=== PATIENT | female | born 1950 | race Caucasian/White ===

== ENCOUNTER → 2018-04-27 10:07 | Outpatient (CLI) | payer BC, SELFPAY ==
[2014-03-29 12:36] VITALS: BMI 31.3
--- NOTE | 2018-04-27 10:14 | US_ITS ---
STUDY: THYROID ULTRASOUND REASON FOR EXAM: Female, 67 years old. Thyroid nodules. History of thyroid biopsy 2013. Follow-up. TECHNIQUE: Ultrasound evaluation of the thyroid was performed with real-time and static lundberg-scale imaging. COMPARISON: 12/22/2014, 06/13/2013 ultrasound thyroid. FINDINGS: RIGHT LOBE: The right thyroid measures 5.1 x 2.0 x 1.7 cm. Background echotexture and vascularity are normal. Nodules are present. 3. Nodules, 7 x 7 x 6 mm, 7 x 5 x 4 mm, 4 x 3 x 2 mm. These exhibit perinodular vascular flow. One of these nodules a spongiform, stable. Another cystic focus has diminished in size. The 3rd nodule is solid. LEFT LOBE: The left thyroid measures 5.5 x 2.2 x 2.3 cm. Background echotexture is homogeneous with normal vascularity. Multiple nodules are present superior pole, mid polar, lower pole. Dominant nodule 16 x 15 x 7 mm, solid, minimal cystic spaces, tiny echo reflectors, intranodular vascular flow. Not substantially changed in size. Dominant nodule 12 x 10 x 12 mm, macrolobulated margins, solid, heterogeneously isoechoic to surrounding thyroid. Not substantially changed in size. 9 x 8 x 6 mm spongiform nodule. Diminished in size. 5 x 5 x 3 mm solid nodule. Stable. ISTHMUS: The isthmus measures 3 mm, normal echotexture . US/Thyroid IMPRESSION: Bilateral thyroid nodules. No significant increase in size of the dominant nodules. The small nodules on the right may be followed sonographically for surveillance purposes. Dominant nodule on the left measuring 16 x 15 x 7 mm. Based on [place] [employer] Guidelines for assessment of thyroid nodules, this nodule falls into the high suspicion pattern based on part cystic, predominately solid, tiny microcalcifications. Ultrasound guided FNA biopsy typically recommended if the greatest dimension is over 1 cm. The absence of any significant change since imaging of 2014 suggests a follow-up surveillance imaging remains appropriate. Dominant left nodule measuring 12 x 10 x 12 mm, solid, predominantly isoechoic. Based on the [place] [employer] Guidelines for assessment of thyroid nodules this falls into the low suspicion pattern. Typically with greatest dimension less than 1.5 cm, biopsy would not be necessary. Based on stability since prior imaging, continued surveillance imaging is appropriate. It is unknown which nodule was previously biopsied. Electronically Signed: Germán Leavitt MD at 11:55 EST Tel , Service support ,
== END ==
PROVIDERS: Family Provider Internal Medicine; PCP Internal Medicine; Referring Provider Internal Medicine; Visit Provider Internal Medicine
DX: E04.1 Nontoxic single thyroid nodule (principal)
CPT/HCPCS: 76536

== ENCOUNTER → 2018-05-18 16:45 | Outpatient (CLI) | payer BC, SELFPAY ==
[2018-05-07 09:46] VITALS: BMI 31.3
--- NOTE | 2018-05-18 16:49 | CT_ITS ---
STUDY: CT ABDOMEN AND PELVIS WITH CONTRAST REASON FOR EXAM: Female, 67 years old. Abdominal pain. History of incisional hernia. RADIATION DOSAGE (If Supplied By Facility): CTDIvol = ( 18.15 ) mGy, DLP = ( 964.62 ) mGycm TECHNIQUE: Transaxial images were obtained from the dome of the diaphragm to the symphysis pubis without oral contrast. 100ML ml of Isovue 300 contrast was administered. Sagittal and coronal images were reconstructed. Individualized dose optimization techniques were used for this CT. COMPARISON: None. FINDINGS: The visualized lung bases are clear. The visualized portions of the heart and pericardium are within normal limits. The patient is status post cholecystectomy. There are subcentimeter hypodensities in the liver which are too small to characterize. However, these likely represent cysts. The spleen is normal in size. The pancreas is within normal limits. The adrenal glands are within normal limits. There are no renal or ureteral stones. There is no hydronephrosis. There are parapelvic cysts noted in the kidneys. Normal visualized stomach. There is no bowel obstruction or inflammation. The appendix is visualized and appears normal. There are postsurgical changes noted from prior ventral hernia repair. There is no evidence of a recurrent hernia at the postsurgical site. There is a 6.2 x 3.1 x 2.8 cm fat containing ventral hernia in the midline in the upper abdomen. There is no bowel containing hernia. The aorta is normal in caliber. There is no abdominal or pelvic free air, free fluid, fluid collection or lymphadenopathy. The patient is status post hysterectomy. There are no destructive osseous lesions. CT/Abdomen/Pelvis WITH Contrast IMPRESSION: 6.1 x 3.1 x 2.8 cm fat-containing hernia in the midline of the upper abdominal wall. No bowel containing hernia. Postsurgical changes from prior ventral hernia repair. No evidence of a recurrent hernia at the postsurgical site. No bowel obstruction or inflammation. Normal appendix. Electronically Signed: Rashawn Manjarrez, at 17:50 EST Tel , Service support ,
[2018-05-19 01:37] LABS: CREATININE FINGERSTICK 1.2 mg/dL (0.55-1.02)
== END ==
PROVIDERS: Family Provider Internal Medicine; PCP Internal Medicine; Referring Provider Surgery; Visit Provider Surgery
DX: K43.2 Incisional hernia without obstruction or gangrene (principal)
CPT/HCPCS: 74177; Q9967

== ENCOUNTER → 2018-05-20 07:58 | Outpatient (CLI) | payer BC, SELFPAY ==
[2018-05-07 09:46] VITALS: BMI 31.3
--- NOTE | 2018-05-20 08:00 | BI_ITS ---
MAMMOGRAPHY - BILATERAL SCREENING REASON FOR EXAM: Female, 67 years old. Routine annual screening examination. PERTINENT HISTORY: Non-contributory. TECHNIQUE: Digital bilateral breast kaci (3D mammographic acquisition) in the CC and MLO projections. 2-D mediolateral oblique (MLO) and craniocaudad (CC) views of both breasts were obtained. CAD: Full Field Digital Mammography with Computer Added Detection was performed. COMPARISON: Comparison is made with prior study dated December 22, 2014. FINDINGS: Breast Composition: There are scattered areas of fibroglandular density. There are no dominant masses or suspicious calcifications. Stable 4.4 mm x 5.4 mm well-defined nodule in the upper lateral portion of the left breast. This may represent either small lymph node or a small cyst. Correlation with ultrasound is recommended. Stable small bilateral axillary lymph nodes. No other significant abnormalities are identified. There has been no significant change since the prior study. BI/SCREENING MAMM (CAD), BILAT IMPRESSION: Stable bilateral screening mammogram. Yearly follow-up mammogram recommended. (A) ASSESSMENT CATEGORY: BIRADS Category 0: Incomplete. Need additional imaging evaluation. A letter regarding these results will be sent to the patient by the facility within 30 days. Approximately 10% of breast cancers are not detected by mammography. A normal mammogram should not delay biopsy of a clinically suspicious abnormality. [id number] Electronically Signed: Kenan Ma MD at 9:07 EST , Service support ,
== END ==
PROVIDERS: Family Provider Internal Medicine; PCP Internal Medicine; Referring Provider Internal Medicine; Visit Provider Internal Medicine
DX: Z12.31 Encounter for screening mammogram for malignant neoplasm of breast (principal)
CPT/HCPCS: 77063; 77067

== ENCOUNTER → 2018-05-21 09:21 | Outpatient (CLI) | payer BC, SELFPAY ==
[2018-05-07 09:46] VITALS: BMI 31.3
[2018-05-21 08:59] VITALS: BMI 31.3
--- NOTE | 2018-05-21 09:22 | US_ITS ---
STUDY: ULTRASOUND BREAST - LEFT REASON FOR EXAM: Female, 67 years old. Abnormal screening mammogram. TECHNIQUE: Axial and longitudinal images of the LEFT breast were performed with a high resolution ultrasound transducer. COMPARISON: Comparison is made with prior mammogram dated May 20, 2018. FINDINGS: LEFT Breast: The mammographic abnormality corresponds to a 5 mm x 4 mm x 3 mm benign-appearing lymph node at the 1:00 position in the breast at 6 cm from the nipple. US/Breast Limited Unilateral IMPRESSION: The mammographic abnormality corresponds to a 5 mm x 4 mm x 3 mm benign-appearing lymph node. ASSESSMENT CATEGORY: BIRADS Category 2: Benign. A letter regarding these results will be sent to the patient by the facility within 30 days. Electronically Signed: Kenan Ma MD at 13:29 EST , Service support ,
== END ==
PROVIDERS: Family Provider Internal Medicine; PCP Internal Medicine; Referring Provider Internal Medicine; Visit Provider Internal Medicine
DX: R92.8 Other abnormal and inconclusive findings on diagnostic imaging of breast (principal)
CPT/HCPCS: 76642

== ENCOUNTER → 2018-05-27 11:25 | Outpatient (CLI) | payer BC, SELFPAY ==
[2018-05-25 09:24] VITALS: BMI 31.3
[2018-05-27 12:51] LABS: Absolute Lymphocyte Count 1.69 X10^3/ul (0.83-4.51); Absolute Neutrophil Count 4.2 X10^3/uL (2.0-7.7); Basophil# 0.02 X10^3/uL; Basophil% 0.3 % (0-1); Eosinophil# 0.07 X10^3/uL; Eosinophils% 1.1 % (0-5); Hematocrit 39.6 % (37-47); Hemoglobin 12.6 g/dl (12.0-15.0); Lymphocyte # 1.69 X10^3/ul (4.0); Lymphocyte % 26.4 % (19-41); Mean Corp Hgb Conc 31.8 g/gl (32-36); Mean Corpuscular Hgb 31.8 pg (27.0-32.0); Monocyte# 0.37 X10^3/uL; Monocyte% 5.8 % (0-10); Neutrophil # 4.23 X10^3/uL (2.7-7.7); Neutrophil % 66.2 % (47-70); Platelet Count 328 K/mm3 (150-450); RBC Distribution Width CV 13.5 % (11.6-14.6); RBC Distribution Width SD 48.8 fl (35.1-43.9); Red Blood Count 3.96 M/mm3 (4.2-5.4); White Blood Count 6.4 K/mm3 (4.4-11.0)
[2018-05-27 12:52] LABS: POSITIVE COUNT NO; POSITIVE DIFFERENTIAL NO; POSITIVE MORPHOLOGY NO
[2018-05-27 13:06] LABS: Microalbumin,Random Urine 12.1 mg/L (NO RANGE EST.); Microalbumin:Creatinine Ratio 10.6 mg/g CRE (<30 mg/g CRE)
[2018-05-27 13:17] LABS: Vitamin D,25 Hydroxy 14.2 ng/mL (29.95-100.01)
[2018-05-27 13:18] LABS: ALB/GLOB Ratio 0.8 RATIO (0.9-2.4); AST(SGOT) 22 U/L (15-37); Alanine Aminotransfer ALT/SGPT 30 U/L (13-56); Albumin, Serum 3.5 g/dL (3.2-5.0); Alkaline Phosphatase 96 U/L (45-117); Anion Gap 6 (5-15); BUN 17 mg/dL (7-18); BUN/Creat Ratio 28.5 RATIO (10-20); Calcium,Total 8.6 mg/dL (8.5-10.1); Chloride 107 mmol/L (98-107); EST Glomerular Filtration Rate 106 mL/min (>60); Est Glom Filt Rate - Afr Amer 128 mL/min (>60); Free T3 3.2 pg/mL (2.18-3.98); Globulin 4.2 g/dL (2.2-4.2); Glucose 91 mg/dL (74-106); Potassium 3.8 mmol/L (3.5-5.1); Protein, Total 7.7 g/dL (6.4-8.2); Sodium Level 139 mmol/L (136-145); T4 Free Direct 0.96 ng/dL (0.76-1.46); Thyroid Stim Hormone (TSH) 1.01 uIU/mL (0.358-3.74)
[2018-05-28 16:08] LABS: CHOLESTEROL TOTAL 283 mg/dL (100-199); HDL-C 71 mg/dL (>39); HDL-P TOTAL 40.2 umol/L (>=30.5); SMALL LDL-P 325 nmol/L (<=527); TRIGLYCERIDES 160 mg/dL (0-149)
[2018-05-30 10:12] LABS: INSULIN RESISTANCE SCORE 45 (<=45); LDL SIZE 21.7 nm (>20.5); LDL-C 180 mg/dL (0-99); LDL-P 1760 nmol/L (<1000)
== END ==
PROVIDERS: Family Provider Internal Medicine; PCP Internal Medicine; Referring Provider Internal Medicine; Visit Provider Internal Medicine
DX: R73.09 Other abnormal glucose (principal); E04.1 Nontoxic single thyroid nodule; E55.9 Vitamin D deficiency, unspecified; E78.5 Hyperlipidemia, unspecified
CPT/HCPCS: 80053; 80061; 82043; 82306; 82570; 83704; 84439; 84443; 84481; 85025

== ENCOUNTER 2018-05-28 06:00 | Day surgery (SDC) | payer BC, SELFPAY ==
[2018-05-25 09:24] VITALS: BMI 31.3
--- NOTE | 2018-05-27 11:45 | EKG12_ITS ---
Test Reason : PREOP Blood Pressure : / mmHG Vent. Rate : 068 BPM Atrial Rate : 068 BPM P-R Int : 148 ms QRS Dur : 092 ms QT Int : 416 ms P-R-T Axes : 004 -37 -08 degrees QTc Int : 442 ms Normal sinus rhythm Left axis deviation Incomplete right bundle branch block Confirmed by CAITIE SHAH, SPEEDY ([id number]), editor & co founder NARCISO OLGUIN ([id number]) on 05/31/2018 1:54:24 PM Referred By: Kevon Vincent Confirmed By:SPEEDY BLOOD MD
[2018-05-27 13:07] LABS: Hemoglobin A1c 6.2 % (4.2-6.3)
[2018-05-27 13:17] LABS: AST(SGOT) 20 U/L (15-37); Alanine Aminotransfer ALT/SGPT 30 U/L (13-56); Albumin, Serum 3.8 g/dL (3.2-5.0); Alkaline Phosphatase 96 U/L (45-117); Anion Gap 6 (5-15); BUN 17 mg/dL (7-18); Calcium,Total 8.6 mg/dL (8.5-10.1); Chloride 107 mmol/L (98-107); Creatinine, Serum 0.66 mg/dL (0.55-1.02); EST Glomerular Filtration Rate 95 mL/min (>60); Est Glom Filt Rate - Afr Amer 115 mL/min (>60); Glucose 93 mg/dL (74-106); Potassium 3.7 mmol/L (3.5-5.1); Protein, Total 7.8 g/dL (6.4-8.2); Sodium Level 139 mmol/L (136-145)
[2018-05-28 06:21] VITALS: BP 127/60; PULSE 72; RESP 14; TEMP 36.2; O2SAT 96; BMI 32.4
[2018-05-28] MEDS: Cefazolin 2 GM in 0.9% Normal Saline 100 ML IV (07:58)
[2018-05-28] MEDS: BUPIVACAINE LIPOSOME/PF 20 ML VIAL OPERA.SITE (08:10)
--- NOTE | 2018-05-28 08:30 | DCINST_ITS ---
Discharge Diet: Light diet - advance as tolerated Discharge Activity: Return to Normal Activity, May Drive - when you are no longer taking narcotic pain medications., May Shower - with the bandage in place 1-2 days after surgery. Lifting Restrictions: 20 pounds for 8 weeks. Additional Activity Instructions:: Climbing stairs is fine, walking is encouraged. Sitting in bed may be uncomfortable. Sitting up using your lateral muscles (sitting up sideways) is usually more comfortable. Do not drive, work heavy equipment of sign legal documents for 24 hours. If your hernia repair was an ingunial repair, you may have scrotal swelling, an ice pack and/or athletic support can provide more comfort. Pain medications may cause nausea, you should typically eat light foods as you take your pain medications. Pain medications may also cause constipation. If you have difficulty with this, discuss with your doctor. Call your doctor if your incision/area has: Continuous Slow Oozing, Sudden Increased Bleeding, Increased Pain/ Swelling, Increased Redness, Foul Smelling Discharge Call your doctor if you observe: Fever of 101 or Higher Suture Line Care: Avoid Pulling/Pushing, Avoid Pinching/Bending Additional Dressing/Incision Instructions:: Leave the operative bandage on for 2-3 days. When you remove the bandage, leave the steri-strips on place until your follow up appointment or they fall off. Allergies/Adverse Reactions: Allergies hydrocodone Adverse Reaction (Verified 05/28/18 06:34) Nausea Medications to take at Discharge Oxycodone HCl/Acetaminophen [Percocet 5/325] 1 - 2 tab PO Q4H PRN PRN 6 Days #30 tab 05/28/18 The following prescriptions were given: Oxycodone HCl/Acetaminophen [Percocet 5/325] 1 - 2 tab PO Q4H PRN PRN 6 Days #30 tab PRN Reason: Pain Orders to be completed after discharge: 12 Lead EKG [[facility]] Time Frame: 05/26/18, Facility: [facility], Location: Cardiovascular Services Hemoglobin A1c Time Frame: 05/26/18, Location: Laboratory Basic Metabolic Profile (BMP) Time Frame: 05/26/18, Location: Laboratory Primary Care Physician: Carlota Easton DO [Primary Care Provider] - Test Results: Test results from this visit will be discussed in further detail at your follow- up appointment, if applicable. Please Follow Up With: Kevon Vincent MD - [phone] When: Plan to have a follow up appointment in 7 days. Call to schedule.
--- NOTE | 2018-05-28 08:35 | OP.PCM_ITS ---
Problem List (1) Incarcerated incisional hernia Status: Acute Report of Operation Date of Procedure: 05/28/18 Pre-Operative Diagnosis: Incarcerated incisional hernia Post-Operative Diagnosis: Same Surgery/Procedure Performed:: Repair of incarcerated incisional hernia with mesh Type of Anesthesia:: General Anesthesiologist: Eladio Hudson Drains: none Estimated Blood Loss (mL): < 25 cc Fluids Replaced: 500 cc lr Description of Procedure: Patient was brought into the operating room placed in the supine position. Under excellent general trach intubation the abdomen was sterilely prepped and draped in usual fashion. Local was injected. A transverse incision was made above the umbilicus. Dissection was carried down incarcerated incisional hernia easily reduced and I was left with a defect that was approximately 2-1/2 cm in greatest diameter. I created a preperitoneal window. This was done circumferentially underneath and around the fascia. I fashioned a [address] hernia patch into the wound it laid completely flat. Circumferentially tacked it to the surrounding good fascia with #1 Nurolon's. Exparel was injected. I had excellent hemostasis. Subcu was brought together with 2-0 Vicryl. Deep dermal stitches of 3-0 Vicryl. Then a running 4-0 Monocryl Steri- Strips were applied sterile dressings were applied and the patient tolerated the procedure well. - Admit VTE Documentation VTE Present on Admission: No VTE Mechan Device Prophylaxis: SCD's VTE Pharm Prophylaxis ordered?: No Reason prophylaxis not ordered:: Treatment Not Indicated
[2018-05-28 08:50] VITALS: BP 127/60; BP 136/67; PULSE 85; RESP 12; TEMP 36.2; O2SAT 93
[2018-05-28 09:00] VITALS: BP 127/60; BP 128/65; PULSE 81; RESP 14; O2SAT 92
[2018-05-28 09:15] VITALS: BP 120/60; BP 127/60; PULSE 83; RESP 16; O2SAT 95
[2018-05-28 09:29] VITALS: BP 108/55; BP 127/60; PULSE 78; RESP 14; TEMP 36.2; O2SAT 95
[2018-05-28 11:49] VITALS: BP 127/60; BP 137/58; PULSE 67; RESP 16; TEMP 36.6; O2SAT 94
== END 2018-05-28 11:54 | disposition home or self-care (01) ==
LOC: SDC 06:03 → AC 06:05
PROVIDERS: Family Provider Internal Medicine; PCP Internal Medicine; Referring Provider Surgery; Visit Provider Surgery
PROC: (CPT 49561; principal; 2018-05-28 07:45)
DX: K43.0 Incisional hernia with obstruction, without gangrene (principal); R73.03 Prediabetes; Z87.891 Personal history of nicotine dependence
CPT/HCPCS: 00832; 49561; 49568; 36415; 80053; 83036; 93005; J7120; C1781; J2405; J3490

== ENCOUNTER → 2018-11-01 | Outpatient (CLI) | payer BC, SELFPAY ==
--- NOTE | 2018-11-01 17:06 | RAD_ITS ---
HISTORY: PAIN IN LEFT KNEE. NO KNOWN INJURY. ADDITIONAL HISTORY: None provided. COMPARISON: None TECHNIQUE: Left knee 4 views Number of images including paperwork: 4 FINDINGS: BONES: No acute fracture. JOINTS: No subluxation. Mild medial compartment joint space narrowing. Tiny patellar osteophyte. Small left knee joint effusion. SOFT TISSUES: No distinct foreign body. RAD/Knee 4 or More Views IMPRESSION: No acute osseous abnormality. Small left knee joint effusion. at 0643 Reported and signed by: Sandra Delacruz MD Electronically Signed: Sandra Delacruz MD at 6:43 EDT Tel , Service support ,
== END | disposition home or self-care (01) ==
PROVIDERS: Family Provider Internal Medicine; PCP Internal Medicine; Referring Provider Nurse Practitioner; Visit Provider Nurse Practitioner
DX: M25.562 Pain in left knee (principal)
CPT/HCPCS: 73564

== ENCOUNTER → 2018-11-03 08:02 | Outpatient (CLI) | payer BC, SELFPAY ==
--- NOTE | 2018-11-03 08:05 | VDLE_ITS ---
Reason For Study: Pain RIGHT LEFT CFV is compressible, spontaneous, phasic, GSV is normal. competent and demonstrates normal CFV is compressible, spontaneous, phasic, augmentation. competent, and demonstrates normal Procedure augmentation. Exam performed in department. FV is compressible, spontaneous, phasic, A preliminary report was called and/or faxed competent and demonstrates normal to Ciesa. augmentation. POP V is compressible, spontaneous, phasic, competent and demonstrates normal augmentation. T/P Trunk is compressible. PTV is compressible. LT PerV is compressible. Interpretation Summary Deep veins of the left lower extremity are patent and compressible segmentally. There is no evidence of left lower extremity deep vein thrombosis. Valvular competence appears intact within the proximal deep venous system on the left . The left greater saphenous vein appears patent and compressible segmentally. Ordering Physician: Taylor Guaman Referring Physician: Carlota Eatson M.D. Performed By: Ilda Mcdonald RVT
== END ==
PROVIDERS: Family Provider Internal Medicine; PCP Internal Medicine; Referring Provider Nurse Practitioner; Visit Provider Nurse Practitioner
DX: M25.562 Pain in left knee (principal); M79.662 Pain in left lower leg
CPT/HCPCS: 93971

== ENCOUNTER → 2020-04-27 12:31 | Outpatient (CLI) | payer BC, SELFPAY ==
--- NOTE | 2020-04-27 12:40 | BI_ITS ---
MAMMOGRAPHY - BILATERAL SCREENING REASON FOR EXAM: Female, 69 years old. Routine annual screening examination. PERTINENT HISTORY: Non-contributory. TECHNIQUE: Digital bilateral breast matthew (3D mammographic acquisition) in the CC and MLO projections. 2-D mediolateral oblique (MLO) and craniocaudad (CC) views of both breasts were obtained. CAD: Full Field Digital Mammography with Computer Added Detection was performed. COMPARISON: Comparison is made with prior study dated 05/20/2018 and 12/22/2014. FINDINGS: Breast Composition: There are scattered areas of fibroglandular density. There are no dominant masses or suspicious calcifications. Stable 4 mm x 4.4 mm well-defined nodule in the upper lateral portion of the left breast. This was demonstrated to be a small benign-appearing lymph node on prior sonogram. Stable small benign appearing bilateral axillary lymph nodes. No other significant abnormalities are identified. There has been no significant change since the prior study. BI/SCRN MAMM (CAD)W/MATTHEW BILAT IMPRESSION: Stable bilateral screening mammogram. Yearly follow-up mammogram recommended. (A) ASSESSMENT CATEGORY: BIRADS Category 2: Benign. A letter regarding these results will be sent to the patient by the facility within 30 days. Approximately 10% of breast cancers are not detected by mammography. A normal mammogram should not delay biopsy of a clinically suspicious abnormality. [id number] Electronically Signed: Kenan Ma MD at 13:28 EST , Service support ,
== END ==
PROVIDERS: PCP Internal Medicine; Referring Provider Internal Medicine; Visit Provider Internal Medicine
DX: Z12.31 Encounter for screening mammogram for malignant neoplasm of breast (principal)
CPT/HCPCS: 77063; 77067

== ENCOUNTER 2020-07-09 11:30 | Outpatient (RCR) | payer BC, SELFPAY ==
--- NOTE | 2020-06-19 08:18 | HP.PTEVAL_ITS ---
Patient's Visit Information GEMMA CERON is a 69 year old F referred to Physical Therapy by Dr. Carlota Easton DO with a diagnosis of R Sciatica. Date of Evaluation: 06/19/20 Physical Therapist: KINZA Dixon - Visit Plan Frequency: 2x /Week Duration: 4 Weeks Plan: 2X/ week for 4 weeks for stretching and MT to the R piriformis, ext mobs of L spine if needed, centralization of symptoms using extension, Core stability, postural exercises, R hip strength, R hip and LE stretching with HEP and modalities if needed - Subjective Pt reports that she has never had sciatica problems. She thought that she was just having a back spasm. This has been 3.5 weeks.... thought was having a muscle spasm and then down the butt cheek and then down the leg and radiated in front of knee. She reports that she was soaking in Epsom salts, Heat, IBprof, Alieve all on her back. Dr Easton put her on prednizone and 3 extra strength Tylenol.... can not function when the Tylenol wears off. The pain is easing off. Currently she has pain in her back and goes down to her knee...and the pain feels dull and if she touches her knee and will feel it radiate and it throbs. She has no Numbness or tingling. She has had no x-rays or MRI. No loss of bowl or bladder. It does not keep her awake at night. She has trouble doing up the steps and can not put pressure through the R leg. She is not doing any exercises. - Pain Back pain Pain Intensity (Out of 10): 5 R leg pain Pain Intensity (Out of 10): 6 - Objective Gait: Normal gait pattern with some veering at times. Able to walk on heels and toes but does have trouble due to balance not strength. Trunk AROM: flexion 75%, Ext 75%, SB B 75%, Rot B 50%. LE MMT: B hip flex 4-/5, B knee ext 4/5, B knee flex 4/5, R hip abd 4-/5, L hip abd 4/5. Good HS length, Quad length B. Tight R pififormis and IT band, TFL. Palpation: no tenderness along L-spine but has some tenderness along the R side of sacrum and pififormis muscle. Prone press ups 3 X 5 ( pt felt the pain in her knee when infull extension but resolved when come back to prone position). Instructed pt in si tting with good posture with L-roll. Worked on PRONE IR/ER of the hip with trigger points along the R side of sacrum and piruiformis muscle belly. Pt felt better when walking out of the clinic - Goals Goal 1:: I HEP Goal Time Frame: 4-6 Weeks Goal 2:: Decrease back and R leg pain to less that 2/10 back and leg pain with ADL's Goal Time Frame: 4-6 Weeks Goal 3:: Be able to sit with better posture during treatment sessions Goal Time Frame: 4-6 Weeks Goal 4:: Increase R hip abd and flexion strength to 4/5 without pain Goal Time Frame: 4-6 Weeks - Rehabilitation Potential Rehabilitation Potential: Good - Anticipated Interventions Patient/Client Instruction: Educate patient on: Condition, Plan of Care For the Purpose of:: To decrease pain, To increase ROM, To improve nutrient delivery to tissue, To improve muscle performance and motor function, To increase tolerance to activity/condition/position, To improve performance and independence with ADL's, To decrease level of supervision to perform tasks, To improve ability of physical actions for home/community/work/leisure, To improve health of tissue, To decrease soft tissue restriction, To increase flexibility/ROM Therapeutic Exercise to Include: Strength training, Balance training, Postural t raining, Flexibilty training, Gait and locomotor training, Neuromotor development, Passive ROM, Active ROM, Dynamic Lumbar Stabilization, Celina Exercises, Scapular Strength/Stabilization For the Purpose of:: To decrease pain, To increase ROM, To improve nutrient delivery to tissue, To improve muscle performance and motor function, To improve ability to perform ADL's, To increase tolerance to activity/condition/position, To improve performance and independence with ADL's, To decrease level of supervision to perform tasks, To improve ability of physical actions for ho me/community/work/leisure, To improve gait and locomotor functions, To improve health of tissue, To decrease soft tissue restriction, To increase flexibility/ROM, To improve balance, To improve safety with gait Manual Therapy Techniques to Include: Mobilization, Passive ROM, Soft tissue mobilization For the Purpose of:: To decrease pain, To increase ROM, To improve nutrient delivery to tissue, To improve muscle performance and motor function, To improve ability to perform ADL's, To increase tolerance to activity/condition/position, To improve performance and independence with ADL's, To improve ability of physical actions for home/community/work/leisure, To improve gait and locomotor functions, To improve health of tissue, To decrease soft tissue restriction, To increase flexibility/ROM, To improve balance IF ES: Yes Cryotherapy (ice pack, ice massage): Yes Thermo therapy (hot pack): Yes Ultrasound (thermal/non thermal): Yes For the Purpose of:: To decrease pain, To increase ROM, To improve nutrient delivery to tissue Thank you for the opportunity to evaluate your patient. For Medicare and Medicare HMO plans, please review the plan of care and approve it. It will need to be FAXED BACK to us at [phone] for Medicare purposes. For Medicare only, by signing this I certify the plan of care. Please let me know if there are questions or concerns regarding this plan of care. Physician Signature: Date:
--- NOTE | 2020-07-25 14:58 | HP.PTDCSUM ---
It has been my pleasure to treat GEMMA CERON referred by Dr. Carlota Easton DO, with the diagnosis of R Sciatica for a total of 6 visit(s). Discharge Date: 07/25/20 Please see the following information for a summary of their discharge status. Subjective: Pt feels 100% better. She wants a HEP and continue and will call in again if she starts having pain again. She is watching her posture and has to think about it. Back pain Pain Intensity (Out of 10): 0 R leg pain Pain Intensity (Out of 10): 0 % Improvement: 100 Objective/Function: Pt doing well and maintaing good posture and knowlegable of her HEP with good form. Goal 1:: I HEP Goal Progress: Goal Met Goal 2:: Decrease back and R leg pain to less that 2/10 back and leg pain with ADL's Goal Progress: Goal Met Goal 3:: Be able to sit with better posture during treatment sessions Goal Progress: Goal Met Goal 4:: Increase R hip abd and flexion strength to 4/5 without pain Goal Progress: Progressing Plan: Hold chart. Pt will call in within 2 weeks if she has any other problems. EDIT: pt called on 07-25-2020 and said she is doing wonderful and will continue with her HEP Discharge Comments: DC PT to HEP If there are questions or concerns regarding this patient's physical therapy, please feel free to call me at [phone]. Thank you for the referral of this patient. Sincerely, KINZA Dixon
== END 2020-07-09 19:00 | disposition home or self-care (01) ==
LOC: PT 11:30
PROVIDERS: PCP Internal Medicine; Referring Provider Internal Medicine; Visit Provider Internal Medicine
DX: M54.31 Sciatica, right side (principal)
CPT/HCPCS: 97110; 97161

== ENCOUNTER → 2020-11-26 09:11 | Outpatient (CLI) | payer BC, SELFPAY ==
[2020-11-26 12:11] LABS: Absolute Lymphocyte Count 1.47 X10^3/uL (0.83-4.51); Basophil# 0.03 X10^3/uL; Basophil% 0.5 % (0-1); Eosinophil# 0.09 X10^3/uL; Eosinophils% 1.5 % (0-5); Hemoglobin 12.3 g/dL (12.0-15.0); Lymphocyte # 1.47 X10^3/ul (0.83-4.51); Lymphocyte % 24.6 % (19-41); Mean Corp Hgb Conc 32.4 g/dL (32-36); Mean Corpuscular Hgb 32.1 pg (27.0-32.0); Mean Corpuscular Volume 99.2 fL (81-99); Mean Platelet Vol. 10.5 fl (6.2-12.0); Monocyte# 0.38 X10^3/uL; Monocyte% 6.4 % (0-10); NRBC Flagged by Analyzer 0 % (0-5); Neutrophil # 3.98 X10^3/uL (2.7-7.7); Neutrophil % 66.7 % (47-70); Platelet Count 382 K/mm3 (150-450); RBC Distribution Width CV 13.4 % (11.6-14.6); RBC Distribution Width SD 48.4 fl (35.1-43.9); Red Blood Count 3.83 M/mm3 (4.2-5.4)
[2020-11-26 12:32] LABS: ALB/GLOB Ratio 0.9 RATIO (0.9-2.4); AST(SGOT) 19 U/L (15-37); Alanine Aminotransfer ALT/SGPT 29 U/L (13-56); Albumin, Serum 3.5 g/dL (3.2-5.0); Alkaline Phosphatase 99 U/L (45-117); Anion Gap 6 (5-15); BUN 12 mg/dL (7-18); BUN/Creat Ratio 19.2 RATIO (10-20); Calcium,Total 8.7 mg/dL (8.5-10.1); Chloride 107 mmol/L (98-107); Cholesterol 239 mg/dL (200); Creatinine, Serum 0.62 mg/dL (0.55-1.02); EST Glomerular Filtration Rate 100 mL/min (>60); Est Glom Filt Rate - Afr Amer 121 mL/min (>60); Glucose 104 mg/dL (74-106); High Density Lipoprotein 66 mg/dL; Potassium 3.8 mmol/L (3.5-5.1); Protein, Total 7.5 g/dL (6.4-8.2); Sodium Level 139 mmol/L (136-145); Triglycerides 138 mg/dL; Very Low Density Lipoprotein 28 mg/dL (5-40)
== END ==
PROVIDERS: PCP Internal Medicine; Visit Provider Internal Medicine
DX: E78.5 Hyperlipidemia, unspecified (principal); M85.80 Other specified disorders of bone density and structure, unspecified site; R73.03 Prediabetes
CPT/HCPCS: 36415; 80053; 80061; 83036; 85025

== ENCOUNTER → 2020-12-04 09:01 | Outpatient (CLI) | payer BC, SELFPAY ==
--- NOTE | 2020-12-04 09:01 | EKG12_ITS ---
Test Reason : HTN,HLD Blood Pressure : / mmHG Vent. Rate : 064 BPM Atrial Rate : 064 BPM P-R Int : 148 ms QRS Dur : 088 ms QT Int : 434 ms P-R-T Axes : 024 -40 -14 degrees QTc Int : 447 ms Normal sinus rhythm Left axis deviation Inferior infarct , age undetermined Abnormal ECG Confirmed by LUIGI SHAH, IBRAHIMA ([id number]), editor farm journal JOSSE HUNTLEY ([id number]) on 12/05/2020 9:20:14 AM Referred By: Shiv Gaviria Confirmed By:IBRAHIMA MEYERS MD
== END ==
PROVIDERS: PCP Internal Medicine; Referring Provider Internal Medicine; Visit Provider Internal Medicine
DX: E78.5 Hyperlipidemia, unspecified (principal); I10 Essential (primary) hypertension
CPT/HCPCS: 93005

== ENCOUNTER 2021-05-09 13:26 | Outpatient (CLI) | payer BC, SELFPAY ==
--- NOTE | 2021-05-09 13:29 | BI_ITS ---
MAMMOGRAPHY - BILATERAL SCREENING REASON FOR EXAM: Female, 70 years old. Routine annual screening examination. PERTINENT HISTORY: Non-contributory. TECHNIQUE: Digital bilateral breast matthew (3D mammographic acquisition) in the CC and MLO projections. 2-D mediolateral oblique (MLO) and craniocaudad (CC) views of both breasts were obtained. CAD: Full Field Digital Mammography with Computer Added Detection was performed. COMPARISON: Comparison is made with prior study dated 04/27/2020 and 12/18/2018 FINDINGS: Breast Composition: There are scattered areas of fibroglandular density. There are no dominant masses or suspicious calcifications. Stable 4 mm x 4.4 mm well-defined nodule in the upper lateral aspect of the breast. Stable small benign-appearing bilateral axillary lymph nodes. No other significant abnormalities are identified. There has been no significant change since the prior study. BI/SCRN MAMM (CAD)W/MATTHEW BILAT IMPRESSION: Stable bilateral screening mammogram. Yearly follow-up mammogram recommended. (A) ASSESSMENT CATEGORY: BIRADS Category 2: Benign. A letter regarding these results will be sent to the patient by the facility within 30 days. Approximately 10% of breast cancers are not detected by mammography. A normal mammogram should not delay biopsy of a clinically suspicious abnormality. [id number] Electronically Signed: Kenan Ma MD at 8:49 EST ,
--- NOTE | 2021-05-09 13:41 | BD_ITS ---
STUDY: DUAL ENERGY X-RAY ABSORPTIOMETRY / DXA REASON FOR EXAM: Female, 70 years old. Osteopenia TECHNIQUE: Bone Mineral Density (BMD) measurements of lumbar spine and bilateral hips were obtained. COMPARISON: Comparison is made with prior study dated 03/11/2011. FINDINGS: Lumbar Spine (L1-L4): g/cm2 (0.937) / T-score (-0.7) / Z-score (1.5) Findings are suggestive of normal bone density with a low fracture risk. Left Femur Total: g/cm2 (0.961) / T-score (0.0) / Z-score (1.6) Left Femoral Neck: g/cm2 (0.770) / T-score (-0.8) / Z-score (1.1) Right Femur Total: g/cm2 (1.017) / T-score (0.4) / Z-score (2.0) Right Femoral Neck: g/cm2 (0.75) / T-score (-0.8) / Z-score (1.2) The T-Scores on the most recent prior examination were: Lumbar Spine (L1-L4): There has been worsening of bone density since the previous examination. Left Femur Total: which represents a worsening of 11.7%. Right Femur Total: which represents a worsening of 10.1%. BD/Dexa Bone Density Study IMPRESSION: The patient is considered normal as outlined below according to World [employer] Organization (WHO) criteria with a low fracture risk. There has been worsening of bone density since the previous examination. Reference Information: The T-score is the number of standard deviations above or below the standard which is normal for young adults at their peak bone mineral density. The World Health Organization (WHO) interprets the T-scores as follows: Above -1 Normal bone density Between -1 and -2.5 Osteopenia Equal to / or below -2.5 Osteoporosis As a practical clinical guideline, osteopenia may be graded as follows: Mild -1 through -1.5 Moderate -1.6 through -2.0 Severe -2.1 through -2.4 The Z-score is the number of standard deviations above or below age-matched controls. A Z-score of less than -1.5 would be considered abnormal. References: 1. NIH Osteoporosis and Related Bone Diseases www osteo.org 2. International Society for Clinical Densitometry www iscd.org 3. National Osteoporosis Foundation www nof.org Electronically Signed: Kenan Ma MD at 18:48 EST ,
== END 2021-05-09 23:59 | disposition home or self-care (01) ==
LOC: OPBI 13:26
PROVIDERS: PCP Internal Medicine; Referring Provider Internal Medicine; Visit Provider Internal Medicine
DX: Z12.31 Encounter for screening mammogram for malignant neoplasm of breast (principal); M85.80 Other specified disorders of bone density and structure, unspecified site; Z78.0 Asymptomatic menopausal state
CPT/HCPCS: 77063; 77067; 77080

== ENCOUNTER → 2021-08-22 | Outpatient (CLI) | payer BC, SELFPAY | END | disposition home or self-care (01) | LOC: BIMLAB 10:46 | PROVIDERS: PCP Internal Medicine; Referring Provider Physician Assistant; Visit Provider Physician Assistant | DX: J02.9 Acute pharyngitis, unspecified (principal); R50.9 Fever, unspecified | CPT/HCPCS: 87635; U0003; U0005 ==

== ENCOUNTER → 2022-07-21 | Outpatient (CLI) | payer BC, SELFPAY ==
[2022-07-21 14:48] LABS: Absolute Lymphocyte Count 1.83 X10^3/uL (0.83-4.51); Absolute Neutrophil Count 4.8 X10^3/uL (2.0-7.7); Basophil# 0.03 X10^3/uL; Basophil% 0.4 % (0-1); Eosinophil# 0.06 X10^3/uL; Eosinophils% 0.9 % (0-5); Hematocrit 39.6 % (37-47); Hemoglobin 12.8 g/dL (12.0-15.0); Lymphocyte # 1.83 X10^3/ul (0.83-4.51); Mean Corp Hgb Conc 32.3 g/dL (32-36); Mean Corpuscular Hgb 32.5 pg (27.0-32.0); Mean Corpuscular Volume 100.5 fL (81-99); Mean Platelet Vol. 10.3 fl (6.2-12.0); Monocyte# 0.33 X10^3/uL; Monocyte% 4.7 % (0-10); NRBC Flagged by Analyzer 0 % (0-5); Neutrophil # 4.78 X10^3/uL (2.7-7.7); Neutrophil % 67.7 % (47-70); Platelet Count 378 K/mm3 (150-450); RBC Distribution Width CV 13.5 % (11.6-14.6); RBC Distribution Width SD 50.1 fl (35.1-43.9); Red Blood Count 3.94 M/mm3 (4.2-5.4); White Blood Count 7.1 K/mm3 (4.4-11.0)
[2022-07-21 15:04] LABS: ALB/GLOB Ratio 0.9 RATIO (0.9-2.4); AST(SGOT) 18 U/L (15-37); Alanine Aminotransfer ALT/SGPT 29 U/L (13-56); Albumin, Serum 3.6 g/dL (3.2-5.0); Alkaline Phosphatase 105 U/L (45-117); Anion Gap 5 (5-15); BUN 16 mg/dL (7-18); BUN/Creat Ratio 23.4 RATIO (10-20); Calcium,Total 9.1 mg/dL (8.5-10.1); Chloride 105 mmol/L (98-107); Cholesterol 243 mg/dL (200); Creatinine, Serum 0.68 mg/dL (0.55-1.02); EST Glomerular Filtration Rate 89 mL/min (>60); Est Glom Filt Rate - Afr Amer 108 mL/min (>60); Globulin 4.1 g/dL (2.2-4.2); Glucose 107 mg/dL (74-106); High Density Lipoprotein 68 mg/dL; Protein, Total 7.7 g/dL (6.4-8.2); Sodium Level 137 mmol/L (136-145); Triglycerides 175 mg/dL; Very Low Density Lipoprotein 35 mg/dL (5-40)
[2022-07-21 15:10] LABS: Vitamin D,25 Hydroxy 61.6 ng/mL
[2022-07-21 15:24] LABS: Hemoglobin A1c 5.8 % (3.8-5.6)
== END | disposition home or self-care (01) ==
LOC: BIMLAB 10:36
PROVIDERS: PCP Internal Medicine; Visit Provider Internal Medicine
DX: I10 Essential (primary) hypertension (principal); E55.9 Vitamin D deficiency, unspecified; E78.5 Hyperlipidemia, unspecified; R73.03 Prediabetes
CPT/HCPCS: 36415; 80053; 80061; 82306; 83036; 85025

== ENCOUNTER → 2022-07-29 | Outpatient (CLI) | payer BC, SELFPAY ==
--- NOTE | 2022-07-29 15:18 | BI_ITS ---
MAMMOGRAPHY - BILATERAL SCREENING REASON FOR EXAM: Female, 71 years old. Routine annual screening examination. PERTINENT HISTORY: Non-contributory. TECHNIQUE: Digital bilateral breast matthew (3D mammographic acquisition) in the CC and MLO projections. 2-D mediolateral oblique (MLO) and craniocaudad (CC) views of both breasts were obtained. CAD: Full Field Digital Mammography with Computer Added Detection was performed. COMPARISON: Comparison is made with prior study of May 09, 2021 and April 27, 2020. FINDINGS: Breast Composition: There are scattered areas of fibroglandular density. There are no dominant masses or suspicious calcifications. Stable 4 mm x 4 mm well-defined nodule in the upper lateral aspect of the left breast. This most likely represents a small intramammary lymph node. Stable small benign appearing bilateral axillary lymph nodes. No other significant abnormalities are identified. There has been no significant change since the prior study. BI/SCRN MAMM (CAD)W/MATTHEW BILAT IMPRESSION: Stable bilateral screening mammogram. Yearly follow-up mammogram recommended. (A) ASSESSMENT CATEGORY: BIRADS Category 2: Benign. A letter regarding these results will be sent to the patient by the facility within 30 days. Approximately 10% of breast cancers are not detected by mammography. A normal mammogram should not delay biopsy of a clinically suspicious abnormality. [id number] Electronically Signed: Kenan Ma MD at 8:35 EDT ,
== END | disposition home or self-care (01) ==
LOC: OPBI 15:17
PROVIDERS: PCP Internal Medicine; Referring Provider Internal Medicine; Visit Provider Internal Medicine
DX: Z12.31 Encounter for screening mammogram for malignant neoplasm of breast (principal)
CPT/HCPCS: 77063; 77067

== ENCOUNTER → 2023-05-18 | Outpatient (CLI) | payer BC, SELFPAY ==
[2023-05-18 12:36] LABS: Absolute Lymphocyte Count 1.73 X10^3/uL (0.83-4.51); Absolute Neutrophil Count 3.5 X10^3/uL (2.0-7.7); Basophil# 0.04 X10^3/uL; Basophil% 0.7 % (0-1); Eosinophil# 0.08 X10^3/uL; Eosinophils% 1.4 % (0-5); Hematocrit 38.9 % (37-47); Hemoglobin 12.5 g/dL (12.0-15.0); Lymphocyte # 1.73 X10^3/ul (0.83-4.51); Lymphocyte % 29.9 % (19-41); Mean Corp Hgb Conc 32.1 g/dL (32-36); Mean Corpuscular Hgb 31.7 pg (27.0-32.0); Mean Corpuscular Volume 98.7 fL (81-99); Mean Platelet Vol. 10.3 fl (6.2-12.0); Monocyte# 0.39 X10^3/uL; Monocyte% 6.7 % (0-10); NRBC Flagged by Analyzer 0 % (0-5); Neutrophil # 3.52 X10^3/uL (2.7-7.7); Platelet Count 352 K/mm3 (150-450); RBC Distribution Width CV 13.6 % (11.6-14.6); RBC Distribution Width SD 49.7 fl (35.1-43.9); Red Blood Count 3.94 M/mm3 (4.2-5.4); White Blood Count 5.8 K/mm3 (4.4-11.0)
[2023-05-18 12:49] LABS: ALB/GLOB Ratio 0.9 RATIO (0.9-2.4); AST(SGOT) 20 U/L (15-37); Alanine Aminotransfer ALT/SGPT 35 U/L (13-56); Albumin, Serum 3.7 g/dL (3.2-5.0); Alkaline Phosphatase 117 U/L (45-117); Anion Gap 8 (5-15); BUN 23 mg/dL (7-18); Calcium,Total 9.4 mg/dL (8.5-10.1); Chloride 105 mmol/L (98-107); Cholesterol 241 mg/dL (200); Creatinine, Serum 0.74 mg/dL (0.55-1.02); EST Glomerular Filtration Rate 81 mL/min (>60); Est Glom Filt Rate - Afr Amer 98 mL/min (>60); Globulin 4.3 g/dL (2.2-4.2); Glucose 113 mg/dL (74-106); High Density Lipoprotein 69 mg/dL; Sodium Level 139 mmol/L (136-145); Triglycerides 114 mg/dL; Very Low Density Lipoprotein 23 mg/dL (5-40)
== END | disposition home or self-care (01) ==
LOC: BIMLAB 09:56
PROVIDERS: PCP Internal Medicine; Visit Provider Internal Medicine
DX: E78.5 Hyperlipidemia, unspecified (principal); I10 Essential (primary) hypertension; E55.9 Vitamin D deficiency, unspecified
CPT/HCPCS: 36415; 80053; 80061; 82306; 85025

== ENCOUNTER → 2023-08-11 | Outpatient (CLI) | payer BC, SELFPAY ==
--- NOTE | 2023-08-11 09:02 | BI_ITS ---
MAMMOGRAPHY - BILATERAL SCREENING REASON FOR EXAM: Female, 72 years old. Routine annual screening examination. PERTINENT HISTORY: Non-contributory. TECHNIQUE: Digital bilateral breast matthew (3D mammographic acquisition) in the CC and MLO projections. 2-D mediolateral oblique (MLO) and craniocaudad (CC) views of both breasts were obtained. CAD: Full Field Digital Mammography with Computer Added Detection was performed. COMPARISON: Comparison is made with prior study July 29, 2022 and May 09, 2021. FINDINGS: Breast Composition: There are scattered areas of fibroglandular density. There are no dominant masses or suspicious calcifications. Stable 4 mm x 4 mm well-defined nodule in the upper lateral aspect of the left breast. This most likely represents a small intramammary lymph node as demonstrated on prior sonogram dated May 21, 2018. Stable small benign-appearing bilateral axillary lymph nodes. No other significant abnormalities are identified. There has been no significant change since the prior study. BI/SCRN MAMM (CAD)W/MATTHEW BILAT IMPRESSION: Stable bilateral screening mammogram. Yearly follow-up mammogram recommended. (A) ASSESSMENT CATEGORY: BIRADS Category 2: Benign. A letter regarding these results will be sent to the patient by the facility within 30 days. Approximately 10% of breast cancers are not detected by mammography. A normal mammogram should not delay biopsy of a clinically suspicious abnormality. [id number] Electronically Signed: Kenan Ma MD at 12:23 EDT ,
[2023-08-11 13:00] LABS: ALB/GLOB Ratio 0.8 RATIO (0.9-2.4); AST(SGOT) 16 U/L (15-37); Alanine Aminotransfer ALT/SGPT 25 U/L (13-56); Albumin, Serum 3.6 g/dL (3.2-5.0); Alkaline Phosphatase 110 U/L (45-117); Anion Gap 7 (5-15); BUN 16 mg/dL (7-18); BUN/Creat Ratio 23.3 RATIO (10-20); Calcium,Total 9.4 mg/dL (8.5-10.1); Chloride 105 mmol/L (98-107); Cholesterol 172 mg/dL (200); Creatinine, Serum 0.69 mg/dL (0.55-1.02); EST Glomerular Filtration Rate 89 mL/min (>60); Est Glom Filt Rate - Afr Amer 107 mL/min (>60); Globulin 4.3 g/dL (2.2-4.2); Glucose 125 mg/dL (74-106); High Density Lipoprotein 74 mg/dL; Potassium 3.7 mmol/L (3.5-5.1); Protein, Total 7.9 g/dL (6.4-8.2); Sodium Level 138 mmol/L (136-145); Triglycerides 75 mg/dL; Very Low Density Lipoprotein 15 mg/dL (5-40)
[2023-08-11 13:13] LABS: Hemoglobin A1c 5.8 % (3.8-5.6)
== END | disposition home or self-care (01) ==
LOC: OPBI 08:47
PROVIDERS: PCP Internal Medicine; Referring Provider Internal Medicine; Visit Provider Internal Medicine
DX: Z12.31 Encounter for screening mammogram for malignant neoplasm of breast (principal); E78.5 Hyperlipidemia, unspecified; R73.03 Prediabetes
CPT/HCPCS: 36415; 77063; 77067; 80053; 80061; 83036

== ENCOUNTER → 2024-08-31 | Outpatient (CLI) | payer MEDICARE, OTHER, SELFPAY ==
[2024-08-31 12:31] LABS: Absolute Neutrophil Count 4.2 X10^3/uL (2.0-7.7); Basophil# 0.05 X10^3/uL; Basophil% 0.7 % (0-1); Eosinophil# 0.16 X10^3/uL; Eosinophils% 2.3 % (0-5); Hematocrit 39.5 % (37-47); Hemoglobin 12.8 g/dL (12.0-15.0); Lymphocyte % 31.1 % (19-41); Mean Corp Hgb Conc 32.4 g/dL (32-36); Mean Corpuscular Hgb 32.2 pg (27.0-32.0); Mean Corpuscular Volume 99.2 fL (81-99); Mean Platelet Vol. 10.7 fl (6.2-12.0); Monocyte# 0.47 X10^3/uL; Monocyte% 6.6 % (0-10); NRBC Flagged by Analyzer 0 % (0-5); Neutrophil # 4.17 X10^3/uL (2.7-7.7); Neutrophil % 58.9 % (47-70); Platelet Count 341 K/mm3 (150-450); RBC Distribution Width CV 14.2 % (11.6-14.6); RBC Distribution Width SD 52.3 fl (35.1-43.9); Red Blood Count 3.98 M/mm3 (4.2-5.4); White Blood Count 7.1 K/mm3 (4.4-11.0)
[2024-08-31 12:55] LABS: Hemoglobin A1c 6.1 % (<=5.6)
[2024-08-31 12:57] LABS: ALB/GLOB Ratio 1.2 RATIO (0.9-2.4); AST(SGOT) 18 U/L (<=31); Alanine Aminotransfer ALT/SGPT 17 U/L (<=34); Albumin, Serum 4.2 g/dL (3.4-4.8); Alkaline Phosphatase 106 U/L (35-104); Anion Gap 12 (5-15); BUN 20 mg/dL (4-19); BUN/Creat Ratio 30.1 RATIO (10-20); Calcium,Total 9.5 mg/dL (7.6-11.0); Carbon Dioxide 23.5 mmol/L (21.0-32.0); Chloride 101 mmol/L (98-108); Cholesterol 265 mg/dL (<=200); Creatinine, Serum 0.65 mg/dL (0.70-1.20); EST Glomerular Filtration Rate 92 (>60); Globulin 3.5 g/dL (2.2-4.2); Glucose 107 mg/dL (70-99); High Density Lipoprotein 77 mg/dL; Low Density Lipoprotein Calc. 157 mg/dL; Protein, Total 7.7 g/dL (5.9-8.4); Sodium Level 137 mmol/L (133-145); Total Bilirubin 0.27 mg/dL (0.00-1.30); Triglycerides 155 mg/dL; Very Low Density Lipoprotein 31 mg/dL (5-40); cholesterol:hdl ratio screen 3.42
== END | disposition home or self-care (01) ==
LOC: BIMLAB 08:30
PROVIDERS: PCP Internal Medicine; Referring Provider Internal Medicine; Visit Provider Internal Medicine
DX: I10 Essential (primary) hypertension (principal); R73.03 Prediabetes
CPT/HCPCS: 36415; 80053; 80061; 83036; 85025

== ENCOUNTER 2024-09-03 08:33 | Inpatient (IN) | payer MEDICARE, OTHER, SELFPAY ==
[2024-09-03] VITALS (8 sets, daily range): BP systolic 120–174; BP diastolic 62–78; PULSE 72–86; RESP 16–24; TEMP 36.2–36.9; O2SAT 88–98; BMI 32.5; BMI 31.5
--- NOTE | 2024-09-03 08:51 | EX.ED.DYSGE1 ---
HPI History of Present Illness Chief Complaint: Abd Pain Detail of Chief Complaint: Epigastric pain that awoke patient from sleep Informant: patient Onset/Context/Timing Onset: Today Context: Sudden Onset Timing: Continuous Quality: Like someone punched me in the stomach. Location: Epigastrium Current Severity: Moderate Maximum Severity: Severe Worsened by: Nothing Relieved by: Nothing Associated Symptoms Associated Symptoms: Nausea, distention Narrative Narrative: Patient is a 73-year-old woman status post cholecystectomy and has history of hiatal hernia who presents with abrupt onset of upper abdominal pain that awoke her from sleep. She states it feels like someone punched me in the stomach . She has had pain similar but not intense and normally is alleviated after she vomits. Patient did vomit twice and did have improvement after vomiting. She denies chest pressure, tightness or heaviness. She does report port mild shortness of breath. She denies black or maroon-colored stool. She denies back pain. Patient states cholecystectomy was 10 years ago. She does have history of anxiety depression, type 2 diabetes, hyperlipidemia and anemia. Patient is also status post hysterectomy and had an incarcerated hernia. Prior similar symptoms: Yes Recent Illness/Hospitalization: No PFSH PFS Medical History Anxiety and depression Vitamin D deficiency Neck pain Grief reaction Health care maintenance Post-menopausal Hypertension Borderline type 2 diabetes mellitus Osteopenia Arthritis Anemia Recurrent incisional hernia Hyperlipidemia Home Medications ?Medication ?Instructions ?Recorded ?Last Taken ?Type ascorbic acid (vitamin C) 250 mg 250 mg PO DAILY 05/18/23 Unknown History chewable tablet cholecalciferol (vitamin D3) 125 125 mcg PO DAILY #90 tabs 05/19/23 Unknown Rx mcg (5,000 unit) tablet atorvastatin 20 mg tablet (Lipitor) 20 mg PO DAILY #90 tabs 04/08/24 Unknown Rx amlodipine 5 mg tablet 5 mg PO DAILY #90 TABLETS 08/18/24 Unknown Rx multivitamin (Daily Multi-Vitamin 1 tab PO DAILY 09/03/24 Unknown History tablet) Allergy/AdvReac Type Severity Reaction Status Date / Time Environmental Allergies: Allergy Hives Verified 09/03/24 08:40 Uncoded hydrocodone AdvReac Nausea Verified 09/03/24 08:40 Family History Mother Alcohol abuse Father Alcohol abuse Cancer prostate Diabetes Myocardial infarction, Onset Age: 82 Parkinson disease Son Alcohol abuse Anxiety Myocardial infarction, Onset Age: 51 Hyperlipemia Brother Cancer Sister Hypertension Hyperlipemia Surgical History History of cholecystectomy History of hysterectomy S/P repair of recurrent ventral hernia Status post repair of recurrent ventral hernia History of hernia repair History of colonoscopy Social History Smoking Status: Former smoker alcohol intake: never substance use type: does not use what type of physical activity do you participate in: none ROS ROS ED Constitutional Constitutional ED: Denies chills, fever(s), subjective or sweats Eyes Eyes: Denies blurry vision or change in vision ENT ENT ED: Denies rhinorrhea or sore throat Cardiovascular Cardiovascular: Denies chest pain, orthopnea, palpitations, paroxysmal nocturnal dyspnea or racing heartbeat Respiratory/Chest Respiratory/Chest: Denies cough, dyspnea, dyspnea on exertion, orthopnea or paroxysmal nocturnal dyspnea Gastrointestinal Gastrointestinal: Reports abdominal pain, nausea and vomiting; Denies constipation, diarrhea or melena Genitourinary Genitourinary ED: Denies dysuria, hematuria or urinary frequency Musculoskeletal Musculoskeletal: Denies arthralgias, back pain or myalgias Integumentary Denies Abrasions or rash Neurologic Neurologic: Denies paresthesias or weakness Hematologic/Lymphatic Hematologic/Lymphatic: Reports systems reviewed and no addt'l complaints, except as documented EXAM Physical Exam Const Vital Signs: 09/03/24 08:34 09/03/24 09:24 09/03/24 09:26 Temperature 97.1 F L Temperature Source Oral Pulse Rate 83 Respiratory Rate 24 H Blood Pressure 153/65 H Blood Pressure Mean 94 Pulse Ox 97 88 95 Oxygen Delivery Method Room Air Room Air Nasal Cannula Oxygen Flow Rate (L/min) 2 09/03/24 11:00 09/03/24 11:07 Temperature Temperature Source Pulse Rate 86 86 Respiratory Rate 18 18 Blood Pressure 120/78 174/78 H Blood Pressure Mean 92 110 Pulse Ox 95 98 Oxygen Delivery Method Nasal Cannula Nasal Cannula Oxygen Flow Rate (L/min) 2 2 Positive well nourished and well developed Constitutional Narrative: BMI is 32.6. Patient appears uncomfortable. She is holding her abdomen. General Appearance ED: well developed; Negative for pallor HEENT Reports dry mucous membranes HEENT Narrative: Head is atraumatic, cephalic. Ears normal. Nares patent. Posterior pharynx is normal. Mouth ED: Yes dry mucous membranes Mouth: dry mucous membranes Eyes PERRL and EOMs intact bilaterally General Eye ED: Negative for pale conjunctiva or scleral icterus Neck no lymphadenopathy, supple and no JVD Resp normal respiratory effort and clear to auscultation bilaterally Cardio regular rate, regular rhythm, S1 normal heart sound, S2 normal heart sound and no murmurs GI no masses; Negative for non-tender, non-distended or hepatosplenomegaly Inspection: abdominal distention Auscultation: hypoactive bowel sounds Palpation: soft, tender epigastric and guarding LUQ; Negative for mass or rebound tenderness present Back/Spine no CVA tenderness Extremity normal to inspection General Extremety ED: Negative for edema or tenderness General Extremity: Negative for edema Neuro oriented x3 and CN's II-XII intact bilaterally Sensorium / Orientation: alert Psych mental status grossly normal Skin no rashes or lesions noted, no wounds and skin turgor normal General Skin Exam: elasticity normal; Negative for jaundice or pallor MDM MDM MDM Narrative Medical decision making narrative: Differential diagnosis is choledocholithiasis, peptic ulcer disease, perforated viscus, abdominal pain of unknown etiology, with no history of pancreatitis or alcohol use doubt pancreatitis. History and physical not consistent with aortic dissection. There is no history of abdominal aortic aneurysm. Patient was medicated with Zofran for her nausea and given pain medicine. When she was reassessed at Lab Data Attestation: I reviewed the patient's lab results. Lab results narrative: Patient has a leukocytosis with mild shift. H&H is normal. Electrolyte panel is remarked for an elevated glucose with normal CO2 anion gap. Lactate is elevated 3.3. Transaminases are normal. Lipase is normal. In light of the abrupt onset of abdominal pain with lactic acidosis need to consider bowel ischemia. Labs: Laboratory Results - last 24 hr 09/03/24 09/03/24 08:09 09:03 WBC 12.3 H RBC 4.17 L Hgb 13.6 Hct 40.1 MCV 96.2 MCH 32.6 H MCHC 33.9 RDW Std Deviation 50.2 H RDW Coeff of Zhane 14.1 Plt Count 311 MPV 10.4 Immature Gran % (Auto) 0.400 Neut % (Auto) 90.8 H Lymph % (Auto) 6.6 L Traill % (Auto) 2.0 Eos % (Auto) 0.0 Baso % (Auto) 0.2 Absolute Neuts (auto) 11.2 H Absolute Lymphs (auto) 0.81 L Nucleated RBC % 0 Sodium 139 Potassium 3.8 Chloride 101 Carbon Dioxide 22.7 Anion Gap 15 BUN 19 Creatinine 0.63 L Estim Creat Clear Calc 53.31 Est GFR (MDRD) Non-Af 92 BUN/Creatinine Ratio 30.3 H Glucose 178 H Lactic Acid 3.3 H* Calcium 10.0 Total Bilirubin 0.34 Direct Bilirubin 0.12 AST 22 ALT 21 Alkaline Phosphatase 114 H Total Protein 8.4 Albumin 4.6 Globulin 3.8 Lipase 27 Radiography Diagnostic Testing: Clinical Impression(s) from Imaging Studies Abdomen/Pelvis CT 09/03/24 09:58 IMPRESSION: Multiple fluid-filled but nondilated small bowel loops with abrupt caliber attenuation of the distal ileum, concerning for partial/developing small bowel obstruction. No pneumoperitoneum. Colonic diverticulosis without diverticulitis. Reading Location: [facility] CT was reviewed by me. Agree there is multiple air-fluid levels noted. Radiologist read no obvious obstruction. This may represent early bowel obstruction since patient presented within hours of the onset of her pain. She is required 2 doses of morphine still having discomfort. Dr. Sullivan who is on-call for surgery was paged. Management Discussion w/another healthcare provider: Hospitalist (Spoke with Dr. Vickers. Patient admitted to medical service with consult to surgery.) and Cane Pusher (Spoke with Dr. Sullivan. He is looked at images. He agrees this may be an early small bowel obstruction. Agrees with placement of NG. He requested admission to hospitalist. Dr. Vickers has been paged.) Discharge Plan Dx/Rx/DC Orders Clinical Impression: Partial obstruction of small intestine, Hyperlipidemia, Borderline type 2 diabetes mellitus, Hypertension, Nausea & vomiting, Acute upper abdominal pain Disposition Disposition: Acute Care Hospital [facility]
[2024-09-03] MEDS: Morphine 4 MG/ML Syringe IV ×2 (09:07→11:35)
[2024-09-03] MEDS: 0.9% Normal Saline (1000mL) 1,000 ML 999 ML IV (09:07)
[2024-09-03 09:14] LABS: Absolute Lymphocyte Count 0.81 X10^3/uL (0.83-4.51); Absolute Neutrophil Count 11.2 X10^3/uL (2.0-7.7); Basophil# 0.03 X10^3/uL; Basophil% 0.2 % (0-1); Hematocrit 40.1 % (37-47); Hemoglobin 13.6 g/dL (12.0-15.0); Lymphocyte # 0.81 X10^3/ul (0.83-4.51); Lymphocyte % 6.6 % (19-41); Mean Corp Hgb Conc 33.9 g/dL (32-36); Mean Corpuscular Hgb 32.6 pg (27.0-32.0); Mean Corpuscular Volume 96.2 fL (81-99); Mean Platelet Vol. 10.4 fl (6.2-12.0); Monocyte# 0.25 X10^3/uL; NRBC Flagged by Analyzer 0 % (0-5); Neutrophil # 11.15 X10^3/uL (2.7-7.7); Neutrophil % 90.8 % (47-70); Platelet Count 311 K/mm3 (150-450); RBC Distribution Width CV 14.1 % (11.6-14.6); RBC Distribution Width SD 50.2 fl (35.1-43.9); Red Blood Count 4.17 M/mm3 (4.2-5.4); White Blood Count 12.3 K/mm3 (4.4-11.0)
[2024-09-03 09:39] LABS: AST(SGOT) 22 U/L (<=31); Alanine Aminotransfer ALT/SGPT 21 U/L (<=34); Albumin, Serum 4.6 g/dL (3.4-4.8); Alkaline Phosphatase 114 U/L (35-104); Anion Gap 15 (5-15); BUN 19 mg/dL (4-19); BUN/Creat Ratio 30.3 RATIO (10-20); Bilirubin, Direct 0.12 mg/dL (0.00-0.30); Carbon Dioxide 22.7 mmol/L (21.0-32.0); Chloride 101 mmol/L (98-108); Creatinine, Serum 0.63 mg/dL (0.70-1.20); EST Glomerular Filtration Rate 92 (>60); Estimated Creatinine Clearance 53.31 ml/min (50-250); Globulin 3.8 g/dL (2.2-4.2); Glucose 178 mg/dL (70-99); Lipase 27 U/L (13-75); Potassium 3.8 mmol/L (3.3-5.1); Protein, Total 8.4 g/dL (5.9-8.4); Sodium Level 139 mmol/L (133-145); Total Bilirubin 0.34 mg/dL (0.00-1.30)
--- OUTSIDE RECORDS SUMMARY | 2024-09-03 09:42 | XMS RPT_ITS | CCD ---
Author Organization [facility] CliniSynv Care Team Providers Care Manganese Heater Name Role Phone Carlota Burrows Unavailable Elgin III, Kevon P Unavailable PeabodyIII, Kevon P Unavailable Gravius, Mackenzie Unavailable Unavailable Sandra Mayers Unavailable Unavailable Unavailable Unavailable Carlota Burrows Attending Unavailable Xander, Claudia A Referring Unavailable Carlota Burrows Consulting Unavailable Stephanie Ascencio Unavailable Unavailable Taylor Guaman Unavailable Kunal Mercer Unavailable Unavailable Gravius, Mackenzie Unavailable Unavailable Kunal Arevalo Unavailable Unavailable Elgin III, Kevon P Unavailable Elida Barr Unavailable Unavailable [facility], [facility] Unavailable PeabodyIII, Kevon P Unavailable Dr. Carlota Burrows Primary Care Provider [phone] Dr. Carlota Burrows Referring Provider Dr. Shiv Gaviria Attending Provider [phone] DANISHA Wahl Attending Provider Unavailab Dr. Shiv Price Primary Care Provider [phone] Dr. Shiv Gaviria Attending Provider [phone] Dr. Shiv Gaviria Referring Provider [phone] Shiv Gaviria Referring Unavailable Shiv Gaviria Attending Unavailable Shiv Gaviria Primary Care Unavailable Shiv Gaviria Referring Unavailable Shiv Gaviria Attending Unavailable Khadra Shiv Primary Care Unavailable Oleghe Shiv Referring Unavailable Jaymelianna Shiv Attending Unavailable JaymeliannaTigredonell Primary Care Unavailable Khadra Danabe Referring Unavailable JaymeliannaTigreozielbe Attending Unavailable Jaymelianna Shiv Primary Care Unavailable Allergies Allergy Classification Reported Allergen(s) Allergy Type Date of Onset Reaction(s) Facility (3 sources) HYDROcodone Drug Allergy 2 Nausea [facility] (2 sources) pristine cleaning agent Allergy to substance 1 [facility] (2 sources) Environmental Allergies: Uncoded; Translations: [Environmental Allergies: Uncoded] Allergy to substance 4 [facility] (1 source) HYDROcodone Drug Allergy 5 [facility] Repository Medications Current Medications Medication Drug Class(es) Dates Sig (Normalized) Sig (Original) ascorbic acid 250 mg chewable tablet (1 source) Vitamin C Start: 05-18-2023 take 250 mg by mouth once daily Ascorbic Acid (Vitamin C) Active 250 MG PO DAILY May 18, 2023 12:00am atorvastatin 20 mg oral tablet (1 source) HMG-CoA Reductase Inhibitor Start: 05-19-2023 take 1 tablet by mouth once daily Atorvastatin (Lipitor) 20 mg tablet Active 20 MG PO DAILY 60 May 19, 2023 12:00am cholecalciferol 0.125 mg oral tablet (19 sources) Vitamin D Start: 05-19-2023 take 125 ug by mouth once daily Cholecalciferol (Vitamin D3) Active 125 MCG PO DAILY May 19, 2023 12:00am Start: 04-16-2021 End: 05-19-2023 take 1250 ug by mouth every week Cholecalciferol (Vitamin D3) Discontinued 1250 MCG PO EVERY WEEK April 20, 2023 12:52pm May 19, 2023 4:40pm Start: 01-11-2016 End: 11-01-2018 take 2 capsules by mouth once daily Vitamin D3 2000 UNIT Oral Capsule 2 (two) Capsule qd for 0 days Quantity: 60 {Capsule} Refills: 4 Ordered: 01-Nov-2018 Stephanie Ascencio Start : 11-Jan-2016 End : 01-Nov-2018 Inactive Completed/Discontinued Medications Medication Drug Class(es) Dates Sig (Normalized) Sig (Original) acetaminophen 325 mg / oxyCODONE hydrochloride 5 mg oral tablet (6 sources) Opioid Agonist Start: 05-28-2018 End: 06-03-2018 take 1 tablet by mouth every four hours as needed Oxycodone-Acetamino phen Discontinued 1 - 2 TABLET PO EVERY 4 HOURS NEEDED 26 09May 28, 2018 12:00am June 03, 2018 12:08am Start: 03-29-2014 End: 05-07-2018 take 1 tablet by mouth every six hours as needed Oxycodone-Acetaminophen Discontinued 1 - 2 TABLET PO EVERY 6 HOURS NEEDED March 29, 2014 12:00am May 07, 2018 9:42am amLODIPine 5 mg oral tablet (8 sources) Dihydropyridine Calcium Channel Giovany Start: 01-21-2021 End: 04-18-2022 take 5 mg by mouth once daily Amlodipine Discontinued 5 MG PO DAILY April 16, 2021 9:01am April 18, 2022 8:41am aspirin 81 mg oral tablet (10 sources) Platelet Aggregation Inhibitor, Nonsteroidal Anti-inflammatory Drug End: 01-31-2015 take 1 tablet by mouth once daily ASPIRIN LOW DOSE, 81MG (Oral Tablet) 1 tab qd (81 MG) End : 31-Jan-2015 Discontinued azithromycin 250 mg oral tablet (10 sources) Macrolide Antimicrobial Start: 07-08-2013 End: 01-15-2015 ZITHROMAX Z-RAPHAEL, 250MG (Oral Tablet) 2 (two) Tablet Tablet today then 1 qd for 4 days for 0 days Quantity: 6 {Tablet} Refills: 0 Ordered: 15-Jan-2015 Cleo Arciniega RN Start : 08-Jul-2013 End : 15-Jan-2015 Inactive Comments: called in verbal to [facility] myla Comment on above: called in verbal to [facility] myla baclofen 10 mg oral tablet (17 sources) gamma-Aminobutyric Acid-ergic Agonist Start: 04-16-2021 End: 05-18-2023 take 1 tablet by mouth twice daily as needed for muscle spasms Baclofen Discontinued 0 .ROUTE .COMPLEX 60 November 06, 2022 4:13pm May 18, 2023 9:37am TAKE 1 TABLET BY MOUTH TWICE A DAY NEEDED FOR MUSCLE SPASMS citalopram 10 mg oral tablet (13 sources) Serotonin Reuptake Inhibitor Start: 07-08-2013 End: 05-07-2018 take 10 mg by mouth once daily Citalopram Discontinued 10 MG PO DAILY July 07, 2013 11:00pm May 07, 2018 9:42am Comment on above: called to pharmacy [facility] DULoxetine 30 mg delayed release oral capsule (10 sources) Serotonin and Norepinephrine Reuptake Inhibitor Start: 09-12-2015 End: 10-12-2015 DULOXETINE HCL, 30MG (Oral Capsule Delayed Release Particles) 1 (one) Capsule DR Part Capsule DR Part qd for 30 days Quantity: 30 {Capsule} Refills: 0 Ordered: 12-Sep-2015 Claudia Terrell DO Start : 12-Sep-2015 End : 12-Oct-2015 Inactive Comments: in am with food Comment on above: in am with food famciclovir 500 mg oral tablet (10 sources) Herpes Simplex Virus Nucleoside Analog DNA Polymerase Inhibitor Start: 04-04-2016 End: 04-11-2016 take 1 tablet by mouth three times daily Famciclovir 500 MG Oral Tablet 1 (one) Tablet three times daily for 7 days Quantity: 21 {Tablet} Refills: 0 Ordered: 04-Apr-2016 Taylor Guaman CNP Start : 04-Apr-2016 End : 11-Apr-2016 Inactive osmotic 24 hr metFORMIN hydrochloride 500 mg extended release oral tablet (10 sources) Biguanide Start: 04-20-2017 End: 11-01-2018 take 1 tablet by mouth once daily metFORMIN HCl ER (OSM) 500 MG Oral Tablet Extended Release 24 Hour 1 (one) Tablet ER 24HR qd for 0 days Quantity: 90 {Tablet} Refills: 3 Ordered: 01-Nov-2018 Stephanie Ascencio Start : 20-Apr-2017 End : 01-Nov-2018 Inactive naproxen sodium 220 mg oral capsule (7 sources) Nonsteroidal Anti-inflammatory Drug Start: 11-01-2018 Aleve 220 MG Oral Capsule 1 (one) Capsule q8hra for 0 days Quantity: 60 {Capsule} Refills: 0 Ordered: 15-Nov-2018 Kunal Arevalo LPN Start : 01-Nov-2018 Active predniSONE 20 mg oral tablet (1 source) Start: 06-13-2020 predniSONE 20 MG Oral Tablet one tab bid for 3days then Tablet one tab daily for 3days then 1/2 tab qd for 4days for 0 days Quantity: 11 {Tablet} Refills: 0 Ordered: 13-Jun-2020 Carlota Burrows DO, DO, Kathleen Start : 13-Jun-2020 Active pregabalin 75 mg oral capsule (10 sources) Start: 04-04-2016 End: 11-01-2018 Lyrica 75 MG Oral Capsule 1 (one) Capsule Capsule daily x 1 week, then bid for 0 days Quantity: 60 {Capsule} Refills: 0 Ordered: 01-Nov-2018 Silva Stephanie Start : 04-Apr-2016 End : 01-Nov-2018 Inactive simvastatin 20 mg oral tablet (10 sources) HMG-CoA Reductase Inhibitor Start: 08-24-2018 End: 11-01-2018 take 1 tablet by mouth once daily at bedtime Simvastatin 20 MG Oral Tablet 1 (one) Tablet qhs for 90 days Quantity: 90 {Tablet} Refills: 0 Ordered: 01-Nov-2018 Stephanie Ascencio Start : 24-Aug-2018 End : 01-Nov-2018 Inactive Start: 05-31-2018 take 1 tablet by tasha th once daily at bedtime Simvastatin 20 MG Oral Tablet 1 (one) Tablet qhs for 90 days Quantity: 90 {Tablet} Refills: 0 Ordered: 31-May-2018 Carlota Burrows DO, DO, Kathleen Start : 31-May-2018 Active Start: 02-25-2016 take 1 tablet by tasha th once daily at bedtime Simvastatin 20 MG Oral Tablet 1 (one) Tablet qhs for 0 days Quantity: 90 {Tablet} Refills: 3 Ordered: 25-Feb-2016 Carlota Burrows DO, DO, Kathleen Start : 25-Feb-2016 Active tiZANidine 4 mg oral tablet (3 sources) Central alpha-2 Adrenergic Agonist Start: 04-02-2020 End: 06-13-2020 take 1 tablet by mouth twice daily as needed tiZANidine HCl 4 MG Oral Tablet 1 (one) Tablet bid prn muscle tension for 0 days Quantity: 20 {Tablet} Refills: 0 Ordered: 13-Jun-2020 Elida Barr LPN Start : 02-Apr-2020 End : 13-Jun-2020 Discontinued NEGATED: Highlighted row has not occurred!drug or medication (7 sources) No Known Histori tyrell Medications Problems Active Problems Problem Classification Problem Date Documented Date Episodic/Chronic Abdominal hernia (20 sources) Recurrent hernia of anterior abdominal wall; Translations: [Hernia of abdominal wall] 04-12-2018 Episodic Comment on above: surgery to be schedu led by ubaldo Adjustment disorders (3 sources) Grief finding; Translations: [Adjustment disorder with depressed mood] 01-21-2021 Chronic Administrative/social admission (3 sources) Counseling procedure with explicit context; Translations: [Nutritional counseling] 04-12-2018 Episodic Anxiety disorders (2 sources) Mixed anxiety and depressive disorder; Translations: [Anxiety disorder, unspecified] 07-28-2022 Chronic Biliary tract disease (10 sources) Cholangiectasis; Translations: [Common bile duct dilation] 04-12-2018 Episodic Comment on above: abdominal swelling o n right Deficiency and other anemia (3 sources) Anemia; Translations: [Anemia, unspecified] 11-08-2020 Episodic Disorders of lipid metabolism (20 sources) Hyperlipidemia; Translations: [Other and unspecified hyperlipidemia] Onset: 4 04-12-2018 Chronic Disorders of teeth and jaw (4 sources) Temporomandibular joint locking; Translations: [TMJ locking] 11-15-2018 Episodic Comment on above: seek dental opinion Essential hypertension (6 sources) Hypertensive disorder; Translations: [Essential (primary) hypertension] Onset: 4 Chronic Headache; including migraine (3 sources) Muscular headache ; Translations: [Muscle tension headache] 04-02-2020 Chronic Headache; including migraine (3 sources) Daily headache; Translations: [Daily headache] 04-02-2020 Episodic Comment on above: responded to nsaid b ut would return -- resolved now after 13 days Immunizations and screening for infectious disease (20 sources) Need for prophylactic vaccination and inoculation against influenza Episodic Mood disorders (10 sources) Dysthymic disorder; 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, dysthymic] 04-12-2018 Chronic Nonspecific chest pain (20 sources) Chest pain; Translations: [Chest pain] Resolved: 3 09-29-2012 Episodic Nutritional deficiencies (20 sources) Vitamin D deficiency; Translations: [Vitamin D deficiency, unspecified] 04-12-2018 Chronic Osteoarthritis (3 sources) Arthritis; Translations: [Unspecified osteoarthritis, unspecified site] 11-08-2020 Chronic Other bone disease and musculoskeletal deformities (3 sources) Osteopenia; Translations: [Other specified disorders of bone density and structure, unspecified site] 11-08-2020 Episodic Other connective tissue disease (20 sources) Myalgia Episodic Other connective tissue disease (20 sources) Swelling of limb; Translations: [Swelling of Limb] Resolved: 6 12-27-2015 Episodic Comment on above: wearing compression stockings Other liver diseases (20 sources) Fatty liver; Translations: [Steatosis of liver] 04-12-2018 Chronic Other liver diseases (10 sources) Abnormal levels of other serum enzymes; Translations: [Elevated liver enzymes level] 04-12-2018 Episodic Other non-traumatic joint disorders (10 sources) Pain in joint, multiple sites; Translations: [Arthralgia] 04-12-2018 Episodic Other nutritional; endocrine; and metabolic disorders (20 sources) Body mass index 30+ - obesity; Translations: [BMI 33.0-33.9,adult] Resolved: 9 04-12-2018 Chronic Other screening for suspected conditions (not mental disorders or infectious disease) (10 sources) Nonspecific abnormal electrocardiogram [ECG] [EKG]; Translations: [Abnormal EKG] 04-12-2018 Episodic Comment on above: get echo take aspiri n daily avoid exertion- and go to er if recurrent sx- Other skin disorders (12 sources) Sebaceous cyst; Translations: [Sebaceous cyst] 04-12-2018 Episodic Other upper respiratory infections (20 sources) Upper respiratory infection; Translations: [Upper Respiratory Infection (Renamed from Infection of the upper respiratory tract)] 04-12-2018 Episodic Residual codes; unclassified (10 sources) Needs influenza immunization; Translations: [Need for prophylactic vaccination and inoculation against influenza (Renamed from Need for immunization against influenza)] 04-12-2018 Episodic Residual codes; unclassified (3 sources) Postmenopausal state; Translations: [Asymptomatic menopausal state] 11-26-2020 Episodic Spondylosis; intervertebral disc disorders; other back problems (20 sources) Neck pain; Translations: [Acute thoracic back pain] Resolved: 6 04-12-2018 Episodic Comment on above: trigger pointinjecti no, PT massage work out tyelnol assure not taking over 3000mg like baetter than nsaids has alot of ddd and she doesnt feel needs to go further with this at this point did nsaid and MR, rx pred , physical therapy and pt considerign client care consultant Thyroid disorders (20 sources) Thyroid nodule; Translations: [Thyroid nodule] 04-12-2018 Chronic Comment on above: last us 2015-stable at that time Unclassified (20 sources) Abnormal glucose tolerance test (Renamed from Abnormal glucose tolerance test (GTT)) Unclassified (20 sources) Unclassified (20 sources) Disorder, dysthymic (300.4) Unclassified (20 sources) Elevated Liver Enzymes (790.4) Unclassified (20 sources) Arthralgia (719.49) Unclassified (20 sources) Current non-smoker ; Translations: [Current nonsmoker] 04-12-2018 Unclassified (20 sources) Screening status; Translations: [Encounter for screening for malignant neoplasm of colon (Renamed from Special screening for malignant neoplasms, colon)] 04-12-2018 Unclassified (20 sources) Patient encounter status; Translations: [Encounter for screening mammogram for breast cancer (Renamed from Encounter for screening mammogram for malignant neoplasm of breast)] 04-28-2018 Unclassified (20 sources) screening 04-12-2018 Unclassified (20 sources) Abdominal wall hernia Unclassified (18 sources) Abdominal fullness in right upper quadrant; Translations: [Finding of abdomen] Resolved: 6 12-27-2015 Unclassified (10 sources) BMI 33.0-33.9,adult Unclassified (10 sources) Ventral hernia, recurrent Unclassified (10 sources) Nutritional counseling Viral infection (20 sources) Herpes zoster; Translations: [Postherpetic neuralgia] Resolved: 9 04-12-2018 Episodic Comment on above: Famciclovir 500 mg 3 times a day for 7 days.(withinmg 48-72 hours of onset of rash)Advised or stay away from women and children and immunocompromised.Advised that the rash could blister in 3-4 days and could get infected. It'll crust over and will no longer be infectious by 7-10 days. Rash could persist for 3-4 weeks and patient could have scarring. Currently no neurological symptoms but advised if patient has worsening of her headache, numbness, weakness would go to the emergency room immediately.PT called at 5 PM on 04/03/16: Saw Dr tijerina 2 days ago for pain in thoracic area on the left.Sent for PT, no rash at that time, now having rash(under left breast and going around the back), I(like poison JES), painful.Had shingles vaccine before Past or Other Problems Problem Classification Problem Date Documented Da te Episodic/Chronic Coronary atherosclerosis and other heart disease (9 sources) Coronary atherosclerosis and other heart disease Diabetes mellitus without complication (20 sources) Impaired fasting glucose; Translations: [Impaired fasting glycaemia] Onset: 05-09-2024 04-12-2018 Episodic Comment on above: pt never took metfom in- and states wont again -- she knows herself Headache; including migraine (6 sources) Headache; including migraine Menstrual disorders (10 sources) Other disorders of menstruation and other abnormal bleeding from female genital tract; Translations: [DUB] Resolved: 09-29-2012 09-29-2012 Chronic Other connective tissue disease (10 sources) Myalgia and myositis, unspecified; Translations: [Myalgia] Resolved: 12-27-2015 12-27-2015 Episodic Other connective tissue disease (7 sources) Pain of left calf; Translations: [Pain of left calf] 11-01-2018 Other gastrointestinal disorders (2 sources) Other specified symptoms and signs involving the digestive system and abdomen; Translations: [Abdominal fullness in right upper quadrant] Resolved: 12-27-2015 12-27-2015 Episodic Other non-traumatic joint disorders (11 sources) Pain in left knee; Translations: [Knee pain, left] 11-01-2018 Comment on above: ? meniscal tear Unclassified (10 sources) Abortions/Miscarriage s; Translations: [Abortions/Miscarriag es] 04-12-2018 Comment on above: 1. Unclassified (20 sources) DUB (626.8) Unclassified (10 sources) Deliveries (Parity); Translations: [Deliveries (Parity)] 04-12-2018 Comment on above: 4. Unclassified (10 sources) Abnormal EKG(794.31) Unclassified (20 sources) floater 04-12-2018 Unclassified (10 sources) hay fever/allergies 04-12-2018 Comment on above: seasonal Unclassified (10 sources) hemmrhoids 04-12-2018 Comment on above: when Unclassified (20 sources) PRE-OPERATIVE EXAMINATION, UNSPECIFIED (V72.84) Unclassified (10 sources) menopausal, last mensus 200004-12-2018 Unclassified (10 sources) Pregnancies (); Translations: [Pregnancies ()] 04-12-2018 Comment on above: 5. Unclassified (20 sources) Shingles Unclassified (17 sources) BMI 31.0-31.9,adult Unclassified (10 sources) Acute left-sided thoracic back pain Unclassified (10 sources) Common bile duct dilation Unclassified (8 sources) Sebaceous cyst of skin; Translations: [Sebaceous Cyst] 11-01-2018 Unclassified (11 sources) Knee pain, left Unclassified (7 sources) Pain of left calf Unclassified (8 sources) BMI 32.0-32.9,adult Unclassified (4 sources) TMJ locking Unclassified (1 source) Sciatic neuralgia Unclassified (1 source) Low back pain with radiation Results Test Name Value Interpretation Reference Range Facility CBC W/Diff, Automatedon 06-0 Absolute Lymph 2.20 X10 3/uL Normal 0.83-4.51 [facility] Comment on above: Performed By: #### L 500.4050, L100.0100, L500.4100, [id number] #### [facility] [address] [place], [address] Absolute Neut 4.2 X10 3/uL Normal 2.0-7.7 [facility] Comment on above: Performed By: #### L 500.4050, L100.0100, L500.4100, [id number] #### [facility] [address] [place], [address] Basophils/100 WBC (Bld) 0.7 % Normal 0-1 [facility] Comment on above: Performed By: #### L 500.4050, L100.0100, L500.4100, [id number] #### [facility] [address] [place], [address] Eosinophils/100 WBC (Bld) 2.3 % Normal 0-5 [facility] Comment on above: Performed By: #### L 500.4050, L100.0100, L500.4100, [id number] #### [facility] [address] [place], [address] Erythrocyte distribution width (RBC) [Ratio] 14.2 % Normal 11.6-14.6 [facility] Comment on above: Performed By: #### L 500.4050, L100.0100, L500.4100, [id number] #### [facility] [address] [place], [address] Hematocrit (Bld) [Volume fraction] 39.5 % Normal 37-47 [facility] Comment on above: Performed By: #### L 500.4050, L100.0100, L500.4100, [id number] #### [facility] [address] [place], [address] Hemoglobin (Bld) [Mass/Vol] 12.8 g/dL Normal 12.0-15.0 [facility] Comment on above: Performed By: #### L 500.4050, L100.0100, L500.4100, [id number] #### [facility] [address] [place], [address] IG% 0.400 Normal 0.0-0.9 [facility] Comment on above: Result Comment: IG% - Immature Granulocytes (promyelocytes, myelocytes and metamyelocytes) > 1% indicates that a LEFT SHIFT is Present. Performed By: #### L 500.4050, L100.0100, L500.4100, [id number] #### [facility] [address] [place], [address] Lymphocytes/100 WBC (Bld) 31.1 % Normal 19-41 [facility] Comment on above: Performed By: #### L 500.4050, L100.0100, L500.4100, [id number] #### [facility] [address] [place], [address] MCH (RBC) [Entitic mass] 32.2 pg High 27.0-32.0 [facility] Comment on above: Performed By: #### L 500.4050, L100.0100, L500.4100, [id number] #### [facility] [address] [place], [address] MCHC (RBC) [Mass/Vol] 32.4 g/dL Normal 32-36 [facility] Comment on above: Performed By: #### L 500.4050, L100.0100, L500.4100, [id number] #### [facility] [address] [place], [address] MCV (RBC) [Entitic vol] 99.2 fL High 81-99 [facility] Comment on above: Performed By: #### L 500.4050, L100.0100, L500.4100, [id number] #### [facility] [address] [place], [address] Monocytes/100 WBC (Bld) 6.6 % Normal 0-10 [facility] Comment on above: Performed By: #### L 500.4050, L100.0100, L500.4100, [id number] #### [facility] [address] [place], [address] Neutrophils/100 WBC (Bld) 58.9 % Normal 47-70 [facility] Comment on above: Performed By: #### L 500.4050, L100.0100, L500.4100, [id number] #### [facility] [address] [place], [address] Nucleated RBC (Bld) [#/Vol] 0 10*3/uL Normal 0-5 [facility] Comment on above: Performed By: #### L 500.4050, L100.0100, L500.4100, [id number] #### [facility] [address] [place], [address] Platelet mean volume (Bld) [Entitic vol] 10.7 fL Normal 6.2-12.0 [facility] Comment on above: Performed By: #### L 500.4050, L100.0100, L500.4100, [id number] #### [facility] [address] [place], [address] Platelets (Bld) [#/Vol] 341 10*3/uL Normal 150-450 [facility] Comment on above: Performed By: #### L 500.4050, L100.0100, L500.4100, [id number] #### [facility] [address] [place], [address] RBC (Bld) [#/Vol] 3.98 10*6/uL Low 4.2-5.4 [facility] Comment on above: Performed By: #### L 500.4050, L100.0100, L500.4100, [id number] #### [facility] [address] [place], [address] RDW SD 52.3 fl High 35.1-43.9 [facility] Comment on above: Performed By: #### L 500.4050, L100.0100, L500.4100, [id number] #### [facility] [address] [place], [address] WBC (Bld) [#/Vol] 7.1 10*3/uL Normal 4.4-11.0 [facility] Comment on above: Performed By: #### L 500.4050, L100.0100, L500.4100, [id number] #### [facility] [address] [place], [address] Comprehensive Metabolic Prof ilon 08-31-2024 Albumin [Mass/Vol] 4.2 g/dL Normal 3.4-4.8 [facility] Comment on above: Performed By: #### L 500.4050, L100.0100, L500.4100, [id number] #### [facility] [address] [place], [address] ALK PHOS 106 U/L High 35-104 [facility] Comment on above: Performed By: #### L 500.4050, L100.0100, L500.4100, [id number] #### [facility] [address] [place], [address] ALT [Catalytic activity/Vol] 17 U/L Normal <=34 [facility] Comment on above: Performed By: #### L 500.4050, L100.0100, L500.4100, [id number] #### [facility] [address] [place], [address] AST [Catalytic activity/Vol] 18 U/L Normal <=31 [facility] Comment on above: Performed By: #### L 500.4050, L100.0100, L500.4100, [id number] #### [facility] [address] [place], [address] Bilirubin [Mass/Vol] 0.27 mg/dL Normal 0.00-1.30 [facility] Comment on above: Performed By: #### L 500.4050, L100.0100, L500.4100, L501.9985 #### [facility] [address] [place], [address] BUN/CRE 30.1 RATIO High 10-20 [facility] Comment on above: Performed By: #### L 500.4050, L100.0100, L500.4100, L501.9985 #### [facility] [address] [place], [address] Calcium [Mass/Vol] 9.5 mg/dL Normal 7.6-11.0 [facility] Comment on above: Performed By: #### L 500.4050, L100.0100, L500.4100, L501.9985 #### [facility] [address] [place], [address] Chloride [Moles/Vol] 101 mmol/L Normal 98-108 [facility] Comment on above: Performed By: #### L 500.4050, L100.0100, L500.4100, L501.9985 #### [facility] [address] [place], [address] CO2 [Moles/Vol] 23.5 mmol/L Normal 21.0-32.0 [facility] Comment on above: Performed By: #### L 500.4050, L100.0100, L500.4100, L501.9985 #### [facility] [address] [place], [address] Creatinine [Mass/Vol] 0.65 mg/dL Low 0.70-1.20 [facility] Comment on above: Performed By: #### L 500.4050, L100.0100, L500.4100, L501.9985 #### [facility] [address] [place], [address] GAP 12 Normal 5-15 [facility] Comment on above: Performed By: #### L 500.4050, L100.0100, L500.4100, L501.9985 #### [facility] [address] [place], [address] GFR/1.73 sq M.predicted among non-blacks MDRD (S/P/Bld) [Vol rate/Area] 92 mL/min/{1.73_m2} Normal >60 [facility] Comment on above: Result Comment: mL/m in/1.73m2 CKD-EPI Creatinine Equation (2020) Performed By: #### L 500.4050, L100.0100, L500.4100, L501.9985 #### [facility] [address] [place], [address] Glucose [Mass/Vol] 107 mg/dL High 70-99 [facility] Comment on above: Performed By: #### L 500.4050, L100.0100, L500.4100, L501.9985 #### [facility] [address] [place], [address] Potassium [Moles/Vol] 4.0 mmol/L Normal 3.3-5.1 [facility] Comment on above: Performed By: #### L 500.4050, L100.0100, L500.4100, L501.9985 #### [facility] [address] [place], [address] Sodium [Moles/Vol] 137 mmol/L Normal 133-145 [facility] Comment on above: Performed By: #### L 500.4050, L100.0100, L500.4100, L501.9985 #### [facility] [address] [place], [address] T PROT 7.7 g/dL Normal 5.9-8.4 [facility] Comment on above: Performed By: #### L 500.4050, L100.0100, L500.4100, L501.9985 #### [facility] [address] [place], [address] Urea nitrogen [Mass/Vol] 20 mg/dL High 4-19 [facility] Comment on above: Performed By: #### L 500.4050, L100.0100, L500.4100, L501.9985 #### [facility] [address] [place], [address] Hemoglobin A1con 08-31-2024 HbA1c (Bld) [Mass fraction] 6.1 % High <=5.6 [facility] Comment on above: Result Comment: Norm al < 5.7 % Prediabetic 5.7 - 6.4 % Diabetic >or= 6.5 % Please note range changes. Performed By: #### L 500.4050, L100.0100, L500.4100, L501.9985 #### [facility] [address] [place], [address] Lipid Profileon 08-31-2024 CHOL:HDL 3.42 Normal [facility] Comment on above: Performed By: #### L 500.4050, L100.0100, L500.4100, L501.9985 #### [facility] [address] [place], [address] Cholesterol [Mass/Vol] 265 mg/dL High <=200 [facility] Comment on above: Result Comment: Chol esterol level, Desirable <200 mg/dL Borderline high cholesterol 200-239 mg/dL High cholesterol >=240 mg/dL Recommendations of the NCEP Adult Treatment Panel for the following risk-cutoff thresholds for the [place] population. Performed By: #### L 500.4050, L100.0100, L500.4100, L501.9985 #### [facility] [address] [place], [address] Cholesterol in HDL [Mass/Vol] 77 mg/dL Normal [facility] Comment on above: Result Comment: Marsha onal Cholesterol Education Program (NCEP) guidelines: <40 mg/dL: Low HDL-cholesterol (major risk factor for CHD) >= 60 mg/dL: High HDL-cholesterol (negative risk factor for CHD) HDL-cholesterol is affected by a number of factors, e.g. smoking, exercise, hormones, sex and age. Performed By: #### L 500.4050, L100.0100, L500.4100, L501.9985 #### [facility] [address] [place], [address] Cholesterol in LDL [Mass/Vol] 157 mg/dL Normal [facility] Comment on above: Result Comment: Bord nbxdzd=755-354 mg/dL Higher Meut=958 mg/dL or greater Performed By: #### L 500.4050, L100.0100, L500.4100, L501.9985 #### [facility] [address] [place], [address] Cholesterol in VLDL [Mass/Vol] 31 mg/dL Normal 5-40 [facility] Comment on above: Performed By: #### L 500.4050, L100.0100, L500.4100, L501.9985 #### [facility] [address] [place], [address] Triglyceride [Mass/Vol] 155 mg/dL Normal [facility] Comment on above: Result Comment: The drugs N-Acetylcysteine and Metamizole may falsely depress this assay. Normal range: <150 mg/dL Borderline High: 150-199 mg/dL High: 200-499 mg/dL Very High: >500 mg/dL Performed By: #### L 500.4050, L100.0100, L500.4100, L501.9985 #### [facility] [address] [place], [address] Internal Medicine Office Vis nhi 05-09-2024 Internal Medicine Office Visit [facility] [place], [place] [address] OFFICE VISIT Date of Service: 05/09/24 MR#: [id number] Acct: [id number] Name: GEMMA CERON Rep #: [id number] : 1950 Provider: Dr. Shiv deshpande MD Age/Sex: 73/F [place] [facility] Status: Signed Intake Vital Signs 01/11/24 08:37 05/09/24 14:07 Height 4 ft 10 in 4 ft 10 in Weight: 152 lb 151 lb BMI 31.7 31.5 BP 136/64 H 134/78 H Blood Pressure Location Lt brachial Lt brachial Position Sitting Sitting Respiration 17 16 Pulse 80 78 Pulse Source Monitor Monitor Temp 98.1 F 99.2 F H Temp Source Temporal Temporal Pulse Oximetry (%) 95 96 Oxygen Delivery Method room air room air Intake Visit Reasons: follow up Chief Complaint: FOLLOW UP Is patient in pain?: No Allergies Environmental Allergies: Uncoded Allergy (Verified 05/09/24 14:06) Hives hydrocodone Adverse Reaction (Verified 05/09/24 14:06) Nausea Medications ???Medication ???Instructions ???Recorded ???Confirmed ???Type ascorbic acid (vitamin C) 250 mg 250 mg PO DAILY 05/18/23 05/09/24 History chewable tablet cholecalciferol (vitamin D3) 125 125 mcg PO DAILY #90 tabs 05/19/23 05/09/24 Rx mcg (5,000 unit) tablet amlodipine 5 mg tablet 5 mg PO DAILY #90 TABLETS 10/23/23 05/09/24 Rx atorvastatin 20 mg tablet (Lipitor) 20 mg PO DAILY #90 tabs 5 05/09/24 Rx Have you fallen in the past year?: No PFSH Medical History Anxiety and depression Vitamin D deficiency Neck pain Grief reaction Health care maintenance Post-menopausal Hypertension Borderline type 2 diabetes mellitus Osteopenia Arthritis Anemia Recurrent incisional hernia Hyperlipidemia Surgical History History of cholecystectomy History of hysterectomy S/P repair of recurrent ventral hernia Status post repair of recurrent ventral hernia History of hernia repair History of colonoscopy Family History Mother Alcohol abuse Father Alcohol abuse Cancer prostate Diabetes Myocardial infarction, Onset Age: 82 Parkinson disease Son Alcohol abuse Anxiety Myocardial infarction, Onset Age: 51 Hyperlipemia Brother Cancer Sister Hypertension Hyperlipemia Social History Smoking Status: Former smoker alcohol intake: never substance use type: does not use what type of physical activity do you participate in: none HPI HPI Chief Complaint: FOLLOW UP Details: GEMMA CERON, is a 73 F who presents to the office today for follow-up of her chronic conditions. No acute concerns at this time. History of borderline diabetes, A1c today is at 6 down slightly from 6.1. Currently not on any medication. Also history of hypertension, blood pressure today is at 134/78 mmHg however she had rushed prior to her visit. No chest pain, palpitation or shortness of breath. Other chronic conditions are stable. ROS Const Constitutional: No body ache, chills, excessive sweating, fatigue, fever(s), frequent falls, headache(s), snoring, weakness, sleep problems or change in appetite Eyes Eyes: No blurry vision, change in vision, bulging eyes, floaters, visual disturbances or Light sensitivity ENT ENT: No abnormal hearing, ear or mastoid pain, tinnitus, balance problems, nosebleed/epistaxis, nasal congestion, nasal discharge, headache(s), neck pain or sore throat Resp Respiratory: No cough, excessive phlegm production, pain on inspiration, shortness of breath, snoring or wheezing Cardio Cardiology: No chest pain at rest, chest pain with exertion, excessive sweating, shortness of breath, dyspnea on exertion, lightheadedness, orthopnea or palpitations Gastro GI: No abdominal pain, change in bowel habits, constipation, cramping, diarrhea or nausea/dyspepsia Genitourinary-Female: No burning urination, painful urination, urinary incontinence, urinary frequency, suprapubic fullness or side pain Musc Musculoskeletal: No abnormal gait, joint pain, back pain, limited range of motion, muscle weakness, neck pain or numbness Skin Skin: No dry skin, redness, excessive hair growth, yellowing of the eye, lesions, itchy eyes, rash or wounds Neuro Neurology: No abnormal gait, abnormal hearing, behavioral changes, unsteady gait/balance, weakness, frequent falls, headache(s), memory loss, numbness or visual disturbances Psych Psychiatric: No anxiety, No behavioral changes, No change in appetite, No depression, No memory loss, No panic attacks and No Thoughts of harming yourself/Others Endo Endocrine: No cold intolerance, excessive sweating, fatigue, flushing, heat intolerance, increased thirst/drin (more content not included)... Normal [facility] Internal Medicine Office Vis nhi 01-11-2024 Internal Medicine Office Visit [facility] [place] [address] [place] [address] OFFICE VISIT Date of Service: 01/11/24 MR#: [id number] Acct: [id number] Name: GEMMA CERON Rep #: [id number] : 1950 Provider: Dr. Shiv deshpande MD Age/Sex: 73/F [place] [facility] Status: Signed Intake Vital Signs 09/11/23 08:47 01/11/24 08:37 Height 4 ft 10 in 4 ft 10 in Weight: 150 lb 152 lb BMI 31.3 31.7 BP 140/82 H 136/64 H Blood Pressure Location Rt brachial Lt brachial Position Sitting Sitting Respiration 16 17 Pulse 69 80 Pulse Source Monitor Monitor Temp 98.1 F 98.1 F Temp Source Temporal Temporal Pulse Oximetry (%) 95 95 Oxygen Delivery Method room air room air Intake Visit Reasons: 4 M FU Chief Complaint: Follow-up chronic conditions Is patient in pain?: No Allergies Environmental Allergies: Uncoded Allergy (Verified 01/11/24 08:38) Hives hydrocodone Adverse Reaction (Verified 01/11/24 08:38) Nausea Medications ???Medication ???Instructions ???Recorded ???Confirmed ???Type ascorbic acid (vitamin C) 250 mg 250 mg PO DAILY 05/18/23 01/11/24 History chewable tablet cholecalciferol (vitamin D3) 125 125 mcg PO DAILY #90 tabs 05/19/23 01/11/24 Rx mcg (5,000 unit) tablet atorvastatin 20 mg tablet (Lipitor) 20 mg PO DAILY #90 tabs 09/14/23 01/11/24 Rx amlodipine 5 mg tablet 5 mg PO DAILY #90 TABLETS 10/23/23 01/11/24 Rx Have you fallen in the past year?: No PFSH Medical History Anxiety and depression Vitamin D deficiency Neck pain Grief reaction Health care maintenance Post-menopausal Hypertension Borderline type 2 diabetes mellitus Osteopenia Arthritis Anemia Recurrent incisional hernia Hyperlipidemia Surgical History History of cholecystectomy History of hysterectomy S/P repair of recurrent ventral hernia Status post repair of recurrent ventral hernia History of hernia repair History of colonoscopy Family History Mother Alcohol abuse Father Alcohol abuse Cancer prostate Diabetes Myocardial infarction, Onset Age: 82 Parkinson disease Son Alcohol abuse Anxiety Myocardial infarction, Onset Age: 51 Hyperlipemia Brother Cancer Sister Hypertension Hyperlipemia Social History Smoking Status: Former smoker alcohol intake: never substance use type: does not use what type of physical activity do you participate in: none HPI HPI Chief Complaint: Follow-up chronic conditions Details: GEMMA CERON, is a 73 F who presents to the office today for follow-up of her chronic medical conditions. No acute concerns at this time. History of hypertension, blood pressure today at 136/64, she reports similar readings at home. Currently on amlodipine which she is taking as prescribed. No chest pain, palpitation or shortness of breath. Also history of borderline diabetes, last A1c was at 5.8. Currently not on any medication. Stays active. Other chronic conditions are stable. ROS Const Constitutional: No body ache, chills, excessive sweating, fatigue, fever(s), frequent falls, headache(s), snoring, weight change, sleep problems, abnormal sleep pattern or change in appetite Eyes Eyes: No blurry vision, change in vision, eye pain or Light sensitivity ENT ENT: No abnormal hearing, ear or mastoid pain, tinnitus, nasal congestion, headache(s), neck pain or sore throat Resp Respiratory: No cough, shortness of breath, snoring or wheezing Cardio Cardiology: No chest pain at rest, chest pain with exertion, excessive sweating, shortness of breath, dyspnea on exertion, lightheadedness, orthopnea or palpitations Gastro GI: No abdominal pain, change in bowel habits, constipation, cramping, diarrhea, nausea/dyspepsia or vomiting Genitourinary-Female: No burning urination, painful urination, urinary incontinence, urinary frequency, abnormal vaginal bleeding or pelvic pain Musc Musculoskeletal: No abnormal gait, joint pain, back pain, limited range of motion, neck pain, numbness or tingling Skin Skin: No dry skin, redness, lesions, itchy eyes, rash or wounds Neuro Neurology: No abnormal gait, abnormal hearing, frequent falls, headache(s), memory loss, numbness or tingling Psych Psychiatric: No abnormal sleep pattern, No anxiety, No change in appetite, No irritability, No memory loss and No Thoughts of harming yourself/Others Endo Endocrine: No cold intolerance, excessive sweating, fatigue, flushing, heat intolerance, increased thirst/drinking, increased hunger or weight change Aller/Imm Allergy/Immunologic: No itchy eyes, seasonal allergy symptoms, hives o (more content not included)... Normal [facility] Internal Medicine Office Vis nhi 09-11-2023 Internal Medicine Office Visit [facility] [address] [place] [address] [place] [address] OFFICE VISIT Date of Service: 09/11/23 MR#: [id number] Acct: [id number] Name: GEMMA CERON Rep #: [id number] : 1950 Provider: Dr. Shiv deshpande MD Age/Sex: 72/F Location: [facility] Status: Signed Intake Vital Signs 05/18/23 09:37 09/11/23 08:47 Height 4 ft 10 in 4 ft 10 in Weight: 150 lb BMI 31.3 BP 140/82 H Blood Pressure Location Rt brachial Position Sitting Respiration 16 Pulse 69 Pulse Source Monitor Temp 98.1 F Temp Source Temporal Pulse Oximetry (%) 95 Oxygen Delivery Method room air Intake Visit Reasons: 4M FU Chief Complaint: 4 M FU Is patient in pain?: No Allergies Environmental Allergies: Uncoded Allergy (Verified 09/11/23 08:45) Hives hydrocodone Adverse Reaction (Verified 09/11/23 08:45) Nausea Medications ???Medication ???Instructions ???Recorded ???Confirmed ???Type ascorbic acid (vitamin C) 250 mg 250 mg PO DAILY 05/18/23 09/11/23 History chewable tablet atorvastatin 20 mg tablet (Lipitor) 20 mg PO DAILY #60 tabs 05/19/23 09/11/23 Rx cholecalciferol (vitamin D3) 125 125 mcg PO DAILY #90 tabs 05/19/23 09/11/23 Rx mcg (5,000 unit) tablet amlodipine 5 mg tablet 5 mg PO DAILY #90 tabs 06/01/23 09/11/23 Rx PFSH Medical History Anxiety and depression Vitamin D deficiency Neck pain Grief reaction Health care maintenance Post-menopausal Hypertension Borderline type 2 diabetes mellitus Osteopenia Arthritis Anemia Recurrent incisional hernia Hyperlipidemia Surgical History History of cholecystectomy History of hysterectomy S/P repair of recurrent ventral hernia Status post repair of recurrent ventral hernia History of hernia repair History of colonoscopy Family History Mother Alcohol abuse Father Alcohol abuse Cancer prostate Diabetes Myocardial infarction, Onset Age: 82 Parkinson disease Son Alcohol abuse Anxiety Myocardial infarction, Onset Age: 51 Hyperlipemia Brother Cancer Sister Hypertension Hyperlipemia Social History Smoking Status: Former smoker alcohol intake: never substance use type: does not use what type of physical activity do you participate in: none HPI HPI Chief Complaint: 4 M FU Details: GEMMA CERON, is a 72 F who presents to the office today for follow-up of her chronic medical conditions. No acute concerns at this time. History of hypertension on amlodipine 5 mg daily. She states that she is taking her medication as prescribed. Lately, has noted occasional lower extremity swelling but this improves with elevation. Recently started on Lipitor which she has been taking as prescribed. Repeat lipid profile with significant improvement in LDL. Stable liver enzymes. No muscle pain or weakness reported. A1c of 5.8, stable. Currently not on any medication. She states that she plans to make more lifestyle and dietary changes. Has lost about 4 pounds since her last visit. ROS Const Constitutional: No body ache, chills, excessive sweating, fatigue, fever(s), frequent falls, headache(s), snoring, weakness, sleep problems or change in appetite Eyes Eyes: No blurry vision, change in vision, bulging eyes, floaters, visual disturbances or Light sensitivity ENT ENT: No abnormal hearing, ear or mastoid pain, tinnitus, balance problems, nosebleed/epistaxis, nasal congestion, nasal discharge, headache(s), neck pain or sore throat Resp Respiratory: No cough, excessive phlegm production, pain on inspiration, shortness of breath, snoring or wheezing Cardio Cardiology: No chest pain at rest, chest pain with exertion, excessive sweating, shortness of breath, dyspnea on exertion, lightheadedness, orthopnea or palpitations Gastro GI: No abdominal pain, change in bowel habits, constipation, cramping, diarrhea or nausea/dyspepsia Genitourinary-Female: No burning urination, painful urination, urinary incontinence, urinary frequency, suprapubic fullness or side pain Musc Musculoskeletal: Positive for other (C/O BILATERAL FOOT SWELLING AT TIMES); No abnormal gait, joint pain, back pain, limited range of motion, muscle weakness, neck pain or numbness Skin Skin: No dry skin, redness, excessive hair growth, yellowing of the eye, lesions, itchy eyes, rash or wounds Neuro Neurology: No abnormal gait, abnormal hearing, behavioral changes, unsteady gait/balance, weakness, frequent falls, headache(s), memory loss, numbness or visual disturbances Psych Psychiatric: No anxiety, No behavioral changes, No change in appetite, No depression, No memory loss, No panic at (more content not included)... Normal [facility] Absolute lymphocyte countOrd ered By: Shiv Gaviria on 05-18-2023 Lymphocytes Auto (Unsp spec) [#/Vol] 1.73 10*3/uL 0.83-4.51 [facility] Automated lymphocyte count a s percentage of total leukocytesOrdered By: Shiv Gaviria on 05-18-2023 Lymphocytes/100 WBC Auto (Unsp spec) 29.9 % 19-41 [facility] Basophil percentageOrdered B y: Conradstanislaw Khadra on 05-18-2023 Basophils/100 WBC (Bld) 0.7 % 0-1 [facility] Bilirubin [Mass/Vol] 0.40 mg/dL 0.20-1.00 [facility] Comment on above: For patients on eltr ombopag therapy, use of Dimension [place] TBIL is not recommended. Chloride [Moles/Vol] 105 mmol/L 98-107 [facility] Cholesterol [Mass/Vol] 241 mg/dL <200 [facility] Comment on above: <200 mg/dL Desirable 200-240 mg/dL Borderline >240 mg/dL High Risk Eosinophils/100 WBC (Bld) 1.4 % 0-5 [facility] Glucose [Mass/Vol] 113 mg/dL 74-106 [facility] Comment on above: Fasting Glucose resu lt from 100 to 125 mg/dL suggests IMPAIRED HOMEOSTASIS per A.D.A. criteria. Hemoglobin (Bld) [Mass/Vol] 12.5 g/dL 12.0-15.0 [facility] Monocytes/100 WBC (Bld) 6.7 % 0-10 [facility] Neutrophils (Bld) [#/Vol] 3.5 10*3/uL 2.0-7.7 [facility] Neutrophils/100 WBC (Bld) 61.0 % 47-70 [facility] Potassium [Moles/Vol] 4.0 mmol/L 3.5-5.1 [facility] Protein [Mass/Vol] 8.0 g/dL 6.4-8.2 [facility] Sodium [Moles/Vol] 139 mmol/L 136-145 [facility] Triglyceride [Mass/Vol] 114 mg/dL <199 [facility] Comment on above: The drugs N-Acetylcy steine and Metamizole may falsely depress this assay.Serum Triglycerides Reference Interval Normal <150 mg/dL Borderline high 150 - 199 mg/dL High 200 - 499 mg/dL Very High > or = 500 mg/dL WBC (Bld) [#/Vol] 5.8 10*3/uL 4.4-11.0 [facility] Determination of erythrocyte mean corpuscular volume (MCV)Ordered By: Shiv Gaviria on 05-18-2023 MCV (RBC) [Entitic vol] 98.7 fL 81-99 [facility] Erythrocyte distribution wid th ratioOrdered By: [facility] Baldwindenia Delacruzjagjit on 05-18-2023 Erythrocyte distribution width (RBC) [Ratio] 13.6 % 11.6-14.6 [facility] Erythrocyte distribution wid th standard deviationOrdered By: [facility] Delacruzjagjit on 05-18-2023 Erythrocyte distribution width (RBC) [Entitic vol] 49.7 fL 35.1-43.9 [facility] Hematocrit Auto (Bld) [Volum e fraction]Ordered By: fabriciojacksonvilledenia Delacruzjagjit on 05-18-2023 Hematocrit (Bld) [Volume fraction] 38.9 % 37-47 [facility] Immature granulocytes/100 WB C Auto (Bld)Ordered By: fabriciojacksonvilledenia Gaviria on 05-18-2023 Immature granulocytes/100 WBC (Bld) 0.300 % 0.0-0.9 [facility] Comment on above: IG% - Immature Granu locytes (promyelocytes, myelocytes and metamyelocytes) > 1% indicates that a LEFT SHIFT is Present. Laboratory - Chemistry and C hemistry - challengeOrdered By: Shiv Gaviria on 05-18-2023 Albumin/Globulin [Mass ratio] 0.9 {ratio} 0.9-2.4 [facility] ALP [Catalytic activity/Vol] 117 U/L 45-117 [facility] ALT [Catalytic activity/Vol] 35 U/L 13-56 [facility] Cholesterol in HDL [Mass/Vol] 69 mg/dL >40 [facility] Comment on above: The drugs N-Acetylcy steine and Metamizole may falsely depress this assay. Reference Range HDL <40 mg/dL Low HDL Cholesterol HDL >or= 60 mg/dL High HDL Cholesterol Cholesterol in LDL [Mass/Vol] 149 mg/dL 0-130 [facility] CO2 [Moles/Vol] 26.0 mmol/L 21.0-32.0 [facility] Globulin (S) [Mass/Vol] 4.3 g/dL 2.2-4.2 [facility] Urea nitrogen/Creatinine [Mass ratio] 31.0 mg/mg 10-20 [facility] - Hematology and Cell countsOrdered By: Shiv Gaviria on 05-18-2023 MCH (RBC) [Entitic mass] 31.7 pg 27.0-32.0 [facility] MCHC (RBC) [Mass/Vol] 32.1 g/dL 32-36 [facility] Nucleated RBC/100 WBC (Bld) [Ratio] 0 % 0-5 [facility] Platelet mean volume (Bld) [Entitic vol] 10.3 fL 6.2-12.0 [facility] Platelets (Bld) [#/Vol] 352 10*3/uL 150-450 [facility] No Panel InformationOrdered By: Shiv Gaviria on 05-18-2023 Estimated GFR (MDRD) Amer 98 mL/min >60 [facility] Comment on above: GFR Calc Estimated GFR (MDRD) Non-Af Amer 81 mL/min >60 [facility] Comment on above: Non- GFR Calc Vitamin D 25-Hydroxy 93.0 ng/mL [facility] Comment on above: Vitamin D 25(OH) Sta tus Range Deficiency <20 ng/mL (50nmol/L) Insufficiency 20 - 30 ng/mL (50 - 75 nmol/L) Sufficiency 30 - 100 ng/mL (75 - 250 nmol/L) Toxicity >100 ng/mL (>250 nmol/L) VLDL Cholesterol 23 mg/dL 5-40 [facility] RBC Auto (Bld) [#/Vol]Ordere d By: Shiv Gaviria on 05-18-2023 RBC (Bld) [#/Vol] 3.94 10*6/uL 4.2-5.4 [facility] Serum or plasma calcium chester urement (mass/volume)Ordered By: Shiv Gaviria on 05-18-2023 Calcium [Mass/Vol] 9.4 mg/dL 8.5-10.1 [facility] Serum or plasma creatinine m easurement (mass/volume)Ordered By: Shiv Gaviria on 05-18-2023 Creatinine [Mass/Vol] 0.74 mg/dL 0.55-1.02 [facility] Comment on above: The validity of the calculated GFR & GFRAA in patients over 70 years has not been determined. Clinical correlation is essential. Serum or plasma urea nitroge n measurement (mass/volume)Ordered By: Shiv Gaviria on 05-18-2023 Urea nitrogen [Mass/Vol] 23 mg/dL 7-18 [facility] Thin prep Papanicolaou smear with manual screeningOrdered By: Shiv Gaviria on 05-18-2023 Thin prep Papanicolaou smear with manual screening 3.7 g/dL 3.2-5.0 [facility] Thin prep Papanicolaou smear with manual screening 20 U/L 15-37 [facility] Thin prep Papanicolaou smear with manual screening 8 5-15 [facility] Absolute lymphocyte countOrd ered By: Dr. Gaviria on 07-21-2022 Lymphocytes Auto (Unsp spec) [#/Vol] 1.83 10*3/uL 0.83-4.51 [facility] Basophil percentageOrdered B y: Dr. Gaviria on 07-21-2022 Basophils/100 WBC (Bld) 0.4 % 0-1 [facility] Bilirubin [Mass/Vol] 0.30 mg/dL 0.20-1.00 [facility] Comment on above: For patients on eltr ombopag therapy, use of Dimension [place] TBIL is not recommended. Chloride [Moles/Vol] 105 mmol/L 98-107 [facility] Cholesterol [Mass/Vol] 243 mg/dL <200 [facility] Comment on above: <200 mg/dL Desirable 200-240 mg/dL Borderline >240 mg/dL High Risk Eosinophils/100 WBC (Bld) 0.9 % 0-5 [facility] Glucose [Mass/Vol] 107 mg/dL 74-106 [facility] Comment on above: Fasting Glucose resu lt from 100 to 125 mg/dL suggests IMPAIRED HOMEOSTASIS per A.D.A. criteria. Neutrophils (Bld) [#/Vol] 4.8 10*3/uL 2.0-7.7 [facility] Neutrophils/100 WBC (Bld) 67.7 % 47-70 [facility] Potassium [Moles/Vol] 4.0 mmol/L 3.5-5.1 [facility] Protein [Mass/Vol] 7.7 g/dL 6.4-8.2 [facility] Sodium [Moles/Vol] 137 mmol/L 136-145 [facility] Triglyceride [Mass/Vol] 175 mg/dL <199 [facility] Comment on above: The drugs N-Acetylcy steine and Metamizole may falsely depress this assay.Serum Triglycerides Reference Interval Normal <150 mg/dL Borderline high 150 - 199 mg/dL High 200 - 499 mg/dL Very High > or = 500 mg/dL WBC (Bld) [#/Vol] 7.1 10*3/uL 4.4-11.0 [facility] Blood erythrocytes count (nu mber/volume)Ordered By: Dr. Gaviria on 07-21-2022 RBC (Bld) [#/Vol] 3.94 10*6/uL 4.2-5.4 [facility] Blood hemoglobin measurement (mass/volume)Ordered By: Dr. Gaviria on 07-21-2022 Hemoglobin (Bld) [Mass/Vol] 12.8 g/dL 12.0-15.0 [facility] Blood lymphocytes/100 leukoc ytesOrdered By: Dr. Gaviria on 07-21-2022 Lymphocytes/100 WBC (Bld) 26.0 % 19-41 [facility] Blood monocytes/100 leukocyt esOrdered By: Dr. Gaviria on 07-21-2022 Monocytes/100 WBC (Bld) 4.7 % 0-10 [facility] Blood platelet mean volumeOr dered By: Dr. Gaviria on 07-21-2022 Platelet mean volume (Bld) [Entitic vol] 10.3 fL 6.2-12.0 [facility] Determination of erythrocyte mean corpuscular volume (MCV)Ordered By: Dr. Gaviria on 07-21-2022 MCV (RBC) [Entitic vol] 100.5 fL 81-99 [facility] Hematocrit Auto (Bld) [Volum e fraction]Ordered By: Dr. Gaviria on 07-21-2022 Hematocrit (Bld) [Volume fraction] 39.6 % 37-47 [facility] Laboratory - Chemistry and C hemistry - challengeOrdered By: Dr. Gaviria on 07-21-2022 ALP [Catalytic activity/Vol] 105 U/L 45-117 [facility] ALT [Catalytic activity/Vol] 29 U/L 13-56 [facility] CO2 [Moles/Vol] 27.0 mmol/L 21.0-32.0 [facility] Globulin (S) [Mass/Vol] 4.1 g/dL 2.2-4.2 [facility] Urea nitrogen/Creatinine [Mass ratio] 23.4 mg/mg 10-20 [facility] Laboratory - Hematology and Cell countsOrdered By: Dr. Gaviria on 07-21-2022 Erythrocyte distribution width (RBC) [Entitic vol] 50.1 fL 35.1-43.9 [facility] Erythrocyte distribution width (RBC) [Ratio] 13.5 % 11.6-14.6 [facility] Immature granulocytes/100 WBC (Bld) 0.300 % 0.0-0.9 [facility] Comment on above: IG% - Immature Granu locytes (promyelocytes, myelocytes and metamyelocytes) > 1% indicates that a LEFT SHIFT is Present. MCH (RBC) [Entitic mass] 32.5 pg 27.0-32.0 [facility] Nucleated RBC/100 WBC (Bld) [Ratio] 0 % 0-5 [facility] MCHC Auto (RBC) [Mass/Vol]Or dered By: Dr. Gaviria on 07-21-2022 MCHC (RBC) [Mass/Vol] 32.3 g/dL 32-36 [facility] No Panel InformationOrdered By: Dr. Gaviria on 07-21-2022 Estimated GFR (MDRD) Amer 108 mL/min >60 [facility] Comment on above: GFR Calc Estimated GFR (MDRD) Non-Af Amer 89 mL/min >60 [facility] Comment on above: Non- GFR Calc Vitamin D 25-Hydroxy 61.6 ng/mL [facility] Comment on above: Vitamin D 25(OH) Sta tus Range Deficiency <20 ng/mL (50nmol/L) Insufficiency 20 - 30 ng/mL (50 - 75 nmol/L) Sufficiency 30 - 100 ng/mL (75 - 250 nmol/L) Toxicity >100 ng/mL (>250 nmol/L) Platelets bldOrdered By: Dr. Gaviria on 07-21-2022 Platelets (Bld) [#/Vol] 378 10*3/uL 150-450 [facility] Serum or plasma albumin chester urement (mass/volume)Ordered By: Dr. Gaviria on 07-21-2022 Albumin [Mass/Vol] 3.6 g/dL 3.2-5.0 [facility] Serum or plasma albumin/glob ulin mass ratioOrdered By: Dr. Gaviria on 07-21-2022 Albumin/Globulin [Mass ratio] 0.9 {ratio} 0.9-2.4 [facility] Serum or plasma calcium chester urement (mass/volume)Ordered By: Dr. Gaviria on 07-21-2022 Calcium [Mass/Vol] 9.1 mg/dL 8.5-10.1 [facility] Serum or plasma cholesterol in HDL measurement (mass/volume)Ordered By: Dr. Gaviria on 07-21-2022 Cholesterol in HDL [Mass/Vol] 68 mg/dL >40 [facility] Comment on above: The drugs N-Acetylcy steine and Metamizole may falsely depress this assay. Reference Range HDL <40 mg/dL Low HDL Cholesterol HDL >or= 60 mg/dL High HDL Cholesterol Serum or plasma cholesterol in VLDL measurement (mass/volume)Ordered By: Dr. Gaviria on 07-21-2022 Cholesterol in VLDL [Mass/Vol] 35 mg/dL 5-40 [facility] Serum or plasma creatinine m easurement (mass/volume)Ordered By: Dr. Gaviria on 07-21-2022 Creatinine [Mass/Vol] 0.68 mg/dL 0.55-1.02 [facility] Comment on above: The validity of the calculated GFR & GFRAA in patients over 70 years has not been determined. Clinical correlation is essential. Serum or plasma low density lipoprotein (LDL) cholesterol measurement (mass/volume)Ordered By: Dr. Gaviria on 07-21-2022 Cholesterol in LDL [Mass/Vol] 140 mg/dL 0-130 [facility] Serum or plasma urea nitroge n measurement (mass/volume)Ordered By: Dr. Gaviria on 07-21-2022 Urea nitrogen [Mass/Vol] 16 mg/dL 7-18 [facility] Thin prep Papanicolaou smear with manual screeningOrdered By: Dr. Gaviria on 07-21-2022 Thin prep Papanicolaou smear with manual screening 18 U/L 15-37 [facility] Thin prep Papanicolaou smear with manual screening 5 5-15 [facility] Whole blood hemoglobin A1c/t otal hemoglobin ratio (mass fraction)Ordered By: Dr. Gaviria on 07-21-2022 HbA1c (Bld) [Mass fraction] 5.8 % 3.8-5.6 [facility] Comment on above: Normal < 5.7 % Predi abetic 5.7 - 6.4 % Diabetic >or= 6.5 % Please note range changes. Laboratory - Microbiology an d Antimicrobial susceptibilityon 08-22-2021 SARS-CoV-2 (COVID-19) RNA GARLAND+probe Ql (Unsp spec) Not detected Not Detect [facility] Work Phone: Comment on above: Normal Reference Ran ge: Not DetectedMethod:(RT-PCR) real-time reverse transcriptase PCRLuminex MORAIMA Instrument*The Food and Drug Administration (FDA) has issued an Emergency Use Authorization (EAU) for the MORAIMA SARS-CoV-2 Assay for the rapid detection of the virus that causes COVID-19. This test has been validated, but the FDAs independent review of this validation is pending.*Negative results do not preclude infection and should not be used as the sole basis for treatment or patient management. Optimum specimen types and timing for peak viral levels during infections caused by SARS-CoV-2 have not been determined. Collection of multiple specimens from the same patient may be necessary to detect the virus. The possibility of a false negative result should be considered if the patient has clinical presentation or has had recent exposure. S. pyogenes Ag IA Ql (Unsp spec) Negative [facility] Work Phone: CBC W/Diff, AutomatedOrdered By: Travel Freight And Passenger Agent on 05-27-2018 Absolute Neut 4.2 {X10_3/uL} Normal 2.0-7.7 [facility] Work Phone: Comment on above: A1C CMP IN SURGERY O RDER HAVING RESULTS SENT TO [facility] [address] [place], [phone] Basophils/100 WBC (Bld) 0.3 % Normal 0-1 [facility] Work Phone: Comment on above: A1C CMP IN SURGERY O RDER [facility] [address] [place], [phone] Eosinophils/100 WBC (Bld) 1.1 % Normal 0-5 [facility] Work Phone: Comment on above: A1C CMP IN SURGERY O RDER HAVING RESULTS [facility] [address] [place], [address] Erythrocyte distribution width (RBC) [Ratio] 13.5 % Normal 11.6-14.6 [facility] Work Phone: Comment on above: A1C CMP IN SURGERY O RDER HAVING RESULTS [facility] DR [facility] [address] [place], [address] Hematocrit (Bld) [Volume fraction] 39.6 % Normal 37-47 [facility] Work Phone: Comment on above: A1C CMP IN SURGERY O RDER HAVING RESULTS SENT TO [facility] [address] [place], [address] Hemoglobin (Bld) [Mass/Vol] 12.6 g/dL Normal 12.0-15.0 [facility] Work Phone: Comment on above: A1C CMP IN SURGERY O RDER HAVING RESULTS SENT TO [facility] [address] [place], [address] IM GRAN % 0.200 % Normal 0.0-0.9 [facility] Work Phone: Comment on above: IG% - Immature Granu locytes (promyelocytes, myelocytes andmetamyelocytes) > 1% indicates that a LEFT SHIFT is Present. A1C CMP IN SURGERY O RDER HAVING RESULTS SENT TO [facility] [address] [place], [address] Lymphocytes (Bld) [#/Vol] 1.69 {X10_3/ul} Normal 0.83-4.51 [facility] Work Phone: Comment on above: A1C CMP IN SURGERY O RDER HAVING RESULTS [facility] [address] [place], [address] Lymphocytes/100 WBC (Bld) 26.4 % Normal 19-41 [facility] Work Phone: Comment on above: A1C CMP IN SURGERY O RDER HAVING RESULTS SENT TO [facility] [address] [place], [address] MCH (RBC) [Entitic mass] 31.8 pg Normal 27.0-32.0 [facility] Work Phone: Comment on above: A1C CMP IN SURGERY O RDER HAVING RESULTS SENT TO DR Briceñ[facility]ariposa [facility] Ethsxfsngb[address], [address] MCHC (RBC) [Mass/Vol] 31.8 {g/gl} Abnormal 32-36 [facility] Work Phone: Comment on above: A1C CMP IN SURGERY O RDER HAVING RESULTS SENT TO DR Briceñ[facility] [address] [place], [address] MCV (RBC) [Entitic vol] 100.0 fL Abnormal 81-99 [facility] Work Phone: Comment on above: A1C CMP IN SURGERY O RDER HAVING RESULTS [facility] [address]hmorl[address], [address] Monocytes/100 WBC (Bld) 5.8 % Normal 0-10 [facility] Work Phone: Comment on above: A1C CMP IN SURGERY O RDER HAVING RESULTS SENT TO DR Brice[facility] [address]waspsdx[address] [place], [address] Neutrophils/100 WBC (Bld) 66.2 % Normal 47-70 [facility] Work Phone: Comment on above: A1C CMP IN SURGERY O RDER HAVING RESULTS SENT TO DR Brice[facility] Fzxjezfqpn1477[place], [address] Platelet mean volume (Bld) [Entitic vol] 10.0 fL Normal 6.2-12.0 Comprehensiv e [facility] Work Phone: Comment on above: A1C CMP IN SURGERY O RDER HAVING RESULTS [facility] Bsqcnffbvu5325[place], [address] Platelets (Bld) [#/Vol] 328 10*3/uL Normal 150-450 [facility] Work Phone: Comment on above: A1C CMP IN SURGERY O RDER HAVING RESULTS [facility] [address] [place], [address] RBC (Bld) [#/Vol] 3.96 {M/mm3} Abnormal 4.2-5.4 [facility] Internal Medicine Work Phone: Comment on above: A1C CMP IN SURGERY O RDER HAVING RESULTS SENT TO DR [facility]mic[facility]Mer[facility] [address] [place], [address] RDW SD 48.8 fL Abnormal 35.1-43.9 [facility] Work Phone: Comment on above: A1C CMP IN SURGERY O RDER HAVING RESULTS [facility] [address] [place], [address] WBC (Bld) [#/Vol] 6.4 10*3/uL Normal 4.4-11.0 [facility] Work Phone: Comment on above: A1C CMP IN SURGERY O RDER HAVING RESULTS SENT TO DR [facility]mic[facility]Mer[facility] [address] [place], [address] Comprehensive Metabolic Prof ilOrdered By: Travel Freight And Passenger Agent on 05-27-2018 Comprehensive metabolic 2000 panel 6 1 Normal 5-15 Comprehensi ve [facility] Work Phone: Comment on above: A1C CMP IN SURGERY O RDER HAVING RESULTS SENT TO DR BURROWSmichelemariposa [facility] [address] [place], [address] DR. BURROWS ALSO WANT S CMP F7UZmagccxPaulding County Hospital [address] [place], [address] Comprehensive metabolic 2000 panel 93 mg/dL Normal 74-106 [facility] Work Phone: Comment on above: Please note revised GLUCOSE reference range [id number]/02/2018. DR. BURROWS ALSO WANT S CMP C6QRaoiaxqPaulding County Hospital [address] [place], [address] Comprehensive metabolic 2000 panel 139 mmol/L Normal 136-145 Com[facility] Work Phone: Comment on above: A1C CMP IN SURGERY O RDER HAVING RESULTS SENT TO [facility]SP[facility] [address] [place], [place], [phone] DR. BURROWS ALSO WANT S CMP V4YZhbpvvnParkview [facility] [address] [place], [address] Comprehensive metabolic 2000 panel 96 U/L Normal 45-117 Compre[facility]si [facility] Work Phone: Comment on above: DR. BURROWS ALSO WANT S CMP S9HCylbimoPaulding County Hospital [address] [place], [place], [id number] A1C CMP IN SURGERY O RDER HAVING RESULTS SENT TO [facility]SP[facility] [address] [place], [place], [phone] Comprehensive metabolic 2000 panel 20 U/L Normal 15-37 [facility] Work Phone: Comment on above: DR. BURROWS ALSO WANT S CMP C0EXghnevgPaulding County Hospital [address] [place], [place], [phone] Comprehensive metabolic 2000 panel 8.6 mg/dL Normal 8.5-10.1 Compre[facility]si [facility] Work Phone: Comment on above: DR. BURROWS ALSO WANT S CMP S6CRkelbjqPaulding County Hospital [address] [place], [address] A1C CMP IN SURGERY O RDER HAVING RESULTS SENT TO DR BURRWOSPaulding County Hospital [address] [place], [place], [phone] Comprehensive metabolic 2000 panel 0.30 mg/dL Normal 0.20-1.00 [facility] Work Phone: Comment on above: A1C CMP IN SURGERY O RDER HAVING RESULTS SENT TO [facility]SP[facility] [address] [place], [place], [phone] DR. BURROWS ALSO WANT S CMP A0DXqqapvhPaulding County Hospital [address] [place], [place], [phone] Comprehensive metabolic 2000 panel 7.7 g/dL Normal 6.4-8.2 Com[facility]si [facility] Work Phone: Comment on above: A1C CMP IN SURGERY O RDER HAVING RESULTS SENT TO DR BURROWSmichelemariposa [facility] [address] [place], [place], [phone] Comprehensive metabolic 2000 panel 28.5 {RATIO} Abnormal 10-20 [facility] Work Phone: Comment on above: A1C CMP IN SURGERY O RDER HAVING RESULTS SENT TO [facility]SP[facility] [address] [place], [place], [phone] Comprehensive metabolic 2000 panel 128 mL/min Normal [facility] Work Phone: Comment on above: GFR Calc A1C CMP IN SURGERY O RDER HAVING RESULTS SENT TO [facility]SP[facility] [address] [place], [place], [phone] Comprehensive metabolic 2000 panel 106 mL/min Normal [facility] Work Phone: Comment on above: Non- GFR Calc A1C CMP IN SURGERY O RDER HAVING RESULTS SENT TO DR [facility]OWSmicheleMer[facility] [address] [place], [place], [phone] Comprehensive metabolic 2000 panel 30 U/L Normal 13-56 Compre[facility]si [facility] Work Phone: Comment on above: A1C CMP IN SURGERY O RDER HAVING RESULTS SENT TO DR BURROWSmichelemariposa [facility] [address] [place], [place], [phone] DR. BURROWS ALSO WANT S CMP V8OCxmnsvyPaulding County Hospital [address] [place], [place], [phone] Comprehensive metabolic 2000 panel 1.0 {RATIO} Normal 0.9-2.4 Com[facility]si [facility] Work Phone: Comment on above: DR. BURROWS ALSO WANT S CMP L2XCnsuaczPaulding County Hospital [address] [place], [place], [phone] Comprehensive metabolic 2000 panel 4.0 g/dL Normal 2.2-4.2 Comprehensi [facility] Work Phone: Comment on above: DR. BURROWS ALSO WANT S CMP C9DBvarzmlPaulding County Hospital [address] [place], [place], [phone] Comprehensive metabolic 2000 panel 0.60 mg/dL Normal 0.55-1.02 Com[facility]si [facility] Work Phone: Comment on above: The validity of the calculated GFR AND GFRAA in patients over70 years has not been determined. Clinical correlation isessential. A1C CMP IN SURGERY O RDER HAVING RESULTS SENT TO [facility]SP[facility] [address] [place], [place], [phone] Comprehensive metabolic 2000 panel 17 mg/dL Normal 7-18 Comprehensi ve [facility] Work Phone: Comment on above: A1C CMP IN SURGERY O RDER HAVING RESULTS SENT TO [facility]SP[facility] [address] [place], [place], [phone] DR. BURROWS ALSO WANT S CMP H5XWftcaubPaulding County Hospital [address] [place], [place], [phone] Comprehensive metabolic 2000 panel 91 mg/dL Normal 74-106 Comprehensi ve [facility] Work Phone: Comment on above: Please note revised GLUCOSE reference range [id number]/02/2018. A1C CMP IN SURGERY O RDER HAVING RESULTS SENT [facility]mic[facility]Mer[facility] [address] [place], [phone] Comprehensive metabolic 2000 panel 22 U/L Normal 15-37 Com[facility]si [facility] Work Phone: Comment on above: A1C CMP IN SURGERY O RDER HAVING RESULTS SENT [facility]SP[facility] [address] [place], [phone] Comprehensive metabolic 2000 panel 3.8 g/dL Normal 3.2-5.0 Compre[facility]si [facility] Work Phone: Comment on above: DR. BURROWS ALSO WANT S CMP W1GKrwllgrPaulding County Hospital [address] [place], [place], [phone] Comprehensive metabolic 2000 panel 0.66 mg/dL Normal 0.55-1.02 Com[facility]si [facility] Work Phone: Comment on above: The validity of the calculated GFR AND GFRAA in patients over70 years has not been determined. Clinical correlation isessential. DR. BURROWS ALSO WANT S CMP [address] [place], [address] Comprehensive metabolic 2000 panel 95 mL/min Normal [facility] Work Phone: Comment on above: Non- GFR Calc DR. BURROWS ALSO WANT S CMP [address] [place], [place], [phone] Comprehensive metabolic 2000 panel 7.8 g/dL Normal 6.4-8.2 Compre[facility]si [facility] Work Phone: Comment on above: DR. BURROWS ALSO WANT S CMP [address] [place], [address] Comprehensive metabolic 2000 panel 26.0 {RATIO} Abnormal 10-20 Compre[facility]si [facility] Work Phone: Comment on above: DR. BURROWS ALSO WANT S CMP T2UWgpawmxPaulding County Hospital [address] [place], [place], [phone] Comprehensive metabolic 2000 panel 26.0 mmol/L Normal 21.0-32.0 Comprehensi [facility] Work Phone: Comment on above: A1C CMP IN SURGERY O RDER HAVING RESULTS SENT TO [facility]SP[facility] [address] [place], [place], [phone] DR. BURROWS ALSO WANT S CMP [address] [place], [place], [phone] Comprehensive metabolic 2000 panel 107 mmol/L Normal 98-107 Comprehensi ve [facility] Work Phone: Comment on above: A1C CMP IN SURGERY O RDER HAVING RESULTS SENT [facility]SP[facility] [address] [place], [place], [phone] DR. BURROWS ALSO WANT S CMP T6CEgoccytPaulding County Hospital [address] [place], [place], [phone] Comprehensive metabolic 2000 panel 3.8 mmol/L Normal 3.5-5.1 Compre[facility]si ve [facility] Work Phone: Comment on above: A1C CMP IN SURGERY O RDER HAVING RESULTS SENT [facility]SP[facility] [address] [place], [place], [id number] Comprehensive metabolic 2000 panel 0.8 {RATIO} Abnormal 0.9-2.4 Compre[facility]si [facility] Work Phone: Comment on above: A1C CMP IN SURGERY O RDER HAVING RESULTS SENT TO [facility]SP[facility] [address] [place], [address] Comprehensive metabolic 2000 panel 4.2 g/dL Normal 2.2-4.2 Compre[facility]si ve [facility] Work Phone: Comment on above: A1C CMP IN SURGERY O RDER HAVING RESULTS SENT [facility]SP[facility] [address] [place], [address] Comprehensive metabolic 2000 panel 3.5 g/dL Normal 3.2-5.0 Comprehensi ve [facility] Work Phone: Comment on above: A1C CMP IN SURGERY O RDER HAVING RESULTS [facility] [address] [place], [address] Comprehensive metabolic 2000 panel 115 mL/min Normal Comprehensi ve [facility] Medicine Work Phone: Comment on above: GFR Calc DR. BURROWS ALSO WANT S CMP F9ZWunjnezPaulding County Hospital [address] [place], [address] Comprehensive metabolic 2000 panel 3.7 mmol/L Normal 3.5-5.1 Comprehensi ve [facility] Medicine Work Phone: Comment on above: DR. BURROWS ALSO WANT S CMP L9ALmrbswrPaulding County Hospital [address] [place], [address] Free P2Qpmuwvn By: Jai wooten on 05-27-2018 Free T3 [Mass/Vol] 3.2 pg/mL Normal 2.18-3.98 Compre unm [facility] Internal Medicine Work Phone: Comment on above: A1C CMP IN SURGERY O RDER HAVING RESULTS SENT TO [facility]SP[facility] [address] [place], [address] Hemoglobin B2rEgpelnr By: [employer] on 05-27-2018 HbA1c (Bld) [Mass fraction] 6.2 % Normal 4.2-6.3 [facility] Work Phone: Comment on above: DR. BURROWS ALSO WANT S CMP [address] [place], [address] MicroalbOrdered By: System Varsha davis on 05-27-2018 Creatinine [Mass/Vol] 114.00 mg/dL Normal [facility] Work Phone: Comment on above: [facility] [address] [place], [address] Creatinine [Mass/Vol] 10.6 {mg/g_CRE} Normal [facility] Work Phone: Comment on above: [facility] [address] [place], [address] Microalb 12.1 mg/L Normal [facility] Work Phone: Comment on above: [facility] [address] [place], [address] NMR LipoprofileOrdered By: Nader may Health Information Tech on 05-27-2018 Cholesterol [Mass/Vol] 283 mg/dL Abnormal 100-199 [facility] Work Phone: Comment on above: A1C CMP IN SURGERY O RDER HAVING RESULTS SENT TO DR Perez (refer to report for specific site)refer to report for address and phone number INR Coag (Bld) [Relative time] 45 {INR} Normal [facility] Work Phone: Comment on above: INSULIN RESISTANCE Varsha MCGHEE <--Insulin Sensitive Insulin Resistant--> Percentile in Reference PopulationInsulin Resistance ScoreLP-IR Score Low 25th 50th 75th High <27 27 45 63 >63LP-IR Score is inaccurate if patient is non-fasting.The LP-IR score is a laboratory developed index that hasbeen associated with insulin resistance and diabetes riskand should be used as one component of a physician'sclinical assessment. The LP-IR score listed above has notbeen cleared by the [place] Food and Drug Administration.Performed at: [facility] [address] [id number] Director: Ashlee Hernández MD, Phone: [phone] A1C CMP IN SURGERY O RDER HAVING RESULTS SENT TO DR Perez (refer to report for specific site)refer to report for address and phone number Triglyceride [Mass/Vol] 160 mg/dL Abnormal 0-149 [facility] Work Phone: Comment on above: A1C CMP IN SURGERY O RDER HAVING RESULTS SENT TO DR Perez (refer to report for specific site)refer to report for address and phone number NMR Lipoprofile 21.7 nm Normal [facility] Internal Medicine Work Phone: Comment on above: INTERPRETATIVE INFORMATION PARTICLE CONCENTRATION AND SIZE <--Lower CVD Risk Higher CVD Risk--> LDL AND HDL PARTICLES Percentile in Reference Population HDL-P (total) High 75th 50th 25th Low >34.9 34.9 30.5 26.7 <26.7 Small LDL-P Low 25th 50th 75th High <117 117 527 839 >839 LDL Size <-Large (Pattern A)-> <-Small (Pattern B)-> 23.0 20.6 20.5 19.0 Small LDL-P and LDL Size are associated with CVD risk, butnot after LDL-P is taken into account.These assays were developed and their performancecharacteristics determined by [employer]. These assayshave not been cleared by the [place] Food and DrugAdministration. The clinical utility of these laboratoryvalues have not been fully established. A1C CMP IN SURGERY O RDER HAVING RESULTS SENT TO DR Perez (refer to report for specific site)refer to report for address and phone number NMR Lipoprofile 180 mg/dL Abnormal 0-99 [facility] Medicine Work Phone: Comment on above: Optimal < 100 Above optimal 100 - 129 Borderline 130 - 159 High 160 - 189 Very high > 189LDL-C is inaccurate if patient is non-fasting. A1C CMP IN SURGERY O RDER HAVING RESULTS SENT TO DR Perez (refer to report for specific site)refer to report for address and phone number NMR Lipoprofile 325 nmol/L Normal [facility] Internal Medicine Work Phone: Comment on above: A1C CMP IN SURGERY O RDER HAVING RESULTS SENT TO DR Perez (refer to report for specific site)refer to report for address and phone number NMR Lipoprofile 1760 nmol/L Abnormal [facility] Internal Medicine Work Phone: Comment on above: Low < 1000 Moderate 1000 - 1299 Borderline-High 1300 - 1599 High 1600 - 2000 Very High > 2000 A1C CMP IN SURGERY O RDER HAVING RESULTS SENT TO DR Perez (refer to report for specific site)refer to report for address and phone number NMR Lipoprofile 71 mg/dL Normal [facility] Internal Medicine Work Phone: Comment on above: A1C CMP IN SURGERY O RDER HAVING RESULTS SENT TO DR Perez (refer to report for specific site)refer to report for address and phone number NMR Lipoprofile 40.2 umol/L Normal [facility] Internal Medicine Work Phone: Comment on above: A1C CMP IN SURGERY O RDER HAVING RESULTS SENT TO DR Perez (refer to report for specific site)refer to report for address and phone number T4 Free DirectOrdered By: stem Health Information Tech on 05-27-2018 Free T4 [Mass/Vol] 0.96 ng/dL Normal 0.76-1.[address] [facility] Internal Medicine Work Phone: Comment on above: A1C CMP IN SURGERY O RDER HAVING RESULTS [facility] [address] [place], [address] Thyroid Stim Hormone (TSH)Or dered By: Travel Freight And Passenger Agent on 05-27-2018 TSH Qn 1.01 {uIU/mL} Normal 0.358-3.74 [facility] Internal Medicine Work Phone: Comment on above: A1C CMP IN SURGERY O RDER HAVING RESULTS SENT TO DR BURROWSmichelemariposa [facility] [address] [place], [id number] Vitamin D,25 HydroxyOrdered By: Travel Freight And Passenger Agent on 05-27-2018 Vitamin D,25 Hydroxy 14.2 ng/mL Abnormal 29.95-1 00. 01 [facility] Work Phone: Comment on above: Vitamin D 25(OH) Sta tus Range Deficiency <20 ng/mL (50nmol/L) Insufficiency 20 - 30 ng/mL (50 - 75 nmol/L) Sufficiency 30 - 100 ng/mL (75 - 250 nmol/L) Toxicity >100 ng/mL (>250 nmol/L) A1C CMP IN SURGERY O RDER HAVING RESULTS SENT TO DR BURROWSmichelemariposa [facility] [address] [place], [address] CREATININE FINGERSTICKOrdere d By: Travel Freight And Passenger Agent on 05-18-2018 Creatinine [Mass/Vol] 1.2 mg/dL Abnormal 0.55-1.02 [facility] Work Phone: Comment on above: [facility] LaboratoryPoint of [address] [place] [address] GFR/1.73 sq M predicted among non-blacks MDRD (S/P/Bld) [Vol rate/Area] 49.0000 mL/min/{1.73_m2} Abnormal Compreh ensive Internal Medicine Work Phone: Comment on above: [facility] LaboratoryPoint of [address] [place] [address] Blood Glucose , Office ([phone])Ordered By: Mackenzie Bernard on 04-12-2018 Glucose Glucometer molar conc (BldC) 87 1 Normal [facility] Work Phone: HgA1C , Office ([phone])Ordere d By: Mackenzie Bernard on 04-12-2018 Hemoglobin A1c/Hemoglobin.total mass fraction (Bld) 5.8 % Normal 4.6 - 7.1 Comprehensiv e Internal Medicine Work Phone: Blood Glucose , Office ([phone])Ordered By: Lila Muniz on 12-27-2015 Glucose Glucometer molar conc (BldC) 104 1 Normal [facility] Work Phone: CALCIFEDIOL ([phone])Ordered B y: Travel Freight And Passenger Agent on 12-27-2015 25-Hydroxyvitamin D2+25-Hydroxyvitamin D3 mass conc 27.1 ng/mL Abnormal 30.0-100.0 [facility] Work Phone: Comment on above: Vitamin D deficiency has been defined by the [place] ofMedicine and an Endocrine Society practice guideline as alevel of serum 25-OH vitamin D less than 20 ng/mL (1,2).The Endocrine Society went on to further define vitamin Dinsufficiency as a level between 21 and 29 ng/mL (2).1. IOM ([place] of Medicine). 2010. Dietary reference intakes for calcium and D. [place]: The National Academies Press.2. Luly MF, Michelle GALICIA, Jefry DAVILA, et al. Evaluation, treatment, and prevention of vitamin D deficiency: an Endocrine Society clinical practice guideline. JCEM. 2010; 96(7):1911-30. PATIENT WAS FASTINGP ERFORMED BY: CB [facility] N[address]udc[address] RoadDublin [place] [id number] CBC with auto diff (52178)Or dered By: Travel Freight And Passenger Agent on 12-27-2015 Basophils #/vol (Bld) 0.0 {x10E3/uL} Normal 0.0-0.2 [facility] Work Phone: Comment on above: PATIENT WAS FASTINGP ERFORMED BY: [facility] Pcopsd0380 [address] RoadDublin [place] [id number] Basophils/100 WBC (Bld) 1 % Normal [facility] Work Phone: Comment on above: PATIENT WAS FASTINGP ERFORMED BY: [facility] Degwbz[address] RoadDublin [place] [id number] Eosinophils #/vol (Bld) 0.1 {x10E3/uL} Normal 0.0-0.4 [facility] Work Phone: Comment on above: PATIENT WAS FASTINGP ERFORMED BY: [facility] Plwbdw93[address] RoadDublin [place] [id number] Eosinophils/100 WBC (Bld) 2 % Normal [facility] Work Phone: Comment on above: PATIENT WAS FASTINGP ERFORMED BY: [facility] Fdjxfd7794 [address] RoadDublin [place] [id number] Erythrocyte distribution width Ratio (RBC) 13.8 % Normal 12.3-15.4 [facility] Work Phone: Comment on above: PATIENT WAS FASTINGP ERFORMED BY: CB [facility] Hmuwnx[address] RoadDublin [place] [id number] Hematocrit Volume Fraction (Bld) 34.0 % Normal 34.0-46.6 [facility] Work Phone: Comment on above: PATIENT WAS FASTINGP ERFORMED BY: CB [facility] Ccnanp20[address] [place] [id number] Hemoglobin mass conc (Bld) 11.5 g/dL Normal 11.1-15.9 [facility] Work Phone: Comment on above: PATIENT WAS FASTINGP ERFORMED BY: [facility] Nxxsby[address] [place] [id number] Immature granulocytes #/vol (Bld) 0.0 {x10E3/uL} Normal 0.0-0.1 [facility] Work Phone: Comment on above: PATIENT WAS FASTINGP ERFORMED BY: [facility] Qiwlys87[address] [facility] [place] [id number] Immature granulocytes/100 WBC (Bld) 0 % Normal [facility] Work Phone: Comment on above: PATIENT WAS FASTINGP ERFORMED BY: LabCoGallup Indian Medical CenterQmwztr4459 [address] [facility] [id number] Lymphocytes #/vol (Bld) 1.7 {x10E3/uL} Normal 0.7-3.1 [facility] Work Phone: Comment on above: PATIENT WAS FASTINGP ERFORMED BY: LabCoBacharach Institute for RehabilitationNmjksu7049 [address] [facility] [id number] Lymphocytes/100 WBC (Bld) 28 % Normal [facility] Work Phone: Comment on above: PATIENT WAS FASTINGP ERFORMED BY: LabCoGallup Indian Medical CenterYiyokb0066 [address] [facility] [id number] MCH Entitic mass (RBC) 32.0 pg Normal 26.6-33.0 [facility] Work Phone: Comment on above: PATIENT WAS FASTINGP ERFORMED BY: [facility] Vvtrnf7246 [address] [facility] [id number] MCHC mass conc (RBC) 33.8 g/dL Normal 31.5-35.7 [facility] Internal Medicine Work Phone: Comment on above: PATIENT WAS FASTINGP ERFORMED BY: [facility] Aahmri1970 [address] [facility] [id number] MCV Entitic volume (RBC) 95 fL Normal 79-97 [facility] Work Phone: Comment on above: PATIENT WAS FASTINGP ERFORMED BY: MERCED Llamas6370 [address] [facility] [id number] Monocytes #/vol (Bld) 0.3 {x10E3/uL} Normal 0.1-0.9 [facility] Work Phone: Comment on above: PATIENT WAS FASTINGP ERFORMED BY: MERCED Garza Bjnvzw6587 [facility] [id number] Monocytes/100 WBC (Bld) 5 % Normal [facility] Work Phone: Comment on above: PATIENT WAS FASTINGP ERFORMED BY: MERCED Llamas6370 [facility] [id number] Neutrophils #/vol (Bld) 4.0 {x10E3/uL} Normal 1.4-7.0 [facility] Work Phone: Comment on above: PATIENT WAS FASTINGP ERFORMED BY: MERCED Cmlin6370 [facility] [id number] Neutrophils/100 WBC (Bld) 64 % Normal [facility] Work Phone: Comment on above: PATIENT WAS FASTINGP ERFORMED BY: MERCED Cmlin6370 [facility] [id number] Platelets #/vol (Bld) 336 {x10E3/uL} Normal 150-379 [facility] Work Phone: Comment on above: PATIENT WAS FASTINGP ERFORMED BY: MERCED Cmlin6370 [facility] [id number] RBC #/vol (Bld) 3.59 {x10E6/uL} Abnormal 3.77-5.28 [facility] Internal Medicine Work Phone: Comment on above: PATIENT WAS FASTINGP ERFORMED BY: MERCED LabRanken [facility] Evotmb9680 [facility] [id number] WBC #/vol (Bld) 6.1 {x10E3/uL} Normal 3.4-10.8 [facility] Internal Medicine Work Phone: Comment on above: PATIENT WAS FASTINGP ERFORMED BY: MERCED [facility] Ikvrxt[address] Sophia GeneticsCape Fear Valley [facility] Centerin [place] [id number] HgA1C , Office ([phone])Ordere d By: Lila Muniz on 12-27-2015 Hemoglobin A1c/Hemoglobin.total mass fraction (Bld) 6.1 % Normal 4.6 - 7.1 Comprehensiv e Internal Medicine Work Phone: LIPID PANEL ([phone])Ordered B y: Travel Freight And Passenger Agent on 12-27-2015 Cholesterol in HDL mass conc 67 mg/dL Normal [facility] Work Phone: Comment on above: According to ATP-III Guidelines, HDL-C >59 mg/dL is considered anegative risk factor for CHD. PATIENT WAS FASTINGP ERFORMED BY: MERCED Influ[employer] Hnvkvf2919 [address] [facility]eticsAngel [facility] [id number] Cholesterol in LDL mass conc 182 mg/dL Abnormal 0-99 [facility] Work Phone: Comment on above: PATIENT WAS FASTINGP ERFORMED BY: MERCED LabBecome Media Inc.rp Ctmebp1907 [address] [facility]eticsAngel [facility] [id number] Cholesterol in LDL/Cholesterol in HDL mass ratio 2.7 {ratio_units} Normal 0.0-3.2 [facility] Work Phone: Comment on above: LDL/HDL Ratio Men Wo men 1/2 Avg.Risk 1.0 1.5 Avg.Risk 3.6 3.2 2X Avg.Risk 6.2 5.0 3X Avg.Risk 8.0 6.1 PATIENT WAS FASTINGP ERFORMED BY: MERCED LabBecome Media Inc.rp Qyvtzw1976 [address] [facility] [id number] Cholesterol in VLDL mass conc 25 mg/dL Normal 5-40 [facility] Work Phone: Comment on above: PATIENT WAS FASTINGP ERFORMED BY: MERCED LabBecome Media Inc.rp Yhexsb0853 [address] [facility] [id number] Cholesterol mass conc 274 mg/dL Abnormal 100-199 [facility] Work Phone: Comment on above: PATIENT WAS FASTINGP ERFORMED BY: MERCED [facility] Uydhnz8605 [address] [facility] Centerbl[facility] [place] [id number] Triglyceride mass conc 125 mg/dL Normal 0-149 [facility] Work Phone: Comment on above: PATIENT WAS FASTINGP ERFORMED BY: MERCED Angelika Cmlin6370 [address] [facility] Centerbl[facility] [place] [id number] METABOLIC PANEL, COMPREHENSI VE (52994)Ordered By: Travel Freight And Passenger Agent on 12-27-2015 Albumin mass conc 4.1 g/dL Normal 3.6-4.8 Compreh [facility] Internal Medicine Work Phone: Comment on above: PATIENT WAS FASTINGP ERFORMED BY: MERCED LabCo Wfsxel9451 Bron[address] [facility]in [place] [id number] Albumin/Globulin mass ratio 1.5 {ratio} Normal 1.1-2.5 [facility] Work Phone: Comment on above: PATIENT WAS FASTINGP ERFORMED BY: MERCED LabCherie Jdiqxp5242 [address] [facility] [id number] ALP enzyme act/vol 113 [iU]/L Normal 39-117 [facility] Work Phone: Comment on above: PATIENT WAS FASTINGP ERFORMED BY: MERCED LabCheriejillian Pseslg9551 [address] [facility] [place] [id number] ALT enzyme act/vol 27 [iU]/L Normal 0-32 [facility] Work Phone: Comment on above: PATIENT WAS FASTINGP ERFORMED BY: MERCED LabCherie Vjbuzt8167 [address] [facility] [place] [id number] AST enzyme act/vol 21 [iU]/L Normal 0-40 [facility] Work Phone: Comment on above: PATIENT WAS FASTINGP ERFORMED BY: MERCED [facility] Qyimsu1227 [address] [facility] [id number] Bilirubin mass conc mg/dL Normal 0.0-1.2 [facility] Internal Medicine Work Phone: Comment on above: PATIENT WAS FASTINGP ERFORMED BY: MERCED [facility] Piweaz1984 [address] [facility] [id number] Calcium mass conc 9.1 mg/dL Normal 8.7-10.3 Compreh ensive Internal Medicine Work Phone: Comment on above: PATIENT WAS FASTINGP ERFORMED BY: MERCED LabCojillian CmLbnncf2349 Brown RoadDublin [place] [id number] Chloride molar conc 101 mmol/L Normal 97-108 Compr ehensive Internal Medicine Work Phone: Comment on above: PATIENT WAS FASTINGP ERFORMED BY: MERCED LabCojillian CmZcyqta6877 [address] Roadblin [place] [id number] CO2 molar conc 23 mmol/L Normal 18-29 Comprehens naseem Internal Medicine Work Phone: Comment on above: PATIENT WAS FASTINGP ERFORMED BY: MERCED LabStephanie CmZqjxlf5315 Brown RoadAngel Medical Center [id number] Creatinine mass conc 0.72 mg/dL Normal 0.57-1.00 Comp rehensive Internal Medicine Work Phone: Comment on above: PATIENT WAS FASTINGP ERFORMED BY: MERCED LabCojillian CmAvaopq0795 [address] [facility] [place] [id number] GFR/1.73 sq M predicted among blacks CKD-EPI vol rate/area (S/P/Bld) 100 mL/min/1.73 Normal Comprehensiv e Internal Medicine Work Phone: Comment on above: PATIENT WAS FASTINGP ERFORMED BY: MERCED [facility] Nmdmmk8425 Brown RoadCape Fear [facility] Centerin [place] [id number] GFR/1.73 sq M predicted among non-blacks CKD-EPI vol rate/area (S/P/Bld) 87 mL/min/1.73 Normal [facility] Work Phone: Comment on above: PATIENT WAS FASTINGP ERFORMED BY: MERCED [facility] Bstrth6319 [address] Road[address] [place] [id number] Globulin mass conc (S) 2.8 g/dL Normal 1.5-4.5 [facility] Work Phone: Comment on above: PATIENT WAS FASTINGP ERFORMED BY: MERCED [facility] Zphggt4093 Brown RoadAngel Medical Center [id number] Glucose mass conc 110 mg/dL Abnormal 65-99 Compreh ensive Internal Medicine Work Phone: Comment on above: PATIENT WAS FASTINGP ERFORMED BY: MERCED Angelika Llamas6370 [address] [facility] [id number] Potassium molar conc 4.1 mmol/L Normal 3.5-5.2 Comp rehensive Internal Medicine Work Phone: Comment on above: PATIENT WAS FASTINGP ERFORMED BY: MERCED Angelika Llamas6370 [facility] [id number] Protein mass conc 6.9 g/dL Normal 6.0-8.5 Compreh ensive Internal Medicine Work Phone: Comment on above: PATIENT WAS FASTINGP ERFORMED BY: MERCED Angelika Cmlin6370 [facility] [id number] Sodium molar conc 141 mmol/L Normal 134-144 Compreh ensive Internal Medicine Work Phone: Comment on above: PATIENT WAS FASTINGP ERFORMED BY: MERCED Greg Nxmxyl4290 [facility] [id number] Urea nitrogen mass conc 16 mg/dL Normal 8-27 [facility] Work Phone: Comment on above: PATIENT WAS FASTINGP ERFORMED BY: MERCED Angelika Cmlin6370 [facility] [id number] Urea nitrogen/Creatinine mass ratio 22 mg/mg Normal 11-26 [facility] Work Phone: Comment on above: PATIENT WAS FASTINGP ERFORMED BY: MERCED Jose LuisRanken [facility] Uqoezh5300 [facility] [id number] MICROALBUMINOrdered By: Syst em Health Information Tech on 12-27-2015 Albumin DL <= 20 mg/L mass conc (U) mg/dL Normal [facility] Work Phone: Comment on above: PATIENT WAS FASTINGP ERFORMED BY: MERCED LabRanken [facility] Bhjkee0049 [facility] [id number] Albumin/Creatinine mass ratio (U) <5.3 Normal 0.0-30.0 [facility] Work Phone: Comment on above: PATIENT WAS FASTINGP ERFORMED BY: LabCo Mrzdur2766 [facility] [id number] Creatinine mass conc (U) 56.7 mg/dL Normal [facility] Work Phone: Comment on above: PATIENT WAS FASTINGP ERFORMED BY: LabCo Uqqltv3618 [facility] [id number] T3, FREE (TRIDOTHYRONINE) ([id number])Ordered By: Travel Freight And Passenger Agent on 12-27-2015 T3 free mass conc 3.3 pg/mL Normal 2.0-4.4 Compreh ensive Internal Medicine Work Phone: Comment on above: PATIENT WAS FASTINGP ERFORMED BY: [facility] Xknkbv4799 [facility] [id number] T4, FREE (THYROXINE) ([id number]) Ordered By: Travel Freight And Passenger Agent on 12-27-2015 T4 free mass conc 1.05 ng/dL Normal 0.82-1.77 Compreh ensive Internal Medicine Work Phone: Comment on above: PATIENT WAS FASTINGP ERFORMED BY: [facility] Bdeehb8354 [facility] [id number] TSH (THYROID STIMULATING HOR EMMIE) ([id number])Ordered By: Travel Freight And Passenger Agent on 12-27-2015 Thyrotropin Qn 0.917 {uIU/mL} Normal 0.450-4.50 0 [facility] Work Phone: Comment on above: PATIENT WAS FASTINGP ERFORMED BY: LabRanken [facility] Xxrvuf4970 [facility] [id number] Serum Creatinine AND GFROrde red By: Travel Freight And Passenger Agent on 05-17-2015 Creatinine mass conc 0.74 mg/dL Normal 0.55-1.20 Comp rehensive Internal Medicine Work Phone: Comment on above: The validity of the calculated GFR AND GFRAA in patients over70 years has not been determined. Clinical correlation isessential. [facility] [address] [place], [place], [id number] GFR/1.73 sq M predicted among non-blacks MDRD vol rate/area (S/P/Bld) 84 mL/min/{1.73_m2} Normal Comprehe nsive Internal Medicine Work Phone: Comment on above: Non- GFR Calc [facility] [address] [place], [place], [id number] Serum Creatinine AND GFR 101 mL/min Normal [facility] Work Phone: Comment on above: GFR Calc [facility] [address] [place], [place], [phone] YURI (ANTINUCLEAR ANTIBODY) ( [id number])Ordered By: Travel Freight And Passenger Agent on 01-23-2015 Nuclear Ab Ql (S) Negative Normal Compreh ensive Internal Medicine Work Phone: Comment on above: PATIENT WAS FASTINGP ERFORMED BY: [employer] [facility] [id number] C-REACTIVE PROTEIN ([id number])Or dered By: Travel Freight And Passenger Agent on 01-23-2015 CRP mass conc 2.3 mg/L Normal 0.0-4.9 Comprehensi ve Internal Medicine Work Phone: Comment on above: PATIENT WAS FASTINGP ERFORMED BY: [employer]6370 [facility] [id number] CBC W/AUTO DIFF WBC (07015)O rdered By: Travel Freight And Passenger Agent on 01-23-2015 Basophils #/vol (Bld) 0.0 {x10E3/uL} Normal 0.0-0.2 [facility] Work Phone: Comment on above: PATIENT WAS FASTINGP ERFORMED BY: [employer]6370 [facility] [id number] Information: [id number] Basophils/100 WBC (Bld) 0 % Normal [facility] Work Phone: Comment on above: PATIENT WAS FASTINGP ERFORMED BY: [employer]6370 [facility] [id number] Information: [id number] Eosinophils #/vol (Bld) 0.1 {x10E3/uL} Normal 0.0-0.4 [facility] Work Phone: Comment on above: PATIENT WAS FASTINGP ERFORMED BY: [address] [id number] Information: [id number] Eosinophils/100 WBC (Bld) 1 % Normal [facility] Work Phone: Comment on above: PATIENT WAS FASTINGP ERFORMED BY: [address] [id number] Information: [id number] Erythrocyte distribution width Ratio (RBC) 14.1 % Normal 12.3-15.4 [facility] Work Phone: Comment on above: PATIENT WAS FASTINGP ERFORMED BY: [address] [id number] Information: [id number] Hematocrit Volume Fraction (Bld) 36.3 % Normal 34.0-46.6 [facility] Work Phone: Comment on above: PATIENT WAS FASTINGP ERFORMED BY: [address] [id number] Information: [id number] Hemoglobin mass conc (Bld) 12.1 g/dL Normal 11.1-15.9 [facility] Work Phone: Comment on above: PATIENT WAS FASTINGP ERFORMED BY: [address] [id number] Information: [id number] Immature granulocytes #/vol (Bld) 0.0 {x10E3/uL} Normal 0.0-0.1 [facility] Work Phone: Comment on above: PATIENT WAS FASTINGP ERFORMED BY: [address] [id number] Information: [id number] Immature granulocytes/100 WBC (Bld) 0 % Normal [facility] Work Phone: Comment on above: PATIENT WAS FASTINGP ERFORMED BY: [place] [id number] [facility] [id number] Information: [id number] Lymphocytes #/vol (Bld) 2.0 {x10E3/uL} Normal 0.7-3.1 [facility] Work Phone: Comment on above: PATIENT WAS FASTINGP ERFORMED BY: [address] [id number] Information: [id number] Lymphocytes/100 WBC (Bld) 33 % Normal [facility] Work Phone: Comment on above: PATIENT WAS FASTINGP ERFORMED BY: [address] [id number] Information: [id number] MCH Entitic mass (RBC) 31.3 pg Normal 26.6-33.0 [facility] Work Phone: Comment on above: PATIENT WAS FASTINGP ERFORMED BY: [address] [id number] Information: [id number] MCHC mass conc (RBC) 33.3 g/dL Normal 31.5-35.7 [facility] Internal Medicine Work Phone: Comment on above: PATIENT WAS FASTINGP ERFORMED BY: [address] [id number] Information: [id number] MCV Entitic volume (RBC) 94 fL Normal 79-97 [facility] Work Phone: Comment on above: PATIENT WAS FASTINGP ERFORMED BY: [address] [id number] Information: [id number] Monocytes #/vol (Bld) 0.3 {x10E3/uL} Normal 0.1-0.9 [facility] Work Phone: Comment on above: PATIENT WAS FASTINGP ERFORMED BY: MERCED Cmlin6370 [facility] [id number] Information: [id number] Monocytes/100 WBC (Bld) 5 % Normal [facility] Work Phone: Comment on above: PATIENT WAS FASTINGP ERFORMED BY: MERCED [address] [id number] Information: [id number] Neutrophils #/vol (Bld) 3.6 {x10E3/uL} Normal 1.4-7.0 [facility] Work Phone: Comment on above: PATIENT WAS FASTINGP ERFORMED BY: MERCED [address] [id number] Information: [id number] Neutrophils/100 WBC (Bld) 61 % Normal [facility] Work Phone: Comment on above: PATIENT WAS FASTINGP ERFORMED BY: MERCED Garza Ztqdj[address] [id number] Information: [id number] Platelets #/vol (Bld) 344 {x10E3/uL} Normal 150-379 [facility] Work Phone: Comment on above: PATIENT WAS FASTINGP ERFORMED BY: MERCED [address] [id number] Information: [id number] RBC #/vol (Bld) 3.86 {x10E6/uL} Normal 3.77-5.28 [facility] Internal Medicine Work Phone: Comment on above: PATIENT WAS FASTINGP ERFORMED BY: MERCED GarzaK[place]a [place] 8722470 [facility] [id number] Information: [id number] WBC #/vol (Bld) 6.0 {x10E3/uL} Normal 3.4-10.8 [facility] Internal Medicine Work Phone: Comment on above: PATIENT WAS FASTINGP ERFORMED BY: MERCED Carney Yxaini2083 [facility] [id number] Information: [id number] Creatine Kinase Total (64008 )Ordered By: Travel Freight And Passenger Agent on 01-23-2015 CK enzyme act/vol 184 U/L Abnormal 24-173 Compreh ensive Internal Medicine Work Phone: Comment on above: ADDENDA: non-emergen t till apt PATIENT WAS FASTINGP ERFORMED BY: MERCED [facility] Dmholu4201 [facility] [id number] LIPID PANEL ([id number])Ordered B y: Travel Freight And Passenger Agent on 01-23-2015 Cholesterol in HDL mass conc 72 mg/dL Normal [facility] Work Phone: Comment on above: According to ATP-III Guidelines, HDL-C >59 mg/dL is considered anegative risk factor for CHD. PATIENT WAS FASTINGP ERFORMED BY: MERCED NarrableRanken [facility] Cewzlo7399 [facility] [id number] Cholesterol in LDL mass conc 157 mg/dL Abnormal 0-99 [facility] Work Phone: Comment on above: Please note refere nce interval change PATIENT WAS FASTINGP ERFORMED BY: MERCED Jose LuisStephanie Mzpjmn3315 [facility] [id number] Cholesterol in LDL/Cholesterol in HDL mass ratio 2.2 {ratio_units} Normal 0.0-3.2 [facility] Work Phone: Comment on above: LDL/HDL Ratio Men Wo men 1/2 Avg.Risk 1.0 1.5 Avg.Risk 3.6 3.2 2X Avg.Risk 6.2 5.0 3X Avg.Risk 8.0 6.1 PATIENT WAS FASTINGP ERFORMED BY: MERCED [facility]Rank[facility] Ovamwl2389 [facility] [id number] Cholesterol in VLDL mass conc 25 mg/dL Normal 5-40 [facility] Work Phone: Comment on above: PATIENT WAS FASTINGP ERFORMED BY: MERCED [facility]Rank[facility] Xabxok2861 [facility] [id number] Cholesterol mass conc 254 mg/dL Abnormal 100-199 [facility] Work Phone: Comment on above: Please note refere nce interval change PATIENT WAS FASTINGP ERFORMED BY: MERCED [facility] Jxnrtg9716 [address] [place] [id number] Triglyceride mass conc 126 mg/dL Normal 0-149 [facility] Work Phone: Comment on above: Please note refere nce interval change PATIENT WAS FASTINGP ERFORMED BY: CB [facility] Ukyvrb8650 [facility] [id number] METABOLIC PANEL, COMPREHENSI VE ([id number])Ordered By: Travel Freight And Passenger Agent on 01-23-2015 Albumin mass conc 4.1 g/dL Normal 3.6-4.8 [facility] Internal Medicine Work Phone: Comment on above: PATIENT WAS FASTINGP ERFORMED BY: MERCED [facility] Zerluf8479 [facility] [id number] Albumin/Globulin mass ratio 1.6 {ratio} Normal 1.1-2.5 [facility] Internal Medicine Work Phone: Comment on above: PATIENT WAS FASTINGP ERFORMED BY: MERCED [facility] Bfqnve8232 [facility] [place] [id number] ALP enzyme act/vol 97 [iU]/L Normal 39-117 [facility] Internal Medicine Work Phone: Comment on above: PATIENT WAS FASTINGP ERFORMED BY: MERCED [facility] Bqpsuw4586 [facility] [id number] ALT enzyme act/vol 22 [iU]/L Normal 0-32 [facility] Internal Medicine Work Phone: Comment on above: PATIENT WAS FASTINGP ERFORMED BY: CB [facility] Aelhuj5953 [address] [place] [id number] AST enzyme act/vol 16 [iU]/L Normal 0-40 [facility] Internal Medicine Work Phone: Comment on above: PATIENT WAS FASTINGP ERFORMED BY: MERCED [facility] Bnjzhx5365 [facility] [id number] Bilirubin mass conc 0.2 mg/dL Normal 0.0-1.2 Compr ehensive Internal Medicine Work Phone: Comment on above: PATIENT WAS FASTINGP ERFORMED BY: MERCED Llamas6370 [facility] [place] [id number] Calcium mass conc 9.1 mg/dL Normal 8.7-10.3 Compreh ensive Internal Medicine Work Phone: Comment on above: PATIENT WAS FASTINGP ERFORMED BY: MERCED LabCojillian CmJquijv1850 [facility] [id number] Chloride molar conc 104 mmol/L Normal 97-108 Compr ehensive Internal Medicine Work Phone: Comment on above: PATIENT WAS FASTINGP ERFORMED BY: MERCED LabStephanie CmHgccmt8934 [facility] [id number] CO2 molar conc 22 mmol/L Normal 18-29 Comprehens naseem Internal Medicine Work Phone: Comment on above: PATIENT WAS FASTINGP ERFORMED BY: MERCED Cmlin6370 [facility] [id number] Creatinine mass conc 0.58 mg/dL Normal 0.57-1.00 [facility] Work Phone: Comment on above: PATIENT WAS FASTINGP ERFORMED BY: MERCED Cmlin6370 [facility] [id number] GFR/1.73 sq M predicted among blacks CKD-EPI vol rate/area (S/P/Bld) 111 mL/min/1.73 Normal Comprehensiv e Internal Medicine Work Phone: Comment on above: PATIENT WAS FASTINGP ERFORMED BY: MERCED [facility] Czjorn6595 [facility] [place] [id number] GFR/1.73 sq M predicted among non-blacks CKD-EPI vol rate/area (S/P/Bld) 96 mL/min/1.73 Normal [facility] Work Phone: Comment on above: PATIENT WAS FASTINGP ERFORMED BY: MERCED [facility] Cehank6365 [facility] [id number] Globulin mass conc (S) 2.6 g/dL Normal 1.5-4.5 [facility] Work Phone: Comment on above: PATIENT WAS FASTINGP ERFORMED BY: MERCED Jose LuisStephanie CmRhpftz0084 [facility] [id number] Glucose mass conc 106 mg/dL Abnormal 65-99 Compreh ensive Internal Medicine Work Phone: Comment on above: PATIENT WAS FASTINGP ERFORMED BY: MERCED Jose LuisStephanie CmCbpdaq7409 [facility] [id number] Potassium molar conc 4.3 mmol/L Normal 3.5-5.2 Comp rehensive Internal Medicine Work Phone: Comment on above: PATIENT WAS FASTINGP ERFORMED BY: MERCED Jose LuisStephanie CmQxjfpy8959 [facility] [id number] Protein mass conc 6.7 g/dL Normal 6.0-8.5 Compreh ensive Internal Medicine Work Phone: Comment on above: PATIENT WAS FASTINGP ERFORMED BY: MERCED Cmlin6370 [facility] [id number] Sodium molar conc 143 mmol/L Normal 134-144 Compreh ensive Internal Medicine Work Phone: Comment on above: PATIENT WAS FASTINGP ERFORMED BY: MERCED Jose LuisStephanie CmBmyqqc2743 [facility] [id number] Urea nitrogen mass conc 15 mg/dL Normal 8-27 [facility] Work Phone: Comment on above: PATIENT WAS FASTINGP ERFORMED BY: MERCED LabStephanie CmBpiovh6366 [facility] [id number] Urea nitrogen/Creatinine mass ratio 26 mg/mg Normal 11-26 [facility] Work Phone: Comment on above: PATIENT WAS FASTINGP ERFORMED BY: MERCED LabStephanie CmWsclac6733 [facility] [id number] MICROALBUMINOrdered By: Syst em Health Information Tech on 01-23-2015 Albumin DL <= 20 mg/L mass conc (U) mg/dL Normal 0.0-17.0 [facility] Work Phone: Comment on above: PATIENT WAS FASTINGP ERFORMED BY: MERCED [facility] Whpzxk0100 [address]ublin [place] [id number] Albumin/Creatinine mass ratio (U) <4.7 Normal 0.0-30.0 [facility] Internal Medicine Work Phone: Comment on above: PATIENT WAS FASTINGP ERFORMED BY: MERCED [facility] Dgsznu5412 [address] RoadDublin [place] [id number] Creatinine mass conc (U) 63.5 mg/dL Normal 15.0-278.0 [facility] Internal Medicine Work Phone: Comment on above: PATIENT WAS FASTINGP ERFORMED BY: MERCED [facility] Uxixvv3116 [address] RoadDublin [place] [id number] RHEUMATOID FACTOR-QUANT (942 51)Ordered By: Travel Freight And Passenger Agent on 01-23-2015 Rheumatoid factor Qn 10.2 {IU/mL} Normal 0.0-13.9 [facility] Internal Medicine Work Phone: Comment on above: PATIENT WAS FASTINGP ERFORMED BY: MERCED [facility] Ilbdnh4589 [address] RoadDublin [place] [id number] SED RATE ERYTHROCYTE ([id number]) Ordered By: Travel Freight And Passenger Agent on 01-23-2015 ESR Velocity (Bld) 20 mm/h Normal 0-40 [facility] Internal Medicine Work Phone: Comment on above: PATIENT WAS FASTINGP ERFORMED BY: MERCED [facility] Xdxqzf7711 [address] RoadD[address] [place] [id number] TSH ([id number])Ordered By: Syste m Health Information Tech on 01-23-2015 Thyrotropin Qn 1.000 {uIU/mL} Normal 0.450-4.50 0 [facility] Internal Medicine Work Phone: Comment on above: PATIENT WAS FASTINGP ERFORMED BY: MERCED [facility] Bogygk7918 [address] Road[address]ublin [place] [id number] Vitamin D Hydroxy (16446)Ord ered By: Travel Freight And Passenger Agent on 01-23-2015 25-Hydroxyvitamin D2+25-Hydroxyvitamin D3 mass conc 24.5 ng/mL Abnormal 30.0-100.0 [facility] Internal Medicine Work Phone: Comment on above: Vitamin D deficiency has been defined by the [place] ofMedicine and an Endocrine Society practice guideline as alevel of serum 25-OH vitamin D less than 20 ng/mL (1,2).The Endocrine Society went on to further define vitamin Dinsufficiency as a level between 21 and 29 ng/mL (2).1. IOM ([place] of Medicine). 2010. Dietary reference intakes for calcium and D. [place]: The National Academies Press.2. Luly MF, Michelle GALICIA, Jefry DAVILA, et al. Evaluation, treatment, and prevention of vitamin D deficiency: an Endocrine Society clinical practice guideline. JCEM. 2010; 96(7):1911-30. PATIENT WAS FASTINGP ERFORMED BY: [facility] Vhlrid2995 [facility] [id number] HgA1C , Office ([id number])Ordere d By: Tamy Walter on 12-01-2014 Hemoglobin A1c/Hemoglobin.total mass fraction (Bld) 6.1 % Normal 4.6 - 7.1 Comprehensiv e Internal Medicine Work Phone: VEIN(S)Ordered By: Jai wooten on 03-29-2014 VEIN(S) See Note Normal [facility] Work Phone: Comment on above: Patient: REA CERON : 1950 (63/F) Acct Num: [id number] Phys: Serenity SHAH,Lisandro Unit Num: [id number] [place] [facility] [place]: [id number] Received: 03/31/14 - 0750 Spec Type: VEIN(S) TISSUES TISSUES: GROSS DESCRIPTION Received is one container labeled with the patient name and designated veins from right leg. The specimen consists of multiple irregular and elongated fragments of del cid vascular tissue ranging in diameter from 0.1 to 0.3 cm. Compression Molding Machine Tender portions are submitted in one cassette. / AM:aldo 03/31/14 TC:5 CPT: 19599 HEADER OPERATION: Micro phlebectomy PRE-OPERATIVE DIAGNOSIS: Chronic venous insufficiency, varicose veins with inflammation, leg pain, leg swelling, right lower extremity TISSUE SUBMITTED: Right leg veins MICROSCOPIC DIAGNOSIS Right leg veins: Consistent with varicose veins. SJ:aldo 04/03/14 Signed Mina Griffin 04/03/14 Test performed at:[facility] [address] [place], [place] [address] Basic Metabolic Profile (BMP )Ordered By: Travel Freight And Passenger Agent on 03-21-2014 Calcium mass conc 8.9 mg/dL Normal 8.5-10.1 Compreh ensive Internal Medicine Work Phone: Comment on above: Test performed at:[facility] [address]grvh[address] [place] [address] Chloride molar conc 104 mmol/L Normal 98-107 Compr ehensive Internal Medicine Work Phone: Comment on above: Test performed at:[facility] [address] [place] [address] CO2 molar conc 28.0 mmol/L Normal 21.0-32.0 Comprehen sive Internal Medicine Work Phone: Comment on above: Test performed at:[facility] [address]afk[address] [place] [address] Creatinine mass conc 0.7 mg/dL Normal 0.6-1.0 Comp rehensive Internal Medicine Work Phone: Comment on above: Test performed at:[facility] [address] [place] [address] GFR/1.73 sq M predicted among non-blacks MDRD vol rate/area (S/P/Bld) 89 mL/min/{1.73_m2} Normal Comprehe nsive Internal Medicine Work Phone: Comment on above: Test performed at:[facility] [address] [place] [address] Glucose mass conc 94 mg/dL Normal 70-110 Compreh ensive Internal Medicine Work Phone: Comment on above: Test performed at:[facility] [address]wrp[address] [place] [address] Potassium molar conc 3.7 mmol/L Normal 3.5-5.1 Comp rehensive Internal Medicine Work Phone: Comment on above: Test performed at:[facility] [address] [place], [place] [id number] Sodium molar conc 136 mmol/L Normal 136-145 Compreh ensive Internal Medicine Work Phone: Comment on above: Test performed at:[facility] [address] [place] [address] Urea nitrogen mass conc 14 mg/dL Normal 7-18 [facility] Work Phone: Comment on above: Test performed at:[facility] [address] [place] [address] Basic Metabolic Profile (BMP) 4 1 Abnormal 5-15 [facility] Work Phone: Comment on above: Test performed at:[facility] [address]ev[address] [place], [place] [id number] Basic Metabolic Profile (BMP) 108 mL/min Normal [facility] Work Phone: Comment on above: Test performed at:[facility] [address]ukjayc[address] [place] [address] Basic Metabolic Profile (BMP) 86.06 ml/min Normal [facility] Work Phone: Comment on above: Test performed at:[facility] L[address]ywgjg[address] [place] [address] Basic Metabolic Profile (BMP) 20.0 {RATIO} Normal 10-20 [facility] Work Phone: Comment on above: Test performed at:[facility] [address]wl[address]ab[address] [place], [place] [id number] CBC W/Diff, AutomatedOrdered By: Travel Freight And Passenger Agent on 03-21-2014 Absolute Neut 4.0 {X10_3/uL} Normal 2.0-7.7 Compreh ensive Internal Medicine Work Phone: Comment on above: Test performed at:[facility] [address] [place] [address] Basophils/100 WBC (Bld) 0.3 % Normal 0-1 [facility] Work Phone: Comment on above: Test performed at:[facility] [address] [place] [address] Eosinophils/100 WBC (Bld) 1.1 % Normal 0-5 [facility] Work Phone: Comment on above: Test performed at:[facility] [address]cou[address] [place] [address] Erythrocyte distribution width Ratio (RBC) 13.5 % Normal 11.6-14.6 [facility] Work Phone: Comment on above: Test performed at:[facility] [address] [place] [address] Hematocrit Volume Fraction (Bld) 38.0 % Normal 37-47 [facility] Work Phone: Comment on above: Test performed at:[facility] [address] [place] [address] Hemoglobin mass conc (Bld) 12.4 g/dL Normal 12.0-15.0 [facility] Work Phone: Comment on above: Test performed at:[facility] [address]eful[address] [place] [address] IM GRAN % 0.200 % Normal 0.0-0.9 [facility] Work Phone: Comment on above: IG% - Immature Granu locytes (promyelocytes, myelocytes andmetamyelocytes) > 1% indicates that a LEFT SHIFT is Present. Test performed at:[facility] [address] [place] [address] Lymphocytes #/vol (Bld) 2.04 {X10_3/ul} Normal 0.83-4.51 [facility] Work Phone: Comment on above: Test performed at:[facility] [address]ovnh[address] [place] [address] Lymphocytes/100 WBC (Bld) 31.5 % Normal 19-41 [facility] Work Phone: Comment on above: Test performed at:[facility] [address] [place] [address] MCH Entitic mass (RBC) 31.7 pg Normal 27.0-32.0 [facility] Work Phone: Comment on above: Test performed at:[facility] [address]dat[address] [place] [address] MCHC mass conc (RBC) 32.6 {g/gl} Normal 32-36 [facility] prehensive Internal Medicine Work Phone: Comment on above: Test performed at:[facility] [address] [place] [address] MCV Entitic volume (RBC) 97.2 fL Normal 81-99 [facility] Work Phone: Comment on above: Test performed at:[facility] [address] [place] [address] Monocytes/100 WBC (Bld) 5.3 % Normal 0-10 [facility] Work Phone: Comment on above: Test performed at:[facility] [address] [place] [address] Neutrophils/100 WBC (Bld) 61.6 % Normal 47-70 [facility] Work Phone: Comment on above: Test performed at:[facility] [address] [place] [address] Platelet mean volume Entitic volume (Bld) 9.5 fL Normal 6.2-12.0 Comprehensi ve Internal Medicine Work Phone: Comment on above: Test performed at:[facility] [address] [place] [address] Platelets #/vol (Bld) 354 10*3/uL Normal 150-450 [facility] Work Phone: Comment on above: Test performed at:[facility] [address] [place] [address] RBC #/vol (Bld) 3.91 {M/mm3} Abnormal 4.2-5.4 Compreh ensive Internal Medicine Work Phone: Comment on above: Test performed at:[facility] [address] [place] [address] RDW SD 48.1 fL Abnormal 35.1-43.9 [facility] Work Phone: Comment on above: Test performed at:[facility] [address] [place] [address] WBC #/vol (Bld) 6.5 10*3/uL Normal 4.4-11.0 Comprehe nsive Internal Medicine Work Phone: Comment on above: Test performed at:[facility] [address] [place] [address] CBC WITH MANUAL DIFF (17607) Ordered By: Travel Freight And Passenger Agent on 06-07-2013 Basophils #/vol (Bld) 0.0 {x10E3/uL} Normal 0.0-0.2 [facility] Work Phone: Comment on above: PATIENT WAS FASTINGP ERFORMED BY: [facility] Pncyrp9650 [facility] [id number] Information: [id number] Basophils/100 WBC (Bld) 1 % Normal 0-3 [facility] Work Phone: Comment on above: PATIENT WAS FASTINGP ERFORMED BY: [facility] Wadwha6707 [facility] [id number] Information: [id number] Eosinophils #/vol (Bld) 0.1 {x10E3/uL} Normal 0.0-0.4 [facility] Work Phone: Comment on above: PATIENT WAS FASTINGP ERFORMED BY: [address] [id number] Information: [id number] Eosinophils/100 WBC (Bld) 1 % Normal 0-5 [facility] Work Phone: Comment on above: PATIENT WAS FASTINGP ERFORMED BY: [address] [id number] Information: [id number] Erythrocyte distribution width Ratio (RBC) 13.6 % Normal 12.3-15.4 [facility] Work Phone: Comment on above: PATIENT WAS FASTINGP ERFORMED BY: [address] [id number] Information: [id number] Hematocrit Volume Fraction (Bld) 38.8 % Normal 34.0-46.6 [facility] Work Phone: Comment on above: PATIENT WAS FASTINGP ERFORMED BY: [address] [id number] Information: [id number] Hemoglobin mass conc (Bld) 12.9 g/dL Normal 11.1-15.9 [facility] Work Phone: Comment on above: PATIENT WAS FASTINGP ERFORMED BY: [address] [id number] Information: [id number] Immature granulocytes #/vol (Bld) 0.0 {x10E3/uL} Normal 0.0-0.1 [facility] Work Phone: Comment on above: PATIENT WAS FASTINGP ERFORMED BY: [address] [id number] Information: [id number] Immature granulocytes/100 WBC (Bld) 0 % Normal 0-2 [facility] Work Phone: Comment on above: PATIENT WAS FASTINGP ERFORMED BY: [place] 9639770 [facility] [id number] Information: [id number] Lymphocytes #/vol (Bld) 1.9 {x10E3/uL} Normal 0.7-3.1 [facility] Work Phone: Comment on above: PATIENT WAS FASTINGP ERFORMED BY: [address] [id number] Information: [id number] Lymphocytes/100 WBC (Bld) 31 % Normal 14-46 [facility] Work Phone: Comment on above: PATIENT WAS FASTINGP ERFORMED BY: [address] [id number] Information: [id number] MCH Entitic mass (RBC) 31.7 pg Normal 26.6-33.0 [facility] Work Phone: Comment on above: PATIENT WAS FASTINGP ERFORMED BY: [address] [id number] Information: [id number] MCHC mass conc (RBC) 33.2 g/dL Normal 31.5-35.[address] [facility] Internal Medicine Work Phone: Comment on above: PATIENT WAS FASTINGP ERFORMED BY: [address] [id number] Information: [id number] MCV Entitic volume (RBC) 95 fL Normal 79-97 [facility] Work Phone: Comment on above: PATIENT WAS FASTINGP ERFORMED BY: [address] [id number] Information: [id number] Monocytes #/vol (Bld) 0.2 {x10E3/uL} Normal 0.1-0.9 [facility] Work Phone: Comment on above: PATIENT WAS FASTINGP ERFORMED BY: MERCED Jose LuisHenry [facility] Cott[facility] Hospital6370 [facility] [id number] Information: [id number] Monocytes/100 WBC (Bld) 4 % Normal 4-12 [facility] Work Phone: Comment on above: PATIENT WAS FASTINGP ERFORMED BY: [address] [id number] Information: [id number] Neutrophils #/vol (Bld) 3.9 {x10E3/uL} Normal 1.4-7.0 [facility] Work Phone: Comment on above: PATIENT WAS FASTINGP ERFORMED BY: MERCED Jose LuisRanken [facility] Ybxuvp8492 [facility] [id number] Information: [id number] Neutrophils/100 WBC (Bld) 63 % Normal 40-74 [facility] Work Phone: Comment on above: PATIENT WAS FASTINGP ERFORMED BY: [place] [id number] [facility] [id number] Information: [id number] Platelets #/vol (Bld) 346 {x10E3/uL} Normal 155-379 [facility] Work Phone: Comment on above: PATIENT WAS FASTINGP ERFORMED BY: [address] [id number] Information: [id number] RBC #/vol (Bld) 4.07 {x10E6/uL} Normal 3.77-5.28 [facility] Internal Medicine Work Phone: Comment on above: PATIENT WAS FASTINGP ERFORMED BY: [facility]6370 [facility] [id number] Information: [id number] WBC #/vol (Bld) 6.1 {x10E3/uL} Normal 3.4-10.8 [facility] Internal Medicine Work Phone: Comment on above: PATIENT WAS FASTINGP ERFORMED BY: CB [facility] Cnoosu8993 [address] RoadDublin [place] [id number] Information: [id number] HgA1C , Office ([id number])Ordere d By: Tamy Walter on 06-07-2013 Hemoglobin A1c/Hemoglobin.total mass fraction (Bld) 6.3 % Normal 4.6 - 7.1 Comprehensiv e Internal Medicine Work Phone: LIPID PANEL ([id number])Ordered B y: Travel Freight And Passenger Agent on 06-07-2013 Cholesterol in HDL mass conc 70 mg/dL Normal [facility] Work Phone: Comment on above: According to ATP-III Guidelines, HDL-C >59 mg/dL is considered anegative risk factor for CHD. PATIENT WAS FASTINGP ERFORMED BY: CB [facility] Uzjdpd1077 Brown RoadDublin [place] [id number] Cholesterol in LDL mass conc 173 mg/dL Abnormal 0-99 [facility] Work Phone: Comment on above: PATIENT WAS FASTINGP ERFORMED BY: CB [facility] Wgtyvp5521 [address] RoadDublin [place] [id number] Cholesterol in LDL/Cholesterol in HDL mass ratio 2.5 {ratio_units} Normal 0.0-3.2 [facility] Work Phone: Comment on above: PATIENT WAS FASTINGP ERFORMED BY: CB [facility] Pvuwos3940 [address] RoadDublin [place] [id number] Cholesterol in VLDL mass conc 30 mg/dL Normal 5-40 [facility] Work Phone: Comment on above: PATIENT WAS FASTINGP ERFORMED BY: CB [facility] Vlpleo2169 [address] RoadDublin [place] [id number] Cholesterol mass conc 273 mg/dL Abnormal 100-199 [facility] Work Phone: Comment on above: PATIENT WAS FASTINGP ERFORMED BY: CB [facility] Nzuoba9[address] RoadDublin [place] [id number] Triglyceride mass conc 148 mg/dL Normal 0-149 [facility] Work Phone: Comment on above: PATIENT WAS FASTINGP ERFORMED BY: MERCED LabCherie Xmwqeb9508 [address] RoadDublin [place] [id number] METABOLIC PANEL, COMPREHENSI VE (44226)Ordered By: Travel Freight And Passenger Agent on 06-07-2013 Albumin mass conc 4.4 g/dL Normal 3.6-4.8 Compreh ensive Internal Medicine Work Phone: Comment on above: PATIENT WAS FASTINGP ERFORMED BY: MERCED LabRanken [facility] Lgmgsb0150 Brown RoadCape Fear Valley [facility] Centerin [place] [id number] Albumin/Globulin mass ratio 1.6 {ratio} Normal 1.1-2.5 [facility] Work Phone: Comment on above: PATIENT WAS FASTINGP ERFORMED BY: MERCED LabRanken [facility] Sittje5420 Brown RoadCape Fear Valley Medical Centerin [place] [id number] ALP enzyme act/vol 98 [iU]/L Normal 39-117 Compre [facility] Internal Medicine Work Phone: Comment on above: PATIENT WAS FASTINGP ERFORMED BY: MERCED AmayaRanken [facility] Vwjltk3922 [address] [facility] [place] [id number] ALT enzyme act/vol 18 [iU]/L Normal 0-32 Compre [facility] Internal Medicine Work Phone: Comment on above: PATIENT WAS FASTINGP ERFORMED BY: MERCED Cmlin6370 [address] [facility] Center[facility] [place] [id number] AST enzyme act/vol 18 [iU]/L Normal 0-40 Compre [facility] Internal Medicine Work Phone: Comment on above: PATIENT WAS FASTINGP ERFORMED BY: MERCED LabRanken [facility] Mwsbdt1118 [address] [facility] [place] [id number] Bilirubin mass conc 0.2 mg/dL Normal 0.0-1.2 Compr [facility] Internal Medicine Work Phone: Comment on above: PATIENT WAS FASTINGP ERFORMED BY: MERCED LabCo Qbcwkz8904 [address] [facility] [place] [id number] Calcium mass conc 9.2 mg/dL Normal 8.6-10.2 Compreh ensive Internal Medicine Work Phone: Comment on above: PATIENT WAS FASTINGP ERFORMED BY: MERCED LabCojillian CmWsaciy7078 Brown Roadblin [place] [id number] Chloride molar conc 100 mmol/L Normal 97-108 Compr ehensive Internal Medicine Work Phone: Comment on above: PATIENT WAS FASTINGP ERFORMED BY: MERCED LabStephanie CmZvzvos8665 [address] Roadblin [place] [id number] CO2 molar conc 25 mmol/L Normal 19-28 Comprehens naseem Internal Medicine Work Phone: Comment on above: PATIENT WAS FASTINGP ERFORMED BY: MERCED LabStephanie CmCovhlc2636 Brown RoadCape Fear Valley Medical Centerin [place] [id number] Creatinine mass conc 0.70 mg/dL Normal 0.57-1.00 Comp [facility] Internal [facility] Work Phone: Comment on above: PATIENT WAS FASTINGP ERFORMED BY: MERCED Cmlin6370 [address] [facility] [place] [id number] GFR/1.73 sq M predicted among blacks CKD-EPI vol rate/area (S/P/Bld) 106 mL/min/1.73 Normal Comprehensiv e Internal Medicine Work Phone: Comment on above: PATIENT WAS FASTINGP ERFORMED BY: MERCED Cmlin6370 [address] RoadCape Fear Valley Medical Centerin [place] [id number] GFR/1.73 sq M predicted among non-blacks CKD-EPI vol rate/area (S/P/Bld) 92 mL/min/1.73 Normal [facility] Work Phone: Comment on above: PATIENT WAS FASTINGP ERFORMED BY: MERCED LabRanken [facility] Sdiats8978 [address] [facility] [place] [id number] Globulin mass conc (S) 2.8 g/dL Normal 1.5-4.5 [facility] Work Phone: Comment on above: PATIENT WAS FASTINGP ERFORMED BY: MERCED LabCojillian CmSfcrfi3409 [address] [facility] [place] [id number] Glucose mass conc 105 mg/dL Abnormal 65-99 Compreh ensive Internal Medicine Work Phone: Comment on above: PATIENT WAS FASTINGP ERFORMED BY: MERCED LabCojillian CmOnpmqy4712 [address] [facility] [place] [id number] Potassium molar conc 4.1 mmol/L Normal 3.5-5.2 Comp rehensive Internal Medicine Work Phone: Comment on above: PATIENT WAS FASTINGP ERFORMED BY: MERCED LabStephanie CmVummcc4642 [address] Roadblin [place] [id number] Protein mass conc 7.2 g/dL Normal 6.0-8.5 Compreh ensive Internal Medicine Work Phone: Comment on above: PATIENT WAS FASTINGP ERFORMED BY: MERCED LabCo Ecagsn8214 [address] [facility]in [place] [id number] Sodium molar conc 139 mmol/L Normal 134-144 Compreh ensive Internal Medicine Work Phone: Comment on above: PATIENT WAS FASTINGP ERFORMED BY: MERCED Cmlin6370 [address] [facility] [id number] Urea nitrogen mass conc 17 mg/dL Normal 8-27 [facility] Work Phone: Comment on above: PATIENT WAS FASTINGP ERFORMED BY: MERCED Cmlin6370 [address] [facility] [id number] Urea nitrogen/Creatinine mass ratio 24 mg/mg Normal 11- [facility] Work Phone: Comment on above: PATIENT WAS FASTINGP ERFORMED BY: MERCED Cmlin6370 [facility] [id number] MICROALBUMINOrdered By: Syst em Health Information Tech on 06-07-2013 Albumin DL <= 20 mg/L mass conc (U) 9.7 ug/mL Normal 0.0-17.0 [facility] Work Phone: Comment on above: PATIENT WAS FASTINGP ERFORMED BY: MERCED LabCo Febdpr8217 [address] [facility]in [place] [id number] Albumin/Creatinine mass ratio (U) 10.3 {mg/g_creat} Normal 0.0-30.0 [facility] Work Phone: Comment on above: PATIENT WAS FASTINGP ERFORMED BY: MERCED LabRanken [facility] Lhckxu6765 [address] [facility] [id number] Creatinine mass conc (U) 94.3 mg/dL Normal 15.0-278.0 [facility] Work Phone: Comment on above: PATIENT WAS FASTINGP ERFORMED BY: MERCED Carney Tbhbaj2390 [address] RoadDublin [place] [id number] TSH ([id number])Ordered By: Syste m Health Information Tech on 06-07-2013 Thyrotropin Qn 1.360 {uIU/mL} Normal 0.450-4.50 0 [facility] Work Phone: Comment on above: PATIENT WAS FASTINGP ERFORMED BY: [facility] Yvrvst4898 Brown RoadGlassblin [place] [id number] Vitamin D Hydroxy (13088)Ord ered By: Travel Freight And Passenger Agent on 06-07-2013 25-Hydroxyvitamin D2+25-Hydroxyvitamin D3 mass conc 13.6 ng/mL Abnormal 30.0-100.0 [facility] Work Phone: Comment on above: Vitamin D deficiency has been defined by the [place] of[place]icine and an Endocrine Society practice guideline as alevel of serum 25-OH vitamin D less than 20 ng/mL (1,2).The Endocrine Society went on to further define vitamin Dinsufficiency as a level between 21 and 29 ng/mL (2).1. IOM ([place] of Medicine). 2010. Dietary reference intakes for calcium and D. [place]: The National Academies Press.2. Luly MF, Michelle NC, Jefry DAVILA, et al. Evaluation, treatment, and prevention of vitamin D deficiency: an Endocrine Society clinical practice guideline. JCEM. 2010; 96(7):1911-30. PATIENT WAS FASTINGP ERFORMED BY: FORA.tv [facility] Lxyctj6018 Brown RoadDublin [place] [id number] HEPATIC FUNCTION PANEL (8007 6)Ordered By: Travel Freight And Passenger Agent on 10-08-2012 Albumin mass conc 4.4 g/dL Normal 3.6-4.8 Compreh ensive Internal Medicine Work Phone: Comment on above: PATIENT NOT FASTINGP ERFORMED BY: MERCED LabCo Obwgjg4162 [address] [facility] HospitalDublin [place] [id number] Information: [id number] ALP enzyme act/vol 104 [iU]/L Normal 25-165 [facility] Internal Medicine Work Phone: Comment on above: Effective October 11, 2012 the reference interval for Alkaline Phosphatase, S will be changing to: Age Male Female 0 - 1 day 45 - 111 45 - 111 2 - 5 days 46 - 119 46 - 119 6 - 10 days 48 - 229 48 - 229 11 - 30 days 59 - 414 59 - 414 1 - 6 months 91 - 445 91 - 445 7 - 12 months 124 - 341 124 - 341 1 - 3 years 130 - 317 130 - 317 4 - 6 years 133 - 309 133 - 309 7 - 12 years 134 - 349 134 - 349 13 years 143 - 396 68 - 209 14 years 107 - 340 62 - 149 15 years 84 - 254 54 - 121 16 years 71 - 186 49 - 108 17 years 61 - 146 45 - 101 18 years 56 - 127 43 - 101 19 - 60 years 44 - 102 42 - 107 61 - 70 years 44 - 103 47 - 112 >70 years 44 - 105 45 - 108 PATIENT NOT FASTINGP ERFORMED BY: CB [facility] Rarnmr2719 [address] [facility] [id number] Information: [id number] ALT enzyme act/vol 31 [iU]/L Normal 0-32 [facility] Internal Medicine Work Phone: Comment on above: PATIENT NOT FASTINGP ERFORMED BY: CB [facility] Pqflsz8594 Brown RoadDuFrye Regional Medical Center [id number] Information: [id number] AST enzyme act/vol 23 [iU]/L Normal 0-40 [facility] Internal Medicine Work Phone: Comment on above: PATIENT NOT FASTINGP ERFORMED BY: CB [facility] Onojzn8330 Brown RoadDuin [place] [id number] Information: [id number] Bilirubin mass conc 0.3 mg/dL Normal 0.0-1.2 [facility] Internal Medicine Work Phone: Comment on above: PATIENT NOT FASTINGP ERFORMED BY: CB [facility] Culrmg8525 [address] [facility] [id number] Information: [id number] Bilirubin.direct mass conc 0.10 mg/dL Normal 0.00-0.40 [facility] Work Phone: Comment on above: PATIENT NOT FASTINGP ERFORMED BY: [facility] HospitalCoKrista Ville [id number] [facility] [id number] Information: [id number] Protein mass conc 7.3 g/dL Normal 6.0-8.5 Compreh ensive Internal Medicine Work Phone: Comment on above: PATIENT NOT FASTINGP ERFORMED BY: [place] [id number] [facility] [id number] Information: [id number] CBC WITH MANUAL DIFF (46141) Ordered By: Travel Freight And Passenger Agent on 09-29-2012 Basophils #/vol (Bld) 0.0 {x10E3/uL} Normal 0.0-0.2 [facility] Work Phone: Comment on above: PATIENT NOT FASTINGP ERFORMED BY: [place] [id number] [facility] [id number] Information: [id number] Basophils/100 WBC (Bld) 1 % Normal 0-3 [facility] Work Phone: Comment on above: PATIENT NOT FASTINGP ERFORMED BY: [place] [id number] [facility] [id number] Information: [id number] Eosinophils #/vol (Bld) 0.1 {x10E3/uL} Normal 0.0-0.4 [facility] Work Phone: Comment on above: PATIENT NOT FASTINGP ERFORMED BY: LabCoKrista Ville 8722470 [facility] [id number] Information: [id number] Eosinophils/100 WBC (Bld) 2 % Normal 0-7 [facility] Work Phone: Comment on above: PATIENT NOT FASTINGP ERFORMED BY: LabCoKrista Ville 8722470 [facility] [id number] Information: [id number] Erythrocyte distribution width Ratio (RBC) 13.8 % Normal 12.3-15.4 [facility] Work Phone: Comment on above: PATIENT NOT FASTINGP ERFORMED BY: MERCED AmayaCo Kgtfgw1487 [facility] [id number] Information: [id number] Hematocrit Volume Fraction (Bld) 38.8 % Normal 34.0-46.6 [facility] Work Phone: Comment on above: PATIENT NOT FASTINGP ERFORMED BY: [place] [id number] [facility] [id number] Information: [id number] Hemoglobin mass conc (Bld) 12.8 g/dL Normal 11.1-15.9 [facility] Work Phone: Comment on above: PATIENT NOT FASTINGP ERFORMED BY: [facility]6370 [facility] [id number] Information: [id number] Immature granulocytes #/vol (Bld) 0.0 {x10E3/uL} Normal 0.0-0.1 [facility] Work Phone: Comment on above: PATIENT NOT FASTINGP ERFORMED BY: LabCoBacharach Institute for RehabilitationRjbdfo3238 [facility] [id number] Information: [id number] Immature granulocytes/100 WBC (Bld) 0 % Normal 0-2 [facility] Work Phone: Comment on above: PATIENT NOT FASTINGP ERFORMED BY: LabCoBacharach Institute for RehabilitationRcntiq8530 [facility] [id number] Information: [id number] Lymphocytes #/vol (Bld) 1.9 {x10E3/uL} Normal 0.7-4.5 [facility] Work Phone: Comment on above: PATIENT NOT FASTINGP ERFORMED BY: LabDustin Ville 1945670 [facility] [id number] Information: [id number] Lymphocytes/100 WBC (Bld) 35 % Normal 14-46 [facility] Work Phone: Comment on above: PATIENT NOT FASTINGP ERFORMED BY: MERCED Cmlin6370 [facility] [id number] Information: [id number] MCH Entitic mass (RBC) 31.5 pg Normal 26.6-33.0 [facility] Work Phone: Comment on above: PATIENT NOT FASTINGP ERFORMED BY: [address] [id number] Information: [id number] MCHC mass conc (RBC) 33.0 g/dL Normal 31.5-35.7 [facility] Internal Medicine Work Phone: Comment on above: PATIENT NOT FASTINGP ERFORMED BY: [address] [id number] Information: [id number] MCV Entitic volume (RBC) 96 fL Normal 79-97 [facility] Work Phone: Comment on above: PATIENT NOT FASTINGP ERFORMED BY: Jose Luis[address] [id number] Information: [id number] Monocytes #/vol (Bld) 0.2 {x10E3/uL} Normal 0.1-1.0 [facility] Work Phone: Comment on above: PATIENT NOT FASTINGP ERFORMED BY: [place] [id number] [facility] [id number] Information: [id number] Monocytes/100 WBC (Bld) 4 % Normal 4-13 [facility] Work Phone: Comment on above: PATIENT NOT FASTINGP ERFORMED BY: [place] [id number] [facility] [id number] Information: [id number] Neutrophils #/vol (Bld) 3.3 {x10E3/uL} Normal 1.8-7.8 [facility] Work Phone: Comment on above: PATIENT NOT FASTINGP ERFORMED BY: MERCED LabCo Yrytuv0031 [facility] [id number] Information: [id number] Neutrophils/100 WBC (Bld) 58 % Normal 40-74 [facility] Work Phone: Comment on above: PATIENT NOT FASTINGP ERFORMED BY: CB [facility] Jqqzbn5794 [facility] [id number] Information: [id number] Platelets #/vol (Bld) 330 {x10E3/uL} Normal 140-415 [facility] Work Phone: Comment on above: PATIENT NOT FASTINGP ERFORMED BY: LabCoBacharach Institute for RehabilitationFncieg0728 [facility] [id number] Information: [id number] RBC #/vol (Bld) 4.06 {x10E6/uL} Normal 3.77-5.28 [facility] Internal Medicine Work Phone: Comment on above: PATIENT NOT FASTINGP ERFORMED BY: MERCED LabCo Szttrv7100 [facility] [id number] Information: [id number] WBC #/vol (Bld) 5.6 {x10E3/uL} Normal 4.0-10.5 [facility] Internal Medicine Work Phone: Comment on above: PATIENT NOT FASTINGP ERFORMED BY: LabCo Iygqti5249 [facility] [id number] Information: [id number] HgA1C , Office ([id number])Ordere d By: Cleo Arciniega on 09-29-2012 Hemoglobin A1c/Hemoglobin.total mass fraction (Bld) 6.3 % Normal 4.6 - 7.1 Comprehensiv e Internal Medicine Work Phone: METABOLIC PANEL, COMPREHENSI VE (53613)Ordered By: Travel Freight And Passenger Agent on 09-29-2012 Albumin mass conc 4.5 g/dL Normal 3.6-4.8 Compreh ensive Internal Medicine Work Phone: Comment on above: PATIENT NOT FASTINGP ERFORMED BY: MERCED [facility] Hjuibg5686 [address] Roadblin [place] [id number] Albumin/Globulin mass ratio 1.7 {ratio} Normal 1.1-2.5 [facility] Work Phone: Comment on above: PATIENT NOT FASTINGP ERFORMED BY: CB [facility] Spdijo9989 [address] [facility] [place] [id number] ALP enzyme act/vol 111 [iU]/L Normal 25-165 Compre [facility] Internal Medicine Work Phone: Comment on above: PATIENT NOT FASTINGP ERFORMED BY: CB [facility] Dgxkue4849 Brown RoadCape Fear [facility] Centerin [place] [id number] ALT enzyme act/vol 36 [iU]/L Abnormal 0-32 Compre [facility] Internal Medicine Work Phone: Comment on above: PATIENT NOT FASTINGP ERFORMED BY: CB [facility] Vfwhmy8349 [address] [facility] [place] [id number] AST enzyme act/vol 25 [iU]/L Normal 0-40 Compre [facility] Internal Medicine Work Phone: Comment on above: PATIENT NOT FASTINGP ERFORMED BY: CB [facility] Nwelfz3403 [address] [facility] [id number] Bilirubin mass conc 0.3 mg/dL Normal 0.0-1.2 Compr ensive Internal Medicine Work Phone: Comment on above: PATIENT NOT FASTINGP ERFORMED BY: CB [facility] Hqklwp3405 [address] [facility] [place] [id number] Calcium mass conc 9.5 mg/dL Normal 8.6-10.2 Compreh ensive Internal Medicine Work Phone: Comment on above: PATIENT NOT FASTINGP ERFORMED BY: CB [facility] Tcbqlu5111 [address] [facility] [place] [id number] Chloride molar conc 100 mmol/L Normal 97-108 Compr ensive Internal Medicine Work Phone: Comment on above: PATIENT NOT FASTINGP ERFORMED BY: CB [facility] Xaprmf2995 [address] RoadDublin [place] [id number] CO2 molar conc 24 mmol/L Normal 19-28 Comprehens naseem Internal Medicine Work Phone: Comment on above: PATIENT NOT FASTINGP ERFORMED BY: CB [facility] Qmytqg3189 [address] RoadDublin [place] [id number] Creatinine mass conc 0.81 mg/dL Normal 0.57-1.00 Comp rehensive Internal Medicine Work Phone: Comment on above: PATIENT NOT FASTINGP ERFORMED BY: CB [facility] Jaoeyw1397 [address] RoadDublin [place] [id number] GFR/1.73 sq M predicted among blacks CKD-EPI vol rate/area (S/P/Bld) 89 mL/min/1.73 Normal Comprehensiv e Internal Medicine Work Phone: Comment on above: PATIENT NOT FASTINGP ERFORMED BY: CB [facility] Xtkipo7743 [address] RoadDublin [place] [id number] GFR/1.73 sq M predicted among non-blacks CKD-EPI vol rate/area (S/P/Bld) 78 mL/min/1.73 Normal [facility] Work Phone: Comment on above: PATIENT NOT FASTINGP ERFORMED BY: CB [facility] Kdpzdi5176 [address] RoadDublin [place] [id number] Globulin mass conc (S) 2.7 g/dL Normal 1.5-4.5 [facility] Work Phone: Comment on above: PATIENT NOT FASTINGP ERFORMED BY: CB [facility] Asxioe3813 [address] RoadDublin [place] [id number] Glucose mass conc 99 mg/dL Normal 65-99 Compreh ensive Internal Medicine Work Phone: Comment on above: PATIENT NOT FASTINGP ERFORMED BY: CB [facility] Xzudde6601 [address] RoadDublin [place] [id number] Potassium molar conc 4.4 mmol/L Normal 3.5-5.2 Comp rehensive Internal Medicine Work Phone: Comment on above: PATIENT NOT FASTINGP ERFORMED BY: CB [facility] Uilczq9571 [address] RoadDublin [place] [id number] Protein mass conc 7.2 g/dL Normal 6.0-8.5 Compreh ensive Internal Medicine Work Phone: Comment on above: PATIENT NOT FASTINGP ERFORMED BY: CB [facility] Dotmrw8214 [address] RoadDublin [place] [id number] Sodium molar conc 138 mmol/L Normal 134-144 Compreh ensive Internal Medicine Work Phone: Comment on above: PATIENT NOT FASTINGP ERFORMED BY: CB [facility] Catygt9765 [address] RoadDublin [place] [id number] Urea nitrogen mass conc 17 mg/dL Normal 8-27 [facility] Work Phone: Comment on above: PATIENT NOT FASTINGP ERFORMED BY: CB [facility] Gcodlz4687 [address] RoadDublin [place] [id number] Urea nitrogen/Creatinine mass ratio 21 mg/mg Normal 11-26 [facility] Work Phone: Comment on above: PATIENT NOT FASTINGP ERFORMED BY: CB [facility] Pftmtl6446 [address] RoadDublin [place] [id number] Vitamin D Hydroxy (65452)Ord ered By: Travel Freight And Passenger Agent on 09-29-2012 25-Hydroxyvitamin D2+25-Hydroxyvitamin D3 mass conc 23.4 ng/mL Abnormal 30.0-100.0 [facility] Work Phone: Comment on above: Vitamin D deficiency has been defined by the [place] ofMedicine and an Endocrine Society practice guideline as alevel of serum 25-OH vitamin D less than 20 ng/mL (1,2).The Endocrine Society went on to further define vitamin Dinsufficiency as a level between 21 and 29 ng/mL (2).1. IOM ([place] of Medicine). 2010. Dietary reference intakes for calcium and D. [place]: The National Academies Press.2. Luly MF, [place] NC, Jefry DAVILA, et al. Evaluation, treatment, and prevention of vitamin D deficiency: an Endocrine Society clinical practice guideline. JCEM. 2010; 96(7):1911-30. PATIENT NOT FASTINGP ERFORMED BY: MERCED Llamas6370 [address] Roadbl[address] [place] [id number] HEPATIC FUNCTION PANEL (8007 6)Ordered By: Travel Freight And Passenger Agent on 06-25-2012 Albumin mass conc 4.3 g/dL Normal 3.6-4.8 [facility] Internal Medicine Work Phone: Comment on above: PATIENT NOT FASTINGP ERFORMED BY: MERCED LabCo Jgfwzd2230 [address] Roadbl[address] [place] [id number] Information: [id number] ALP enzyme act/vol 102 [iU]/L Normal 25-165 [facility] Internal Medicine Work Phone: Comment on above: PATIENT NOT FASTINGP ERFORMED BY: MERCED Llamas6370 [address] RoadDublin [place] [id number] Information: [id number] ALT enzyme act/vol 28 [iU]/L Normal 0-32 [facility] Internal Medicine Work Phone: Comment on above: PATIENT NOT FASTINGP ERFORMED BY: MERCED LabCo Yzglsm3523 [address] Roadbl[address] [place] [id number] Information: [id number] AST enzyme act/vol 24 [iU]/L Normal 0-40 [facility] Internal Medicine Work Phone: Comment on above: PATIENT NOT FASTINGP ERFORMED BY: MERCED LabCherie Gavghm3793 [address] [facility]in [place] [id number] Information: 580605,[id number] Bilirubin mass conc 0.2 mg/dL Normal 0.0-1.2 Compr [facility] facility Internal Medicine Work Phone: Comment on above: PATIENT NOT FASTINGP ERFORMED BY: MERCED [facility] Asbjqa7832 [facility] [place] [id number] Information: [id number] Bilirubin.direct mass conc 0.06 mg/dL Normal 0.00-0.40 [facility] Work Phone: Comment on above: PATIENT NOT FASTINGP ERFORMED BY: CB [facility] Qgwpvi7941 [address] Sophia Geneticsblin [place] [id number] Information: [id number] Protein mass conc 7.1 g/dL Normal 6.0-8.5 Compreh ensive Internal Medicine Work Phone: Comment on above: PATIENT NOT FASTINGP ERFORMED BY: [facility] Xiawlg20[address] Brown RoadDublin [place] [id number] Information: [id number] Hemoglobin Glyclated (HGB A1 C) (36019)Ordered By: Travel Freight And Passenger Agent on 06-25-2012 Hemoglobin A1c/Hemoglobin.total mass fraction (Bld) 6.5 % Abnormal 4.8-5.6 Comprehensiv e Internal Medicine Work Phone: Comment on above: . Increased risk for diabetes: 5.7 - 6.4 Diabetes: >6.4 Glycemic control for adults with diabetes: <7.0 PATIENT NOT FASTINGP ERFORMED BY: NarrableCo Djtzzv4398 [address] [facility] [id number] Vitamin D Hydroxy (12141)Ord ered By: Travel Freight And Passenger Agent on 06-25-2012 25-Hydroxyvitamin D2+25-Hydroxyvitamin D3 mass conc 16.4 ng/mL Abnormal 30.0-100.0 [facility] Work Phone: Comment on above: Vitamin D deficiency has been defined by the [place] ofMedicine and an Endocrine Society practice guideline as alevel of serum 25-OH vitamin D less than 20 ng/mL (1,2).The Endocrine Society went on to further define vitamin Dinsufficiency as a level between 21 and 29 ng/mL (2).1. IOM ([place] of Medicine). 2010. Dietary reference intakes for calcium and D. [place]: The National Academies Press.2. Luly MF, Michelle NC, Jefry DAVILA, et al. Evaluation, treatment, and prevention of vitamin D deficiency: an Endocrine Society clinical practice guideline. JCEM. 2010; 96(7):1911-30. PATIENT NOT FASTINGP ERFORMED BY: [facility] Aogheg4951 Brown RoadDublin [place] [id number] CBC (AUTO) (72491)Ordered By : Travel Freight And Passenger Agent on 05-31-2012 Erythrocyte distribution width Ratio (RBC) 13.8 % Normal 12.3-15.4 [facility] Work Phone: Comment on above: send to dr farnsworth; PATIENT WAS FASTINGPERFORMED BY: CB [facility] Eloqxu9633 [address] RoadDublin [place] [id number] Hematocrit Volume Fraction (Bld) 37.5 % Normal 34.0-46.6 [facility] Work Phone: Comment on above: send to dr farnsworth; PATIENT WAS FASTINGPERFORMED BY: CB [facility] Oxfasy8900 [address] RoadDublin [place] [id number] Hemoglobin mass conc (Bld) 12.2 g/dL Normal 11.1-15.9 [facility] Work Phone: Comment on above: send to dr farnsworth; PATIENT WAS FASTINGPERFORMED BY: CB [facility] Cavuwz9256 Brown RoadDuin [place] [id number] MCH Entitic mass (RBC) 31.2 pg Normal 26.6-33.0 [facility] Work Phone: Comment on above: send to dr farnsworth; PATIENT WAS FASTINGPERFORMED BY: CB [facility] Vthzre1098 [address] RoadDuin [place] [id number] MCHC mass conc (RBC) 32.5 g/dL Normal 31.5-35.[address] Internal Medicine Work Phone: Comment on above: send to dr farnsworth; PATIENT WAS FASTINGPERFORMED BY: CB [facility] Ykoncu4818 [address] RoadDuin [place] [id number] MCV Entitic volume (RBC) 96 fL Normal 79-97 [facility] Work Phone: Comment on above: send to dr farnsworth; PATIENT WAS FASTINGPERFORMED BY: CB [facility] Cdwcal8755 [address] RoadDuin [place] [id number] Platelets #/vol (Bld) 375 {x10E3/uL} Normal 140-415 [facility] Work Phone: Comment on above: send to dr farnsworth; PATIENT WAS FASTINGPERFORMED BY: CB [facility] Vuuojg9285 [facility]in [place] [id number] RBC #/vol (Bld) 3.91 {x10E6/uL} Normal 3.77-5.28 [facility] Work Phone: Comment on above: send to dr farnsworth; PATIENT WAS FASTINGPERFORMED BY: CB [facility] Wqkbdy3722 [facility] [id number] WBC #/vol (Bld) 7.2 {x10E3/uL} Normal 4.0-10.5 [facility] Internal Medicine Work Phone: Comment on above: send to dr farnsworth; PATIENT WAS FASTINGPERFORMED BY: CB [facility] Nsergr1736 [facility] [id number] METABOLIC PANEL, COMPREHENSI VE (24160)Ordered By: Travel Freight And Passenger Agent on 05-31-2012 Albumin mass conc 4.2 g/dL Normal 3.6-4.8 Compreh [facility] Internal Medicine Work Phone: Comment on above: send to dr farnsworth; PATIENT WAS FASTINGPERFORMED BY: [facility] Hgzsyy6044 [facility] [id number] Information: [id number] Albumin/Globulin mass ratio 1.5 {ratio} Normal 1.1-2.5 [facility] Internal Medicine Work Phone: Comment on above: send to dr farnsworth; PATIENT WAS FASTINGPERFORMED BY: CB [facility] Wnuctx2737 [facility] [id number] Information: [id number] ALP enzyme act/vol 107 [iU]/L Normal 25-165 [facility] Internal Medicine Work Phone: Comment on above: send to dr farnsworth; PATIENT WAS FASTINGPERFORMED BY: CB [facility] Jivrcr0830 [facility] [id number] Information: [id number] ALT enzyme act/vol 41 [iU]/L Abnormal 0-32 [facility] Internal Medicine Work Phone: Comment on above: send to dr farnsworth; PATIENT WAS FASTINGPERFORMED BY: CB [facility] Ubzarf3310 [address] RoadDublin [place] [id number] Information: [id number],[id number] AST enzyme act/vol 23 [iU]/L Normal 0-40 Compre [facility] Internal Medicine Work Phone: Comment on above: send to dr farnsworth; PATIENT WAS FASTINGPERFORMED BY: CB [facility] Rcikfe5324 [address] RoadDuin [place] [id number] Information: [id number],[id number] Bilirubin mass conc 0.3 mg/dL Normal 0.0-1.2 Compr [facility] Internal Medicine Work Phone: Comment on above: send to dr farnsworth; PATIENT WAS FASTINGPERFORMED BY: CB [facility] Tnguel3660 [facility] RoadAngel [facility] Center [id number] Information: [id number],[id number] Calcium mass conc 8.8 mg/dL Normal 8.6-10.2 Compreh [facility] Internal Medicine Work Phone: Comment on above: send to dr farnsworth; PATIENT WAS FASTINGPERFORMED BY: CB [facility] Qhykpt3996 [facility] [id number] Information: 189090,G06587 Chloride molar conc 102 mmol/L Normal 97-108 [facility] Internal Medicine Work Phone: Comment on above: send to dr farnsworth; PATIENT WAS FASTINGPERFORMED BY: CB [facility] Pmlnpj9310 [address] RoadCape Fear Valley Medical Centerin [place] [id number] Information: 261562,[id number] CO2 molar conc 24 mmol/L Normal 20-32 Comprehens [facility] Internal Medicine Work Phone: Comment on above: send to dr farnsworth; PATIENT WAS FASTINGPERFORMED BY: CB [facility] Ymojhv2572 [address] RoadDublin [place] [id number] Information: 572986,M07333 Creatinine mass conc 0.62 mg/dL Normal 0.57-1.[address] Internal Medicine Work Phone: Comment on above: send to dr farnsworth; PATIENT WAS FASTINGPERFORMED BY: CB [facility] Rwhguv0902 [facility] [id number] Information: 293874,[id number] GFR/1.73 sq M predicted among blacks CKD-EPI vol rate/area (S/P/Bld) 111 mL/min/1.73 Normal Comprehensiv e Internal Medicine Work Phone: Comment on above: send to dr farnsworth; PATIENT WAS FASTINGPERFORMED BY: CB [facility] Hqfbge5079 [facility] RoadAngel [facility] Center [id number] Information: 771293,[id number] GFR/1.73 sq M predicted among non-blacks CKD-EPI vol rate/area (S/P/Bld) 96 mL/min/1.73 Normal [facility] Work Phone: Comment on above: send to dr farnsworth; PATIENT WAS FASTINGPERFORMED BY: CB [facility] Xwfloq7932 [facility] [id number] Information: [id number],[id number] Globulin mass conc (S) 2.8 g/dL Normal 1.5-4.5 [facility] Work Phone: Comment on above: send to dr farnsworth; PATIENT WAS FASTINGPERFORMED BY: CB [facility] Hxgjiv2808 [facility] [id number] Information: [id number],[id number] Glucose mass conc 86 mg/dL Normal 65-99 Compreh ensive Internal Medicine Work Phone: Comment on above: send to dr farnsworth; PATIENT WAS FASTINGPERFORMED BY: CB [facility] Zbcmqi3111 [facility] [id number] Information: [id number],[id number] Potassium molar conc 3.9 mmol/L Normal 3.5-5.2 Comp rehensive Internal Medicine Work Phone: Comment on above: send to dr farnsworth; PATIENT WAS FASTINGPERFORMED BY: CB [facility] Tgbhfq9540 [facility] [id number] Information: 214253,X39005 Protein mass conc 7.0 g/dL Normal 6.0-8.5 Compreh ensive Internal Medicine Work Phone: Comment on above: send to dr farnsworth; PATIENT WAS FASTINGPERFORMED BY: [facility] Thnvpa3238 [facility] [id number] Information: 999449,F31157 Sodium molar conc 139 mmol/L Normal 134-144 Compreh ensive Internal Medicine Work Phone: Comment on above: send to dr farnsworth; PATIENT WAS FASTINGPERFORMED BY: [facility] Qoqkiv5066 [facility] [id number] Information: [id number],[id number] Urea nitrogen mass conc 13 mg/dL Normal 8-27 [facility] Work Phone: Comment on above: send to dr farnsworth; PATIENT WAS FASTINGPERFORMED BY: [facility] Hggzwy0426 [facility] [id number] Information: 516295,[id number] Urea nitrogen/Creatinine mass ratio 21 mg/mg Normal 11-26 [facility] Work Phone: Comment on above: send to dr farnsworth; PATIENT WAS FASTINGPERFORMED BY: [facility] Qgnwxq9493 [facility] [id number] Information: 780027,G46500 PELVIC (NON )Ordered By: Travel Freight And Passenger Agent on 05-31-2012 PELVIC (NON ) See Note Normal [facility] Work Phone: Comment on above: PROCEDURE: ULTRASOUN D OF THE FEMALE PELVIS - COMPLETE REASON FOR EXAM: Female, 61 years old. LMP: The patient ispostmenopausal. Dysfunctional uterine bleeding. TECHNIQUE: Transabdominal and Transvaginal TECHNICAL QUALITY: Adequate. COMPARISON: None. FINDINGS:The uterus is anteverted and is in a midline position. The uterusmeasures9.1 cm x 5.3 cm by 2.8 cm. Normal uterine cervix. The endometrium isthickened and measures 12 mm in thickness, and is hyperechoic. There isnodemonstrated endometrial mass. Focal calcification is seen in the fundalportion of the uterus. I.U.D. - No The right ovary is visualized. The right ovary measures 2.4 cm x 2.3 cmby1.2 cm. There is no right ovarian cyst or ovarian mass. There is novisualized right adnexal mass or complex lesion. There is normal arterialand normal venous vascularity. The left ovary is visualized. The left ovary measures 2.2 cm x 1.6 cm by1.1 cm. There is no left ovarian cyst or ovarian mass. There is novisualized left adnexal mass or complex lesion. There is normal arterialand normal venous vascularity. There is no fluid in the cul-de-sac. The distended urinary bladder had a volume of 584 ml at the time of theexam. IMPRESSION:Thickened endometrium. Clinical correlation is suggested. Signed:Kenan Ma M.D.May 31, 2012 at 11:36:05 AM [id number] Signed GP/GP If you are the referring physician and would like to consult with theradiologist who provided this interpretation, please contact Yunier Rosa at [phone]. If this radiologist is unavailable, youwill be directed to another radiologist to assist. If you are a patient with a question regarding this report, pleasecontactyour referring physician directly. Professional Interpretation Provided By: [employer], Phone , These documents contain legally protected and confidential healthinformation intended only for the use of the individual or entity namedabove. If you are not the intended recipient, you are hereby notifiedthatany disclosure, copying, distribution, or other use of these documents isstrictly prohibited. If you have received this information in error,pleasenotify the sender immediately and arrange for the return or destructionofthese documents. Dictated on 05/31/12 1044 by Angella Ma MDscribed on 06/03/12 0753 by ITS IMPORTSign by Kenan Ma MD on 06/03/12 9806 Sign by: Francesca SHAH,Kenan PROCEDURE: ULTRASOUN D OF THE FEMALE PELVIS - COMPLETE REASON FOR EXAM: Female, 61 years old. LMP: The patient ispostmenopausal. Dysfunctional uterine bleeding. TECHNIQUE: Transabdominal and Transvaginal TECHNICAL QUALITY: Adequate. COMPARISON: None. FINDINGS:The uterus is anteverted and is in a midline position. The uterusmeasures9.1 cm x 5.3 cm by 2.8 cm. Normal uterine cervix. The endometrium isthickened and measures 12 mm in thickness, and is hyperechoic. There isnodemonstrated endometrial mass. Focal calcification is seen in the fundalportion of the uterus. I.U.D. - No The right ovary is visualized. The right ovary measures 2.4 cm x 2.3 cmby1.2 cm. There is no right ovarian cyst or ovarian mass. There is novisualized right adnexal mass or complex lesion. There is normal arterialand normal venous vascularity. The left ovary is visualized. The left ovary measures 2.2 cm x 1.6 cm by1.1 cm. There is no left ovarian cyst or ovarian mass. There is novisualized left adnexal mass or complex lesion. There is normal arterialand normal venous vascularity. There is no fluid in the cul-de-sac. The distended urinary bladder had a volume of 584 ml at the time of theexam. IMPRESSION:Thickened endometrium. Clinical correlation is suggested. Signed:Kenan Ma M.D.May 31, 2012 at 11:36:05 AM [id number] Signed GP/GP If you are the referring physician and would like to consult with theradiologist who provided this interpretation, please contact Yunier Rosa at [phone]. If this radiologist is unavailable, youwill be directed to another radiologist to assist. If you are a patient with a question regarding this report, pleasecontactyour referring physician directly. Professional Interpretation Provided By: [employer], Phone , These documents contain legally protected and confidential healthinformation intended only for the use of the individual or entity namedabkunal. If you are not the intended recipient, you are hereby notifiedthatany disclosure, copying, distribution, or other use of these documents isstrictly prohibited. If you have received this information in error,pleasenotify the sender immediately and arrange for the return or destructionofthese documents. Dictated on 05/31/12 1044 by Earl Ma MDranscribed on 05/31/12 1144 by ITS IMPORTSign by Kenan Ma MD on 05/31/12 1145 Sign by: Kenan Ma MD PROLACTIN (36024)Ordered By: Travel Freight And Passenger Agent on 05-31-2012 Prolactin mass conc 8.6 ng/mL Normal 4.8-23.3 [facility] Internal Medicine Work Phone: Comment on above: send to dr farnsworth; PATIENT WAS FASTINGPERFORMED BY: [employer]6370 [facility] [id number] PT (PROTHROMBIN TIME) (94295 )Ordered By: Travel Freight And Passenger Agent on 05-31-2012 INR Coag RelTime (PPP) 1.0 {INR} Normal 0.8-1.2 [facility] Internal Medicine Work Phone: Comment on above: Reference interval i s for non-anticoagulated patients. . Suggested INR therapeutic range for Vitamin K antagonist therapy: Standard Dose (moderate intensity therapeutic range): 2.0 - 3.0 Higher intensity therapeutic range 2.5 - 3.[address] farnsworth; PATIENT WAS FASTINGPERFORMED BY: [employer] Vdktda4489 [address] Mister BellF[facility] [id number] Prothrombin time (PT) Coag time (PPP) 10.4 {sec} Normal 9.1-12.0 [facility] Internal Medicine Work Phone: Comment on above: send to dr farnsworth; PATIENT WAS FASTINGPERFORMED BY: [employer] Epgbqz9517 [address] [facility]eticsAngel [facility] [id number] PTT (ACTIVATED PARTIAL THROM BOPLASTIN TIME) (82333)Ordered By: Travel Freight And Passenger Agent on 05-31-2012 aPTT Coag time (PPP) 29 {sec} Normal 24-33 Comp rehensive Internal Medicine Work Phone: Comment on above: This test has not be en validated for monitoring unfractionated heparintherapy. aPTT-based therapeutic ranges for unfractionated heparintherapy have not been established. For general guidelines onHeparin monitoring, refer to the InfluAds Directory of Services. send to dr farnsworth; PATIENT WAS FASTINGPERFORMED BY: [employer]70 [facility] Hem[facility] CompanyFry[facility] Medical Center [id number] TSH (11754)Ordered By: TRIXandTRAXe m Health Information Tech on 05-31-2012 Thyrotropin Qn 1.240 {uIU/mL} Normal 0.450-4.50 0 [facility] Work Phone: Comment on above: send to dr farnsworth; PATIENT WAS FASTINGPERFORMED BY: KateevaTriStar [facility] [id number] Qdwq-Bi-3Oaczzup By: Travel Freight And Passenger Agent on 11-24-2011 Desire-1 extractable nuclear Ab Qn (S) <0.2 Normal 0.0-0.9 [facility] Work Phone: Comment on above: PATIENT NOT FASTINGP ERFORMED BY: [facility] CentersF[facility] [id number] Creatine Kinase Total (50763 )Ordered By: Travel Freight And Passenger Agent on 11-24-2011 CK enzyme act/vol 204 U/L Abnormal 24-173 Compreh ensive Internal Medicine Work Phone: Comment on above: PATIENT NOT FASTINGP ERFORMED BY: [employer]6370 [facility] Hemp CompanyF[facility] [id number] Hemoglobin Glyclated (HGB A1 C) (02795)Ordered By: Travel Freight And Passenger Agent on 11-24-2011 Hemoglobin A1c/Hemoglobin.total mass fraction (Bld) 6.1 % Abnormal 4.8-5.6 Comprehensiv e Internal Medicine Work Phone: Comment on above: . Increased risk for diabetes: 5.7 - 6.4 Diabetes: >6.4 Glycemic control for adults with diabetes: <7.0 PATIENT NOT FASTINGP ERFORMED BY: CB [facility] Wpidrr3133 [address] RoadDublin [place] [id number] MICROALBUMINOrdered By: Syst em Health Information Tech on 11-24-2011 Albumin DL <= 20 mg/L mass conc (U) 9.8 ug/mL Normal 0.0-17.0 [facility] Work Phone: Comment on above: PATIENT NOT FASTINGP ERFORMED BY: CB [facility] Cprxzd5480 [address] RoadDublin [place] [id number] Albumin/Creatinine mass ratio (U) 11.0 {mg/g_creat} Normal 0.0-30.0 [facility] Work Phone: Comment on above: PATIENT NOT FASTINGP ERFORMED BY: CB [facility] Kosbut6638 [address] RoadDublin [place] [id number] Creatinine mass conc (U) 88.9 mg/dL Normal 15.0-278.0 [facility] Work Phone: Comment on above: PATIENT NOT FASTINGP ERFORMED BY: CB [facility] Gzuhhi0757 [address] RoadDublin [place] [id number] MYOGLOBIN (22920)Ordered By: Travel Freight And Passenger Agent on 11-24-2011 Myoglobin mass conc 32 ng/mL Normal 25-58 Compr [facility] Internal Medicine Work Phone: Comment on above: PATIENT NOT FASTINGP ERFORMED BY: CB [facility] Qrksrf3524 [address] RoadDublin [place] [id number] THYROIDOrdered By: System Jaime wooten on 11-14-2011 THYROID See Note Normal [facility] Work Phone: Comment on above: PROCEDURE: THYROID U LTRASOUND REASON FOR EXAM: Female, 61 years old. Thyroid nodule TECHNIQUE: Ultrasound evaluation of the thyroid was performed withreal-time and static lundberg-scale imaging. COMPARISON: None. FINDINGS: RIGHT LOBE: The right lobe of the thyroid gland measures 5.1 x 1.8 x 1.4cm. There is a homogeneous echotexture. There is a 0.6-cm complexnodulein the lower pole.. LEFT LOBE: The left lobe of the thyroid gland measures 5.5 x 2.0 x 2.0cm.There is a homogeneous echotexture. There is a 2-cm nodule in the lowerpole. There is an adjacent nodule that measures 1 cm which is complex inappearance.. ISTHMUS: The isthmus measures 3 mm. IMPRESSION:There is moderate enlargement of the thyroid gland. There is a 0.6-cmnodule in the lower pole of the right lobe which is somewhat complex inappearance and probably not significant. There is a 1 cm somewhatcomplexlesion in the lower pole of the left lobe which is probably notclinicallysignificant. There is also a 2-cm nodule in the lower pole of the leftlobe which does require further evaluation.. Signed:Jade Rivera M.D.November 14, 2011 at 10:33:08 AM [phone] Signed MV/MV If you are the referring physician and would like to consult with theradiologist who provided this interpretation, please contact Jade Sin M.D. at . If this radiologist is unavailable, youwillbe directed to another radiologist to assist. If you are a patient with a question regarding this report, pleasecontactyour referring physician directly. Professional Interpretation Provided By: [employer], Phone , These documents contain legally protected and confidential healthinformation intended only for the use of the individual or entity namedabove. If you are not the intended recipient, you are hereby notifiedthatany disclosure, copying, distribution, or other use of these documents isstrictly prohibited. If you have received this information in error,pleasenotify the sender immediately and arrange for the return or destructionofthese documents. Dictated on 11/14/11 0912 by Sadiq SIN MD on 11/14/11 1046 by ITS IMPORTSign by JADE SIN MD on 11/14/11 1047 Sign by: JADE SIN MD YURI (ANTINUCLEAR ANTIBODY) ( [id number])Ordered By: Travel Freight And Passenger Agent on 11-12-2011 Nuclear Ab Ql (S) Negative Normal Compreh ensive Internal Medicine Work Phone: Comment on above: PATIENT WAS FASTINGP ERFORMED BY: [facility]6370 [facility] [id number] C-REACTIVE PROTEIN (70202)Or dered By: Travel Freight And Passenger Agent on 11-12-2011 CRP mass conc 2.8 mg/L Normal 0.0-4.9 Comprehensi ve Internal Medicine Work Phone: Comment on above: PATIENT WAS FASTINGP ERFORMED BY: LabHenry [facility]6370 [facility] [id number] CBC WITH MANUAL DIFF (33034) Ordered By: Travel Freight And Passenger Agent on 11-12-2011 Basophils #/vol (Bld) 0.0 {x10E3/uL} Normal 0.0-0.2 [facility] Work Phone: Comment on above: PATIENT WAS FASTINGP ERFORMED BY: [facility]6370 [facility] [id number] Information: [id number] Basophils/100 WBC (Bld) 0 % Normal 0-3 [facility] Work Phone: Comment on above: PATIENT WAS FASTINGP ERFORMED BY: Lab[facility]6370 [facility] [id number] Information: [id number] Eosinophils #/vol (Bld) 0.1 {x10E3/uL} Normal 0.0-0.4 [facility] Work Phone: Comment on above: PATIENT WAS FASTINGP ERFORMED BY: [facility]6370 [facility] [id number] Information: [id number] Eosinophils/100 WBC (Bld) 1 % Normal 0-7 [facility] Work Phone: Comment on above: PATIENT WAS FASTINGP ERFORMED BY: LabHenry [facility]6370 [facility] [id number] Information: [id number],[id number] Erythrocyte distribution width Ratio (RBC) 13.7 % Normal 12.3-15.4 [facility] Work Phone: Comment on above: PATIENT WAS FASTINGP ERFORMED BY: MERCED Garza Dluwdk[address] [id number] Information: [id number],[id number] Hematocrit Volume Fraction (Bld) 37.7 % Normal 34.0-46.6 [facility] Work Phone: Comment on above: PATIENT WAS FASTINGP ERFORMED BY: [address] [id number] Information: [id number] Hemoglobin mass conc (Bld) 12.6 g/dL Normal 11.1-15.9 [facility] Work Phone: Comment on above: PATIENT WAS FASTINGP ERFORMED BY: [address] [id number] Information: [id number] Immature granulocytes #/vol (Bld) 0.0 {x10E3/uL} Normal 0.0-0.1 [facility] Work Phone: Comment on above: PATIENT WAS FASTINGP ERFORMED BY: Jose Luis[address] [id number] Information: [id number] Immature granulocytes/100 WBC (Bld) 0 % Normal 0-2 [facility] Work Phone: Comment on above: PATIENT WAS FASTINGP ERFORMED BY: [address] [id number] Information: [id number] Lymphocytes #/vol (Bld) 1.8 {x10E3/uL} Normal 0.7-4.5 [facility] Work Phone: Comment on above: PATIENT WAS FASTINGP ERFORMED BY: [place] [id number] [facility] [id number] Information: [id number] Lymphocytes/100 WBC (Bld) 25 % Normal 14-46 [facility] Work Phone: Comment on above: PATIENT WAS FASTINGP ERFORMED BY: [facility]6370 [facility] [id number] Information: [id number] MCH Entitic mass (RBC) 31.9 pg Normal 26.6-33.0 [facility] Work Phone: Comment on above: PATIENT WAS FASTINGP ERFORMED BY: [address] [id number] Information: [id number] MCHC mass conc (RBC) 33.4 g/dL Normal 31.5-35.7 [facility] Internal Medicine Work Phone: Comment on above: PATIENT WAS FASTINGP ERFORMED BY: [address] [id number] Information: [id number] MCV Entitic volume (RBC) 95 fL Normal 79-97 [facility] Work Phone: Comment on above: PATIENT WAS FASTINGP ERFORMED BY: [place] [id number] [facility] [id number] Information: [id number] Monocytes #/vol (Bld) 0.3 {x10E3/uL} Normal 0.1-1.0 [facility] Work Phone: Comment on above: PATIENT WAS FASTINGP ERFORMED BY: [place] [id number] [facility] [id number] Information: [id number] Monocytes/100 WBC (Bld) 5 % Normal 4-13 [facility] Work Phone: Comment on above: PATIENT WAS FASTINGP ERFORMED BY: [facility]6370 [facility] [id number] Information: [id number] Neutrophils #/vol (Bld) 4.9 {x10E3/uL} Normal 1.8-7.8 [facility] Work Phone: Comment on above: PATIENT WAS FASTINGP ERFORMED BY: MERCED [facility]CoB[facility] for RehabilitationEiriqp5710 [facility] [id number] Information: [id number] Neutrophils/100 WBC (Bld) 69 % Normal 40-74 [facility] Work Phone: Comment on above: PATIENT WAS FASTINGP ERFORMED BY: LabCoBacharach Institute for RehabilitationNfufri6624 [facility] [id number] Information: [id number] Platelets #/vol (Bld) 349 {x10E3/uL} Normal 140-415 [facility] Work Phone: Comment on above: PATIENT WAS FASTINGP ERFORMED BY: Jose LuisCo Saprbd1948 [facility] [id number] Information: [id number] RBC #/vol (Bld) 3.95 {x10E6/uL} Normal 3.77-5.28 [facility] Internal Medicine Work Phone: Comment on above: PATIENT WAS FASTINGP ERFORMED BY: [facility]6370 [facility] [id number] Information: [id number] WBC #/vol (Bld) 7.1 {x10E3/uL} Normal 4.0-10.5 [facility] Internal Medicine Work Phone: Comment on above: PATIENT WAS FASTINGP ERFORMED BY: [facility]CoB[facility] Institute for RehabilitationXozdla5812 [facility] [id number] Information: [id number] CERV SPINE,MIN 4 VIEWSOrdere d By: Travel Freight And Passenger Agent on 11-12-2011 CERV SPINE,MIN 4 VIEWS See Note Normal [facility] Work Phone: Comment on above: PROCEDURE: X-RAY - C ERVICAL SPINE REASON FOR EXAM: Female, 61 years old. Neck pain and right shoulderpain. TECHNIQUE: Six views of the cervical spine were obtained. COMPARISON: None FINDINGS:Normal craniovertebral junction. Normal anterior atlantoaxialarticulation. Normal odontoid process. There is straightening of the normal cervical lordosis. Normal vertebralbodies and posterior osseous elements. There is evidence of disk space narrowing with anterior spondylosis attheC4-C5, C5-C6, and C6-C7 levels. This is worse at the C5-C6 and C6-V9fqocjd. Normal visualized intervertebral neuroforamina. Normal visualized soft tissue structures. IMPRESSION:Multilevel degenerative disc disease. Signed:Kenan Ma M.D.November 12, 2011 at 11:14:07 AM [id number] Signed GP/GP If you are the referring physician and would like to consult with theradiologist who provided this interpretation, please contact Yunier Rosa at [phone]. If this radiologist is unavailable, youwill be directed to another radiologist to assist. If you are a patient with a question regarding this report, pleasecontactyour referring physician directly. Professional Interpretation Provided By: [employer], Phone , These documents contain legally protected and confidential healthinformation intended only for the use of the individual or entity namedabove. If you are not the intended recipient, you are hereby notifiedthatany disclosure, copying, distribution, or other use of these documents isstrictly prohibited. If you have received this information in error,pleasenotify the sender immediately and arrange for the return or destructionofthese documents. Dictated on 11/12/11 0925 by Earl Ma MDranscribed on 11/12/11 1152 by ITS IMPORTSign by Kenan Ma MD on 11/12/11 1153 Sign by: Kenan Ma MD Creatine Kinase Total ([id number] )Ordered By: Travel Freight And Passenger Agent on 11-12-2011 CK enzyme act/vol 200 U/L Abnormal 24-173 Compreh ensive [facility] Medicine Work Phone: Comment on above: PATIENT WAS FASTINGP ERFORMED BY: LabCoBacharach Institute for RehabilitationApddjq3926 [facility] [id number] LIPID PANEL ([id number])Ordered B y: Travel Freight And Passenger Agent on 11-12-2011 Cholesterol in HDL mass conc 78 mg/dL Normal [facility] Work Phone: Comment on above: According to ATP-III Guidelines, HDL-C >59 mg/dL is considered anegative risk factor for CHD. PATIENT WAS FASTINGP ERFORMED BY: CB [facility] Lqssie26[address]Dublin [place] [id number] Cholesterol in LDL mass conc 137 mg/dL Abnormal 0-99 [facility] Work Phone: Comment on above: PATIENT WAS FASTINGP ERFORMED BY: CB [facility] Dpmawt0562 [address]Dublin [place] [id number] Cholesterol in LDL/Cholesterol in HDL mass ratio 1.8 {ratio_units} Normal 0.0-3.2 [facility] Work Phone: Comment on above: PATIENT WAS FASTINGP ERFORMED BY: CB [facility] Tzvuxr0706 [address] RoadDublin [place] [id number] Cholesterol in VLDL mass conc 26 mg/dL Normal 5-40 [facility] Work Phone: Comment on above: PATIENT WAS FASTINGP ERFORMED BY: CB [facility] Dpprev9644 [address] RoadDublin [place] [id number] Cholesterol mass conc 241 mg/dL Abnormal 100-199 [facility] Work Phone: Comment on above: PATIENT WAS FASTINGP ERFORMED BY: CB [facility] Yxsnxd2246 [address] RoadDublin [place] [id number] Triglyceride mass conc 128 mg/dL Normal 0-149 [facility] Work Phone: Comment on above: PATIENT WAS FASTINGP ERFORMED BY: CB [facility] Bbnaqp8847 [address] RoadDublin [place] [id number] METABOLIC PANEL, COMPREHENSI VE ([id number])Ordered By: Travel Freight And Passenger Agent on 11-12-2011 Albumin mass conc 4.3 g/dL Normal 3.6-4.8 Compreh ensive [facility] Work Phone: Comment on above: PATIENT WAS FASTINGP ERFORMED BY: CB [facility] Newqst5319 [address] RoadDublin [place] [id number] Albumin/Globulin mass ratio 1.4 {ratio} Normal 1.1-2.5 [facility] Work Phone: Comment on above: PATIENT WAS FASTINGP ERFORMED BY: CB [facility] Cwsgjl2742 [address] RoadDublin [place] [id number] ALP enzyme act/vol 106 [iU]/L Normal 25-165 [facility] Internal Medicine Work Phone: Comment on above: PATIENT WAS FASTINGP ERFORMED BY: CB [facility] Yrpono1854 [address]bl[address] [place] [id number] ALT enzyme act/vol 27 [iU]/L Normal 0-40 [facility] Internal Medicine Work Phone: Comment on above: PATIENT WAS FASTINGP ERFORMED BY: [facility] Zftokx4082 [address]Dublin [place] [id number] AST enzyme act/vol 22 [iU]/L Normal 0-40 [facility] Internal Medicine Work Phone: Comment on above: PATIENT WAS FASTINGP ERFORMED BY: LabCo Wsmxhp6191 [address] Roadblin [place] [id number] Bilirubin mass conc 0.2 mg/dL Normal 0.0-1.2 Compr [facility] Internal Medicine Work Phone: Comment on above: PATIENT WAS FASTINGP ERFORMED BY: [facility] Djmdqy8947 [address] Roadblin [place] [id number] Calcium mass conc 9.6 mg/dL Normal 8.6-10.2 Compreh [facility] Work Phone: Comment on above: PATIENT WAS FASTINGP ERFORMED BY: [facility] Eqrjni2062 [address]Dublin [place] [id number] Chloride molar conc 104 mmol/L Normal 97-108 Compr ens[facility] Work Phone: Comment on above: PATIENT WAS FASTINGP ERFORMED BY: CB [facility] Xugzpu3344 [address]Dublin [place] [id number] CO2 molar conc 21 mmol/L Normal 20-32 Comprehens naseem Internal Medicine Work Phone: Comment on above: PATIENT WAS FASTINGP ERFORMED BY: [facility] Zqpnsm7788 [address] RoadDublin [place] [id number] Creatinine mass conc 0.70 mg/dL Normal 0.57-1.00 Comp rehensive Internal Medicine Work Phone: Comment on above: PATIENT WAS FASTINGP ERFORMED BY: CB [facility] Tekdyw9[address] RoadDublin [place] [id number] GFR/1.73 sq M predicted among blacks CKD-EPI vol rate/area (S/P/Bld) 107 mL/min/1.73 Normal Comprehensiv e Internal Medicine Work Phone: Comment on above: PATIENT WAS FASTINGP ERFORMED BY: [facility] Kdfcft2861 [address]Dublin [place] [id number] GFR/1.73 sq M predicted among non-blacks CKD-EPI vol rate/area (S/P/Bld) 93 mL/min/1.73 Normal [facility] Work Phone: Comment on above: PATIENT WAS FASTINGP ERFORMED BY: [facility] Rdpsed5785 [address] RoadDublin [place] [id number] Globulin mass conc (S) 3.1 g/dL Normal 1.5-4.5 [facility] Work Phone: Comment on above: PATIENT WAS FASTINGP ERFORMED BY: [facility] Clxiln6543 [address] RoadDublin [place] [id number] Glucose mass conc 103 mg/dL Abnormal 65-99 Compreh ens[facility] Work Phone: Comment on above: PATIENT WAS FASTINGP ERFORMED BY: [facility] Iixvtr25[address]Dublin [place] [id number] Potassium molar conc 4.6 mmol/L Normal 3.5-5.2 Comp rehensive Internal Medicine Work Phone: Comment on above: PATIENT WAS FASTINGP ERFORMED BY: CB [facility] Zzwrmg2709 [address] RoadDublin [place] [id number] Protein mass conc 7.4 g/dL Normal 6.0-8.5 Compreh ensive [facility] Work Phone: Comment on above: PATIENT WAS FASTINGP ERFORMED BY: MERCED [facility] Jmpgbp6451 [address] RoadDublin [place] [id number] Sodium molar conc 141 mmol/L Normal 134-144 Compre[facility] Internal [facility] Work Phone: Comment on above: PATIENT WAS FASTINGP ERFORMED BY: MERCED [facility] Yjzamv9348 [address] RoadDublin [place] [id number] Urea nitrogen mass conc 13 mg/dL Normal 8-27 [facility] Work Phone: Comment on above: PATIENT WAS FASTINGP ERFORMED BY: MERCED [facility] Jwwyoo2267 [address] RoadDublin [place] [id number] Urea nitrogen/Creatinine mass ratio 19 mg/mg Normal 11-26 [facility] Work Phone: Comment on above: PATIENT WAS FASTINGP ERFORMED BY: MERCED [facility] Coenlr6822 [address] RoadDublin [place] [id number] RHEUMATOID FACTOR-QUANT ([id number])Ordered By: Travel Freight And Passenger Agent on 11-12-2011 Rheumatoid factor Qn 9.4 {IU/mL} Normal 0.0-13.9 [facility] prehensive Internal Medicine Work Phone: Comment on above: PATIENT WAS FASTINGP ERFORMED BY: MERCED [facility] Laigps3838 [address] RoadDublin [place] [id number] SED RATE ERYTHROCYTE ([id number]) Ordered By: Travel Freight And Passenger Agent on 11-12-2011 ESR Velocity (Bld) 18 mm/h Normal 0-40 [facility] Work Phone: Comment on above: PATIENT WAS FASTINGP ERFORMED BY: CB [facility] Zijxla3073 [address] RoadDublin [place] [id number] TSH ([id number])Ordered By: Syste m Health Information Tech on 11-12-2011 Thyrotropin Qn 0.857 {uIU/mL} Normal 0.450-4.50 0 [facility] Internal Medicine Work Phone: Comment on above: PATIENT WAS FASTINGP ERFORMED BY: MERCED [facility] Akudby3337 [address] RoadDublin [place] [id number] Vitamin D Hydroxy ([id number])Ord ered By: Travel Freight And Passenger Agent on 11-12-2011 25-Hydroxyvitamin D2+25-Hydroxyvitamin D3 mass conc 28.6 ng/mL Abnormal 30.0-100.0 [facility] Work Phone: Comment on above: Vitamin D deficiency has been defined by the [place] ofMedicine and an Endocrine Society practice guideline as alevel of serum 25-OH vitamin D less than 20 ng/mL (1,2).The Endocrine Society went on to further define vitamin Dinsufficiency as a level between 21 and 29 ng/mL (2).1. IOM ([place] of Medicine). 2010. Dietary reference intakes for calcium and D. [place]: The National Academies Press.2. Luly MF, Michelle GALICIA, Jefry DAVILA, et al. Evaluation, treatment, and prevention of vitamin D deficiency: an Endocrine Society clinical practice guideline. JCEM. 2010; 96(7):1911-30. PATIENT WAS FASTINGP ERFORMED BY: [facility]6370 [facility] [id number] Vital Signs Date Time Vital Sign Value Performing Clinician Facility 05-18-2023 09:37-0500 Body height 147.[address] Shiv Gaviria Work Phone: [facility] 05-18-2023 09:37-0500 Body mass index (BMI) [Ratio] 32.1 kg/m2 Dr. Shiv Gaviria Work Phone: [facility] 05-18-2023 09:37-0500 Body temperature 99.1 [degF] Dr. Shiv Gaviria Work Phone: [facility] 05-18-2023 09:37-0500 Body weight 69.[address] Shiv Gaviria Work Phone: [facility] 05-18-2023 09:37-0500 Diastolic blood pressure 80 mm[Hg] Dr. Shiv Gaviria Work Phone: [facility] 05-18-2023 09:37-0500 Heart rate 69 /min Dr. Shiv Gaviria Work Phone: [facility] 05-18-2023 09:37-0500 Respiratory rate 14 /min Dr. Shiv Gaviria Work Phone: [facility] 05-18-2023 09:37-0500 SaO2% (BldA) [Mass fraction] 98 % Dr. Shiv Gaviria Work Phone: [facility] 05-18-2023 09:37-0500 Systolic blood pressure 130 mm[Hg] Dr. Shiv Gaviria Work Phone: [facility] 08-22-2021 10:01-0400 Body height 147.[address] Carlota Burrows Work Phone: [facility] Work Phone: 08-22-2021 10:01-0400 Body temperature 98.6 [degF] Dr. Carlota Burrows Work Phone: [facility] Work Phone: 08-22-2021 10:01-0400 Diastolic blood pressure 78 mm[Hg] Dr. Carlota Burrows Work Phone: [facility] Work Phone: 08-22-2021 10:01-0400 Heart rate 98 /min Dr. Carlota Burrows Work Phone: [facility] Work Phone: 08-22-2021 10:01-0400 SaO2% (BldA) [Mass fraction] 90 % Dr. Carlota Burrows Work Phone: [facility] Work Phone: 08-22-2021 10:01-0400 Systolic blood pressure 124 mm[Hg] Dr. Carlota Burrows Work Phone: [facility] Work Phone: 07-16-2021 08:39-0400 Body mass index (BMI) [Ratio] 32.1 kg/m2 Dr. Carlota Burrows Work Phone: [facility] Work Phone: 07-16-2021 08:39-0400 Body temperature 97.9 [degF] Dr. Carlota Burrows Work Phone: [facility] Work Phone: 07-16-2021 08:39-0400 Body weight 69.[address] Carlota Burrows Work Phone: [facility] Work Phone: 07-16-2021 08:39-0400 Diastolic blood pressure 60 mm[Hg] Dr. Carlota Burrows Work Phone: [facility] Work Phone: 07-16-2021 08:39-0400 Heart rate 104 /min Dr. Carlota Burrows Work Phone: [facility] Work Phone: 07-16-2021 08:39-0400 Respiratory rate 16 /min Dr. Carlota Burrows Work Phone: [facility] Work Phone: 07-16-2021 08:39-0400 SaO2% (BldA) [Mass fraction] 95 % Dr. Carlota Burrows Work Phone: [facility] Work Phone: 07-16-2021 08:39-0400 Systolic blood pressure 124 mm[Hg] Dr. Carlota Burrows Work Phone: [facility] Work Phone: 06-13-2020 14:04-0400 BMI (Body Mass Index) 32.77 kg/m2 Carlota Burrows [facility]; [facility] Work Phone: 06-13-2020 14:04-0400 Body weight 69.41 kg Carlota Burrows [facility]; [facility] Work Phone: 06-13-2020 14:04-0400 BSA (Body Surface Area) 1.61 m2 Carlota Burrows [facility]; [facility] Work Phone: 06-13-2020 14:04-0400 Height 145.54 cm Carlota Burrows [facility]; [facility] Work Phone: 04-02-2020 09:00-0500 BMI (Body Mass Index) 32.77 kg/m2 Carlota Burrows [facility]; [facility] Work Phone: 04-02-2020 09:00-0500 Body Temperature 97.1 [degF] Carlota Burrows [facility]; [facility] Work Phone: Comment on above: Method: Infrared 04-02-2020 09:00-0500 Body weight 69.41 kg Carlota Burrows [facility]; [facility] Work Phone: 04-02-2020 09:00-0500 BP Diastolic 80 mm[Hg] Carlota Burrows [facility]; [facility] Work Phone: Comment on above: Patient Position: Sitting; Cuff Location : Left Arm; Cuff Size: Standard 04-02-2020 09:00-0500 BP Systolic 130 mm[Hg] Carlota Burrows [facility]; [facility] Work Phone: Comment on above: Patient Position: Sitting; Cuff Location : Left Arm; Cuff Size: Standard 04-02-2020 09:00-0500 BSA (Body Surface Area) 1.61 m2 Carlota Burrows [facility]; [facility] Work Phone: 04-02-2020 09:00-0500 Height 145.54 cm Carlota Burrows [facility]; [facility] Work Phone: 04-02-2020 09:00-0500 Pulse (Heart Rate) 73 /min Carlota Burrows [facility]; [facility] Work Phone: Comment on above: Pattern: Regular 04-02-2020 09:00-0500 Pulse Oximetry 96 % Carlota Burrows [facility]; [facility] Work Phone: Comment on above: Room air 04-02-2020 09:00-0500 Respiratory Rate 18 /min Carlota Burrows [facility]; [facility] Work Phone: Comment on above: Pattern: Unlabored 11-15-2018 08:11-0400 BMI (Body Mass Index) 31.77 kg/m2 Carlota Burrows [facility] Work Phone: 11-15-2018 08:11-0400 BMI (Body Mass Index) 32.34 kg/m2 Carlota Burrows [facility] Work Phone: 11-15-2018 08:11-0400 Body Temperature 98.2 [degF] Carlota Burrows [facility] Work Phone: Comment on above: Method: Temporal 11-15-2018 08:11-0400 Body weight 67.3 kg Carlota Burrows [facility] Work Phone: 11-15-2018 08:11-0400 Body weight 68.5 kg Carlota Burrows [facility] Work Phone: 11-15-2018 08:11-0400 BP Diastolic 70 mm[Hg] Carlota Burrows [facility] Work Phone: Comment on above: Patient Position: Sitting; Cuff Location : Left Arm; Cuff Size: Standard 11-15-2018 08:11-0400 BP Systolic 130 mm[Hg] Carlota Burrows [facility] Work Phone: Comment on above: Patient Position: Sitting; Cuff Location : Left Arm; Cuff Size: Standard 11-15-2018 08:11-0400 BSA (Body Surface Area) 1.59 m2 Carlota Burrows [facility] Work Phone: 11-15-2018 08:11-0400 BSA (Body Surface Area) 1.6 m2 Carlota Burrows [facility] Work Phone: 11-15-2018 08:11-0400 Height 145.54 cm Carlota Burrows [facility] Work Phone: 11-15-2018 08:11-0400 Pulse (Heart Rate) 66 /min Carlota Burrows [facility] Work Phone: Comment on above: Pattern: Regular 11-15-2018 08:11-0400 Pulse Oximetry 99 % Carlota Burrows [facility] Work Phone: Comment on above: Room air 11-15-2018 08:11-0400 Respiratory Rate 16 /min Carlota Reed [facility] Work Phone: Comment on above: Pattern: Unlabored 11-01-2018 16:00-0400 BMI (Body Mass Index) 31.77 kg/m2 Carlota Burrows [facility] Work Phone: 11-01-2018 16:00-0400 Body Temperature 97.3 [degF] Carlota Burrows [facility] Work Phone: Comment on above: Method: Temporal 11-01-2018 16:00-0400 Body weight 67.3 kg Carlota Burrows [facility] Work Phone: 11-01-2018 16:00-0400 BP Diastolic 88 mm[Hg] Carlota Burrows [facility] Work Phone: Comment on above: Patient Position: Sitting; Cuff Location : Left Arm; Cuff Size: Standard 11-01-2018 16:00-0400 BP Systolic 124 mm[Hg] Carlota Burrows [facility] Work Phone: Comment on above: Patient Position: Sitting; Cuff Location : Left Arm; Cuff Size: Standard 11-01-2018 16:00-0400 BSA (Body Surface Area) 1.59 m2 Carlota Burrows [facility] Work Phone: 11-01-2018 16:00-0400 Height 145.54 cm Carlota Burrows [facility] Work Phone: 11-01-2018 16:00-0400 Pulse (Heart Rate) 79 /min Carl[facility] Work Phone: Comment on above: Pattern: Regular 11-01-2018 16:00-0400 Pulse Oximetry 96 % Carlota Burrows [facility] Work Phone: Comment on above: Room air 11-01-2018 16:00-0400 Respiratory Rate 16 /min Carlota Burrows [facility] Work Phone: Comment on above: Pattern: Unlabored 04-12-2018 14:41-0500 BMI (Body Mass Index) 33.08 kg/m2 Carlota Burrows [facility] Work Phone: 04-12-2018 14:41-0500 Body Temperature 97 [degF] Carlota Burrows [facility] Work Phone: Comment on above: Method: Temporal 04-12-2018 14:41-0500 Body weight 70.08 kg Carlota Burrows [facility] Work Phone: 04-12-2018 14:41-0500 BP Diastolic 78 mm[Hg] Carlota Burrows [facility] Work Phone: Comment on above: Patient Position: Sitting; Cuff Location : Left Arm; Cuff Size: Standard 04-12-2018 14:41-0500 BP Systolic 128 mm[Hg] Carlota Burrows [facility] Work Phone: Comment on above: Patient Position: Sitting; Cuff Location : Left Arm; Cuff Size: Standard 04-12-2018 14:41-0500 BSA (Body Surface Area) 1.62 m2 Carlota Burrows [facility] Work Phone: 04-12-2018 14:41-0500 Height 145.54 cm Carlota Burrows [facility] Work Phone: 04-12-2018 14:41-0500 Pulse (Heart Rate) 73 /min Carlota Burrows [facility] Work Phone: Comment on above: Pattern: Regular 04-12-2018 14:41-0500 Pulse Oximetry 97 % Carlota Burrows [facility] Work Phone: Comment on above: Room air 04-12-2018 14:41-0500 Respiratory Rate 18 /min Carlota Burrows [facility] Work Phone: Comment on above: Pattern: Unlabored 04-12-2018 14:41-0500 Weight 70.08 kg Carlota Reed [facility] Work Phone: 04-04-2016 10:51-0500 BMI (Body Mass Index) 31.8 kg/m2 Carlota Reed [facility] Work Phone: 04-04-2016 10:51-0500 Body Temperature 98.2 [degF] Carlota Burrows [facility] Work Phone: 04-04-2016 10:51-0500 Body weight 67.36 kg Carlota Burrows [facility] Work Phone: 04-04-2016 10:51-0500 BP Diastolic 82 mm[Hg] Carlota Burrows [facility] Work Phone: Comment on above: Patient Position: Sitting; Cuff Location : Left Arm; Cuff Size: Standard 04-04-2016 10:51-0500 BP Systolic 136 mm[Hg] Carlota Burrows [facility] Work Phone: Comment on above: Patient Position: Sitting; Cuff Location : Left Arm; Cuff Size: Standard 04-04-2016 10:51-0500 BSA (Body Surface Area) 1.59 m2 Carlota Burrows [facility] Work Phone: 04-04-2016 10:51-0500 Height 145.54 cm Carlota Reed [facility] Work Phone: 04-04-2016 10:51-0500 Pulse (Heart Rate) 69 /min Carlota Burrows [facility] Work Phone: Comment on above: Pattern: Regular 04-04-2016 10:51-0500 Pulse Oximetry 96 % Carlota Burrows [facility] Work Phone: Comment on above: Room air 04-04-2016 10:51-0500 Respiratory Rate 17 /min Carlota Reed [facility] Work Phone: Comment on above: Pattern: Unlabored 04-04-2016 10:51-0500 Weight 67.36 kg [facility] Internal Medicine Work Phone: 04-01-2016 15:09-0500 BMI (Body Mass Index) 31.8 kg/m2 Carlota Burrows [facility] Internal Medicine Work Phone: 04-01-2016 15:09-0500 Body Temperature 97.5 [degF] Carlota Burrows [facility] Internal Medicine Work Phone: Comment on above: Method: Temporal 04-01-2016 15:09-0500 Body weight 67.36 kg Carlota Burrows [facility] Internal Medicine Work Phone: 04-01-2016 15:09-0500 BP Diastolic 68 mm[Hg] Carlota [facility] Work Phone: Comment on above: Patient Position: Sitting; Cuff Location : Left Arm; Cuff Size: Standard 04-01-2016 15:09-0500 BP Systolic 118 mm[Hg] Carlota Burrows [facility] Work Phone: Comment on above: Patient Position: Sitting; Cuff Location : Left Arm; Cuff Size: Standard 04-01-2016 15:09-0500 BSA (Body Surface Area) 1.59 m2 Carlota Burrows [facility] Internal Medicine Work Phone: 04-01-2016 15:09-0500 Height 145.54 cm Carlota Burrows [facility] Internal Medicine Work Phone: 04-01-2016 15:09-0500 Pulse (Heart Rate) 72 /min Carlota Burrows [facility] Internal Medicine Work Phone: Comment on above: Pattern: Regular 04-01-2016 15:09-0500 Respiratory Rate 16 /min Carlota Burrows [facility] Internal Medicine Work Phone: Comment on above: Pattern: Unlabored 04-01-2016 15:09-0500 Weight 67.36 kg Carlota Burrows [facility] Internal Medicine Work Phone: 01-11-2016 14:37-0400 BMI (Body Mass Index) 32.01 kg/m2 Carlota Burrows [facility] Internal Medicine Work Phone: 01-11-2016 14:37-0400 Body weight 67.81 kg Carlota Burrows [facility] Work Phone: 01-11-2016 14:37-0400 BP Diastolic 80 mm[Hg] Carlota Burrows [facility] Work Phone: Comment on above: Patient Position: Sitting; Cuff Location : Left Arm; Cuff Size: Standard 01-11-2016 14:37-0400 BP Systolic 142 mm[Hg] Carlota Burrows [facility] Work Phone: Comment on above: Patient Position: Sitting; Cuff Location : Left Arm; Cuff Size: Standard 01-11-2016 14:37-0400 BSA (Body Surface Area) 1.6 m2 Carlota Burrows [facility] Work Phone: 01-11-2016 14:37-0400 Height 145.54 cm Carlota Reed Internal Medicine Work Phone: 01-11-2016 14:37-0400 Pulse (Heart Rate) 72 /min Carlota Reed Internal Medicine Work Phone: Comment on above: Pattern: Regular 01-11-2016 14:37-0400 Pulse Oximetry 96 % Carlota Burrows [facility] Internal Medicine Work Phone: Comment on above: Room air 01-11-2016 14:37-0400 Respiratory Rate 18 /min Carlota Reed Internal Medicine Work Phone: Comment on above: Pattern: Unlabored 01-11-2016 14:37-0400 Weight 67.81 kg Carlota Reed Internal Medicine Work Phone: 12-27-2015 08:18-0400 BMI (Body Mass Index) 32.36 kg/m2 Carlota Burrows [facility] Internal Medicine Work Phone: 12-27-2015 08:18-0400 Body weight 68.55 kg Carlota Burrows [facility] Internal Medicine Work Phone: 12-27-2015 08:18-0400 BP Diastolic 80 mm[Hg] Carlota Burrows [facility] Internal Medicine Work Phone: Comment on above: Patient Position: Sitting; Cuff Location : Left Arm; Cuff Size: Large 12-27-2015 08:18-0400 BP Systolic 118 mm[Hg] Carlota Burrows [facility] Work Phone: Comment on above: Patient Position: Sitting; Cuff Location : Left Arm; Cuff Size: Large 12-27-2015 08:18-0400 BSA (Body Surface Area) 1.6 m2 Carlota Reed Internal Medicine Work Phone: 12-27-2015 08:18-0400 Height 145.54 cm Carlota Reed Internal Medicine Work Phone: 12-27-2015 08:18-0400 Pulse (Heart Rate) 74 /min Carlota Burrows [facility] Work Phone: Comment on above: Pattern: Regular 12-27-2015 08:18-0400 Pulse Oximetry 95 % Carlota Burrows [facility] Work Phone: Comment on above: Room air 12-27-2015 08:18-0400 Respiratory Rate 18 /min Carlota Burrows [facility] Work Phone: Comment on above: Pattern: Unlabored 12-27-2015 08:18-0400 Weight 68.55 kg Carlota Burrows [facility] Work Phone: 01-31-2015 09:18-0500 BMI (Body Mass Index) 32.33 kg/m2 Carlota Burrows [facility] Work Phone: 01-31-2015 09:18-0500 Body Temperature 99.2 [degF] Carlota Burrows [facility] Work Phone: Comment on above: Method: Temporal 01-31-2015 09:18-0500 Body weight 68.49 kg Cralota Burrows [facility] Work Phone: 01-31-2015 09:18-0500 BP Diastolic 76 mm[Hg] Carlota Burrows [facility] Work Phone: Comment on above: Patient Position: Sitting; Cuff Location : Left Arm; Cuff Size: Standard 01-31-2015 09:18-0500 BP Systolic 118 mm[Hg] Carlota Burrows [facility] Work Phone: Comment on above: Patient Position: Sitting; Cuff Location : Left Arm; Cuff Size: Standard 01-31-2015 09:18-0500 BSA (Body Surface Area) 1.6 m2 Carlota Burrows [facility] Internal Medicine Work Phone: 01-31-2015 09:18-0500 Height 145.54 cm Carlota Burrows [facility] Internal Medicine Work Phone: 01-31-2015 09:18-0500 Pulse (Heart Rate) 72 /min Carlota Burrows [facility] Internal Medicine Work Phone: Comment on above: Pattern: Regular 01-31-2015 09:18-0500 Pulse Oximetry 97 % Carlota Burrows [facility] Internal Medicine Work Phone: Comment on above: Room air 01-31-2015 09:18-0500 Respiratory Rate 16 /min Carlota Burrows [facility] Internal Medicine Work Phone: Comment on above: Pattern: Unlabored 01-31-2015 09:18-0500 Weight 68.49 kg Carlota Burrows [facility] Internal Medicine Work Phone: 12-01-2014 10:32-0400 BMI (Body Mass Index) 31.91 kg/m2 Carlota Burrows [facility] Internal Medicine Work Phone: 12-01-2014 10:32-0400 Body Temperature 98.5 [degF] Carlota Burrows [facility] Internal Medicine Work Phone: Comment on above: Method: Oral 12-01-2014 10:32-0400 Body weight 67.59 kg Carlota Burrows [facility] Internal Medicine Work Phone: 12-01-2014 10:32-0400 BP Diastolic 76 mm[Hg] Carlota Burrows [facility] Internal Medicine Work Phone: Comment on above: Patient Position: Sitting; Cuff Location : Left Arm; Cuff Size: Standard 12-01-2014 10:32-0400 BP Systolic 112 mm[Hg] Carlota Burrows [facility] Internal Medicine Work Phone: Comment on above: Patient Position: Sitting; Cuff Location : Left Arm; Cuff Size: Standard 12-01-2014 10:32-0400 BSA (Body Surface Area) 1.59 m2 Carlota Burrows [facility] Internal Medicine Work Phone: 12-01-2014 10:32-0400 Height 145.54 cm Carlota Burrows [facility] Internal Medicine Work Phone: 12-01-2014 10:32-0400 Pulse (Heart Rate) 68 /min Carlota Burrows [facility] Internal Medicine Work Phone: Comment on above: Pattern: Regular 12-01-2014 10:32-0400 Respiratory Rate 16 /min Carlota Burrows [facility] Internal Medicine Work Phone: Comment on above: Pattern: Unlabored 12-01-2014 10:32-0400 Weight 67.59 kg Carlota Burrows [facility] Internal Medicine Work Phone: 07-08-2013 11:48-0400 BMI (Body Mass Index) 32.98 kg/m2 Carlota Burrows [facility] Internal Medicine Work Phone: 07-08-2013 11:48-0400 Body Temperature 97.7 [degF] Carlota Burrows [facility] Internal [facility] Work Phone: 07-08-2013 11:48-0400 Body weight 69.85 kg Carlota Burrows [facility] Internal [facility] Work Phone: 07-08-2013 11:48-0400 BP Diastolic 72 mm[Hg] Carlota Burrows [facility] Internal Medicine Work Phone: Comment on above: Patient Position: Sitting; Cuff Location : Left Arm; Cuff Size: Standard 07-08-2013 11:48-0400 BP Systolic 116 mm[Hg] Carlota Burrows [facility] Internal [facility] Work Phone: Comment on above: Patient Position: Sitting; Cuff Location : Left Arm; Cuff Size: Standard 07-08-2013 11:48-0400 BSA (Body Surface Area) 1.62 m2 Carlota Burrows [facility] Work Phone: 07-08-2013 11:48-0400 Height 145.54 cm Carlota Burrows [facility] Work Phone: 07-08-2013 11:48-0400 Pulse (Heart Rate) 84 /min Carlota Burrows [facility] Work Phone: Comment on above: Pattern: Regular 07-08-2013 11:48-0400 Respiratory Rate 16 /min Carlota Burrows [facility] Work Phone: Comment on above: Pattern: Unlabored 07-08-2013 11:48-0400 Weight 69.85 kg Carlota Burrows [facility] Work Phone: 06-07-2013 08:52-0400 BMI (Body Mass Index) 32.55 kg/m2 Carlota Burrows [facility] Work Phone: 06-07-2013 08:52-0400 Body Temperature 99 [degF] Carlota Burrows [facility] Work Phone: 06-07-2013 08:52-0400 Body weight 68.95 kg Carlota Burrows [facility] Work Phone: 06-07-2013 08:52-0400 BP Diastolic 88 mm[Hg] Carlota Burrows [facility] Work Phone: Comment on above: Patient Position: Sitting; Cuff Location : Left Arm; Cuff Size: Standard 06-07-2013 08:52-0400 BP Systolic 122 mm[Hg] Carlota Burrows [facility] Work Phone: Comment on above: Patient Position: Sitting; Cuff Location : Left Arm; Cuff Size: Standard 06-07-2013 08:52-0400 BSA (Body Surface Area) 1.61 m2 Carlota Burrows [facility] Work Phone: 06-07-2013 08:52-0400 Height 145.54 cm Carlota Reed Internal Medicine Work Phone: 06-07-2013 08:52-0400 Pulse (Heart Rate) 90 /min Carlota Burrows [facility] Work Phone: Comment on above: Pattern: Regular 06-07-2013 08:52-0400 Respiratory Rate 16 /min Carlota Burrows [facility] Work Phone: Comment on above: Pattern: Unlabored 06-07-2013 08:52-0400 Weight 68.95 kg Carlota Reed Internal Medicine Work Phone: 09-29-2012 10:20-0400 BMI (Body Mass Index) 32.68 kg/m2 Carlota Burrows [facility] Work Phone: 09-29-2012 10:20-0400 Body Temperature 97.8 [degF] Carlota Burrows [facility] Work Phone: Comment on above: Method: Temporal 09-29-2012 10:20-0400 Body weight 69.22 kg Carlota Burrows [facility] Work Phone: 09-29-2012 10:20-0400 BP Diastolic 76 mm[Hg] Carlota Burrows [facility] Work Phone: Comment on above: Patient Position: Sitting; Cuff Location : Left Arm; Cuff Size: Standard 09-29-2012 10:20-0400 BP Systolic 126 mm[Hg] Carlota Burrows [facility] Internal [facility] Work Phone: Comment on above: Patient Position: Sitting; Cuff Location : Left Arm; Cuff Size: Standard 09-29-2012 10:20-0400 BSA (Body Surface Area) 1.61 m2 Carlota Burrows [facility] Work Phone: 09-29-2012 10:20-0400 Height 145.54 cm Carlota Burrows [facility] Work Phone: 09-29-2012 10:20-0400 Pulse (Heart Rate) 63 /min Carlota Burrows [facility] Work Phone: Comment on above: Pattern: Regular 09-29-2012 10:20-0400 Pulse Oximetry 97 % Carlota Burrows [facility] Work Phone: Comment on above: Room air 09-29-2012 10:20-0400 Respiratory Rate 16 /min Carlota Burrows [facility] Internal [facility] Work Phone: Comment on above: Pattern: Unlabored 09-29-2012 10:20-0400 Weight 69.22 kg Carlota Reed Internal [facility] Work Phone: 06-25-2012 10:39-0400 Body weight 69.85 kg Carlota Reed [facility] Work Phone: 06-25-2012 10:39-0400 BP Diastolic 74 mm[Hg] Carlota Burrows [facility] Work Phone: Comment on above: Patient Position: Sitting; Cuff Location : Left Arm; Cuff Size: Standard 06-25-2012 10:39-0400 BP Systolic 118 mm[Hg] Carlota [facility]rows [facility] Work Phone: Comment on above: Patient Position: Sitting; Cuff Location : Left Arm; Cuff Size: Standard 06-25-2012 10:39-0400 Pulse (Heart Rate) 74 /min Carlota Reed [facility] Work Phone: Comment on above: Pattern: Regular 06-25-2012 10:39-0400 Pulse Oximetry 95 % Carlota Burrows [facility] Work Phone: Comment on above: Room air 06-25-2012 10:39-0400 Respiratory Rate 18 /min Carlota Reed [facility] Work Phone: Comment on above: Pattern: Unlabored 06-25-2012 10:39-0400 Weight 69.85 kg Carlota Reed [facility] Work Phone: 05-18-2012 16:10-0500 BMI (Body Mass Index) 32.93 kg/m2 Carlota Burrows [facility] Work Phone: 05-18-2012 16:10-0500 Body Temperature 97.4 [degF] Carlota Reed [facility] Work Phone: Comment on above: Method: Oral 05-18-2012 16:10-0500 Body weight 69.85 kg Carlota Reed [facility] Medicine Work Phone: 05-18-2012 16:10-0500 BP Diastolic 86 mm[Hg] Carlota Burrows [facility] Work Phone: Comment on above: Patient Position: Sitting; Cuff Location : Left Arm; Cuff Size: Large 05-18-2012 16:10-0500 BP Systolic 138 mm[Hg] Carlota Burrows [facility] Internal [facility] Work Phone: Comment on above: Patient Position: Sitting; Cuff Location : Left Arm; Cuff Size: Large 05-18-2012 16:10-0500 BSA (Body Surface Area) 1.62 m2 Carlota Burrows [facility] Internal [facility] Work Phone: 05-18-2012 16:10-0500 Height 145.64 cm Carlota Burrows [facility] Work Phone: 05-18-2012 16:10-0500 Pulse (Heart Rate) 60 /min Carlota Burrows [facility] Work Phone: Comment on above: Pattern: Regular 05-18-2012 16:10-0500 Respiratory Rate 20 /min Carlota Burrows [facility] Work Phone: Comment on above: Pattern: Unlabored 05-18-2012 16:10-0500 Weight 69.85 kg Carlota Burrows [facility] Work Phone: 11-24-2011 10:19-0400 BMI (Body Mass Index) 32.29 kg/m2 Carlota Burrows [facility] Work Phone: 11-24-2011 10:19-0400 Body Temperature 98.1 [degF] Carlota Burrows [facility] Work Phone: Comment on above: Method: Oral 11-24-2011 10:19-0400 Body weight 68.49 kg Carlota Burrows [facility] Work Phone: 11-24-2011 10:19-0400 BP Diastolic 76 mm[Hg] Carlota Burrows [facility] Work Phone: Comment on above: Patient Position: Sitting; Cuff Location : Left Arm; Cuff Size: Standard 11-24-2011 10:19-0400 BP Systolic 120 mm[Hg] Carlota Burrows [facility] Internal [facility] Work Phone: Comment on above: Patient Position: Sitting; Cuff Location : Left Arm; Cuff Size: Standard 11-24-2011 10:19-0400 BSA (Body Surface Area) 1.6 m2 Carlota Burrows [facility] Work Phone: 11-24-2011 10:19-0400 Height 145.64 cm Carlota Burrows [facility] Work Phone: 11-24-2011 10:19-0400 Pulse (Heart Rate) 72 /min Carlota Burrows [facility] Work Phone: Comment on above: Pattern: Regular 11-24-2011 10:19-0400 Respiratory Rate 16 /min Carlota Burrows [facility] Work Phone: Comment on above: Pattern: Unlabored 11-24-2011 10:19-0400 Weight 68.49 kg Carlota Burrows [facility] Work Phone: 10-27-2011 11:34-0400 BMI (Body Mass Index) 32.29 kg/m2 Carlota Burrows [facility] Work Phone: 10-27-2011 11:34-0400 Body Temperature 98.2 [degF] Carlota Burrows [facility] Work Phone: Comment on above: Method: Oral 10-27-2011 11:34-0400 Body weight 68.49 kg Carlota Burrows [facility] Work Phone: 10-27-2011 11:34-0400 BP Diastolic 76 mm[Hg] Carlota Burrows [facility] Work Phone: Comment on above: Patient Position: Sitting; Cuff Location : Left Arm; Cuff Size: Standard 10-27-2011 11:34-0400 BP Systolic 118 mm[Hg] Carlota Burrows [facility] Work Phone: Comment on above: Patient Position: Sitting; Cuff Location : Left Arm; Cuff Size: Standard 10-27-2011 11:34-0400 BSA (Body Surface Area) 1.6 m2 Carlota Burrows [facility] Work Phone: 10-27-2011 11:34-0400 Height 145.64 cm Carlota Burrows [facility] Work Phone: 10-27-2011 11:34-0400 Pulse (Heart Rate) 64 /min Carlota Burrows [facility] Work Phone: Comment on above: Pattern: Regular 10-27-2011 11:34-0400 Respiratory Rate 16 /min Carlotakris Burrows [facility] Work Phone: Comment on above: Pattern: Unlabored 10-27-2011 11:34-0400 Weight 68.49 kg Carlota Burrows [facility] Work Phone: Encounters Encounter Date Encounter Type Care Provider Facility Start: 08-31-2024 [facility] Start: 05-09-2024 End: 05[facility]09[facility]2024 [facility] [place]: 01-11-2024 End: [facility] Start: 09-11-2023 End: 09-11-2023 ambulatory [facility] Khadra Facility:[facility] Start: 05-18-2023 End: 05-18-[address] Shiv Gaviria Work Phone: [facility] Work Phone: Start: 05-18-2023 End: 05-18-2023 Encounter for general adult medical examination without abnormal findings Dr. Shiv Gaviria Work Phone: [facility] Start: 05-18-2023 End: 05-18-[address] Shiv Gaviria Work Phone: [facility] Internal Medicine Work Phone: Start: 07-21-2022 End: 07-21-2022 ambulatory [facility] Work Phone: Start: 07-21-2022 End: 07-21-2022 Patient encounter procedure [facility] [place] Start: 08-22-2021 End: 08-22-[address] Carlota Burrows Work Phone: [facility] Internal Medicine Start: 07-16-2021 End: 07-16-[address] Carlota Burrows Work Phone: [facility] Internal Medicine Start: 05-09-2021 End: 05-09-[address] Carlota Burrows Work Phone: [facility]-Out[facility] Breast [facility] Start: 11-26-[address] Carlota Burrows Work Phone: [facility] Start: 06-13-2020 End: 06-13-2020 Office outpatient visit 10 minutes Carlota Reed [facility] Start: 04-17-2020 End: 04-17-2020 Annotation/Addendum Carlota Reed [employer] [facility] Start: 04-02-2020 End: 04-02-2020 Office outpatient visit 15 minutes [facility] Start: 11-15-2018 End: 11-15-2018 Office outpatient visit 15 minutes [facility]ota [facility] Start: 11-15-2018 Review Carlota Burrows [facility] Start: 11-01-2018 End: 11-01-2018 Office outpatient visit 15 minutes Carlota Reed [facility] Start: 05-31-2018 End: 05-31-2018 Phone Encounter Carlota Reed [employer] [facility] Start: 04-28-2018 End: 04-28-2018 Phone Encounter Carlota Reed [employer] [facility] Start: 04-27-2018 Patient encounter procedure Carlota Reed [facility] Start: 04-12-2018 End: 04-12-2018 Office outpatient visit 25 minutes Carlota Reed [facility] Start: 04-04-2016 End: 04-04-2016 Office outpatient visit 15 minutes Carlota Reed [facility] Start: 04-03-2016 End: 04-03-2016 Phone Encounter Carlota Reed [employer] [facility] Start: 04-01-2016 End: 04-02-2016 Office outpatient visit 15 minutes Carlota Reed [facility] Start: 01-11-2016 End: 01-11-2016 Office outpatient visit 25 minutes [facility] Start: 12-27-2015 End: 12-27-2015 Office outpatient visit 25 minutes Carlota Burrows [facility] Start: 01-31-2015 End: 01-31-2015 Office outpatient visit 15 minutes Carlota Rustam [facility] Start: 12-01-2014 End: 12-04-2014 Office outpatient visit 25 minutes Carlota Rustam [facility] Start: 07-08-2013 End: 07-11-2013 Patient encounter procedure Carlota Rustam [facility] Start: 06-07-2013 End: 06-07-2013 Patient encounter procedure Carlotakris Davidsonon [facility] Start: 10-08-2012 End: 10-08-2012 Phone Encounter Carlota Burrows [facility] Start: 09-29-2012 End: 10-04-2012 Patient encounter procedure Carlota Rustam [facility] Start: 06-25-2012 End: 06-27-2012 Patient encounter procedure Carlota Rustam [facility] Start: 05-18-2012 End: 05-18-2012 Patient encounter procedure Carlota Rustam [facility] Start: 11-24-2011 End: 11-24-2011 Patient encounter procedure Carlotakris Davidsonon [facility] Start: 10-27-2011 End: 10-27-2011 Patient encounter procedure aCrlota Burrows [facility] Pre-operative examination, unspecified Carlota Burrows [facility] Work Phone: Pre-operative examination, unspecified Carlota Burrows [facility] Work Phone: Procedures Date Procedure Procedure Detail Performing Clinician Start: 05-09-2021 Dual energy X-ray absorptiometry Dr. Carlota Burrows Work Phone: Start: 05-09-[address] Carlota dailey Work Phone: Start: 06-19-2020 End: 06-19-2020 Inital Evaluation (1) - PT Comments: See Note; NOTES: [facility] [place] [id number] [facility] [address] [place] [address] / REHABILITATION SERVICES INITIAL EVALUATION MR#: [id number] Acct: [id number] Name: GEMMA CERON Rep #: [id number] : 1950 69 From: Lila ECHOLS Referring Dr.: Dr. Carlota Burrows DO Status: [facility] Insurance: [facility] SEL[employer]Y INSURANCE Patient's Visit Information GEMMA CERON is a 69 year old F referred to Physical Therapy by Dr. Carlota Burrows DO with a diagnosis of R Sciatica. Date of Evaluation: 06/19/20 Physical Therapist: KINZA iDxon - Visit Plan Frequency: 2x /Week Duration: 4 Weeks Plan: 2X/ week for 4 weeks for stretching and MT to the R piriformis, ext mobs of L spine if needed, centralization of symptoms using extension, Core stability, postural exercises, R hip strength, R hip and LE stretching with HEP and modalities if needed - Subjective Pt reports that she has never had sciatica problems. She thought that she was just having a back spasm. This has been 3.5 weeks.... thought was having a muscle spasm and then down the butt cheek and then down the leg and radiated in front of knee. She reports that she was soaking in Epsom salts, Heat, IBprof, Alieve all on her back. Dr Burrows put her on prednizone and 3 extra strength Tylenol.... can not function when the Tylenol wears off. The pain is easing off. Currently she has pain in her back and goes down to her knee...and the pain feels dull and if she touches her knee and will feel it radiate and it throbs. She has no Numbness or tingling. She has had no x-rays or MRI. No loss of bowl or bladder. It does not keep her awake at night. She has trouble doing up the steps and can not put pressure through the R leg. She is not doing any exercises. - Pain Back pain Pain Intensity (Out of 10): 5 R leg pain Pain Intensity (Out of 10): 6 - Objective Gait: Normal gait pattern with some veering at times. Able to walk on heels and toes but does have trouble due to balance not strength. Trunk AROM: flexion 75%, Ext 75%, SB B 75%, Rot B 50%. LE MMT: B hip flex 4-/5, B knee ext 4/5, B knee flex 4/5, R hip abd 4-/5, L hip abd 4/5. Good HS length, Quad length B. Tight R pififormis and IT band, TFL. Palpation: no tenderness along L- spine but has some tenderness along the R side of sacrum and pififormis muscle. Prone press ups 3 X 5 ( pt felt the pain in her knee when infull extension but resolved when come back to prone position). Instructed pt in sitting with good posture with L-roll. Worked on PRONE IR/ER of the hip with trigger points along the R side of sacrum and piruiformis muscle belly. Pt felt better when walking out of the clinic - Goals Goal 1:: I HEP Goal Time Frame: 4-6 Weeks Goal 2:: Decrease back and R leg pain to less that 2/10 back and leg pain with ADL's Goal Time Frame: 4-6 Weeks Goal 3:: Be able to sit with better posture during treatment sessions Goal Time Frame: 4-6 Weeks Goal 4:: Increase R hip abd and flexion strength to 4/5 without pain Goal Time Frame: 4-6 Weeks - Rehabilitation Potential Rehabilitation Potential: Good - Anticipated Interventions Patient/Client Instruction: Educate patient on: Condition, Plan of Care For the Purpose of:: To decrease pain, To increase ROM, To improve nutrient delivery to tissue, To improve muscle performance and motor function, To increase tolerance to activity/condition/positio n, To improve performance and independence with ADL's, To decrease level of supervision to perform tasks, To improve ability of physical actions for home/community/work/leisur e, To improve health of tissue, To decrease soft tissue restriction, To increase flexibility/ROM Therapeutic Exercise to Include: Strength training, Balance training, Postural training, Flexibilty training, Gait and locomotor training, Neuromotor development, Passive ROM, Active ROM, Dynamic Lumbar Stabilization, Celina Exercises, Scapular Strength/Stabilization For the Purpose of:: To decrease pain, To increase ROM, To improve nutrient delivery to tissue, To improve muscle performance and motor function, To improve ability to perform ADL's, To increase tolerance to activity/condition/positio n, To improve performance and independence with ADL's, To decrease level of supervision to perform tasks, To improve ability of physical actions for home/community/work/leisur e, To improve gait and locomotor functions, To improve health of tissue, To decrease soft tissue restriction, To increase flexibility/ROM, To improve balance, To improve safety with gait Manual Therapy Techniques to Include: Mobilization, Passive ROM, Soft tissue mobilization For the Purpose of:: To decrease pain, To increase ROM, To improve nutrient delivery to tissue, To improve muscle performance and motor function, To improve ability to perform ADL's, To increase tolerance to activity/condition/positio n, To improve performance and independence with ADL's, To improve ability of physical actions for home/community/work/leisur e, To improve gait and locomotor functions, To improve health of tissue, To decrease soft tissue restriction, To increase flexibility/ROM, To improve balance IF ES: Yes Cryotherapy (ice pack, ice massage): Yes Thermo therapy (hot pack): Yes Ultrasound (thermal/non thermal): Yes For the Purpose of:: To decrease pain, To increase ROM, To improve nutrient delivery to tissue Thank you for the opportunity to evaluate your patient. For Medicare and Medicare HMO plans, please review the plan of care and approve it. It will need to be FAXED BACK to us at [phone] for Medicare purposes. For Medicare only, by signing this I certify the plan of care. Please let me know if there are questions or concerns regarding this plan of care. Physician Signature: Date: <Electronically signed by Lila Hough MPT> 06/19/20 0823 CC: Dr. Carlota Burrows, DO Signed Carlota Burrows Start: 04-27-2020 End: 04-27-2020 SCRN MAMM (CAD)W/MATTHEW HUY Comments: See Note; NOTES: [facility] [address] [place] [address] SCRN MAMM (CAD)W/MATTHEW BILAT MR#: [id number] Acct: [id number] Name: GEMMA CERON Rep #: [id number] : 1950 F 69 From: Kenan logan MD PCP: Dr. Carlota Burrows, DO Status: REG CLI Study: SCRN MAMM (CAD)W/MATTHEW BILAT Date of Exam: 03/31 12/18 Exam# [id number] Ordering Dr: Carlota Burrows DO MAMMOGRAPHY - BILATERAL SCREENING REASON FOR EXAM: Female, 69 years old. Routine annual screening examination. PERTINENT HISTORY: Non-contributory. TECHNIQUE: Digital bilateral breast matthew (3D mammographic acquisition) in the CC and MLO projections. 2-D mediolateral oblique (MLO) and craniocaudad (CC) views of both breasts were obtained. CAD: Full Field Digital Mammography with Computer Added Detection was performed. COMPARISON: Comparison is made with prior study dated 05/20/2018 and 12/22/2014. FINDINGS: Breast Composition: There are scattered areas of fibroglandular density. There are no dominant masses or suspicious calcifications. Stable 4 mm x 4.4 mm well-defined nodule in the upper lateral portion of the left breast. This was demonstrated to be a small benign-appearing lymph node on prior sonogram. Stable small benign appearing bilateral axillary lymph nodes. No other significant abnormalities are identified. There has been no significant change since the prior study. BI/SCRN MAMM (CAD)W/MATTHEW BILAT IMPRESSION: Stable bilateral screening mammogram. Yearly follow-up mammogram recommended. (A) ASSESSMENT CATEGORY: BIRADS Category 2: Benign. A letter regarding these results will be sent to the patient by the facility within 30 days. Approximately 10% of breast cancers are not detected by mammography. A normal mammogram should not delay biopsy of a clinically suspicious abnormality. [id number] Electronically Signed: Kenan Ma MD at 13:28 EST , Service support , CC: Dr. Carlota Burrows DO Waybill Clerk: Signed Carlota Burrows Work Phone: Start: 11-03-2018 End: 11-03-2018 Venous Duplex Lower Extremity Comments: See Note; NOTES: [facility] [address] [place] [address] Venous Duplex US, Unilateral 11/03/18 0811 MR#: [id number] Acct: [id number] Name: GEMMA CERON Rep #: [id number] : 1950 68 From: Lisandro Nj MD Attending Dr: TRISH Chilel Status: REG CLI Ordering Dr: Taylor Guaman RACK MAKER-C Date: 11/03/18 Location: [facility] Sex: F C Admitted: Reason For Study: Pain RIGHT LEFT CFV is compressible, spontaneous, phasic, GSV is normal. competent and demonstrates normal CFV is compressible, spontaneous, phasic, augmentation. competent, and demonstrates normal Procedure augmentation. Exam performed in department. FV is compressible, spontaneous, phasic, A preliminary report was called and/or faxed competent and demonstrates normal to Rowena. augmentation. POP V is compressible, spontaneous, phasic, competent and demonstrates normal augmentation. T/P Trunk is compressible. PTV is compressible. LT PerV is compressible. Interpretation Summary Deep veins of the left lower extremity are patent and compressible segmentally. There is no evidence of left lower extremity deep vein thrombosis. Valvular competence appears intact within the proximal deep venous system on the left . The left greater saphenous vein appears patent and compressible segmentally. Ordering Physician: Taylor Guaman Referring Physician: Carlota Burrows M.D. Performed By: Ilda Mcdonald, T 11/03/181836 Date Lisandro Nj MD CC: RACK MAKER-C Taylor Guaman; Carlota Burrows DO Date Dictated: 11/03/18810 Date Transcribed: 11/03/181836 Waybill Clerk: Signed Taylor Wallace Rowena Work Phone: Start: 11-01-2018 End: 11-02-2018 Knee 4 or More Views Comments: See Note; NOTES: [facility] [address] [place] [address] Knee 4 or More Views MR#: [id number] Acct: [id number] Name: OSMANYGEMMA Rep #: [id number] : 1950 F 68 From: Sandra Delacruz MD PCP: Carlota Burrows DO Status: REG CLI Study: Knee 4 or More Views Date of Exam: 11/01/18 Exam# [id number] Ordering Dr: Taylor Guaman RACK MAKER-C HISTORY: PAIN IN LEFT KNEE. NO KNOWN INJURY. ADDITIONAL HISTORY: None provided. COMPARISON: None TECHNIQUE: Left knee 4 views Number of images including paperwork: 4 FINDINGS: BONES: No acute fracture. JOINTS: No subluxation. Mild medial compartment joint space narrowing. Tiny patellar osteophyte. Small left knee joint effusion. SOFT TISSUES: No distinct foreign body. RAD/Knee 4 or More Views IMPRESSION: No acute osseous abnormality. Small left knee joint effusion. at 0643 Reported and signed by: Sandra Delacruz MD Electronically Signed: Sandra Delacruz MD at 6:43 EDT Tel , Service support , CC: TRISH Guaman; Carlota Burrows DO Waybill Clerk: Signed Mara Rowena Work Phone: Start: 06-03-2018 End: 06-03-2018 Surgery Visit Report Comments: See Note; NOTES: [facility] [address] [place] [address] OFFICE VISIT Date of Service: 06/03/18 MR#: [id number] Acct: [id number] Name: GEMMA CERON Rep #: [id number] : 1950 Provider: Janelle Chavez PA-C Age/Sex: 67/F Location: [facility] Status: Signed Intake Intake Visit Reasons: Hernia Surgery DP 05/28 Chief Complaint: CT results and check LUQ Income Tax Administrator Required: No Is patient in pain?: No Allergies hydrocodone Adverse Reaction (Verified 06/03/18 09:35) Nausea Medications NK 06/03/18 [History Confirmed 06/03/18] Subjective Details: Patient is a 67 y/o female I am following for incarcerated incisional hernia. Dr. Vincent performed an open incisional hernia repair on 05/28/18. Patient tolerated the procedure well. Patient notes minimal amount of incisional discomfort. Patient denies nausea, vomiting, fever. She notes appetite and bowel habits have returned to normal. Objective Details: Abdomen- incision c/d/i. No erythema or infection noted. Steri-strips in place. No recurrent hernia noted. Assessment AND Plan Problems 1. Incarcerated incisional hernia K43.0 Plan - Recommend no lifting greater than 20 pounds for 7 weeks - Follow-up as needed Coding Level of Care Code Global Post Op Diagnoses Incarcerated incisional hernia K43.0 06/03/18 1302 <Electronically signed by Janelle Chavez PA-C> Date Janelle Chavez PA-C Cosigner Signature: Date (if applicable) CC: Carlota Burrows DO Carlota Burrows Start: 05-31-2018 End: 05-31-2018 12 lead ECG Comments: See Note; NOTES: [facility] [address] [place] [address] 12 Lead EKG 05/27/18 1155 MR#: [id number] Acct: [id number] Name: GEMMA CERON Rep #: [id number] : 1950 67 From: Zhou Arce MD Attending Dr: Kevon Vincent MD Status: [facility] Ordering Dr: Kevon Vincent MD Date: 05/27/18 [place] [facility] [place]: F C Admitted: Test Reason : PREOP Blood Pressure : / mmHG Vent. Rate : 068 BPM Atrial Rate : 068 BPM P-R Int : 148 ms QRS Dur : 092 ms QT Int : 416 ms P-R-T Axes : 004 -37 -08 degrees QTc Int : 442 ms Normal sinus rhythm Left axis deviation Incomplete right bundle branch block Confirmed by CAITIE SHAH, ZHOU ([id number]), metropolitan editor NARCISO OLGUIN ([id number]) on 05/31/2018 1:54:24 PM Referred By: Kevon Vincent Confirmed By:ZHOU ARCE MD 05/31/18 1354 Date Zhou Arce MD CC: Kevon Vincent MD; Carlota Rustam DO Signed Carlota Burrows Start: 05-28-2018 End: 05-28-2018 Operative Report Comments: See Note; NOTES: [facility] Medical Records Department [address] [place] [address] Operative Report 05/28/18 0831 MR#: [id number] Acct: [id number] Name: GEMMA CERON Rep #: [id number] : 1950 67 From: Kevon Vincent MD PCP: Carlota Burrows DO Status: REG SDC Y Location: [place] [address]- Problem List (1) Incarcerated incisional hernia Status: Acute Report of Operation Date of Procedure: 05/28/18 Pre-Operative Diagnosis: Incarcerated incisional hernia Post-Operative Diagnosis: Same Surgery/Procedure Performed:: Repair of incarcerated incisional hernia with mesh Type of Anesthesia:: General Anesthesiologist: Eladio Hudson Drains: none Estimated Blood Loss (mL): < 25 cc Fluids Replaced: 500 cc lr Description of Procedure: Patient was brought into the operating room placed in the supine position. Under excellent general trach intubation the abdomen was sterilely prepped and draped in usual fashion. Local was injected. A transverse incision was made above the umbilicus. Dissection was carried down incarcerated incisional hernia easily reduced and I was left with a defect that was approximately 2-1/2 cm in greatest diameter. I created a preperitoneal window. This was done circumferentially underneath and around the fascia. I fashioned a [address] hernia patch into the wound it laid completely flat. Circumferentially tacked it to the surrounding good fascia with #1 Nurolon's. Exparel was injected. I had excellent hemostasis. Subcu was brought together with 2-0 Vicryl. Deep dermal stitches of 3-0 Vicryl. Then a running 4-0 Monocryl Steri-Strips were applied sterile dressings were applied and the patient tolerated the procedure well. - Admit VTE Documentation VTE Present on Admission: No VTE Mechan Device Prophylaxis: SCD's VTE Pharm Prophylaxis ordered?: No Reason prophylaxis not ordered:: Treatment Not Indicated 05/28/18 0835 <Electronically signed by Kevon Vincent MD> Date Kevon Vincent MD CC: Eladio Hudson MD; Kevon Vincent MD; Carlota Burrows DO Signed Carlota Burrows Start: 05-28-2018 End: 05-28-2018 Discharge Instruction Comments: See Note; NOTES: [facility] Medical Records Department [address] [place] [address] Instructions for Home/Discharge Instructions 05/28/18 0829 MR#: [id number] Acct: [id number] Name: GEMMA CERON Rep #: [id number] : 1950 67 From: Kevon Vincent MD PCP: Carlota Burrows DO Status: REG SDC Discharge Diet: Light diet - advance as tolerated Discharge Activity: Return to Normal Activity, May Drive - when you are no longer taking narcotic pain medications., May Shower - with the bandage in place 1-2 days after surgery. Lifting Restrictions: 20 pounds for 8 weeks. Additional Activity Instructions:: Climbing stairs is fine, walking is encouraged. Sitting in bed may be uncomfortable. Sitting up using your lateral muscles (sitting up sideways) is usually more comfortable. Do not drive, work heavy equipment of sign legal documents for 24 hours. If your hernia repair was an ingunial repair, you may have scrotal swelling, an ice pack and/or athletic support can provide more comfort. Pain medications may cause nausea, you should typically eat light foods as you take your pain medications. Pain medications may also cause constipation. If you have difficulty with this, discuss with your doctor. Call your doctor if your incision/area has: Continuous Slow Oozing, Sudden Increased Bleeding, Increased Pain/ Swelling, Increased Redness, Foul Smelling Discharge Call your doctor if you observe: Fever of 101 or Higher Suture Line Care: Avoid Pulling/Pushing, Avoid Pinching/Bending Additional Dressing/Incision Instructions:: Leave the operative bandage on for 2-3 days. When you remove the bandage, leave the steri-strips on place until your follow up appointment or they fall off. Allergies/Adverse Reactions: Allergies hydrocodone Adverse Reaction (Verified 05/28/18 06:34) Nausea Medications to take at Discharge Oxycodone HCl/Acetaminophen [Percocet 5/325] 1 - 2 tab PO Q4H PRN PRN 6 Days #30 tab 05/28/18 The following prescriptions were given: Oxycodone HCl/Acetaminophen [Percocet 5/325] 1 - 2 tab PO Q4H PRN PRN 6 Days #30 tab PRN Reason: Pain Orders to be completed after discharge: 12 Lead EKG [[facility]] Time Frame: 05/26/18, Facility: [facility], Location: Cardiovascular Services Hemoglobin A1c Time Frame: 05/26/18, Location: Laboratory Basic Metabolic Profile (BMP) Time Frame: 05/26/18, Location: Laboratory Primary Care Physician: Carlota Burrows DO [Primary Care Provider] - Test Results: Test results from this visit will be discussed in further detail at your follow-up appointment, if applicable. Please Follow Up With: Kevon Vincent MD - [phone] When: Plan to have a follow up appointment in 7 days. Call to schedule. 05/28/18 0830 <Electronically signed by Kevon Vincent MD> Date Kevon Vincent MD CC: Eladio Hudson MD; Carlota Burrows DO Signed Carlota Burrows Start: 05-27-2018 End: 05-27-2018 Surgery Visit Report Comments: See Note; NOTES: [facility] [address] [place] [address] OFFICE VISIT Date of Service: 05/25/18 MR#: [id number] Acct: [id number] Name: GEMMA CERON Rep #: [id number] : 1950 Provider: Kevon Vincent MD Age/Sex: 67/F Location: [facility] Status: Signed Intake Vital Signs05/25/18 Body Mass Index (BMI) 31.3 Intake Visit Reasons: FU 05/10/18 INCISIONAL HERNIA Chief Complaint: CT results and check LUQ Income Tax Administrator Required: No Is patient in pain?: Yes Pain scale (1-10): 4 Allergies No Known Allergies Allergy (Verified 05/26/18 08:59) Medications NK 05/07/18 [History Confirmed 05/26/18] Is last menstrual period known: No Post menopausal: Yes Patient : No PFSH Medical History Hyperlipidemia (Acute) Recurrent incisional hernia (Acute) Surgical History History of colonoscopy (Acute) History of hernia repair (Acute) Status post repair of recurrent ventral hernia (Acute) Social History Smoking Status: Former smoker HPI HPI HPI: GEMMA CERON, is a 67 F who presents to the office today for reevaluation of her abdominal hernia patient underwent a CAT scan of her abdomen pelvis on 05/18/2018. This showed a ventral wall hernia measuring 6.2 x 3.1 x 2.8 cm containing fat. It really has not changed significantly from her previous CAT scans. She was recently playing around with her grandchildren and developed worsening pain in the upper left side of her abdomen. She has had no change in her bowel or bladder habit Exam Const General: no acute distress, well developed, well hydrated Orientation: oriented to person, oriented to place, oriented to time Chest Chest palpation AND inspection: normal inspection of the chest Breast inspection: normal inspection of the breasts Breast Palpation: Yes normal palpation of the breasts, Yes normal palpation of the axillae, No change in skin Other: Palpation of the right breast reveals []. Palpation of the left breast reveals []. Axillary exam demonstrates no suspicious masses in either the left or right axilla. Resp Effort AND Inspection: normal respiratory effort Auscultation: clear to auscultation bilaterally Percussion: percussion normal Cardio Rate: regular rate Rhythm: regular rhythm GI Palpation: soft, no hepatosplenomegaly, no masses, nontender Rectal Exam: other Other: Rectal exam deferred. Hernias palpable it is nontender and it has not changed from my previous visit. Assessment AND Plan Problems 1. Incarcerated incisional hernia K43.0 Plan My plan is to perform a open ventral incisional hernia repair with mesh. The planned surgical procedure was discussed extensively with the patient. The risks, benefits, anticipated outcomes and possible complication were mentioned. The patient understands that all hernia repair surgery has a chance of recurrence and/or chronic post-operative pain. My staff has also explained the procedure in understandable terms and the patient was given the option to take printed material concerning the planned procedure. The patient had the opportunity to ask questions concerning the planned procedure. The patient freely consents to the planned procedure. Coding Level of Care Code Off vis,est,level 2 Diagnoses Incarcerated incisional hernia K43.0 05/27/18 1233 <Electronically signed by Kevon Vincent MD> Date Kevon Stallworth Signature: Date (if applicable) CC: Carlota Casper Start: 05-21-2018 End: 05-21-2018 Breast Limited Unilateral Comments: See Note; NOTES: [facility] [address] [place] [address] Breast Limited Unilateral MR#: [id number] Acct: [id number] Name: GEMMA CERON Rep #: [id number] : 1950 F 67 From: Kenan Ma MD PCP: Carlota Burrows DO Status: REG CLI Study: Breast Limited Unilateral Date of Exam: 05/21/18 Exam# [id number] Ordering Dr: Carlota Burrows DO STUDY: ULTRASOUND BREAST - LEFT REASON FOR EXAM: Female, 67 years old. Abnormal screening mammogram. TECHNIQUE: Axial and longitudinal images of the LEFT breast were performed with a high resolution ultrasound transducer. COMPARISON: Comparison is made with prior mammogram dated May 20, 2018. FINDINGS: LEFT Breast: The mammographic abnormality corresponds to a 5 mm x 4 mm x 3 mm benign-appearing lymph node at the 1:00 position in the breast at 6 cm from the nipple. US/Breast Limited Unilateral IMPRESSION: The mammographic abnormality corresponds to a 5 mm x 4 mm x 3 mm benign-appearing lymph node. ASSESSMENT CATEGORY: BIRADS Category 2: Benign. A letter regarding these results will be sent to the patient by the facility within 30 days. Electronically Signed: Kenan Ma MD at 13:29 EST , Service support , CC: Carlota Burrows DO Waybill Clerk: Signed Carlota Burrows Work Phone: Start: 05-20-2018 End: 05-20-2018 SCREENING MAMM (CAD), BILAT Comments: See Note; NOTES: [facility] [address] [place] [address] SCREENING MAMM (CAD), BILAT MR#: [id number] Acct: [id number] Name: GEMMA CERON Rep #: [id number] : 1950 F 67 From: Kenan Ma MD PCP: Carlota Burrows DO Status: REG CLI Study: SCREENING MAMM (CAD), BILAT Date of Exam: 05/20/18 Exam# [id number] Ordering Dr: Carlota Burrows DO MAMMOGRAPHY - BILATERAL SCREENING REASON FOR EXAM: Female, 67 years old. Routine annual screening examination. PERTINENT HISTORY: Non-contributory. TECHNIQUE: Digital bilateral breast matthew (3D mammographic acquisition) in the CC and MLO projections. 2-D mediolateral oblique (MLO) and craniocaudad (CC) views of both breasts were obtained. CAD: Full Field Digital Mammography with Computer Added Detection was performed. COMPARISON: Comparison is made with prior study dated December 22, 2014. FINDINGS: Breast Composition: There are scattered areas of fibroglandular density. There are no dominant masses or suspicious calcifications. Stable 4.4 mm x 5.4 mm well-defined nodule in the upper lateral portion of the left breast. This may represent either small lymph node or a small cyst. Correlation with ultrasound is recommended. Stable small bilateral axillary lymph nodes. No other significant abnormalities are identified. There has been no significant change since the prior study. BI/SCREENING MAMM (CAD), BILAT IMPRESSION: Stable bilateral screening mammogram. Yearly follow-up mammogram recommended. (A) ASSESSMENT CATEGORY: BIRADS Category 0: Incomplete. Need additional imaging evaluation. A letter regarding these results will be sent to the patient by the facility within 30 days. Approximately 10% of breast cancers are not detected by mammography. A normal mammogram should not delay biopsy of a clinically suspicious abnormality. [id number] Electronically Signed: Kenan Ma MD at 9:07 EST , Service support , CC: Carlota Burrows DO Waybill Clerk: Signed Carlota Burrows Work Phone: Start: 05-18-2018 End: 05-18-2018 Abdomen/Pelvis WITH Contrast Comments: See Note; NOTES: [facility] [address] [place] [address] Abdomen/Pelvis WITH Contrast MR#: [id number] Acct: [id number] Name: GEMMA CERON Rep #: [id number] : 1950 F 67 From: Rashawn Manjarrez MD PCP: Carlota Burrows DO Status: REG CLI Study: Abdomen/Pelvis WITH Contrast Date of Exam: 05/18/18 Exam# [id number] Ordering Dr: Kevon Vincent MD STUDY: CT ABDOMEN AND PELVIS WITH CONTRAST REASON FOR EXAM: Female, 67 years old. Abdominal pain. History of incisional hernia. RADIATION DOSAGE (If Supplied By Facility): CTDIvol = ( 18.15 ) mGy, DLP = ( 964.62 ) mGycm TECHNIQUE: Transaxial images were obtained from the dome of the diaphragm to the symphysis pubis without oral contrast. 100ML ml of Isovue 300 contrast was administered. Sagittal and coronal images were reconstructed. Individualized dose optimization techniques were used for this CT. COMPARISON: None. FINDINGS: The visualized lung bases are clear. The visualized portions of the heart and pericardium are within normal limits. The patient is status post cholecystectomy. There are subcentimeter hypodensities in the liver which are too small to characterize. However, these likely represent cysts. The spleen is normal in size. The pancreas is within normal limits. The adrenal glands are within normal limits. There are no renal or ureteral stones. There is no hydronephrosis. There are parapelvic cysts noted in the kidneys. Normal visualized stomach. There is no bowel obstruction or inflammation. The appendix is visualized and appears normal. There are postsurgical changes noted from prior ventral hernia repair. There is no evidence of a recurrent hernia at the postsurgical site. There is a 6.2 x 3.1 x 2.8 cm fat containing ventral hernia in the midline in the upper abdomen. There is no bowel containing hernia. The aorta is normal in caliber. There is no abdominal or pelvic free air, free fluid, fluid collection or lymphadenopathy. The patient is status post hysterectomy. There are no destructive osseous lesions. CT/Abdomen/Pelvis WITH Contrast IMPRESSION: 6.1 x 3.1 x 2.8 cm fat-containing hernia in the midline of the upper abdominal wall. No bowel containing hernia. Postsurgical changes from prior ventral hernia repair. No evidence of a recurrent hernia at the postsurgical site. No bowel obstruction or inflammation. Normal appendix. Electronically Signed: Rashawn Manjarrez, at 17:50 EST Tel , Service support , CC: Kevon Vincent MD; Carlota Burrows DO Waybill Clerk: Signed Carlota Burrows Start: 05-07-2018 End: 05-07-2018 Surgery Visit Report Comments: See Note; NOTES: [facility] 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 I have known donald all the way back since 2013. She had an incisional hernia in her lower abdomen but I repaired that back in June 2013. I also did a colonoscopy on her in January 2016 which was essentially negative but at that time she was noted to have an incisional hernia of her upper abdomen from a trocar site secondary to her having a gallbladder surgery. CAT scan at that time did confirm the incisional hernia but she did not want everything done at that time. She presents today with increasing discomfort and enlargement of the hernia. She has not been having any change in her bowel or bladder habits. She has no nausea no vomiting. There are no recent imaging since the change in the hernia size. ROS General General: Yes weight change and fatigue; no appetite, colon cancer, breast cancer or weakness HEENT HEENT: No difficulty swallowing, eye injury, eye surgery, swollen glands or hoarseness Endo Endocrine: No thyroid disease, diabetes mellitus, thyroid cancer, Hair loss, heat intolerance or cold intolerance Cardio Cardiovascular: No murmur, pacemaker, heart disease, atrial fibrillation, high blood pressure, heart attack, heart stent, palpitations, shortness of breat with exertion or chest pain Resp Respiratory: No shortness of breath, No sleep apnea, No cough, No COPD, No asthma, No emphysema, No wheezing Gastro Gastrointestinal: No abdominal pain, No nausea or vomiting, No diarrhea, No constipation, No blood in stool, No acid reflux, No hemorrhoids, No ulcers, No gallbladder problem, No black,tarry stools Neuro Neurologic: No weakness Exam Const General: no acute distress, well developed, well hydrated Orientation: oriented to person, oriented to place, oriented to time [facility] Head: normocephalic, atraumatic Ears: external ears normal Mouth: moist mucous membranes Eyes Sclera: sclerae normal Pupils: normal by confrontation Neck Neck: no lymphadenopathy noted Neck mass: No Thyroid: thyroid normal, symmetrical Chest Chest palpation AND inspection: normal inspection of the chest Resp Effort AND Inspection: normal respiratory effort Auscultation: clear to auscultation bilaterally Percussion: percussion normal Cardio Rate: regular rate Rhythm: regular rhythm Heart Sounds: no murmurs GI Palpation: soft, no hepatosplenomegaly, no masses, tender Rectal Exam: other Other: There is a significantly large hernia in her epigastric area with its origins appearing to come from a 10/12 trocar site in the epigastric area. It is not completely reducible. It is tender to touch with deep palpation. There is no rebound guarding or peritoneal signs identified Rectal exam deferred. Extrem General: normal to inspection, no clubbing, cyanosis or edema Assessment AND Plan Problems 1. Incarcerated incisional hernia K43.0 Plan My plan is to perform an open incisional hernia repair with mesh. The planned surgical procedure was discussed extensively with the patient. The risks, benefits, anticipated outcomes and possible complication were mentioned. The patient understands that all hernia repair surgery has a chance of recurrence and/or chronic post-operative pain. My staff has also explained the procedure in understandable terms and the patient was given the option to take printed material concerning the planned procedure. The patient had the opportunity to ask questions concerning the planned procedure. The patient freely consents to the planned procedure. Prior to the procedure I think it is important for me to repeat the CAT scan of the abdomen and pelvis with IV and p.o. contrast to make sure that the epigastric hernia has not changed. Orders Orders: Coding Level of Care Code Off vis,est,level 3 Diagnoses Incarcerated incisional hernia K43.0 05/07/18 1000 <Electronically signed by Kevon Vincent MD> Date Kevon Vincent MD Cosigner Signature: Date (if applicable) CC: Carlota Casper Start: 04-27-2018 End: 04-27-2018 Thyroid Comments: See Note; NOTES: [facility] [address] [place] [address] Thyroid MR#: [id number] Acct: [id number] Name: GEMMA CERON Rep #: [id number] : 1950 F 67 From: Germán Leavitt MD PCP: Carlota Burrows DO Status: REG CLI Study: Thyroid Date of Exam: 04/27/18 Exam# [id number] Ordering Dr: Carlota Burrows DO STUDY: THYROID ULTRASOUND REASON FOR EXAM: Female, 67 years old. Thyroid nodules. History of thyroid biopsy 2013. Follow-up. TECHNIQUE: Ultrasound evaluation of the thyroid was performed with real-time and static lundberg-scale imaging. COMPARISON: 12/22/2014, 06/13/2013 ultrasound thyroid. FINDINGS: RIGHT LOBE: The right thyroid measures 5.1 x 2.0 x 1.7 cm. Background echotexture and vascularity are normal. Nodules are present. 3. Nodules, 7 x 7 x 6 mm, 7 x 5 x 4 mm, 4 x 3 x 2 mm. These exhibit perinodular vascular flow. One of these nodules a spongiform, stable. Another cystic focus has diminished in size. The 3rd nodule is solid. LEFT LOBE: The left thyroid measures 5.5 x 2.2 x 2.3 cm. Background echotexture is homogeneous with normal vascularity. Multiple nodules are present superior pole, mid polar, lower pole. Dominant nodule 16 x 15 x 7 mm, solid, minimal cystic spaces, tiny echo reflectors, intranodular vascular flow. Not substantially changed in size. Dominant nodule 12 x 10 x 12 mm, macrolobulated margins, solid, heterogeneously isoechoic to surrounding thyroid. Not substantially changed in size. 9 x 8 x 6 mm spongiform nodule. Diminished in size. 5 x 5 x 3 mm solid nodule. Stable. ISTHMUS: The isthmus measures 3 mm, normal echotexture . US/Thyroid IMPRESSION: Bilateral thyroid nodules. No significant increase in size of the dominant nodules. The small nodules on the right may be followed sonographically for surveillance purposes. Dominant nodule on the left measuring 16 x 15 x 7 mm. Based on [place] [employer] Guidelines for assessment of thyroid nodules, this nodule falls into the high suspicion pattern based on part cystic, predominately solid, tiny microcalcifications. Ultrasound guided FNA biopsy typically recommended if the greatest dimension is over 1 cm. The absence of any significant change since imaging of 2014 suggests a follow-up surveillance imaging remains appropriate. Dominant left nodule measuring 12 x 10 x 12 mm, solid, predominantly isoechoic. Based on the [place] [employer] Guidelines for assessment of thyroid nodules this falls into the low suspicion pattern. Typically with greatest dimension less than 1.5 cm, biopsy would not be necessary. Based on stability since prior imaging, continued surveillance imaging is appropriate. It is unknown which nodule was previously biopsied. Electronically Signed: Germán Leavitt MD at 11:55 EST Tel , Service support , CC: Carlota Burrows DO Waybill Clerk: Signed Carlota Burrows Work Phone: Start: 04-10-2016 End: 04-10-2016 Inital Evaluation (1) - PT Comments: See Note; NOTES: [facility] [address] [place] [address] Fax REHABILITATION SERVICES INITIAL EVALUATION MR#: [id number] Acct: [id number] Name: DARREN CERON Rep #: [id number] : 1950 65 From: Satinder Kim PT, Cert. MDT, OCS Referring Dr.: Carlota Burrows DO Status: REG RCR Insurance: [employer] Patient's Visit Information DARREN CERON is a 65 year old F referred to Physical Therapy by Carlota Burrows with a diagnosis of thoracic back pain. Date of Evaluation: 04/02/16 Physical Therapist: Satinder Kim, PT, - Visit Plan Frequency: 2x /Week Duration: 4 Weeks Plan: postural ex's ,strengthening,thoracic ,manual therapy,modalities - Subjective Subjective: This 65 y/o female presents to physical therapy [facility] thoracic back pain about 1 week. Patient reports constant ache. No injury or mechanism. Patient on Thursday had pain night. thoracic spine radiates around ribs.Tried overcounter MEDS. Seen DR injections of cortizone.Pain located today on left side.Coughing/sneezing/esperanza p breathing negative. Symptoms worse houseworking ,sitting.Symptoms MEDS better.C/O parathesia thoracic region. Pain affects sleeping. VOCATION: retired. SOCAIL: - Pain Left Back Pain Intensity (Out of 10): 8 Pain Intensity Range: 10 - Objective POSTURE: mild foward posture. GAIT: normal jesus. NEURO: REFLEXES C5-6-7 2/3 ,mild parathesia thoracic ,. PALPATION: tender left scapular. BUE: WFL. MMT: shoulder 4-/5,bicep/ tricep/wrist 4/5. THORACIC ROM: flexion min/mod loss,extension min/mid loss,rotation min loss - Special Tests Thoracic Sitting: Flexion - Mechanical Response: No effect Thoracic Sitting: Flexion - Symptoms During Testing: No effect Thoracic Sitting: Flexion - Symptoms After Testing: No effect Thoracic Sitting: Extension - Mechanical Response: No effect Thoracic Sitting: Extension - Symptoms During Testing: No effect Thoracic Sitting: Extension - Symptoms After Testing: No effect Thoracic Sitting: Right rotation - Mechanical Response: No effect Thoracic Sitting: Right Rotation - Symptoms During Testing: No effect Thoracic Sitting: Right Rotation - Symptoms After Testing: No effect Thoracic Sitting: Left rotation - Mechanical Response: No effect Thoracic Sitting: Left Rotation - Symptoms During Testing: No effect Thoracic Sitting: Left Rotation - Symptoms After Testing: No effect - Goals Goal 1:: Independant with HEP Goal Time Frame: 2-4 Weeks Goal 2:: Independant with posture for ADLS' Goal Time Frame: 2-4 Weeks Goal 3:: Decrease thoracic pain by 50% or greater to improve function with ADLS' Goal Time Frame: 2-4 Weeks Goal 4:: Patient be able to return to function of recovery Goal Time Frame: 2-4 Weeks Goal 5:: Patient be able to perform ADLS's housework tasks with min limitations Goal Time Frame: 2-4 Weeks - Rehabilitation Potential Physical Therapy Diagnosis: This patient has episode left thoracic pain tender ,impairs function,pain and ADLS ,parathesia left side thus will benifit from skilled PT Rehabilitation Potential: Good - Anticipated Interventions Patient/Client Instruction: Educate patient on: Condition, Plan of Care For the Purpose of:: To decrease pain, To decrease swelling/inflammation, To increase ROM, To improve nutrient delivery to tissue, To increase oxygenation perfusion, To improve muscle performance and motor function, To increase tolerance to activity/condition/positio n, To decrease level of supervision to perform tasks, To improve ability of physical actions for home /community/work/leisure, To improve health of tissue, To decrease soft tissue restriction, To increase flexibility/ROM, To prevent re-injury, To improve ability to perform tasks related to life management Therapeutic Exercise to Include: Strength training, Body mechanics, Postural training, Flexibilty training For the Purpose of:: To decrease pain, To increase ROM, To improve muscle performance and motor function, To improve ability to perform ADL's, To increase tolerance to activity/condition/ position, To improve performance and independence with ADL's, To improve ability of physical actions for home/community/work/leisur e, To improve health of tissue, To decrease soft tissue restriction, To increase flexibility/ROM, To prevent re-injury, To improve ability to perform tasks related to life management Manual Therapy Techniques to Include: Massage, Mobilization, Soft tissue mobilization For the Purpose of:: To decrease pain, To decrease swelling/inflammation, To increase ROM, To improve nutrient delivery to tissue, To increase oxygenation perfusion, To improve health of tissue, To decrease soft tissue restriction IF ES: Yes Cryotherapy (ice pack, ice massage): Yes Thermo therapy (hot pack): Yes Ultrasound (thermal/non thermal): Yes For the Purpose of:: To decrease pain, To increase ROM, To increase oxygenation perfusion, To improve muscle performance and motor function, To increase tolerance to activity/condition/ position, To improve performance and independence with ADL's, To improve health of tissue, To decrease soft tissue restriction, To increase flexibility/ROM Thank you for the opportunity to evaluate your patient. For Medicare and Medicare HMO plans, please review the plan of care and approve it. It will need to be FAXED BACK to us at [phone] for Medicare purposes. Please let me know if there are questions or concerns regarding this plan of care. Physician Signature: Date: <Electronically signed by Satinder Kim PT, Cert. IAN, [facility]> 04/10/16 1728 CC: Carlota Burrows DO MAGDALENE Signed For Medicare only, by signing this I certify the plan of care. __ Physicians Signature Date Carlota Burrows Start: 05-17-2015 End: 05-17-2015 Abdomen WITH IV Contrast Comments: See Note; NOTES: [facility] [address] [place] [address] Verdana 4d Abdomen WITH IV Contrast MR#: [id number] Acct: [id number] Name: DARREN CERON Rep #: [id number] : 1950 F 64 From: Kenan Ma MD PCP: Claudia Terrell DO Status: REG CLI Study: Abdomen WITH IV Contrast Date of Exam: 05/17/15 Exam# [id number] Ordering Dr: Claudia Terrell DO STUDY: CT ABDOMEN WITH CONTRAST REASON FOR EXAM: Female, 64 years old. Upper abdominal discomfort. Prior cholecystectomy. Prior ventral hernia repair. RADIATION DOSAGE (If Supplied By Facility): CTDIvol = ( 14.36 ) mGy, DLP = ( 988.61 ) mGycm TECHNIQUE: Transaxial images were obtained post I.V. administration of 100mL ml of Isovue 300 contrast, and with oral contrast. Sagittal and coronal images were reconstructed. COMPARISON: None. FINDINGS: The visualized lung bases are unremarkable. The visualized portions of the heart are within normal limits. There is decreased attenuation of the liver consistent with steatosis. The gallbladder is contracted. Normal spleen. Normal pancreas. Normal bilateral adrenal glands. Normal right kidney. Normal left kidney. There is a small hiatal hernia. Normal small intestine. Normal colon. The appendix is visualized and appears normal. Normal abdominal aorta. Normal inferior vena cava. Normal retroperitoneum. Normal abdominal wall. There are diffuse degenerative changes of the visualized lumbar spine. IMPRESSION: Fatty infiltration liver. Electronically Signed: Kenan Ma MD at 16:08 EST Tel [phone], Service support [phone], CC: Claudia Terrell DO Waybill Clerk: Signed Claudia Espinosa Phone: Start: 12-22-2014 End: 12-23-2014 Abdomen Limited Comments: See Note; NOTES: [facility] [address] [place] [id number] Ultrasound Report MR#: [id number] Acct: [id number] Name: DARREN CERON Tony Rep #: [id number] : 1950 F 64 From: Kenan Ma MD PCP: Claudia Terrell DO Status: REG CLI Study: Abdomen Limited Date of Exam: 12/22/14 Exam# [id number] Ordering Dr: Claudia Terrell DO STUDY: ABDOMINAL ULTRASOUND - RIGHT UPPER QUADRANT REASON FOR VISIT: Female, 64 years old. Right upper quadrant and abdominal fullness. TECHNIQUE: Ultrasound evaluation of the right upper quadrant was performed with real-time and static lundberg-scale imaging. TECHNICAL QUALITY: Adequate. COMPARISON: None. FINDINGS: Liver: The liver measures 16.1 cm. There is increased echogenicity consistent with fatty infiltration. The bile ducts are within normal limits. There is hepatic color flow. The direction of portal flow is hepatopetal. There is no demonstrated mass lesion. Gallbladder: The patient is status post cholecystectomy. Common Bile Duct (C.B.D.): The common bile duct is mildly dilated and measures 9.8 mm. Pancreas: Normal size of the head, body and tail of the pancreas. There is normal echogenicity of the pancreas. There is no demonstrated pancreatic mass or cyst. Right Kidney: Normal size of the right kidney. The right kidney measures 10.5 cm x 5.2 cm x 5.6 cm. Normal renal cortex. The right cortex measures 1.6 cm. 2 parapelvic cysts are seen. The larger measures 1.4 cm x 1.2 cm x 1.1 cm. Minimal right hydronephrosis. IMPRESSION: Status post cholecystectomy and mild dilatation of the common bile duct. Fatty infiltration of the liver. There are 2 small right parapelvic cysts. Electronically Signed: Kenan Ma MD at 11:24 EDT Tel [phone], Service support [phone], CC: Claudia Terrell DO Waybill Clerk: Signed Claudia Terrell Work Phone: Start: 12-22-2014 End: 12-23-2014 Bilat Scrn Digital AND CAD Comments: See Note; NOTES: [facility] [address] [place] [address] Breast Imaging Report MR#: [id number] Acct: [id number] Name: DARREN CERON Rep #: [id number] : 1950 F 64 From: Kenan Ma MD PCP: Claudia Terrell DO Status: REG CLI Study: Bilat Scrn Digital AND CAD Date of Exam: 12/22/14 Exam# [id number] Ordering Dr: Claudia Terrell DO MAMMOGRAPHY - BILATERAL SCREENING REASON FOR EXAM: Female, 64 years old. Routine annual screening examination. PERTINENT HISTORY: Non-contributory. TECHNIQUE: Digital examination. Mediolateral oblique (MLO) and craniocaudad (CC) views of both breasts were obtained. CAD: CAD was performed on this study. COMPARISON: Comparison is made with prior examination dated March 11, 2011 and March 05, 2009. FINDINGS: Breast Composition: There are scattered areas of fibroglandular density. There are no dominant masses or suspicious calcifications. No other significant abnormalities are identified. There has been no significant change since the prior study. IMPRESSION: Stable bilateral screening mammogram. Yearly follow-up recommended. (A) ASSESSMENT CATEGORY: BIRADS Category 1: Negative. A letter regarding these results will be sent to the patient by the facility within 30 days. Approximately 10% of breast cancers are not detected by mammography. A normal mammogram should not delay biopsy of a clinically suspicious abnormality. Electronically Signed: Kenan Ma MD at 10:28 EDT Tel [phone], Service support [phone], CC: Claudia Terrell DO Waybill Clerk: Signed Claudia Terrell Work Phone: Start: 12-22-2014 End: 12-23-2014 Thyroid Comments: See Note; NOTES: [facility] [address] [place] [address] Ultrasound Report MR#: [id number] Acct: [id number] Name: DARREN CERON Rep #: [id number] : 1950 F 64 From: Kenan Ma MD PCP: Claudia Terrell DO Status: REG CLI Study: Thyroid Date of Exam: 12/22/14 Exam# [id number] Ordering Dr: Claudia Terrell DO STUDY: THYROID ULTRASOUND REASON FOR EXAM: Female, 64 years old. Thyroid nodule and prior biopsy. TECHNIQUE: Ultrasound evaluation of the thyroid was performed with real-time and static lundberg-scale imaging. COMPARISON: Comparison is made with prior examination dated June 13, 2013. FINDINGS: RIGHT LOBE: The right lobe of the thyroid gland measures 5.5 cm x 2.5 cm x 1.5 cm. There is a homogeneous echotexture. There is a stable 7 mm x 6 mm x 6 linear hypoechoic solid nodule in the lower pole. There is a stable 6 mm x 5 mm x 5 mm cyst. LEFT LOBE: The left lobe of the thyroid gland measures 5.5 cm x 2.1 cm x 2.0 cm. There is a homogeneous echotexture. R4 09-do. The largest measures 1.6 times by 1.6 cm x 0.7 cm. This is a solid nodule. ISTHMUS: The isthmus measures 3.0 mm. The regional lymph nodes are normal. IMPRESSION: Bilateral thyroid nodules. There has been essentially no change since prior study. Electronically Signed: Kenan Ma MD at 14:16 EDT Tel [phone], Service support [phone], CC: Claudia Terrell DO Waybill Clerk: Signed Claudia Espinosa Phone: Start: 03-30-2014 End: 04-03-2014 Operative Report Comments: See Note; NOTES: [facility] Medical Records Department [address] [place] [address] Operative Report MR#: [id number] Acct: [id number] Name: DARREN CERON Rep #: [id number] : 1950 63 From: Lisandro Nj MD PCP: Claudia Terrell DO Status: [place] [facility] [place]: 03/29/2014 DATE OF SERVICE: March 29, 2014. PREOPERATIVE DIAGNOSES: Chronic venous insufficiency, varicose veins with inflammation, leg pain, leg swelling -- right lower extremity. POSTOPERATIVE DIAGNOSES: Chronic venous insufficiency, varicose veins with inflammation, leg pain, leg swelling -- right lower extremity. OPERATIVE PROCEDURE: Stab phlebectomy (microphlebectomy) of right lower extremity varicose veins (37 incisions). SURGEON: Lisandro Nj M.D. ANESTHESIA: General anesthesia. ESTIMATED BLOOD LOSS: Minimal. COMPLICATIONS: None. SPECIMEN: Multiple varicose vein fragments. INDICATIONS: This is a 63-year-old female with a long-standing history of chronic venous insufficiency, varicose veins with inflammation, leg pain and leg swelling involving her right lower extremity. She has previously undergone successful endovenous laser ablation of the incompetent superficial veins in the right lower extremity. Large bulging painful varicosities persisted. Conservative treatment measures were implemented, which included leg elevation, avoidance of idle standing and sitting, graduated compression stockings, weight control measures, active lifestyle, [id number]-[id number] analgesics, etc. Despite these measures, the patient remained symptomatic, with symptoms which adversely affected daily activities and quality of life. The options of management were fully explained. The indications and risks of microphlebectomy of right lower extremity varicose veins were discussed with the patient in detail. The appropriate preoperative consent process was undertaken. DESCRIPTION OF PROCEDURE: The large bulging varicosities in the right lower extremity were marked with indelible ink preoperatively with the patient in the standing position. She was then brought to the operating room suite, placed supine upon the operating room table, where general anesthesia was administered by the anesthesia staff. The right lower extremity was then prepped and draped in appropriate sterile manner. Attention was directed to the multiple varicosities in the right lower extremity, which had been marked with the patient in the standing position preoperatively. The microphlebectomy procedure was performed in standard fashion. In each case, a small stab incision was created overlying the varicosity, using an 18-gauge hypodermic needle. A phlebectomy hook was then used to deliver the varicose vein through the incision, and the vein was divided and avulsed for several centimeters in each direction when possible. In each case, manual pressure was applied to the phlebectomy site to achieve hemostasis. The procedure was repeated multiple times at each of the marked sites, and a total of 37 incisions were required for complete phlebectomy of the marked varicose veins. After assuring satisfactory hemostasis, the incisions were approximated using Cavilon and Steri-Strips. Dry sterile gauze dressings were applied over each of the incisions, and the leg was wrapped from the base of the toes to the knee with Kerlix, followed by Carlos wrap. The blood loss for the procedure was minimal. The sponge, needle and instrument counts at the end of the procedure were correct. The patient tolerated the procedure well and was transported from the operating room to the post-anesthesia care unit in stable condition. Lisandro Nj MD T: NTS JOB: [id number] 03/30/14 0946 <Electronically signed by Lisandro Nj MD> Date Lisandro Nj MD CC: Claudia Nj MD Date Dictated: 03/29/142212 Date Transcribed: 03/29/142212 Waybill Clerk: Signed Carlota Rustam Start: 03-29-2014 End: 04-03-2014 Discharge Instruction Comments: See Note; NOTES: [facility] Medical Records Department [address] [place] [address] Instructions for Home/Discharge Instructions 03/29/14 1645 MR#: [id number] Acct: [id number] Name: OSMANYDARREN Tony Rep #: [id number] : 1950 63 From: Lisandro Nj MD PCP: Claudia Terrell DO Status: [place] [facility] [place] Diet: No Restrictions Discharge Activity: May not drive while taking narcotic pain medications. May shower in (days): 2 Weight Bearing Status: Weight bearing as marcel Keep extremity elevated above heart level: Right Leg Call your doctor if your incision/area has: Sudden Increased Bleeding Call your doctor if you observe: Shortness of breath, Dizziness, Fainting spells , Chest pain, Prolonged hiccoughing, Increased palpitations (irregular heartbeat ), Uncontrolled pain Suture Line Care: Avoid Pulling/Pushing Remove Dressing in (days):: 2 - Then rewrap leg with Carlos to knee or wear compression stocking daily. Allergies/Adverse Reactions: Allergies No Known Allergies Allergy (Verified 07/08/13 09:14) Medications to take at Discharge Citalopram Hydrobromide [Celexa] 10 mg PO DAILY Oxycodone HCl/Acetaminophen [Percocet 5-325] 1 - 2 tablet PO Q6H PRN PRN #20 tablet The following prescriptions were given: Oxycodone HCl/Acetaminophen [Percocet 5-325] 1 - 2 tablet PO Q6H PRN PRN #20 tablet PRN Reason: Pain Please Follow Up With: Lisandro Nj - Call [phone] to schedule a followup appointment. When: 10-14 days 03/29/14 1647 <Electronically signed by Lisandro Nj MD> Date Lisandro Nj MD CC: Claudia Terrell DO Carlota Burrows Start: 03-27-2014 End: 04-03-2014 History and Physical Exam Comments: See Note; NOTES: [facility] Medical Records Department [address] [place] [address] History and Physical 03/26/142038 MR#: [id number] Acct: [id number] Name: DARREN CERON Tony Rep #: [id number] : 1950 63 From: Lisandro Nj MD PCP: Claudia Terrell DO Status: [place] [facility] Location: [facility] DATE OF SERVICE: 03/29/2014 This is for outpatient surgery on March 29, 2014. CHIEF COMPLAINT: Chronic venous insufficiency, varicose veins with inflammation, leg pain, leg swelling - right lower extremity. HISTORY OF PRESENT ILLNESS: This is a 63-year-old white female with a longstanding history of chronic venous insufficiency, varicose veins with inflammation, leg pain, leg swelling involving her right lower extremity. For over 40 years, the patient has had pain, discomfort , aching, hurting and burning in her right lower extremity. This has been associated with large bulging varicose veins. She denies history of thrombophlebitis. She has previously undergone successful endovenous laser ablation of the right great saphenous vein and the right accessory saphenous vein. Despite the previous procedure, she continues to have large painful varicosities in the right lower extremity. Conservative treatment measures have been implanted, which have included leg elevation, avoidance of ideal standing and sitting, graduated compression stockings, weight control measures, active lifestyle, koch-own-hyuwpgs analgesics, etc. Despite these measures, the patient has remained symptomatic, with symptoms which have adversely affected daily activities and quality of life. PAST MEDICAL HISTORY: ALLERGIES: No known drug allergies. MEDICATIONS: Celexa 10 mg p.o. daily. MEDICAL ILLNESSES: The patient suffers from depression. She also suffers from hyperlipidemia, which is diet controlled. Her history is negative for myocardial infarction and congestive heart failure, diabetes mellitus, hypertension, cerebrovascular accident, cancer, renal disease, pulmonary disease, thyroid disease, peripheral arterial occlusive disease, arthritis and gastroesophageal reflux disease. SURGERIES: The patient has had no major surgery in the past, but for endovenous laser ablation of the right great saphenous vein and the right accessory saphenous vein which was performed on October 27, 2013. ENGINEER CHIEF: The patient is a G5, P4, AB 1 (spontaneous). FAMILY HISTORY: The patient's father at the age of 82 with the history of alcoholism and diabetes mellitus. The patient's mother at the age of 53 with the history of alcoholism and pneumonia. SOCIAL HISTORY: The patient denies use of tobacco products. She consumes alcoholic beverages occasionally. She is . She is retired from [employer] in [place], [place]. REVIEW OF SYSTEMS: Noncontributory. PHYSICAL EXAMINATION: GENERAL: This is a well-developed, well-nourished, 63-year-old white female in no acute distress. The patient is obese. VITAL SIGNS: Temperature 98.2, pulse 77, respirations 16, blood pressure 130/ 74, weight 153 pounds. HEAD: Normocephalic, atraumatic. EYES: Sclerae are nonicteric. Extraocular muscles are intact. EARS: Canals bilaterally clear. NOSE: Nares patent without discharge. THROAT: Mucous membranes without icterus, erythema or exudates. Dentition is intact. NECK: Soft and supple without masses. Carotid 2+ bilaterally without bruits. LUNGS: Clear to auscultation bilaterally. HEART: Regular with sinus rhythm, S1 and S2 physiologic without murmurs. ABDOMEN: Soft, nontender without masses. RECTAL: Deferred. NEURO: The patient is alert and oriented x3. Cranial nerves II through XII are intact. Sensory motor is without gross deficit. EXTREMITIES: Without clubbing, cyanosis, edema or atrophy, full range of motion. Peripheral extremities are warm and well perfused. Pedal pulses are bilaterally palpable. Multiple large varicosities are noted in the distal right lower extremity. IMPRESSION: This is a 63-year-old white female for longstanding history of chronic venous insufficiency, varicose veins with inflammation, leg pain and leg swelling involving her right lower extremity. Despite conservative treatment measures, the patient has remained symptomatic, with symptoms which have adversely affected daily activities and quality of life. The indications and risks of microphlebectomy of right lower extremity varicose veins have been discussed with the patient in detail. PLAN: The patient was admitted for the purpose of elective microphlebectomy of right lower extremity varicose veins. The indications and risks of the procedure have been discussed with the patient in detail. The appropriate preprocedure consent process has been undertaken. Lisandro Nj MD T: NTS JOB: [id number] 03/27/14 0844 <Electronically signed by Lisandro Nj MD> Date: Time: Lisandro Nj MD CC: Claudia Terrell DO; Lisandro Nj MD Date Dictated: 03/26/142038 Date Transcribed: 03/26/142038 Waybill Clerk: Signed ____ I have re-examined the patient. There are no clinical changes since date of exam. ____ See Progress Notes for Changes ____ Dictated on Admission Date: Time: Signature: Carlota Burrows Start: 03-22-2014 End: 04-03-2014 12 lead ECG Comments: See Note; NOTES: [facility] Cardiovascular Services [address] [place] [address] EKG - SDC 03/21/14 1319 MR#: [id number] Acct: [id number] Name: DARREN CERON Rep #: [id number] : 1950 63 From: Kevon Collier MD Attending Dr: Lisandro Nj MD Status: [place] [facility] [place]: Lisandro Nj MD Date: 03/21/14 Location: [facility] Sex: F C Admitted: Test Reason : Blood Pressure : / mmHG Vent. Rate : 064 BPM Atrial Rate : 064 BPM P-R Int : 144 ms QRS Dur : 088 ms QT Int : 416 ms P-R-T Axes : 031 -29 -09 degrees QTc Int : 429 ms Poor data quality, interpretation may be adversely affected Normal sinus rhythm Inferior infarct , age undetermined Abnormal ECG Confirmed by KEVON COLLIER ([id number]), metropolitan editor NARCISO OLGUIN ([id number]) on 03/22/2014 3 :35:50 PM Referred By: DIALLO [place] Confirmed By:KEVON COLLIER 03/22/14 1535 Date Kevon Collier MD CC: Kevon Collier MD; Claudia Terrell DO Date Dictated: 03/21/141318 Date Transcribed: 03/21/141318 Waybill Clerk: Signed Carlota Burrows Start: 06-13-2013 End: 06-15-2013 Thyroid Comments: See Note; NOTES: [facility] Imaging Services [address] [place] [address] Ultrasound Report MR#: [id number] Acct: [id number] Name: JEAN PAUL CERONPATRICK Jimenez Rep #: [id number] : 1950 F 62 From: Kenan Ma MD PCP: Claudia Terrell DO Status: REG CLI Study: Thyroid Date of Exam: 06/13/13 Exam# [id number] Ordering Dr: Claudia Terrell DO STUDY: THYROID ULTRASOUND REASON FOR EXAM: Female, 62 years old. History of thyroid nodules. TECHNIQUE: Ultrasound evaluation of the thyroid was performed with real-time and static lundberg-scale imaging. COMPARISON: Comparison is made with prior study dated November 14, 2011. FINDINGS: RIGHT LOBE: The right lobe of the thyroid gland measures 5.3 cm x 2.3 cm x 1.7 cm. There is a homogeneous echotexture. There is a 7 mm x 6 mm x 6 mm hypoechoic solid nodule in the lower pole. There is also evidence of a stable 5 mm x 4 mm x 3 mm cyst. LEFT LOBE: The left lobe of the thyroid gland measures 5.4 cm x 1.9 cm x 1.6 cm. There is a homogeneous echotexture. There are 4 nodules within the left lobe. The largest measures 1.4 cm x 1.6 cm x 1.5 cm. This has a solid component. This also evidence of a 1.4 cm x 0.5 cm x 0.6 cm complex solid and cystic nodule. This is unchanged. There is also evidence of 2 subcentimeter mixed solid and cystic nodules in the midportion of the lobe. ISTHMUS: The isthmus measures 3.0 mm. IMPRESSION: Complex solid and cystic nodules in both lobes more prominent on the left side. The dominant nodule in the left lobe of the thyroid has decreased slightly in size as compared to prior study. Electronically Signed: Kenan Ma M.D. at 11:27 EDT , Service support [phone], CC: Claudia Terrell DO Waybill Clerk: Signed Claudia A Fast Work Phone: abd hernia- repair 2 012- ubaldo Mackenzie Gravius abd hernia- repair 2 012- ubaldo Stephanie Ascencio abd hernia- repair 2 012- ubaldo Kunal Mercer abd hernia- repair 2 012- ubaldo Mackenzie Gravius abd hernia- repair 2 012- ubaldo Elida Barr bone dx 02/2011 Mackenzie Gravi us bone dx 02/[address] bone dx 02/2011 Kunal Mercer bone dx 02/2011 Mackenzie Gravi us bone dx 02/2011 Elida Barr Cholecystectomy Mackenzie Gravi us Comment on above: 09/09- DR Wise Cholecystectomy Stephanie Coul ter Comment on above: 09/09- DR Wise Cholecystectomy Kunal Mercer Comment on above: 09/09- DR Wise Cholecystectomy Mackenzie Gravi us Comment on above: 09/09- DR Wise Cholecystectomy Elida Barr Comment on above: 09/09- DR Wise H/O: hysterectomy History of hysterectomy Dr. Carlota Burrows Work Phone: last complete physical Jasmi n Gravius Comment on above: 08[facility] [place] last complete physical Beryl avelino Ascencio Comment on above: 08/2009 [facility] [place] last complete physical Adelia Mercer Comment on above: 08/2009 [facility] [place] last complete physical Jasmi n Gravius Comment on above: 08/2009 [facility] [place] last complete physical Lazaro Barr Comment on above: 08/2009 [facility] [place] last mammogram 2010 Mackenzie G ravius last mammogram 2010 Stephanie Ascencio last mammogram 2010 Kunal coyne last mammogram 2010 Mackenzie G ravius last mammogram 2010 Elida reis last pap 2009 Mackenzie Gravius last pap 2010 Stephanie mendiola last pap 2009 Kunal Mercer last pap 2009 Mackenzie Gravius last pap 2009 Elida Barr Other bilateral liga tion and division of fallopian tubes Mackenzie Gravius Comment on above: 1988 Other bilateral liga tion and division of fallopian tubes Stephanie Ascencio Comment on above: 1988 Other bilateral liga tion and division of fallopian tubes Kunal Mercer Comment on above: 1988 Other bilateral liga tion and division of fallopian tubes Mackenzie Gravius Comment on above: 1988 Other bilateral liga tion and division of fallopian tubes Elida Barr Comment on above: 1988 thyroid bx 2012- ubaldo Roberto min Gravius thyroid bx 2011- ubaldo Julissa Ascencio thyroid bx 2011- ubaldo Fortino Mercer thyroid bx 2012- ubaldo Roberto min Gravius thyroid bx 2011- ubaldo Kiel Barr Total hysterectomy Mackenzie vines Comment on above: 2012- shriner- no cancer Total hysterectomy Stephanie mcknight Comment on above: 2012- shriner- no cancer Total hysterectomy Kunal Santana ith Comment on above: 2012- shriner- no cancer Total hysterectomy Mackenzie Vinh avius Comment on above: 2012- shriner- no cancer Total hysterectomy Elida Santiago oss Comment on above: 2012- shriner- no cancer vein sx Mackenzie Gravius Comment on above: 2013 vein sx Stephanie Ascencio Comment on above: 2013 vein sx Kunal Mercer Comment on above: 2013 vein sx Mackenzie Gravius Comment on above: 2013 vein sx Elida Barr Comment on above: 2013 Plan of Treatment Date Care Activity Detail Author Start: 06-13-2020 Procedure Education Eprescribed prescriptions (G8553) [facility]; [facility] Work Phone: Start: 04-02-2020 Patient Education EFUDEX INSTRUCTIONS [facility]; [facility] Work Phone: Start: 04-02-2020 Procedure Education Eprescribed prescriptions (G8553) [facility]; [facility] Work Phone: Start: 11-15-2018 Patient Education Temporomandibular Joint Syndrome (TMJ): jaw pain [facility] Work Phone: Start: 11-15-2018 Procedure Education Eprescribed prescriptions (G8553) [facility] Work Phone: Start: 11-15-2018 Provider Instructions for Treatment Follow up if no improvement or if symptoms worsen [facility] Work Phone: Start: 11-01-2018 Procedure Education Eprescribed prescriptions (G8553) [facility] Work Phone: Start: 11-01-2018 Provider Instructions for Treatment Follow up in 2 weeks [facility] Work Phone: Start: 05-31-2018 Hepatic function panel HEPATIC FUNCTION PANEL (97046) [facility] Work Phone: Start: 05-31-2018 Lipoprotein blood mark numbers & subclasses NMR Profile (23033) [facility] Work Phone: Start: 05-31-2018 Protein mass conc NMR Profile (89839) [facility] Work Phone: Start: 04-12-2018 25 hydroxy includes fractions if performed CALCIFEDIOL (35104) [facility] Work Phone: Start: 04-12-2018 Thyrotropin Qn TSH (60455) [facility] Work Phone: Start: 04-12-2018 T4 free mass conc T4, FREE (THYROXINE) (23999) [facility] Work Phone: Start: 04-12-2018 T3 free mass conc T3, FREE (TRIDOTHYRONINE) (62151) [facility] Work Phone: Start: 04-12-2018 Urine albumin quantitative MICROALBUMIN: CREATININE RATIO (95569) AND (30118) [facility] Work Phone: Start: 04-12-2018 Comprehensive metabolic panel METABOLIC PANEL, COMPREHENSIVE (57202) [facility] Work Phone: Start: 04-12-2018 Protein mass conc LIPOPROTEIN, BLD, BY NMR (18041) [facility] Work Phone: Start: 04-12-2018 Blood count complete auto&auto difrntl wbc CBC with auto diff (10640) [facility] Work Phone: Start: 04-12-2018 Procedure Education Eprescribed prescriptions (G8553) [facility] Work Phone: Start: 04-12-2018 Provider Instructions for Treatment [facility] Work Phone: Start: 04-04-2016 Patient Education Shingles (Herpes Zoster) *: blisters [facility] Work Phone: Start: 04-04-2016 Procedure Education Eprescribed prescriptions (G8553) [facility] Work Phone: Start: 04-04-2016 Provider Instructions for Treatment Follow up if no improvement or if symptoms worsen [facility] Work Phone: Start: 04-03-2016 Provider Instructions for Treatment Follow up in 1 day [facility] Work Phone: Start: 04-01-2016 Patient Education Low Back Pain: back pain [facility] Work Phone: Start: 04-01-2016 Procedure Education Eprescribed prescriptions (G8553) [facility] Work Phone: Start: 04-01-2016 Provider Instructions for Treatment *Trigger Point Injections [facility] Work Phone: Start: 01-11-2016 Provider Instructions for Treatment [facility] Work Phone: Start: 12-27-2015 Procedure Education Eprescribed prescriptions (G8553) [facility] Work Phone: Start: 12-27-2015 Provider Instructions for Treatment [facility] Work Phone: Start: 12-27-2015 Urine albumin quantitative MICROALBUMIN: CREATININE RATIO (31352) AND (62498) [facility] Work Phone: Start: 01-31-2015 Procedure Education Eprescribed prescriptions (G8553) [facility] Work Phone: Start: 01-31-2015 Alpha-fetoprotein serum [id number]-[id number] (84434) [facility] Work Phone: Start: 01-31-2015 Comprehensive metabolic panel METABOLIC PANEL, COMPREHENSIVE (10121) [facility] Work Phone: Start: 01-31-2015 Lipid panel LIPID PANEL (59532) [facility] Work Phone: Start: 01-31-2015 25 hydroxy includes fractions if performed Vitamin D Hydroxy (17404) [facility] Work Phone: Start: 01-31-2015 Extractable nuclear antigen antibody any method Anti-Desire-1 (19678) [facility] Work Phone: Start: 01-31-2015 Creatine kinase isoenzymes CPK MM FRACTION (05958) [facility] Work Phone: Start: 12-01-2014 Procedure Education Eprescribed prescriptions (G8553) [facility] Work Phone: Start: 07-08-2013 Provider Instructions for Treatment [facility] Work Phone: Start: 07-08-2013 25 hydroxy includes fractions if performed Vitamin D Hydroxy (93651) [facility] Work Phone: Start: 07-08-2013 Comprehensive metabolic panel METABOLIC PANEL, COMPREHENSIVE (72281) [facility] Work Phone: Start: 07-08-2013 Lipid panel LIPID PANEL (39046) [facility] Work Phone: Start: 06-25-2012 Patient Education High Cholesterol (Hypercholesterolemia) *: blood [facility] Work Phone: Start: 02-24-2012 Comprehensive metabolic panel METABOLIC PANEL, COMPREHENSIVE (66159) [facility] Work Phone: Start: 02-24-2012 25 hydroxy includes fractions if performed Vitamin D Hydroxy (80742) [facility] Work Phone: Start: 02-24-2012 Lipid panel LIPID PANEL (49321) [facility] Work Phone: Start: 11-24-2011 Provider Instructions for Treatment Diet, Exercise, and Wt loss [facility] Work Phone: Start: 11-24-2011 Extractable nuclear antigen antibody any method ANTI-DESIRE-1 028165 (25108) [facility] Work Phone: Hemoglobin A1c/Hemoglobin.total in Blood [facility] MG Breast - bilatera l Screening [facility] Work Phone: [facility] Work Phone: [facility] Work Phone: [facility] Work Phone: [facility] Work Phone: [facility] Work Phone: [facility] Work Phone: [facility] Work Phone: [facility] Work Phone: [facility] Work Phone: [facility] Work Phone: [facility] Work Phone: [facility] Work Phone: [facility] Work Phone: [facility] Work Phone: [facility] Work Phone: [facility] Work Phone: [facility] Work Phone: [facility] Work Phone: [facility] Work Phone: [facility] Work Phone: Immunizations Immunization Date Immunization Notes Care Provider Fa [facility] 01-15-2022 Covid Moderna Bivalent Booster; Translations: [Covid Moderna Bivalent Booster] [facility] 01-15-2022 influenza, injectable, quadrivalent, preservative free Dr. Shiv Gaviria Work Phone: [facility] 01-15-2022 influenza, seasonal, injectable [facility] 05-26-2020 COVID-19 (Moderna) [facility]daleno [facility]; [facility] Work Phone: Payers Date Payer Category Payer Medicare [id number] 2024 Private Health Insurance [id number] 2023 Self-pay [id number] 2023 Unknown [id number] 2018 Unknown [id number] 2013 Unknown [id number] 1950 Unknown [id number] Unknown [employer] BC/BS Unknown [id number] Unknown [id number] Unknown [id number] Unknown [id number] Unknown [id number] Social History Date Type Detail Facility Caffeine Use [facility] Work Phone: Comment on above: 3 glasses a day betw ee coffee and tea, [place] green tea --2 c coffee in am..3 total spouse only very occassional every now and then I have a cigarette with a beer- maybe a cigarette every 2 weeks- pack every 3-4 days in past Current Work/Study Status: Retired. [facility] Work Phone: Comment on above: Worked at [employer] in [facility]- Exercise History: Does not exercise. [facility] Work Phone: Living Situation: Lives with spouse. [facility] Work Phone: Start: 08-22-2021 End: 05-18-2023 Tobacco smoking status AZIS Unknown if ever smoked [facility] Start: 05-26-2018 Cigarettes [facility] Start: 1950 Sex Assigned At Female W [facility] Medical Equipment Procedure Code Equipment Code Equipment Origin al Text Equipment Identifier Dates MESH,VENTLEX ST ,LG 8CM FDA Start: 05-28-2018 MESH,VENTLEX ST ,LG 8CM FDA Start: 05-28-2018 MESH,VENTLEX ST ,LG 8CM FDA Start: 05-28-2018 Evaluation note Note Date & Type Note Facility Evaluation note Diagnosis Onset Date Vitamin D deficiency acute Borderline type 2 diabetes mellitus chronic Hypertension chronic Neck pain chronic [facility] Work Phone: Evaluation note Note Date & Type Note Facility Evaluation note No assessment information availa ble [facility] Work Phone: Evaluation note Note Date & Type Note Facility Evaluation note Diagnosis Onset Date Health care maintenance acut e Anxiety and depression chron ic Borderline type 2 diabetes mellitus chronic Hypertension chronic Vitamin D deficiency [facility] Work Phone: Family History No Family History Records FoundUnknown Family Member Name Dates Details Brother 1 Comments:depression Status:Active Family Members In General Comments:alcoholism, cancer, diabetes, anxiety/depression, htn, high cholesterol, Status:Active Father Comments:DM II - used insuli n a short time but was able to go back to po medsDied at age 80 of MIprostate canceralcoholic Status:Active Mother Comments:TB, alcoholic Status:Active Sister 1 Comments:htndied from pneumo ephraim Status:Active Unknown Family Member Name Dates Details Brother 1 Comments:depression Status:Active Family Members In General Comments:alcoholism, cancer, diabetes, anxiety/depression, htn, high cholesterol, Status:Active Father Comments:DM II - used insuli n a short time but was able to go back to po medsDied at age 80 of MIprostate canceralcoholic Status:Active Mother Comments:TB, alcoholic Status:Active Sister 1 Comments:htndied from pneumo ephraim Status:Active Unknown Family Member Name Dates Details Brother 1 Comments:depression Status:Active Family Members In General Comments:alcoholism, cancer, diabetes, anxiety/depression, htn, high cholesterol, Status:Active Father Comments:DM II - used insuli n a short time but was able to go back to po medsDied at age 82 of MIprostate canceralcoholic Status:Active Mother Comments:TB, alcoholic Status:Active Sister 1 Comments:htndied from pneumo ephraim Status:Active Unknown Family Member Name Dates Details Brother 1 Comments:depression Status:Active Family Members In General Comments:alcoholism, cancer, diabetes, anxiety/depression, htn, high cholesterol, Status:Active Father Comments:DM II - used insuli n a short time but was able to go back to po medsDied at age 82 of MIprostate canceralcoholic Status:Active Mother Comments:TB, alcoholic Status:Active Sister 1 Comments:htndied from pneumo ephraim Status:Active Unknown Family Member Name Dates Details Brother 1 Comments:depression Status:Active Family Members In General Comments:alcoholism, cancer, diabetes, anxiety/depression, htn, high cholesterol, Status:Active Father Comments:DM II - used insuli n a short time but was able to go back to po medsDied at age 82 of MIprostate canceralcoholic Status:Active Mother Comments:TB, alcoholic Status:Active Sister 1 Comments:htndied from pneumo ephraim Status:Active Unknown Family Member Name Dates Details Brother 1 Comments:depression Status:Active Family Members In General Comments:alcoholism, cancer, diabetes, anxiety/depression, htn, high cholesterol, Status:Active Father Comments:DM II - used insuli n a short time but was able to go back to po medsDied at age 82 of MIprostate canceralcoholic Status:Active Mother Comments:TB, alcoholic Status:Active Sister 1 Comments:htndied from pneumo ephraim Status:Active Unknown Family Member Name Dates Details Brother 1 Comments:depression Status:Active Family Members In General Comments:alcoholism, cancer, diabetes, anxiety/depression, htn, high cholesterol, Status:Active Father Comments:DM II - used insuli n a short time but was able to go back to po medsDied at age 80 of MIprostate canceralcoholic Status:Active Mother Comments:TB, alcoholic Status:Active Sister 1 Comments:htndied from pneumo ephraim Status:Active Unknown Family Member Name Dates Details Brother 1 Comments:depression Status:Active Family Members In General Comments:alcoholism, cancer, diabetes, anxiety/depression, htn, high cholesterol, Status:Active Father Comments:DM II - used insuli n a short time but was able to go back to po medsDied at age 80 of MIprostate canceralcoholic Status:Active Mother Comments:TB, alcoholic Status:Active Sister 1 Comments:htndied from pneumo ephraim Status:Active Unknown Family Member Name Dates Details Brother 1 Comments:depression Status:Active Family Members In General Comments:alcoholism, cancer, diabetes, anxiety/depression, htn, high cholesterol, Status:Active Father Comments:DM II - used insuli n a short time but was able to go back to po medsDied at age 80 of MIprostate canceralcoholic Status:Active Mother Comments:TB, alcoholic Status:Active Sister 1 Comments:htndied from pneumo ephraim Status:Active Unknown Family Member Name Dates Details Brother 1 Comments:depression Status:Active Family Members In General Comments:alcoholism, cancer, diabetes, anxiety/depression, htn, high cholesterol, Status:Active Father Comments:DM II - used insuli n a short time but was able to go back to [facility] at age 80 of MIprostate canceralcoholic Status:Active Mother Comments:TB, alcoholic Status:Active Sister 1 Comments:htndied from pneumo ephraim Status:Active Relationship Condition Age at Onset Recorded Date/T karrie mother Alcohol abuse Unknown father Alcohol abuse Unknown Malignant neoplasm Unknown Diabetes mellitus Unknown Myocardial infarction 80 Parkinson's disease Unknown son Alcohol abuse Unknown Anxiety Unknown Myocardial infarction 51 Hyperlipidemia Unknown brother Malignant neoplasm Unknown sister Hypertension Unknown Instructions Name Dates Details Current nonsmoker : How to a [employer] health information online - Detail Indication:Current nonsmoker Current nonsmoker : Patient Instructions Indication:Current nonsmoker Current nonsmoker : How to a ccess health information online Indication:Current nonsmoker Shingles : How to access hea lth information online Indication:Shingles Shingles : How to access hea lth information online - Detail Indication:Shingles Shingles : Patient Instructi ons Indication:Shingles Acute left-sided thoracic ba ck pain : How to access health information online Indication:Acute left-sided thoracic back pain Acute left-sided thoracic ba ck pain : How to access health information online - Detail Indication:Acute left-sided thoracic back pain Acute left-sided thoracic ba ck pain : Patient Instructions Indication:Acute left-sided thoracic back pain Vitamin D deficiency : Patie nt Instructions Indication:Vitamin D deficiency Disorder, dysthymic : How to access health information online Indication:Disorder, dysthymic Disorder, dysthymic : How to access health information online - Detail Indication:Disorder, dysthymic Disorder, dysthymic : Patien t Instructions Indication:Disorder, dysthymic Myalgia : How to access heal th information online Indication:Myalgia Myalgia : How to access heal th information online - Detail Indication:Myalgia Myalgia : Patient Instructio ns Indication:Myalgia Impaired fasting glucose : H ow to access health information online Indication:Impaired fasting glucose Impaired fasting glucose : H ow to access health information online - Detail Indication:Impaired fasting glucose Impaired fasting glucose : P atient Instructions Indication:Impaired fasting glucose Thyroid nodule : Patient Ins tructions Indication:Thyroid nodule PRE-OPERATIVE EXAMINATION, U NSPECIFIED : Patient Instructions Indication:PRE-OPERATIVE EXAMINATION, UNSPECIFIED DUB : Patient Instructions Indication:DUB Name Dates Details How to access health informa tion online - Detail Indication:Current nonsmoker Start:12-Apr-2018 Instruction Type:Patient Education Patient Instructions Indication:Current nonsmoker Start:12-Apr-2018 Instruction Type:Provider Instructions for Treatment How to access health informa tion online Indication:Current nonsmoker Start:12-Apr-2018 Instruction Type:Patient Education How to access health informa tion online Indication:Shingles Start:04-Apr-2016 Instruction Type:Patient Education How to access health informa tion online - Detail Indication:Shingles Start:04-Apr-2016 Instruction Type:Patient Education Patient Instructions Indication:Shingles Start:04-Apr-2016 Instruction Type:Provider Instructions for Treatment How to access health informa tion online Indication:Acute left-sided thoracic back pain Start:01-Apr-2016 Instruction Type:Patient Education How to access health informa tion online - Detail Indication:Acute left-sided thoracic back pain Start:01-Apr-2016 Instruction Type:Patient Education Patient Instructions Indication:Acute left-sided thoracic back pain Start:01-Apr-2016 Instruction Type:Provider Instructions for Treatment Patient Instructions Indication:Vitamin D deficiency Start:11-Jan-2016 Instruction Type:Provider Instructions for Treatment How to access health informa tion online Indication:Disorder, dysthymic Start:27-Dec-2015 Instruction Type:Patient Education How to access health informa tion online - Detail Indication:Disorder, dysthymic Start:27-Dec-2015 Instruction Type:Patient Education Patient Instructions Indication:Disorder, dysthymic Start:27-Dec-2015 Instruction Type:Provider Instructions for Treatment How to access health informa tion online Indication:Myalgia Start:31-Jan-2015 Instruction Type:Patient Education How to access health informa tion online - Detail Indication:Myalgia Start:31-Jan-2015 Instruction Type:Patient Education Patient Instructions Indication:Myalgia Start:31-Jan-2015 Instruction Type:Provider Instructions for Treatment How to access health informa tion online Indication:Impaired fasting glucose Start:01-Dec-2014 Instruction Type:Patient Education How to access health informa tion online - Detail Indication:Impaired fasting glucose Start:01-Dec-2014 Instruction Type:Patient Education Patient Instructions Indication:Impaired fasting glucose Start:01-Dec-2014 Instruction Type:Provider Instructions for Treatment Patient Instructions Indication:Thyroid nodule Start:08-Jul-2013 Instruction Type:Provider Instructions for Treatment Patient Instructions Indication:Impaired fasting glucose Start:07-Jun-2013 Instruction Type:Provider Instructions for Treatment Patient Instructions Indication:PRE-OPERATIVE EXAMINATION, UNSPECIFIED Start:29-Sep-2012 Instruction Type:Provider Instructions for Treatment Patient Instructions Indication:DUB Start:25-Jun-2012 Instruction Type:Provider Instructions for Treatment Patient Instructions Indication:Vitamin D deficiency Start:24-Nov-2011 Instruction Type:Provider Instructions for Treatment Name Dates Details How to access health informa tion online Indication:Current nonsmoker Start:01-Nov-2018 Instruction Type:Patient Education How to access health informa tion online - Detail Indication:Current nonsmoker Start:01-Nov-2018 Instruction Type:Patient Education Patient Instructions Indication:Current nonsmoker Start:01-Nov-2018 Instruction Type:Provider Instructions for Treatment How to access health informa tion online - Detail Indication:Current nonsmoker Start:12-Apr-2018 Instruction Type:Patient Education Patient Instructions Indication:Current nonsmoker Start:12-Apr-2018 Instruction Type:Provider Instructions for Treatment How to access health informa tion online Indication:Current nonsmoker Start:12-Apr-2018 Instruction Type:Patient Education How to access health informa tion online Indication:Shingles Start:04-Apr-2016 Instruction Type:Patient Education How to access health informa tion online - Detail Indication:Shingles Start:04-Apr-2016 Instruction Type:Patient Education Patient Instructions Indication:Shingles Start:04-Apr-2016 Instruction Type:Provider Instructions for Treatment How to access health informa tion online Indication:Acute left-sided thoracic back pain Start:01-Apr-2016 Instruction Type:Patient Education How to access health informa tion online - Detail Indication:Acute left-sided thoracic back pain Start:01-Apr-2016 Instruction Type:Patient Education Patient Instructions Indication:Acute left-sided thoracic back pain Start:01-Apr-2016 Instruction Type:Provider Instructions for Treatment Patient Instructions Indication:Vitamin D deficiency Start:11-Jan-2016 Instruction Type:Provider Instructions for Treatment How to access health informa tion online Indication:Disorder, dysthymic Start:27-Dec-2015 Instruction Type:Patient Education How to access health informa tion online - Detail Indication:Disorder, dysthymic Start:27-Dec-2015 Instruction Type:Patient Education Patient Instructions Indication:Disorder, dysthymic Start:27-Dec-2015 Instruction Type:Provider Instructions for Treatment How to access health informa tion online Indication:Myalgia Start:31-Jan-2015 Instruction Type:Patient Education How to access health informa tion online - Detail Indication:Myalgia Start:31-Jan-2015 Instruction Type:Patient Education Patient Instructions Indication:Myalgia Start:31-Jan-2015 Instruction Type:Provider Instructions for Treatment How to access health informa tion online Indication:Impaired fasting glucose Start:01-Dec-2014 Instruction Type:Patient Education How to access health informa tion online - Detail Indication:Impaired fasting glucose Start:01-Dec-2014 Instruction Type:Patient Education Patient Instructions Indication:Impaired fasting glucose Start:01-Dec-2014 Instruction Type:Provider Instructions for Treatment Patient Instructions Indication:Thyroid nodule Start:08-Jul-2013 Instruction Type:Provider Instructions for Treatment Patient Instructions Indication:Impaired fasting glucose Start:07-Jun-2013 Instruction Type:Provider Instructions for Treatment Patient Instructions Indication:PRE-OPERATIVE EXAMINATION, UNSPECIFIED Start:29-Sep-2012 Instruction Type:Provider Instructions for Treatment Patient Instructions Indication:DUB Start:25-Jun-2012 Instruction Type:Provider Instructions for Treatment Patient Instructions Indication:Vitamin D deficiency Start:24-Nov-2011 Instruction Type:Provider Instructions for Treatment Name Dates Details How to access health informa tion online Indication:Current nonsmoker Start:15-Nov-2018 Instruction Type:Patient Education How to access health informa tion online - Detail Indication:Current nonsmoker Start:15-Nov-2018 Instruction Type:Patient Education Patient Instructions Indication:Current nonsmoker Start:15-Nov-2018 Instruction Type:Provider Instructions for Treatment How to access health informa tion online Indication:Current nonsmoker Start:01-Nov-2018 Instruction Type:Patient Education How to access health informa tion online - Detail Indication:Current nonsmoker Start:01-Nov-2018 Instruction Type:Patient Education Patient Instructions Indication:Current nonsmoker Start:01-Nov-2018 Instruction Type:Provider Instructions for Treatment How to access health informa tion online - Detail Indication:Current nonsmoker Start:12-Apr-2018 Instruction Type:Patient Education Patient Instructions Indication:Current nonsmoker Start:12-Apr-2018 Instruction Type:Provider Instructions for Treatment How to access health informa tion online Indication:Current nonsmoker Start:12-Apr-2018 Instruction Type:Patient Education How to access health informa tion online Indication:Shingles Start:04-Apr-2016 Instruction Type:Patient Education How to access health informa tion online - Detail Indication:Shingles Start:04-Apr-2016 Instruction Type:Patient Education Patient Instructions Indication:Shingles Start:04-Apr-2016 Instruction Type:Provider Instructions for Treatment How to access health informa tion online Indication:Acute left-sided thoracic back pain Start:01-Apr-2016 Instruction Type:Patient Education How to access health informa tion online - Detail Indication:Acute left-sided thoracic back pain Start:01-Apr-2016 Instruction Type:Patient Education Patient Instructions Indication:Acute left-sided thoracic back pain Start:01-Apr-2016 Instruction Type:Provider Instructions for Treatment Patient Instructions Indication:Vitamin D deficiency Start:11-Jan-2016 Instruction Type:Provider Instructions for Treatment How to access health informa tion online Indication:Disorder, dysthymic Start:27-Dec-2015 Instruction Type:Patient Education How to access health informa tion online - Detail Indication:Disorder, dysthymic Start:27-Dec-2015 Instruction Type:Patient Education Patient Instructions Indication:Disorder, dysthymic Start:27-Dec-2015 Instruction Type:Provider Instructions for Treatment How to access health informa tion online Indication:Myalgia Start:31-Jan-2015 Instruction Type:Patient Education How to access health informa tion online - Detail Indication:Myalgia Start:31-Jan-2015 Instruction Type:Patient Education Patient Instructions Indication:Myalgia Start:31-Jan-2015 Instruction Type:Provider Instructions for Treatment How to access health informa tion online Indication:Impaired fasting glucose Start:01-Dec-2014 Instruction Type:Patient Education How to access health informa tion online - Detail Indication:Impaired fasting glucose Start:01-Dec-2014 Instruction Type:Patient Education Patient Instructions Indication:Impaired fasting glucose Start:01-Dec-2014 Instruction Type:Provider Instructions for Treatment Patient Instructions Indication:Thyroid nodule Start:08-Jul-2013 Instruction Type:Provider Instructions for Treatment Patient Instructions Indication:Impaired fasting glucose Start:07-Jun-2013 Instruction Type:Provider Instructions for Treatment Patient Instructions Indication:PRE-OPERATIVE EXAMINATION, UNSPECIFIED Start:29-Sep-2012 Instruction Type:Provider Instructions for Treatment Patient Instructions Indication:DUB Start:25-Jun-2012 Instruction Type:Provider Instructions for Treatment Patient Instructions Indication:Vitamin D deficiency Start:24-Nov-2011 Instruction Type:Provider Instructions for Treatment Name Dates Details How to access health informa tion online Indication:Current nonsmoker Start:15-Nov-2018 Instruction Type:Patient Education How to access health informa tion online - Detail Indication:Current nonsmoker Start:15-Nov-2018 Instruction Type:Patient Education Patient Instructions Indication:Current nonsmoker Start:15-Nov-2018 Instruction Type:Provider Instructions for Treatment How to access health informa tion online Indication:Current nonsmoker Start:01-Nov-2018 Instruction Type:Patient Education How to access health informa tion online - Detail Indication:Current nonsmoker Start:01-Nov-2018 Instruction Type:Patient Education Patient Instructions Indication:Current nonsmoker Start:01-Nov-2018 Instruction Type:Provider Instructions for Treatment How to access health informa tion online - Detail Indication:Current nonsmoker Start:12-Apr-2018 Instruction Type:Patient Education Patient Instructions Indication:Current nonsmoker Start:12-Apr-2018 Instruction Type:Provider Instructions for Treatment How to access health informa tion online Indication:Current nonsmoker Start:12-Apr-2018 Instruction Type:Patient Education How to access health informa tion online Indication:Shingles Start:04-Apr-2016 Instruction Type:Patient Education How to access health informa tion online - Detail Indication:Shingles Start:04-Apr-2016 Instruction Type:Patient Education Patient Instructions Indication:Shingles Start:04-Apr-2016 Instruction Type:Provider Instructions for Treatment How to access health informa tion online Indication:Acute left-sided thoracic back pain Start:01-Apr-2016 Instruction Type:Patient Education How to access health informa tion online - Detail Indication:Acute left-sided thoracic back pain Start:01-Apr-2016 Instruction Type:Patient Education Patient Instructions Indication:Acute left-sided thoracic back pain Start:01-Apr-2016 Instruction Type:Provider Instructions for Treatment Patient Instructions Indication:Vitamin D deficiency Start:11-Jan-2016 Instruction Type:Provider Instructions for Treatment How to access health informa tion online Indication:Disorder, dysthymic Start:27-Dec-2015 Instruction Type:Patient Education How to access health informa tion online - Detail Indication:Disorder, dysthymic Start:27-Dec-2015 Instruction Type:Patient Education Patient Instructions Indication:Disorder, dysthymic Start:27-Dec-2015 Instruction Type:Provider Instructions for Treatment How to access health informa tion online Indication:Myalgia Start:31-Jan-2015 Instruction Type:Patient Education How to access health informa tion online - Detail Indication:Myalgia Start:31-Jan-2015 Instruction Type:Patient Education Patient Instructions Indication:Myalgia Start:31-Jan-2015 Instruction Type:Provider Instructions for Treatment How to access health informa tion online Indication:Impaired fasting glucose Start:01-Dec-2014 Instruction Type:Patient Education How to access health informa tion online - Detail Indication:Impaired fasting glucose Start:01-Dec-2014 Instruction Type:Patient Education Patient Instructions Indication:Impaired fasting glucose Start:01-Dec-2014 Instruction Type:Provider Instructions for Treatment Patient Instructions Indication:Thyroid nodule Start:08-Jul-2013 Instruction Type:Provider Instructions for Treatment Patient Instructions Indication:Impaired fasting glucose Start:07-Jun-2013 Instruction Type:Provider Instructions for Treatment Patient Instructions Indication:PRE-OPERATIVE EXAMINATION, UNSPECIFIED Start:29-Sep-2012 Instruction Type:Provider Instructions for Treatment Patient Instructions Indication:DUB Start:25-Jun-2012 Instruction Type:Provider Instructions for Treatment Patient Instructions Indication:Vitamin D deficiency Start:24-Nov-2011 Instruction Type:Provider Instructions for Treatment Name Dates Details Patient Instructions Indication:Current nonsmoker Start:02-Apr-2020 Instruction Type:Provider Instructions for Treatment How to Access Health Informa tion Online using Patient Portal and [employer] Apps Indication:Current nonsmoker Start:02-Apr-2020 Instruction Type:Patient Education How to access health informa tion online Indication:Current nonsmoker Start:15-Nov-2018 Instruction Type:Patient Education How to access health informa tion online - Detail Indication:Current nonsmoker Start:15-Nov-2018 Instruction Type:Patient Education Patient Instructions Indication:Current nonsmoker Start:15-Nov-2018 Instruction Type:Provider Instructions for Treatment How to access health informa tion online Indication:Current nonsmoker Start:01-Nov-2018 Instruction Type:Patient Education How to access health informa tion online - Detail Indication:Current nonsmoker Start:01-Nov-2018 Instruction Type:Patient Education Patient Instructions Indication:Current nonsmoker Start:01-Nov-2018 Instruction Type:Provider Instructions for Treatment How to access health informa tion online - Detail Indication:Current nonsmoker Start:12-Apr-2018 Instruction Type:Patient Education Patient Instructions Indication:Current nonsmoker Start:12-Apr-2018 Instruction Type:Provider Instructions for Treatment How to access health informa tion online Indication:Current nonsmoker Start:12-Apr-2018 Instruction Type:Patient Education How to access health informa tion online Indication:Shingles Start:04-Apr-2016 Instruction Type:Patient Education How to access health informa tion online - Detail Indication:Shingles Start:04-Apr-2016 Instruction Type:Patient Education Patient Instructions Indication:Shingles Start:04-Apr-2016 Instruction Type:Provider Instructions for Treatment How to access health informa tion online Indication:Acute left-sided thoracic back pain Start:01-Apr-2016 Instruction Type:Patient Education How to access health informa tion online - Detail Indication:Acute left-sided thoracic back pain Start:01-Apr-2016 Instruction Type:Patient Education Patient Instructions Indication:Acute left-sided thoracic back pain Start:01-Apr-2016 Instruction Type:Provider Instructions for Treatment Patient Instructions Indication:Vitamin D deficiency Start:11-Jan-2016 Instruction Type:Provider Instructions for Treatment How to access health informa tion online Indication:Disorder, dysthymic Start:27-Dec-2015 Instruction Type:Patient Education How to access health informa tion online - Detail Indication:Disorder, dysthymic Start:27-Dec-2015 Instruction Type:Patient Education Patient Instructions Indication:Disorder, dysthymic Start:27-Dec-2015 Instruction Type:Provider Instructions for Treatment How to access health informa tion online Indication:Myalgia Start:31-Jan-2015 Instruction Type:Patient Education How to access health informa tion online - Detail Indication:Myalgia Start:31-Jan-2015 Instruction Type:Patient Education Patient Instructions Indication:Myalgia Start:31-Jan-2015 Instruction Type:Provider Instructions for Treatment How to access health informa tion online Indication:Impaired fasting glucose Start:01-Dec-2014 Instruction Type:Patient Education How to access health informa tion online - Detail Indication:Impaired fasting glucose Start:01-Dec-2014 Instruction Type:Patient Education Patient Instructions Indication:Impaired fasting glucose Start:01-Dec-2014 Instruction Type:Provider Instructions for Treatment Patient Instructions Indication:Thyroid nodule Start:08-Jul-2013 Instruction Type:Provider Instructions for Treatment Patient Instructions Indication:Impaired fasting glucose Start:07-Jun-2013 Instruction Type:Provider Instructions for Treatment Patient Instructions Indication:PRE-OPERATIVE EXAMINATION, UNSPECIFIED Start:29-Sep-2012 Instruction Type:Provider Instructions for Treatment Patient Instructions Indication:DUB Start:25-Jun-2012 Instruction Type:Provider Instructions for Treatment Patient Instructions Indication:Vitamin D deficiency Start:24-Nov-2011 Instruction Type:Provider Instructions for Treatment Name Dates Details Patient Instructions Indication:Current nonsmoker Start:02-Apr-2020 Instruction Type:Provider Instructions for Treatment How to Access Health Informa tion Online using Patient Portal and [employer] Apps Indication:Current nonsmoker Start:02-Apr-2020 Instruction Type:Patient Education How to access health informa tion online Indication:Current nonsmoker Start:15-Nov-2018 Instruction Type:Patient Education How to access health informa tion online - Detail Indication:Current nonsmoker Start:15-Nov-2018 Instruction Type:Patient Education Patient Instructions Indication:Current nonsmoker Start:15-Nov-2018 Instruction Type:Provider Instructions for Treatment How to access health informa tion online Indication:Current nonsmoker Start:01-Nov-2018 Instruction Type:Patient Education How to access health informa tion online - Detail Indication:Current nonsmoker Start:01-Nov-2018 Instruction Type:Patient Education Patient Instructions Indication:Current nonsmoker Start:01-Nov-2018 Instruction Type:Provider Instructions for Treatment How to access health informa tion online - Detail Indication:Current nonsmoker Start:12-Apr-2018 Instruction Type:Patient Education Patient Instructions Indication:Current nonsmoker Start:12-Apr-2018 Instruction Type:Provider Instructions for Treatment How to access health informa tion online Indication:Current nonsmoker Start:12-Apr-2018 Instruction Type:Patient Education How to access health informa tion online Indication:Shingles Start:04-Apr-2016 Instruction Type:Patient Education How to access health informa tion online - Detail Indication:Shingles Start:04-Apr-2016 Instruction Type:Patient Education Patient Instructions Indication:Shingles Start:04-Apr-2016 Instruction Type:Provider Instructions for Treatment How to access health informa tion online Indication:Acute left-sided thoracic back pain Start:01-Apr-2016 Instruction Type:Patient Education How to access health informa tion online - Detail Indication:Acute left-sided thoracic back pain Start:01-Apr-2016 Instruction Type:Patient Education Patient Instructions Indication:Acute left-sided thoracic back pain Start:01-Apr-2016 Instruction Type:Provider Instructions for Treatment Patient Instructions Indication:Vitamin D deficiency Start:11-Jan-2016 Instruction Type:Provider Instructions for Treatment How to access health informa tion online Indication:Disorder, dysthymic Start:27-Dec-2015 Instruction Type:Patient Education How to access health informa tion online - Detail Indication:Disorder, dysthymic Start:27-Dec-2015 Instruction Type:Patient Education Patient Instructions Indication:Disorder, dysthymic Start:27-Dec-2015 Instruction Type:Provider Instructions for Treatment How to access health informa tion online Indication:Myalgia Start:31-Jan-2015 Instruction Type:Patient Education How to access health informa tion online - Detail Indication:Myalgia Start:31-Jan-2015 Instruction Type:Patient Education Patient Instructions Indication:Myalgia Start:31-Jan-2015 Instruction Type:Provider Instructions for Treatment How to access health informa tion online Indication:Impaired fasting glucose Start:01-Dec-2014 Instruction Type:Patient Education How to access health informa tion online - Detail Indication:Impaired fasting glucose Start:01-Dec-2014 Instruction Type:Patient Education Patient Instructions Indication:Impaired fasting glucose Start:01-Dec-2014 Instruction Type:Provider Instructions for Treatment Patient Instructions Indication:Thyroid nodule Start:08-Jul-2013 Instruction Type:Provider Instructions for Treatment Patient Instructions Indication:Impaired fasting glucose Start:07-Jun-2013 Instruction Type:Provider Instructions for Treatment Patient Instructions Indication:PRE-OPERATIVE EXAMINATION, UNSPECIFIED Start:29-Sep-2012 Instruction Type:Provider Instructions for Treatment Patient Instructions Indication:DUB Start:25-Jun-2012 Instruction Type:Provider Instructions for Treatment Patient Instructions Indication:Vitamin D deficiency Start:24-Nov-2011 Instruction Type:Provider Instructions for Treatment Name Dates Details Current nonsmoker : How to a [employer] information online - Detail Indication:Current nonsmoker Current nonsmoker : Patient Instructions Indication:Current nonsmoker Current nonsmoker : How to a [employer] information online Indication:Current nonsmoker Shingles : How to access hea ltWinster information online Indication:Shingles Shingles : How to access hea lth information online - Detail Indication:Shingles Shingles : Patient Instructi ons Indication:Shingles Acute left-sided thoracic ba ck pain : How to access health information online Indication:Acute left-sided thoracic back pain Acute left-sided thoracic ba ck pain : How to access health information online - Detail Indication:Acute left-sided thoracic back pain Acute left-sided thoracic ba ck pain : Patient Instructions Indication:Acute left-sided thoracic back pain Vitamin D deficiency : Patie nt Instructions Indication:Vitamin D deficiency Disorder, dysthymic : How to access health information online Indication:Disorder, dysthymic Disorder, dysthymic : How to access health information online - Detail Indication:Disorder, dysthymic Disorder, dysthymic : Patien t Instructions Indication:Disorder, dysthymic Myalgia : How to access heal th information online Indication:Myalgia Myalgia : How to access heal th information online - Detail Indication:Myalgia Myalgia : Patient Instructio ns Indication:Myalgia Impaired fasting glucose : H ow to access health information online Indication:Impaired fasting glucose Impaired fasting glucose : H ow to access health information online - Detail Indication:Impaired fasting glucose Impaired fasting glucose : P atient Instructions Indication:Impaired fasting glucose Thyroid nodule : Patient Ins tructions Indication:Thyroid nodule PRE-OPERATIVE EXAMINATION, U NSPECIFIED : Patient Instructions Indication:PRE-OPERATIVE EXAMINATION, UNSPECIFIED DUB : Patient Instructions Indication:DUB Name Dates Details How to access health informa tion online Indication:Current nonsmoker Start:01-Nov-2018 Instruction Type:Patient Education How to access health informa tion online - Detail Indication:Current nonsmoker Start:01-Nov-2018 Instruction Type:Patient Education Patient Instructions Indication:Current nonsmoker Start:01-Nov-2018 Instruction Type:Provider Instructions for Treatment How to access health informa tion online - Detail Indication:Current nonsmoker Start:12-Apr-2018 Instruction Type:Patient Education Patient Instructions Indication:Current nonsmoker Start:12-Apr-2018 Instruction Type:Provider Instructions for Treatment How to access health informa tion online Indication:Current nonsmoker Start:12-Apr-2018 Instruction Type:Patient Education How to access health informa tion online Indication:Shingles Start:04-Apr-2016 Instruction Type:Patient Education How to access health informa tion online - Detail Indication:Shingles Start:04-Apr-2016 Instruction Type:Patient Education Patient Instructions Indication:Shingles Start:04-Apr-2016 Instruction Type:Provider Instructions for Treatment How to access health informa tion online Indication:Acute left-sided thoracic back pain Start:01-Apr-2016 Instruction Type:Patient Education How to access health informa tion online - Detail Indication:Acute left-sided thoracic back pain Start:01-Apr-2016 Instruction Type:Patient Education Patient Instructions Indication:Acute left-sided thoracic back pain Start:01-Apr-2016 Instruction Type:Provider Instructions for Treatment Patient Instructions Indication:Vitamin D deficiency Start:11-Jan-2016 Instruction Type:Provider Instructions for Treatment How to access health informa tion online Indication:Disorder, dysthymic Start:27-Dec-2015 Instruction Type:Patient Education How to access health informa tion online - Detail Indication:Disorder, dysthymic Start:27-Dec-2015 Instruction Type:Patient Education Patient Instructions Indication:Disorder, dysthymic Start:27-Dec-2015 Instruction Type:Provider Instructions for Treatment How to access health informa tion online Indication:Myalgia Start:31-Jan-2015 Instruction Type:Patient Education How to access health informa tion online - Detail Indication:Myalgia Start:31-Jan-2015 Instruction Type:Patient Education Patient Instructions Indication:Myalgia Start:31-Jan-2015 Instruction Type:Provider Instructions for Treatment How to access health informa tion online Indication:Impaired fasting glucose Start:01-Dec-2014 Instruction Type:Patient Education How to access health informa tion online - Detail Indication:Impaired fasting glucose Start:01-Dec-2014 Instruction Type:Patient Education Patient Instructions Indication:Impaired fasting glucose Start:01-Dec-2014 Instruction Type:Provider Instructions for Treatment Patient Instructions Indication:Thyroid nodule Start:08-Jul-2013 Instruction Type:Provider Instructions for Treatment Patient Instructions Indication:Impaired fasting glucose Start:07-Jun-2013 Instruction Type:Provider Instructions for Treatment Patient Instructions Indication:PRE-OPERATIVE EXAMINATION, UNSPECIFIED Start:29-Sep-2012 Instruction Type:Provider Instructions for Treatment Patient Instructions Indication:DUB Start:25-Jun-2012 Instruction Type:Provider Instructions for Treatment Patient Instructions Indication:Vitamin D deficiency Start:24-Nov-2011 Instruction Type:Provider Instructions for Treatment Name Dates Details How to Access Health Informa tion Online using Patient Portal and [employer] Apps Indication:Current nonsmoker Start:13-Jun-2020 Instruction Type:Patient Education Patient Instructions Indication:Current nonsmoker Start:13-Jun-2020 Instruction Type:Provider Instructions for Treatment Patient Instructions Indication:Current nonsmoker Start:02-Apr-2020 Instruction Type:Provider Instructions for Treatment How to Access Health Informa tion Online using Patient Portal and [employer] Indication:Current nonsmoker Start:02-Apr-2020 Instruction Type:Patient Education How to access health informa tion online Indication:Current nonsmoker Start:15-Nov-2018 Instruction Type:Patient Education How to access health informa tion online - Detail Indication:Current nonsmoker Start:15-Nov-2018 Instruction Type:Patient Education Patient Instructions Indication:Current nonsmoker Start:15-Nov-2018 Instruction Type:Provider Instructions for Treatment How to access health informa tion online Indication:Current nonsmoker Start:01-Nov-2018 Instruction Type:Patient Education How to access health informa tion online - Detail Indication:Current nonsmoker Start:01-Nov-2018 Instruction Type:Patient Education Patient Instructions Indication:Current nonsmoker Start:01-Nov-2018 Instruction Type:Provider Instructions for Treatment How to access health informa tion online - Detail Indication:Current nonsmoker Start:12-Apr-2018 Instruction Type:Patient Education Patient Instructions Indication:Current nonsmoker Start:12-Apr-2018 Instruction Type:Provider Instructions for Treatment How to access health informa tion online Indication:Current nonsmoker Start:12-Apr-2018 Instruction Type:Patient Education How to access health informa tion online Indication:Shingles Start:04-Apr-2016 Instruction Type:Patient Education How to access health informa tion online - Detail Indication:Shingles Start:04-Apr-2016 Instruction Type:Patient Education Patient Instructions Indication:Shingles Start:04-Apr-2016 Instruction Type:Provider Instructions for Treatment How to access health informa tion online Indication:Acute left-sided thoracic back pain Start:01-Apr-2016 Instruction Type:Patient Education How to access health informa tion online - Detail Indication:Acute left-sided thoracic back pain Start:01-Apr-2016 Instruction Type:Patient Education Patient Instructions Indication:Acute left-sided thoracic back pain Start:01-Apr-2016 Instruction Type:Provider Instructions for Treatment Patient Instructions Indication:Vitamin D deficiency Start:11-Jan-2016 Instruction Type:Provider Instructions for Treatment How to access health informa tion online Indication:Disorder, dysthymic Start:27-Dec-2015 Instruction Type:Patient Education How to access health informa tion online - Detail Indication:Disorder, dysthymic Start:27-Dec-2015 Instruction Type:Patient Education Patient Instructions Indication:Disorder, dysthymic Start:27-Dec-2015 Instruction Type:Provider Instructions for Treatment How to access health informa tion online Indication:Myalgia Start:31-Jan-2015 Instruction Type:Patient Education How to access health informa tion online - Detail Indication:Myalgia Start:31-Jan-2015 Instruction Type:Patient Education Patient Instructions Indication:Myalgia Start:31-Jan-2015 Instruction Type:Provider Instructions for Treatment How to access health informa tion online Indication:Impaired fasting glucose Start:01-Dec-2014 Instruction Type:Patient Education How to access health informa tion online - Detail Indication:Impaired fasting glucose Start:01-Dec-2014 Instruction Type:Patient Education Patient Instructions Indication:Impaired fasting glucose Start:01-Dec-2014 Instruction Type:Provider Instructions for Treatment Patient Instructions Indication:Thyroid nodule Start:08-Jul-2013 Instruction Type:Provider Instructions for Treatment Patient Instructions Indication:Impaired fasting glucose Start:07-Jun-2013 Instruction Type:Provider Instructions for Treatment Patient Instructions Indication:PRE-OPERATIVE EXAMINATION, UNSPECIFIED Start:29-Sep-2012 Instruction Type:Provider Instructions for Treatment Patient Instructions Indication:DUB Start:25-Jun-2012 Instruction Type:Provider Instructions for Treatment Patient Instructions Indication:Vitamin D deficiency Start:24-Nov-2011 Instruction Type:Provider Instructions for Treatment Summary Purpose Advance Directives No Advanced Directives Records Found Name Dates Details Immunization Registry [place] - Effective on 06/13/2020. Expiration date unspecified Effective:13-Jun-2020 Advance Directive Response Recorded Date/ Time Advance Directives No October 12 9:20am Living Will No October 12, 2020 9:20am Power of [employer] Supervisor No October 12 9:20am Advance Directive Response Recorded Date/ Time Advance Directives No October 12 8:20am Living Will No October 12, 2020 8:20am Power of [employer] Supervisor No October 12 8:20am Chief Complaint and Reason for Visit Chief Complaint SCREENING 3 M FU FEVER, RUNNY NOSE, BODY ACHES Reason for Visit Vitamin D deficiency Borderline type 2 diabetes mellitus Hypertension Neck pain Chief Complaint 4 M FU Reason [facility] Visit [facility] Anxiety and depression Borderline type 2 diabetes mellitus Hypertension Vitamin D deficiency Additional Source Comments INFORMATION SOURCE (unrecogn ized section and content) DATE CREATED AUTHOR 05/12/2018 [facility] DATE CREATED AUTHOR AUTHOR'S STACIE GRANT 09/01/2024 [facility] Goals (unrecognized section and content) Goals may be documented in a n alternate sectionGoals may be documented in an alternate sectionGoals may be documented in an alternate section Care Teams (unrecognized sec tion and content) Team Status: Active Member Role Status Dates Dr. Carlota Burrows DO Family Provider Active Dr. Shiv Gaviria MD Primary Care Provider Active Team Status: Inactive Member Role Status Dates Dr. Shiv Gaviria MD Primary Care Provider, Atten ding Provider Active Team Status: Inactive Member Role Status Dates Dr. Shiv Gaviria MD Primary Care P shahla, Attending Provider, Referring Provider Active FOR RECORDS PERTAINING TO PATIENTS WHO ARE OR HAVE BEEN ENROLLED IN A CHEMICAL DEPENDENCY/SUBSTANCEABUSE PROGRAM, SOME INFORMATION MAY BE OMITTED. This clinical summary was aggregated from multiple sources. Caution should be exercised in using it in the provision of clinical care. This summary normalizes information from multiple sources, and as a consequence, information in this document may materially change the coding, format and clinical context of patient data. In addition, data may be omitted in some cases. CLINICAL DECISIONS SHOULD BE BASED ON THE PRIMARY CLINICAL RECORDS. [facility] [employer] provides no warranty or guarantee of the accuracy or completeness of information in this document.
[2024-09-03 09:46] LABS: Lactic Acid 3.3 mmol/L (0.0-2.0)
--- NOTE | 2024-09-03 09:58 | CT_ITS ---
PROCEDURE: ABDOMEN/PELVIS W IV CONT ONLY 09/03/2024 REASON FOR EXAM: SEVERE UPPER ABDOMINAL PAIN WITH GUARDING AND LACT TECHNIQUE: Abdomen and pelvis CT with intravenous contrast. Coronal and Sagittal reconstruction series were provided. PATIENT PREPARATION: Per protocol ORAL CONTRAST TYPE: None. AMOUNT: mL CONTRAST: Omnipaque 350 VOLUME: 100 mL One or more dose reduction techniques were used (e.g., Automated exposure control, adjustment of the mA and/or kV according to patient size, use of iterative reconstruction technique. COMPARISON: CT abdomen and pelvis 05/18/2018 FINDINGS: Lung bases: Bibasilar atelectasis and scarring. Liver: Diffuse steatosis. Subcentimeter low-attenuation lesion, right hepatic lobe, too small to characterize is likely benign. Gallbladder: Mild intrahepatic ductal dilation. Common bile duct is dilated and measures 18 mm. Status post cholecystectomy. Spleen: Normal size. Pancreas: Normal size without evidence of mass surrounding inflammation or ductal dilation. Adrenals: Unremarkable. Kidneys: Bilateral pelviectasis. Subcentimeter low-attenuation lesion, left inferior pole, too small to characterize but likely benign. No calculi or hydronephrosis. Bladder: Urinary bladder is unremarkable. Reproductive Organs: No pelvic mass or ascites. Bowel: Stomach is unremarkable. Multiple fluid-filled but nondilated small bowel loops, with abrupt caliber attenuation of the distal ileum (series 601, image 66). Colonic diverticulosis without diverticulitis. Moderate colonic stool. Appendix: Normal appendix. Lymph nodes: Unremarkable. Vasculature: Mild diffuse atherosclerotic calcifications are noted. Mild- moderate atherosclerotic calcifications. Peritoneum / Retroperitoneum: Trace ascites in the mid abdomen. Bones: Degenerative changes of the spine. Soft tissue: Prior postoperative changes anterior abdominal wall repair. Left lateral abdominal wall lipoma. CT/Abdomen/Pelvis W IV Cont ONLY IMPRESSION: Multiple fluid-filled but nondilated small bowel loops with abrupt caliber atte nuation of the distal ileum, concerning for partial/developing small bowel obstruction. No pneumoperitoneum. Colonic diverticulosis without diverticulitis. [facility]
[2024-09-03] MEDS: Oxymetazoline 0.05% 1 SPRAY SPRAY.BTL 2 SPRAY NASAL (11:44)
--- NOTE | 2024-09-03 12:04 | EX.PCM.CON.S ---
Assessment & Plan Assessment/Plan (1) Partial obstruction of small intestine: PLAN: Patient is a 73-year-old female who presents shortly after developing symptoms of acute onset abdominal pain, nausea, and vomiting. She states that her presentation was unusual given that she has had similar symptoms but were always self-limited and resolved after vomiting. She denies any history of prior bowel obstructions but also denies any history of sick contacts or recent dietary changes. I agree with radiology and suspect that patient's clinical presentation is early and therefore we are not seeing marked dilation of the proximal small bowel but there is certainly a transition to decompressed distal small bowel. Moreover, patient's 5 prior abdominal surgical procedures puts her at risk for adhesive disease. Therefore, I recommended placement of nasogastric tube with decompression and plans for eventual small bowel follow-through. Unfortunately, emergency medicine nursing was unable to place the nasogastric tube at bedside so I was summoned to do this and did so via the right nare with minimal resistance. Post placement KUB confirms intragastric position. Tube should be placed to low intermittent wall suction. For the interim patient to be admitted to the hospitalist service. Please keep n.p.o. with IV fluid resuscitation following lactic acid. Will plan to perform serial abdominal exams and initiate small bowel follow-through later today Peter Sullivan MD General Surgery Endocrine Surgery Pager: [facility] [address] [place] [address], [address] [place] [address] Office: [phone] HPI Consult Data Date of Consult: 09/03/24 HPI Narrative Reason for Consultation: acute onset abdominal pain with N/V HPI Narrative: GEMMA CERON, is a 73 F who presents to [facility] within 2 hours of experiencing severe abdominal pain that woke her out of sleep. She reports that it has been associated with nausea and vomiting. She denies any sick contacts. She states the only time she has felt similar symptoms was when she ate something that did not agree with her but after vomiting she experienced immediate relief. She denies any history of bowel obstructions. She states her last bowel movement was this morning approximately 5 or 6 AM. She states that she had 2-3 overnight and this is not unusual for her. Patient did biochemical analysis with general chemistries as well as lactate which was mildly elevated at 3.3. CT showing fluid-filled small bowel with transition in the terminal ileum which radiology has read as concerning for developing small bowel obstruction. Patient has past surgical history inclusive of cholecystectomy, hysterectomy, and ventral hernia repairs x 3. She notes her last repair was with Dr. Vincent in 2019. [facility] Medical History Anxiety and depression Vitamin D deficiency Neck pain Grief reaction Health care maintenance Post-menopausal Hypertension Borderline type 2 diabetes mellitus Osteopenia Arthritis Anemia Recurrent incisional hernia Hyperlipidemia Home Medications ?Medication ?Instructions ?Recorded ?Last Taken ?Type ascorbic acid (vitamin C) 250 mg 250 mg PO DAILY 05/18/23 Unknown History chewable tablet cholecalciferol (vitamin D3) 125 125 mcg PO DAILY #90 tabs 05/19/23 Unknown Rx mcg (5,000 unit) tablet atorvastatin 20 mg tablet (Lipitor) 20 mg PO DAILY #90 tabs 04/08/24 Unknown Rx amlodipine 5 mg tablet 5 mg PO DAILY #90 TABLETS 08/18/24 Unknown Rx multivitamin (Daily Multi-Vitamin 1 tab PO DAILY 09/03/24 Unknown History tablet) Allergy/AdvReac Type Severity Reaction Status Date / Time Environmental Allergies: Allergy Hives Verified 09/03/24 08:40 Uncoded hydrocodone AdvReac Nausea Verified 09/03/24 08:40 Family History Mother Alcohol abuse Father Alcohol abuse Cancer prostate Diabetes Myocardial infarction, Onset Age: 82 Parkinson disease Son Alcohol abuse Anxiety Myocardial infarction, Onset Age: 51 Hyperlipemia Brother Cancer Sister Hypertension Hyperlipemia Surgical History History of cholecystectomy History of hysterectomy S/P repair of recurrent ventral hernia Status post repair of recurrent ventral hernia History of hernia repair History of colonoscopy Social History Smoking Status: Former smoker alcohol intake: never substance use type: does not use what type of physical activity do you participate in: none Physical Exam Const alert, oriented x3 and no apparent distress Resp normal respiratory effort GI GI Narrative: Numerous scars of the abdominal wall, no visible herniation, minimally distended, soft, patient denies tenderness with palpation of all 4 quadrants Lab / Micro Data 09/03/24 08:09 09/03/24 08:09 Labs: Laboratory Results - last 24 hr 09/03/24 08:09: WBC 12.3 H, RBC 4.17 L, Hgb 13.6, Hct 40.1, MCV 96.2, MCH 32.6 H, MCHC 33.9, RDW Std Deviation 50.2 H, RDW Coeff of Zhane 14.1, Plt Count 311, MPV 10.4, Immature Gran % (Auto) 0.400, Neut % (Auto) 90.8 H, Lymph % (Auto) 6.6 L, Ocean % (Auto) 2.0, Eos % (Auto) 0.0, Baso % (Auto) 0.2, Absolute Neuts (auto) 11.2 H, Absolute Lymphs (auto) 0.81 L, Nucleated RBC % 0, Sodium 139, Potassium 3.8, Chloride 101, Carbon Dioxide 22.7, Anion Gap 15, BUN 19, Creatinine 0.63 L, Estim Creat Clear Calc 53.31, Est GFR (MDRD) Non-Af 92, BUN/Creatinine Ratio 30.3 H, Glucose 178 H, Calcium 10.0, Total Bilirubin 0.34, Direct Bilirubin 0.12, AST 22, ALT 21, Alkaline Phosphatase 114 H, Total Protein 8.4, Albumin 4.6, Globulin 3.8, Lipase 27 09/03/24 09:03: Lactic Acid 3.3 H* Imaging Radiology Impression Abdomen/Pelvis CT 09/03/24 09:58 IMPRESSION: Multiple fluid-filled but nondilated small bowel loops with abrupt caliber attenuation of the distal ileum, concerning for partial/developing small bowel obstruction. No pneumoperitoneum. Colonic diverticulosis without diverticulitis. Reading Location: [facility] Charges/Coding Visit Charges Inpatient E&M: 45156 Init Hosp L2
--- OUTSIDE RECORDS SUMMARY | 2024-09-03 12:21 | XMS RPT_ITS | CCD ---
Author Organization [facility] CliniSyin Care Team Providers Care Application Architect Manager Name Role Phone Carlota Burrows Unavailable Greenwood III, Kevon P Unavailable PeabodyIII, Kevon P Unavailable Gravius, Mackenzie Unavailable Unavailable Sandra Mayers Unavailable Unavailable Unavailable Unavailable Carlota Burrows Attending Unavailable Xander, Claudia A Referring Unavailable Carlota Burrows Consulting Unavailable Stephanie Ascencio Unavailable Unavailable Taylor Guaman Unavailable Kunal Mercer Unavailable Unavailable Gravius, Mackenzie Unavailable Unavailable Kunal Arevalo Unavailable Unavailable Greenwood III, Kevon P Unavailable Elida Barr Unavailable Unavailable [facility] Unavailable PeabodyIII, Kevon P Unavailable Dr. Carlota [...] (3 sources) HYDROcodone Drug Allergy 2 Nausea [facility] (2 sources) pristine cleaning agent Allergy to substance 1 [facility] (2 sources) Environmental Allergies: Uncoded; Translations: [Environmental Allergies: Uncoded] Allergy to substance 4 [facility] (1 source) HYDROcodone Drug Allergy 5 [facility] Repository Medications Current Medications Medication Drug [...] Inactive Comments: called in verbal to [facility] myla Comment on above: called in verbal to 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, [address] Absolute Neut 4.2 X10 3/uL Normal 2.0-7.7 [facility] Comment on above: Performed By: #### L 500.4050, L100.0100, L500.4100, L501.9985 #### [facility] [address] [place], [address] Basophils/100 WBC (Bld) 0.7 % Normal 0-1 [facility] Comment on above: Performed By: #### L 500.4050, L100.0100, L500.4100, L501.9985 #### [facility] [address] [place], [address] Eosinophils/100 WBC (Bld) 2.3 % Normal 0-5 [facility] Comment on above: Performed By: #### L 500.4050, L100.0100, L500.4100, L501.9985 #### [facility] [address] [place], [address] Erythrocyte distribution width (RBC) [Ratio] 14.2 % Normal 11.6-14.6 [facility] Comment on above: Performed By: #### L 500.4050, L100.0100, L500.4100, L501.9985 #### [facility] [address] [place], [address] Hematocrit (Bld) [Volume fraction] 39.5 % Normal 37-47 [facility] Comment on above: Performed By: #### L 500.4050, L100.0100, L500.4100, L501.9985 #### [facility] [address] [place], [address] Hemoglobin (Bld) [Mass/Vol] 12.8 g/dL Normal 12.0-15.0 [facility] Comment on above: Performed By: #### L 500.4050, L100.0100, L500.4100, L501.9985 #### [facility] [address] [place], [address] IG% 0.400 Normal 0.0-0.9 [facility] Comment on above: Result Comment: IG% - Immature Granulocytes (promyelocytes, myelocytes and metamyelocytes) > 1% indicates that a LEFT SHIFT is Present. Performed By: #### L 500.4050, L100.0100, L500.4100, L501.9985 #### [facility] [address] [place], [address] Lymphocytes/100 WBC (Bld) 31.1 % Normal 19-41 [facility] Comment on above: Performed By: #### L 500.4050, L100.0100, L500.4100, L501.9985 #### [facility] [address] [place], [address] MCH (RBC) [Entitic mass] 32.2 pg High 27.0-32.0 [facility] Comment on above: Performed By: #### L 500.4050, L100.0100, L500.4100, L501.9985 #### [facility] [address] [place], [address] MCHC (RBC) [Mass/Vol] 32.4 g/dL Normal 32-36 [facility] Comment on above: Performed By: #### L 500.4050, L100.0100, L500.4100, L501.9985 #### [facility] [address] [place], [address] MCV (RBC) [Entitic vol] 99.2 fL High 81-99 [facility] Comment on above: Performed By: #### L 500.4050, L100.0100, L500.4100, L501.9985 #### [facility] [address] [place], [address] Monocytes/100 WBC (Bld) 6.6 % Normal 0-10 [facility] Comment on above: Performed By: #### L 500.4050, L100.0100, L500.4100, [id number] #### [facility] [address] [place], [address] Neutrophils/100 WBC (Bld) 58.9 % Normal 47-70 [facility] Comment on above: Performed By: #### L 500.4050, L100.0100, L500.4100, L501.9985 #### [facility] [address] [place], [address] Nucleated RBC (Bld) [#/Vol] 0 10*3/uL Normal 0-5 [facility] Comment on above: Performed By: #### L 500.4050, L100.0100, L500.4100, L501.9985 #### [facility] [address] [place], [address] Platelet mean volume (Bld) [Entitic vol] 10.7 fL Normal 6.2-12.0 [facility] Comment on above: Performed By: #### L 500.4050, L100.0100, L500.4100, L501.9985 #### [facility] [address] [place], [address] Platelets (Bld) [#/Vol] 341 10*3/uL Normal 150-450 [facility] Comment on above: Performed By: #### L 500.4050, L100.0100, L500.4100, L501.9985 #### [facility] [address] [place], [address] RBC (Bld) [#/Vol] 3.98 10*6/uL Low 4.2-5.4 [facility] Comment on above: Performed By: #### L 500.4050, L100.0100, L500.4100, L501.9985 #### [facility] [address] [place], [address] RDW SD 52.3 fl High 35.1-43.9 [facility] Comment on above: Performed By: #### L 500.4050, L100.0100, L500.4100, L501.9985 #### [facility] [address] [place], [address] WBC (Bld) [#/Vol] 7.1 10*3/uL Normal 4.4-11.0 [facility] Comment on above: Performed By: #### L 500.4050, L100.0100, L500.4100, L501.9985 #### [facility] [address] [place], [address] Comprehensive Metabolic Prof ilon 08-31-2024 Albumin [Mass/Vol] 4.2 g/dL Normal 3.4-4.8 [facility] Comment on above: Performed By: #### L 500.4050, L100.0100, L500.4100, L501.9985 #### [facility] [address] [place], [address] ALK PHOS 106 U/L High 35-104 [facility] Comment on above: Performed By: #### L 500.4050, L100.0100, L500.4100, L501.9985 #### [facility] [address] [place], [address] ALT [Catalytic activity/Vol] 17 U/L Normal <=34 [facility] Comment on above: Performed By: #### L 500.4050, L100.0100, L500.4100, L501.9985 #### [facility] [address] [place], [address] AST [Catalytic activity/Vol] 18 U/L Normal <=31 [facility] Comment on above: Performed By: #### L 500.4050, L100.0100, L500.4100, L501.9985 #### [facility] [address] [place], [address] Bilirubin [Mass/Vol] 0.27 mg/dL Normal 0.00-1.30 [facility] Comment on above: Performed By: #### L 500.4050, L100.0100, L500.4100, L501.9985 #### [facility] [address] [place], [address] BUN/CRE 30.1 RATIO High 10-20 [facility] Comment on above: Performed By: #### L 500.4050, L100.0100, L500.4100, L501.9985 #### [facility] [address] [place], [address] Calcium [Mass/Vol] 9.5 mg/dL Normal 7.6-11.0 [facility] Comment on above: Performed By: #### L 500.4050, L100.0100, L500.4100, L501.9985 #### [facility] [address] [place], [address] Chloride [Moles/Vol] 101 mmol/L Normal 98-108 [facility] Comment on above: Performed By: #### L 500.4050, L100.0100, L500.4100, L501.9985 #### [facility] [address] [place], [address] CO2 [Moles/Vol] 23.5 mmol/L Normal 21.0-32.0 [facility] Comment on above: Performed By: #### L 500.4050, L100.0100, L500.4100, L501.9985 #### [facility] [address] [place], [address] Creatinine [Mass/Vol] 0.65 mg/dL Low 0.70-1.20 [facility] Comment on above: Performed By: #### L 500.4050, L100.0100, L500.4100, L501.9985 #### [facility] [address] [place], [address] GAP 12 Normal 5-15 [facility] Comment on above: Performed By: #### L 500.4050, L100.0100, L500.4100, L501.9985 #### [facility] [address] [place], [address] GFR/1.73 sq M.predicted among non-blacks MDRD (S/P/Bld) [Vol rate/Area] 92 mL/min/{1.73_m2} Normal >60 [facility] Comment on above: Result Comment: mL/m in/1.73m2 CKD-EPI Creatinine Equation (2020) Performed By: #### L 500.4050, L100.0100, L500.4100, L501.9985 #### [facility] [address] [place], [address] Glucose [Mass/Vol] 107 mg/dL High 70-99 [facility] Comment on above: Performed By: #### L 500.4050, L100.0100, L500.4100, L501.9985 #### [facility] [address] [place], [address] Potassium [Moles/Vol] 4.0 mmol/L Normal 3.3-5.1 [facility] Comment on above: Performed By: #### L 500.4050, L100.0100, L500.4100, L501.9985 #### [facility] [address] [place], [address] Sodium [Moles/Vol] 137 mmol/L Normal 133-145 [facility] Comment on above: Performed By: #### L 500.4050, L100.0100, L500.4100, L501.9985 #### [facility] [address] [place], [address] T PROT 7.7 g/dL Normal 5.9-8.4 [facility] Comment on above: Performed By: #### L 500.4050, L100.0100, L500.4100, L501.9985 #### [facility] [address] [place], [address] Urea nitrogen [Mass/Vol] 20 mg/dL High 4-19 [facility] Comment on above: Performed By: #### L 500.4050, L100.0100, L500.4100, L501.9985 #### [facility] [address] [place], [address] Hemoglobin A1con 08-31-2024 HbA1c (Bld) [Mass fraction] 6.1 % High <=5.6 [facility] Comment on above: Result Comment: Norm al < 5.7 % Prediabetic 5.7 - 6.4 % Diabetic >or= 6.5 % Please note range changes. Performed By: #### L 500.4050, L100.0100, L500.4100, L501.9985 #### [facility] [address] [place], [address] Lipid Profileon 08-31-2024 CHOL:HDL 3.42 Normal [facility] Comment on above: Performed By: #### L 500.4050, L100.0100, L500.4100, L501.9985 #### [facility] [address] [place], [address] Cholesterol [Mass/Vol] 265 mg/dL High <=200 [facility] Comment on above: Result Comment: Chol esterol level, Desirable <200 mg/dL Borderline high cholesterol 200-239 mg/dL High cholesterol >=240 mg/dL Recommendations of the NCEP Adult Treatment Panel for the following risk-cutoff thresholds for the [place] population. Performed By: #### L 500.4050, L100.0100, L500.4100, L501.9985 #### [facility] [address] [place], [address] Cholesterol in HDL [Mass/Vol] 77 mg/dL Normal [facility] Comment on above: Result Comment: Marsha onal Cholesterol Education Program (NCEP) guidelines: <40 mg/dL: Low HDL-cholesterol (major risk factor for CHD) >= 60 mg/dL: High HDL-cholesterol (negative risk factor for CHD) HDL-cholesterol is affected by a number of factors, e.g. smoking, exercise, hormones, sex and age. Performed By: #### L 500.4050, L100.0100, L500.4100, L501.9985 #### [facility] [address] [place], [address] Cholesterol in LDL [Mass/Vol] 157 mg/dL Normal [facility] Comment on above: Result Comment: Bord uvivro=219-902 mg/dL Higher Jbmi=994 mg/dL or greater Performed By: #### L 500.4050, L100.0100, L500.4100, L501.9985 #### [facility] [address] [place], [address] Cholesterol in VLDL [Mass/Vol] 31 mg/dL Normal 5-40 [facility] Comment on above: Performed By: #### L 500.4050, L100.0100, L500.4100, L501.9985 #### [facility] [address] [place], [address] Triglyceride [Mass/Vol] 155 mg/dL Normal [facility] Comment on above: Result Comment: The drugs N-Acetylcysteine and Metamizole may falsely depress this assay. Normal range: <150 mg/dL Borderline High: 150-199 mg/dL High: 200-499 mg/dL Very High: >500 mg/dL Performed By: #### L 500.4050, L100.0100, L500.4100, L501.9985 #### [facility] [address] [place], [address] Internal Medicine Office Vis nhi 05-09-2024 Internal Medicine Office Visit [facility] [place], [place] [address] OFFICE VISIT Date of Service: 05/09/24 MR#: [id number] Acct: [id number] Name: GEMMA CERON Rep #: [id number] : 1950 Provider: Dr. Shiv deshpande MD Age/Sex: 73/F Location: [facility] Status: Signed Intake Vital Signs 01/11/24 08:37 [...] increased thirst/drin (more content not included)... Normal [facility] Internal Medicine Office Vis nhi 01-11-2024 Internal Medicine Office Visit [facility] [place] [address] [place] [address] OFFICE VISIT Date of Service: 01/11/24 MR#: [id number] Acct: [id number] Name: GEMMA CERON Rep #: [id number] : 1950 Provider: Dr. Shiv deshpande MD Age/Sex: 73/F Location: [facility] Status: Signed Intake Vital Signs 09/11/23 08:47 [...] hives o (more content not included)... Normal [facility] Internal Medicine Office Vis nhi 09-11-2023 Internal Medicine Office Visit [facility] [address] [place] [address] [place] [address] OFFICE VISIT Date of Service: 09/11/23 MR#: [id number] Acct: [id number] Name: GEMMA CERON Rep #: [id number] : 1950 Provider: Dr. Shiv deshpande MD Age/Sex: 72/F Location: [facility] Status: Signed Intake Vital Signs 05/18/23 09:37 [...] panic at (more content not included)... Normal [facility] Absolute lymphocyte countOrd ered By: Shiv Gaviria on 05-18-2023 Lymphocytes Auto (Unsp spec) [#/Vol] 1.73 10*3/uL 0.83-4.51 [facility] Automated lymphocyte count a s percentage of total leukocytesOrdered By: Shiv Gaviria on 05-18-2023 Lymphocytes/100 WBC Auto (Unsp spec) 29.9 % 19-41 [facility] Basophil percentageOrdered B y: Conradstanislaw Khadra on 05-18-2023 Basophils/100 WBC (Bld) 0.7 % 0-1 [facility] Bilirubin [Mass/Vol] 0.40 mg/dL 0.20-1.00 [facility] Comment on above: For patients on eltr ombopag therapy, use of Dimension [place] TBIL is not recommended. Chloride [Moles/Vol] 105 mmol/L 98-107 [facility] Cholesterol [Mass/Vol] 241 mg/dL <200 [facility] Comment on above: <200 mg/dL Desirable 200-240 mg/dL Borderline >240 mg/dL High Risk Eosinophils/100 WBC (Bld) 1.4 % 0-5 [facility] Glucose [Mass/Vol] 113 mg/dL 74-106 [facility] Comment on above: Fasting Glucose resu lt from 100 to 125 mg/dL suggests IMPAIRED HOMEOSTASIS per A.D.A. criteria. Hemoglobin (Bld) [Mass/Vol] 12.5 g/dL 12.0-15.0 [facility] Monocytes/100 WBC (Bld) 6.7 % 0-10 [facility] Neutrophils (Bld) [#/Vol] 3.5 10*3/uL 2.0-7.7 [facility] Neutrophils/100 WBC (Bld) 61.0 % 47-70 [facility] Potassium [Moles/Vol] 4.0 mmol/L 3.5-5.1 [facility] Protein [Mass/Vol] 8.0 g/dL 6.4-8.2 [facility] Sodium [Moles/Vol] 139 mmol/L 136-145 [facility] Triglyceride [Mass/Vol] 114 mg/dL <199 [facility] Comment on above: The drugs N-Acetylcy steine and Metamizole may falsely depress this assay.Serum Triglycerides Reference Interval Normal <150 mg/dL Borderline high 150 - 199 mg/dL High 200 - 499 mg/dL Very High > or = 500 mg/dL WBC (Bld) [#/Vol] 5.8 10*3/uL 4.4-11.0 [facility] Determination of erythrocyte mean corpuscular volume (MCV)Ordered By: Shiv Gaviria on 05-18-2023 MCV (RBC) [Entitic vol] 98.7 fL 81-99 [facility] Erythrocyte distribution wid th ratioOrdered By: [facility] Del[facility]it on 05-18-2023 Erythrocyte distribution width (RBC) [Ratio] 13.6 % 11.6-14.6 [facility] Erythrocyte distribution wid th standard deviationOrdered By: [facility] Hospital[facility] Delacruzjagjit on 05-18-2023 Erythrocyte distribution width (RBC) [Entitic vol] 49.7 fL 35.1-43.9 [facility] Hematocrit Auto (Bld) [Volum e fraction]Ordered By: fabricioaplingtondenia Delacruzjagjit on 05-18-2023 Hematocrit (Bld) [Volume fraction] 38.9 % 37-47 [facility] Immature granulocytes/100 WB C Auto (Bld)Ordered By: fabricioaplingtondenia Gaviria on 05-18-2023 Immature granulocytes/100 WBC (Bld) 0.300 % 0.0-0.9 [facility] Comment on above: IG% - Immature Granu locytes (promyelocytes, myelocytes and metamyelocytes) > 1% indicates that a LEFT SHIFT is Present. Laboratory - Chemistry and C hemistry - challengeOrdered By: Shiv Gaviria on 05-18-2023 Albumin/Globulin [Mass ratio] 0.9 {ratio} 0.9-2.4 [facility] ALP [Catalytic activity/Vol] 117 U/L 45-117 [facility] ALT [Catalytic activity/Vol] 35 U/L 13-56 [facility] Cholesterol in HDL [Mass/Vol] 69 mg/dL >40 [facility] Comment on above: The drugs N-Acetylcy steine and Metamizole may falsely depress this assay. Reference Range HDL <40 mg/dL Low HDL Cholesterol HDL >or= 60 mg/dL High HDL Cholesterol Cholesterol in LDL [Mass/Vol] 149 mg/dL 0-130 [facility] CO2 [Moles/Vol] 26.0 mmol/L 21.0-32.0 [facility] Globulin (S) [Mass/Vol] 4.3 g/dL 2.2-4.2 [facility] Urea nitrogen/Creatinine [Mass ratio] 31.0 mg/mg 10-20 [facility] Laboratory - Hematology and Cell countsOrdered By: Shiv Gaviria on 05-18-2023 MCH (RBC) [Entitic mass] 31.7 pg 27.0-32.0 [facility] MCHC (RBC) [Mass/Vol] 32.1 g/dL 32-36 [facility] Nucleated RBC/100 WBC (Bld) [Ratio] 0 % 0-5 [facility] Platelet mean volume (Bld) [Entitic vol] 10.3 fL 6.2-12.0 [facility] Platelets (Bld) [#/Vol] 352 10*3/uL 150-450 [facility] No Panel InformationOrdered By: Shiv Gaviria on 05-18-2023 Estimated GFR (MDRD) Amer 98 mL/min >60 [facility] Comment on above: GFR Calc Estimated GFR (MDRD) Non-Af Amer 81 mL/min >60 [facility] Comment on above: Non- GFR Calc Vitamin D 25-Hydroxy 93.0 ng/mL [facility] Comment on above: Vitamin D 25(OH) Sta tus Range Deficiency <20 ng/mL (50nmol/L) Insufficiency 20 - 30 ng/mL (50 - 75 nmol/L) Sufficiency 30 - 100 ng/mL (75 - 250 nmol/L) Toxicity >100 ng/mL (>250 nmol/L) VLDL Cholesterol 23 mg/dL 5-40 [facility] RBC Auto (Bld) [#/Vol]Ordere d By: Shiv Gaviria on 05-18-2023 RBC (Bld) [#/Vol] 3.94 10*6/uL 4.2-5.4 [facility] Serum or plasma calcium chester urement (mass/volume)Ordered By: Shiv Gaviria on 05-18-2023 Calcium [Mass/Vol] 9.4 mg/dL 8.5-10.1 [facility] Serum or plasma creatinine m easurement (mass/volume)Ordered By: Shiv Gaviria on 05-18-2023 Creatinine [Mass/Vol] 0.74 mg/dL 0.55-1.02 [facility] Comment on above: The validity of the calculated GFR & GFRAA in patients over 70 years has not been determined. Clinical correlation is essential. Serum or plasma urea nitroge n measurement (mass/volume)Ordered By: Shiv Gaviria on 05-18-2023 Urea nitrogen [Mass/Vol] 23 mg/dL 7-18 [facility] Thin prep Papanicolaou smear with manual screeningOrdered By: Shiv Gaviria on 05-18-2023 Thin prep Papanicolaou smear with manual screening 3.7 g/dL 3.2-5.0 [facility] Thin prep Papanicolaou smear with manual screening 20 U/L 15-37 [facility] Thin prep Papanicolaou smear with manual screening 8 5-15 [facility] Absolute lymphocyte countOrd ered By: Dr. Gaviria on 07-21-2022 Lymphocytes Auto (Unsp spec) [#/Vol] 1.83 10*3/uL 0.83-4.51 [facility] Basophil percentageOrdered B y: Dr. Gaviria on 07-21-2022 Basophils/100 WBC (Bld) 0.4 % 0-1 [facility] Bilirubin [Mass/Vol] 0.30 mg/dL 0.20-1.00 [facility] Comment on above: For patients on eltr ombopag therapy, use of Dimension [place] TBIL is not recommended. Chloride [Moles/Vol] 105 mmol/L 98-107 [facility] Cholesterol [Mass/Vol] 243 mg/dL <200 [facility] Comment on above: <200 mg/dL Desirable 200-240 mg/dL Borderline >240 mg/dL High Risk Eosinophils/100 WBC (Bld) 0.9 % 0-5 [facility] Glucose [Mass/Vol] 107 mg/dL 74-106 [facility] Comment on above: Fasting Glucose resu lt from 100 to 125 mg/dL suggests IMPAIRED HOMEOSTASIS per A.D.A. criteria. Neutrophils (Bld) [#/Vol] 4.8 10*3/uL 2.0-7.7 [facility] Neutrophils/100 WBC (Bld) 67.7 % 47-70 [facility] Potassium [Moles/Vol] 4.0 mmol/L 3.5-5.1 [facility] Protein [Mass/Vol] 7.7 g/dL 6.4-8.2 [facility] Sodium [Moles/Vol] 137 mmol/L 136-145 [facility] Triglyceride [Mass/Vol] 175 mg/dL <199 [facility] Comment on above: The drugs N-Acetylcy steine and Metamizole may falsely depress this assay.Serum Triglycerides Reference Interval Normal <150 mg/dL Borderline high 150 - 199 mg/dL High 200 - 499 mg/dL Very High > or = 500 mg/dL WBC (Bld) [#/Vol] 7.1 10*3/uL 4.4-11.0 [facility] Blood erythrocytes count (nu mber/volume)Ordered By: Dr. Gaviria on 07-21-2022 RBC (Bld) [#/Vol] 3.94 10*6/uL 4.2-5.4 [facility] Blood hemoglobin measurement (mass/volume)Ordered By: Dr. Gaviria on 07-21-2022 Hemoglobin (Bld) [Mass/Vol] 12.8 g/dL 12.0-15.0 [facility] Blood lymphocytes/100 leukoc ytesOrdered By: Dr. Gaviria on 07-21-2022 Lymphocytes/100 WBC (Bld) 26.0 % 19-41 [facility] Blood monocytes/100 leukocyt esOrdered By: Dr. Gaviria on 07-21-2022 Monocytes/100 WBC (Bld) 4.7 % 0-10 [facility] Blood platelet mean volumeOr dered By: Dr. Gaviria on 07-21-2022 Platelet mean volume (Bld) [Entitic vol] 10.3 fL 6.2-12.0 [facility] Determination of erythrocyte mean corpuscular volume (MCV)Ordered By: Dr. Gaviria on 07-21-2022 MCV (RBC) [Entitic vol] 100.5 fL 81-99 [facility] Hematocrit Auto (Bld) [Volum e fraction]Ordered By: Dr. Gaviria on 07-21-2022 Hematocrit (Bld) [Volume fraction] 39.6 % 37-47 [facility] Laboratory - Chemistry and C hemistry - challengeOrdered By: Dr. Gaviria on 07-21-2022 ALP [Catalytic activity/Vol] 105 U/L 45-117 [facility] ALT [Catalytic activity/Vol] 29 U/L 13-56 [facility] CO2 [Moles/Vol] 27.0 mmol/L 21.0-32.0 [facility] Globulin (S) [Mass/Vol] 4.1 g/dL 2.2-4.2 [facility] Urea nitrogen/Creatinine [Mass ratio] 23.4 mg/mg 10-20 [facility] Laboratory - Hematology and Cell countsOrdered By: Dr. Gaviria on 07-21-2022 Erythrocyte distribution width (RBC) [Entitic vol] 50.1 fL 35.1-43.9 [facility] Erythrocyte distribution width (RBC) [Ratio] 13.5 % 11.6-14.6 [facility] Immature granulocytes/100 WBC (Bld) 0.300 % 0.0-0.9 [facility] Comment on above: IG% - Immature Granu locytes (promyelocytes, myelocytes and metamyelocytes) > 1% indicates that a LEFT SHIFT is Present. MCH (RBC) [Entitic mass] 32.5 pg 27.0-32.0 [facility] Nucleated RBC/100 WBC (Bld) [Ratio] 0 % 0-5 [facility] MCHC Auto (RBC) [Mass/Vol]Or dered By: Dr. Gaviria on 07-21-2022 MCHC (RBC) [Mass/Vol] 32.3 g/dL 32-36 [facility] No Panel InformationOrdered By: Dr. Gaviria on 07-21-2022 Estimated GFR (MDRD) Amer 108 mL/min >60 [facility] Comment on above: GFR Calc Estimated GFR (MDRD) Non-Af Amer 89 mL/min >60 [facility] Comment on above: Non- GFR Calc Vitamin D 25-Hydroxy 61.6 ng/mL [facility] Comment on above: Vitamin D 25(OH) Sta tus Range Deficiency <20 ng/mL (50nmol/L) Insufficiency 20 - 30 ng/mL (50 - 75 nmol/L) Sufficiency 30 - 100 ng/mL (75 - 250 nmol/L) Toxicity >100 ng/mL (>250 nmol/L) Platelets bldOrdered By: Dr. Gaviria on 07-21-2022 Platelets (Bld) [#/Vol] 378 10*3/uL 150-450 [facility] Serum or plasma albumin chester urement (mass/volume)Ordered By: Dr. Gaviria on 07-21-2022 Albumin [Mass/Vol] 3.6 g/dL 3.2-5.0 [facility] Serum or plasma albumin/glob ulin mass ratioOrdered By: Dr. Gaviria on 07-21-2022 Albumin/Globulin [Mass ratio] 0.9 {ratio} 0.9-2.4 [facility] Serum or plasma calcium chester urement (mass/volume)Ordered By: Dr. Gaviria on 07-21-2022 Calcium [Mass/Vol] 9.1 mg/dL 8.5-10.1 [facility] Serum or plasma cholesterol in HDL measurement (mass/volume)Ordered By: Dr. Gaviria on 07-21-2022 Cholesterol in HDL [Mass/Vol] 68 mg/dL >40 [facility] Comment on above: The drugs N-Acetylcy steine and Metamizole may falsely depress this assay. Reference Range HDL <40 mg/dL Low HDL Cholesterol HDL >or= 60 mg/dL High HDL Cholesterol Serum or plasma cholesterol in VLDL measurement (mass/volume)Ordered By: Dr. Gaviria on 07-21-2022 Cholesterol in VLDL [Mass/Vol] 35 mg/dL 5-40 [facility] Serum or plasma creatinine m easurement (mass/volume)Ordered By: Dr. Gaviria on 07-21-2022 Creatinine [Mass/Vol] 0.68 mg/dL 0.55-1.02 [facility] Comment on above: The validity of the calculated GFR & GFRAA in patients over 70 years has not been determined. Clinical correlation is essential. Serum or plasma low density lipoprotein (LDL) cholesterol measurement (mass/volume)Ordered By: Dr. Gaviria on 07-21-2022 Cholesterol in LDL [Mass/Vol] 140 mg/dL 0-130 [facility] Serum or plasma urea nitroge n measurement (mass/volume)Ordered By: Dr. Gaviria on 07-21-2022 Urea nitrogen [Mass/Vol] 16 mg/dL 7-18 [facility] Thin prep Papanicolaou smear with manual screeningOrdered By: Dr. Gaviria on 07-21-2022 Thin prep Papanicolaou smear with manual screening 18 U/L 15-37 [facility] Thin prep Papanicolaou smear with manual screening 5 5-15 [facility] Whole blood hemoglobin A1c/t otal hemoglobin ratio (mass fraction)Ordered By: Dr. Gaviria on 07-21-2022 HbA1c (Bld) [Mass fraction] 5.8 % 3.8-5.6 [facility] Comment on above: Normal < 5.7 % Predi abetic 5.7 - 6.4 % Diabetic >or= 6.5 % Please note range changes. Laboratory - Microbiology an d Antimicrobial susceptibilityon 08-22-2021 SARS-CoV-2 (COVID-19) RNA GARLAND+probe Ql (Unsp spec) Not detected Not Detect [facility] Work Phone: Comment on above: Normal [...] pyogenes Ag IA Ql (Unsp spec) Negative [facility] Work Phone: CBC W/Diff, AutomatedOrdered By: Physician Office Clin Asst on 05-27-2018 Absolute Neut 4.2 {X10_3/uL} Normal 2.0-7.7 [facility] Work Phone: Comment on above: A1C CMP IN SURGERY O RDER HAVING RESULTS SENT TO [facility] [address] [place], [phone]) Basophils/100 WBC (Bld) 0.3 % Normal 0-1 [facility] Work Phone: Comment on above: A1C CMP IN SURGERY O RDER HAVING [facility] [address] [place], [address] Eosinophils/100 WBC (Bld) 1.1 % Normal 0-5 [facility] Work Phone: Comment on above: A1C CMP IN SURGERY O RDER HAVING RESULTS SENT TO DR B[facility]ROWSOhio[facility] [address] [place], [address] Erythrocyte distribution width (RBC) [Ratio] 13.5 % Normal 11.6-14.6 [facility] Work Phone: Comment on above: A1C CMP IN SURGERY O RDER HAVING RESULTS SENT TO DR FEARONOhio[facility] [address] [place], [address] Hematocrit (Bld) [Volume fraction] 39.6 % Normal 37-47 [facility] Work Phone: Comment on above: A1C CMP IN SURGERY O RDER HAVING RESULTS SENT TO [facility] [address] [place], [address] Hemoglobin (Bld) [Mass/Vol] 12.6 g/dL Normal 12.0-15.0 [facility] Work Phone: Comment on above: A1C CMP IN SURGERY O RDER HAVING RESULTS SENT TO [facility] [address] [place], [address] IM GRAN % 0.200 % Normal 0.0-0.9 [facility] Work Phone: Comment on above: IG% - Immature Granu locytes (promyelocytes, myelocytes andmetamyelocytes) > 1% indicates that a LEFT SHIFT is Present. A1C CMP IN SURGERY O RDER HAVING RESULTS SENT TO [facility] [address] [place], [address] Lymphocytes (Bld) [#/Vol] 1.69 {X10_3/ul} Normal 0.83-4.51 [facility] Work Phone: Comment on above: A1C CMP IN SURGERY O RDER HAVING RESULTS SENT TO DR [facility]ROWSOhio[facility] [address]zhhfg[address] [place], [address] Lymphocytes/100 WBC (Bld) 26.4 % Normal 19-41 [facility] Work Phone: Comment on above: A1C CMP IN SURGERY O RDER HAVING RESULTS SENT TO [facility] [address]bmk[address] [place], [address] MCH (RBC) [Entitic mass] 31.8 pg Normal 27.0-32.0 [facility] Work Phone: Comment on above: A1C CMP IN SURGERY O RDER HAVING RESULTS SENT TO DR Briceñomariposa [facility] [address]wh[address], [address] MCHC (RBC) [Mass/Vol] 31.8 {g/gl} Abnormal 32-36 [facility] Work Phone: Comment on above: A1C CMP IN SURGERY O RDER HAVING RESULTS SENT TO DR Briceñomariposa [facility] [address]iczbtou[address] [place], [address] MCV (RBC) [Entitic vol] 100.0 fL Abnormal 81-99 [facility] Work Phone: Comment on above: A1C CMP IN SURGERY O RDER HAVING RESULTS SENT TO DR [facility]ñoSt[facility] Ybizalgxss[address], [address] Monocytes/100 WBC (Bld) 5.8 % Normal 0-10 [facility] Work Phone: Comment on above: A1C CMP IN SURGERY O RDER HAVING RESULTS SENT TO DR Briceñomariposa [facility] [address]prsujmec[address] [place], [address] Neutrophils/100 WBC (Bld) 66.2 % Normal 47-70 [facility] Work Phone: Comment on above: A1C CMP IN SURGERY O RDER HAVING RESULTS SENT TO DR Briceñomariposa [facility] Clojwwopje7902[place], [address] Platelet mean volume (Bld) [Entitic vol] 10.0 fL Normal 6.2-12.0 Comprehensiv e [facility] Work Phone: Comment on above: A1C CMP IN SURGERY O RDER HAVING RESULTS SENT TO DR [facility]iceñoSt[facility] Zizhqupfxh4451K[place], [address] Platelets (Bld) [#/Vol] 328 10*3/uL Normal 150-450 [facility] Work Phone: Comment on above: A1C CMP IN SURGERY O RDER HAVING RESULTS SENT TO DR [facility]ric[facility]oSt[facility] [address]jcabld[address] [place], [address] RBC (Bld) [#/Vol] 3.96 {M/mm3} Abnormal 4.2-5.4 [facility] Internal Medicine Work Phone: Comment on above: A1C CMP IN SURGERY O RDER HAVING RESULTS SENT TO DR BURROWSmicheleSt. Rita's Hospital [address] [place], [address] RDW SD 48.8 fL Abnormal 35.1-43.9 [facility] Work Phone: Comment on above: A1C CMP IN SURGERY O RDER HAVING RESULTS SENT TO DR BURROWSOhio[facility] [address]iwe[address] [place], [address] WBC (Bld) [#/Vol] 6.4 10*3/uL Normal 4.4-11.0 [facility] Work Phone: Comment on above: A1C CMP IN SURGERY O RDER HAVING RESULTS SENT TO DR BURROWSmicheleSt. [facility]'s Hospital [address] [place], [address] Comprehensive Metabolic Prof ilOrdered By: Physician Office Clin Asst on 05-27-2018 Comprehensive metabolic 2000 panel 6 1 Normal 5-15 Comprehensi ve [facility] Medicine Work Phone: Comment on above: A1C CMP IN SURGERY O RDER HAVING RESULTS SENT TO DR BURROWSmichelemariposa [facility] [address]jdyntmk[address] [place], [address] DR. BURROWS ALSO WANT S CMP D7WSqezhadOhiohealth Van Wert Hospital Q[address]qudt[address] [place], [address] Comprehensive metabolic 2000 panel 93 mg/dL Normal 74-106 Compre[facility]si ve [facility] Work Phone: Comment on above: Please note revised GLUCOSE reference range [id number]/02/2018. DR. BURROWS ALSO WANT S CMP F4JWhebtyzOhiohealth Van Wert Hospital [address] [place], [address] Comprehensive metabolic 2000 panel 139 mmol/L Normal 136-145 Comprehensi ve [facility] Work Phone: Comment on above: A1C CMP IN SURGERY O RDER HAVING RESULTS SENT TO DR BURROWSOhio[facility] [address] [place], [place], [phone] DR. BURROWS ALSO WANT S CMP Y0LDdvarquCenterville [address]pf[address] [place], [address] Comprehensive metabolic 2000 panel 96 U/L Normal 45-117 Comprehensi ve [facility] Work Phone: Comment on above: DR. BURROWS ALSO WANT S CMP E4HLhmjlfaOhiohealth Van Wert Hospital [address] [place], [place], [phone] A1C CMP IN SURGERY O RDER HAVING RESULTS SENT TO DR BURROWSOhiohealth Van [facility] Hospital [address] [place], [place], [phone] Comprehensive metabolic 2000 panel 20 U/L Normal 15-37 Compre[facility]si [facility] Work Phone: Comment on above: DR. BURROWS ALSO WANT S CMP V7HNserwuzOhiohealth Van Wert Hospital [address] [place], [place], [phone] Comprehensive metabolic 2000 panel 8.6 mg/dL Normal 8.5-10.1 Comprehensi ve [facility] Work Phone: Comment on above: DR. BURROWS ALSO WANT S CMP H1CSlrpenxOhiohealth Van Wert Hospital [address] [place], [address] A1C CMP IN SURGERY O RDER HAVING RESULTS SENT TO DR BURROWSOhiohealth Van [facility]ert Hospital [address] [place], [place], [phone] Comprehensive metabolic 2000 panel 0.30 mg/dL Normal 0.20-1.00 Comprehensi ve [facility] Work Phone: Comment on above: A1C CMP IN SURGERY O RDER HAVING RESULTS SENT TO DR BURROWSOhiohealth [facility] Hospital [address] [place], [place], [phone] DR. BURROWS ALSO WANT S CMP U2JZbmooojOhiohealth Van Wert Hospital [address] [place], [place], [phone] Comprehensive metabolic 2000 panel 7.7 g/dL Normal 6.4-8.2 Comprehensi ve [facility] Work Phone: Comment on above: A1C CMP IN SURGERY O RDER HAVING RESULTS SENT TO DR BURROWSmichelemariposa [facility] [address]mspok[address] [place], [place], [phone] Comprehensive metabolic 2000 panel 28.5 {RATIO} Abnormal 10-20 Compre[facility]si ve [facility] Work Phone: Comment on above: A1C CMP IN SURGERY O RDER HAVING RESULTS SENT TO DR BURROWSOhio[facility] Hospital [address]fgccncx[address] [place], [place], [phone] Comprehensive metabolic 2000 panel 128 mL/min Normal Comprehensi ve [facility] Work Phone: Comment on above: GFR Calc A1C CMP IN SURGERY O RDER HAVING RESULTS SENT TO DR BURROWSOhiohealth [facility] Hospital [address]whic[address] [place], [place], [phone] Comprehensive metabolic 2000 panel 106 mL/min Normal Compre[facility]si ve [facility] Work Phone: Comment on above: Non- GFR Calc A1C CMP IN SURGERY O RDER HAVING RESULTS SENT TO DR BURROWSmicheleSt. Rita's Hospital [address]ygxwcek[address] [place], [place], [phone] Comprehensive metabolic 2000 panel 30 U/L Normal 13-56 Compre[facility]si ve [facility] Work Phone: Comment on above: A1C CMP IN SURGERY O RDER HAVING RESULTS SENT TO DR BURROWSmichelemariposa [facility] [address]xpitggv[address] [place], [place], [phone] DR. BURROWS ALSO WANT S CMP C0LZljssgpOhiohealth Van [facility]ert Hospital [address] [place], [place], [phone] Comprehensive metabolic 2000 panel 1.0 {RATIO} Normal 0.9-2.4 Comprehensi ve [facility] Work Phone: Comment on above: DR. BURROWS ALSO WANT S CMP V4VZhgfgrbOhiohealth Van Wert Hospital [address] [place], [place], [address] Comprehensive metabolic 2000 panel 4.0 g/dL Normal 2.2-4.2 Comprehensi ve [facility] Work Phone: Comment on above: DR. BURROWS ALSO WANT S CMP N1OZrfvqsjOhiohealth Van Wert Hospital [address] [place], [place], [phone] Comprehensive metabolic 2000 panel 0.60 mg/dL Normal 0.55-1.02 Comprehensi ve [facility] Work Phone: Comment on above: The validity of the calculated GFR AND GFRAA in patients over70 years has not been determined. Clinical correlation isessential. A1C CMP IN SURGERY O RDER HAVING RESULTS SENT TO DR BURROWSOhiohealth Van [facility] Hospital [address]ygper[address] [place], [place], [phone] Comprehensive metabolic 2000 panel 17 mg/dL Normal 7-18 Comprehensi ve [facility] Work Phone: Comment on above: A1C CMP IN SURGERY O RDER HAVING RESULTS SENT TO DR BURROWSOhio[facility] Hospital [address]nmwnhi[address] [place], [place], [address] DR. BURROWS ALSO WANT S CMP P5CXjrtjlsOhiohealth Van Wert Hospital [address] [place], [place], [phone] Comprehensive metabolic 2000 panel 91 mg/dL Normal 74-106 Comprehensi ve [facility] Work Phone: Comment on above: Please note revised GLUCOSE reference range [id number]/02/2018. A1C CMP IN SURGERY O RDER HAVING RESULTS SENT TO DR BURROWSmicheleSt. Rita's Hospital [address]attxwdym[address] [place], [phone] Comprehensive metabolic 2000 panel 22 U/L Normal 15-37 Comprehensi ve [facility] Work Phone: Comment on above: A1C CMP IN SURGERY O RDER HAVING RESULTS SENT TO DR BURROWSOhiohealth [facility] Hospital [address]ubbkkwt[address] [place], [phone] Comprehensive metabolic 2000 panel 3.8 g/dL Normal 3.2-5.0 Compre[facility]si ve [facility] Work Phone: Comment on above: DR. BURROWS ALSO WANT S CMP E6NGqeioseOhiohealth Van Wert Hospital [address] [place], [place], [phone] Comprehensive metabolic 2000 panel 0.66 mg/dL Normal 0.55-1.02 Comprehensi ve [facility] Work Phone: Comment on above: The validity of the calculated GFR AND GFRAA in patients over70 years has not been determined. Clinical correlation isessential. DR. BURROWS ALSO WANT S CMP [address] [place], [address] Comprehensive metabolic 2000 panel 95 mL/min Normal Comprehensi ve [facility] Work Phone: Comment on above: Non- GFR Calc DR. BURROWS ALSO WANT S CMP [address] [place], [place], [phone] Comprehensive metabolic 2000 panel 7.8 g/dL Normal 6.4-8.2 Compre[facility]si ve [facility] Work Phone: Comment on above: DR. BURROWS ALSO WANT S CMP [address] [place], [address] Comprehensive metabolic 2000 panel 26.0 {RATIO} Abnormal 10-20 Comprehensi ve [facility] Work Phone: Comment on above: DR. BURROWS ALSO WANT S CMP S0LGvtbccfOhiohealth Van Wert Hospital [address] [place], [place], [phone] Comprehensive metabolic 2000 panel 26.0 mmol/L Normal 21.0-32.0 Comprehensi ve [facility] Work Phone: Comment on above: A1C CMP IN SURGERY O RDER HAVING RESULTS SENT TO DR BURROWSOhiohealth Van [facility]ert Hospital [address] [place], [place], [phone] DR. BURROWS ALSO WANT S CMP [address] [place], [place], [phone] Comprehensive metabolic 2000 panel 107 mmol/L Normal 98-107 Comprehensi ve [facility] Medicine Work Phone: Comment on above: A1C CMP IN SURGERY O RDER HAVING RESULTS SENT TO DR BURROWSOhio[facility] Hospital [address] [place], [place], [phone] DR. BURROWS ALSO WANT S CMP P9RRypaordOhiohealth Van Wert Hospital [address]es[address]tiad[address] [place], [place], [phone] Comprehensive metabolic 2000 panel 3.8 mmol/L Normal 3.5-5.1 Comprehensi ve [facility] Work Phone: Comment on above: A1C CMP IN SURGERY O RDER HAVING RESULTS SENT TO DR BURROWSOhiohealth [facility] Hospital [address] [place], [place], [phone] Comprehensive metabolic 2000 panel 0.8 {RATIO} Abnormal 0.9-2.4 Comprehensi ve [facility] Work Phone: Comment on above: A1C CMP IN SURGERY O RDER HAVING RESULTS SENT TO DR BURROWSOhiohealth Van [facility] Hospital [address]swmdr[address] [place], [address] Comprehensive metabolic 2000 panel 4.2 g/dL Normal 2.2-4.2 Comprehensi ve [facility] Work Phone: Comment on above: A1C CMP IN SURGERY O RDER HAVING RESULTS SENT TO DR BURROWSOhiohealth [facility] Hospital [address]xt[address] [place], [address] Comprehensive metabolic 2000 panel 3.5 g/dL Normal 3.2-5.0 Comprehensi ve [facility] Medicine Work Phone: Comment on above: A1C CMP IN SURGERY O RDER HAVING RESULTS SENT TO DR [facility]iceñoSt[facility] [address]ftzptopbx[address] [place], [address] Comprehensive metabolic 2000 panel 115 mL/min Normal Comprehensi ve Internal Medicine Work Phone: Comment on above: GFR Calc DR. BURROWS ALSO WANT S CMP F4TEyazwmbOhiohealth Van Wert Hospital [address] [place], [address] Comprehensive metabolic 2000 panel 3.7 mmol/L Normal 3.5-5.1 Comprehensi ve Internal Medicine Work Phone: Comment on above: DR. BURROWS ALSO WANT S CMP R5MAmhrzmrOhiohealth Van Wert Hospital [address] [place], [address] Free B5Xnrgjkr By: Jai wooten on 05-27-2018 Free T3 [Mass/Vol] 3.2 pg/mL Normal 2.18-3.98 Compre [facility] Internal Medicine Work Phone: Comment on above: A1C CMP IN SURGERY O RDER HAVING RESULTS SENT TO DR BURROWSOhiohealth Van Wert Hospital [address] [place], [address] Hemoglobin X1nSvvvimr By: [employer] stem Manager Combination on 05-27-2018 HbA1c (Bld) [Mass fraction] 6.2 % Normal 4.2-6.3 [facility] Work Phone: Comment on above: DR. BURROWS ALSO WANT S CMP [address] [place], [address] MicroalbOrdered By: System Varsha davis on 05-27-2018 Creatinine [Mass/Vol] 114.00 mg/dL Normal [facility] Work Phone: Comment on above: [facility] [address] [place], [address] Creatinine [Mass/Vol] 10.6 {mg/g_CRE} Normal [facility] Work Phone: Comment on above: [facility] [address] [place], [address] Microalb 12.1 mg/L Normal [facility] Work Phone: Comment on above: [facility] [address] [place], [address] NMR LipoprofileOrdered By: Nader may Manager Combination on 05-27-2018 Cholesterol [Mass/Vol] 283 mg/dL Abnormal [...] the [place] Food and Drug Administration.Performed at: [facility] [address] [id number] Director: Ashlee Hernández MD, Phone: [phone] A1C CMP IN SURGERY O RDER HAVING [...] phone number NMR Lipoprofile 21.7 nm Normal [facility] Internal Medicine Work Phone: Comment on [...] O RDER HAVING RESULTS SENT TO DR Preez (refer to report for specific site)refer to report for address and phone number NMR Lipoprofile 180 mg/dL Abnormal 0-[address] [facility] Medicine Work Phone: Comment on above: Optimal < 100 Above optimal 100 - 129 Borderline 130 - 159 High 160 - 189 Very high > 189LDL-C is inaccurate if patient is non-fasting. A1C CMP IN SURGERY O RDER HAVING RESULTS SENT TO DR Perez (refer to report for specific site)refer to report for address and phone number NMR Lipoprofile 325 nmol/L Normal [facility] Internal Medicine Work Phone: Comment on above: A1C CMP IN SURGERY O RDER HAVING RESULTS SENT TO DR Perez (refer to report for specific site)refer to report for address and phone number NMR Lipoprofile 1760 nmol/L Abnormal [facility] Internal Medicine Work Phone: Comment on above: Low < 1000 Moderate 1000 - 1299 Borderline-High 1300 - 1599 High 1600 - 2000 Very High > 2000 A1C CMP IN SURGERY O RDER HAVING RESULTS SENT TO DR Perez (refer to report for specific site)refer to report for address and phone number NMR Lipoprofile 71 mg/dL Normal [facility] Internal Medicine Work Phone: Comment on above: A1C CMP IN SURGERY O RDER HAVING RESULTS SENT TO DR Perez (refer to report for specific site)refer to report for address and phone number NMR Lipoprofile 40.2 umol/L Normal [facility]prehe [facility] Internal Medicine Work Phone: Comment on above: A1C CMP IN SURGERY O RDER HAVING RESULTS SENT TO DR Perez (refer to report for specific site)refer to report for address and phone number T4 Free DirectOrdered By: stem Manager Combination on 05-27-2018 Free T4 [Mass/Vol] 0.96 ng/dL Normal 0.76-1.46 [facility] Internal Medicine Work Phone: Comment on above: A1C CMP IN SURGERY O RDER HAVING RESULTS SENT TO DR BURROWSOhio[facility] [address] [place], [address] Thyroid Stim Hormone (TSH)Or dered By: Physician Office Clin Asst on 05-27-2018 TSH Qn 1.01 {uIU/mL} Normal 0.358-3.74 [facility] Internal [facility] Work Phone: Comment on above: A1C CMP IN SURGERY O RDER HAVING RESULTS SENT TO DR BURROWSmichelemariposa [facility] [address]hjvmi[address] [place], [id number] Vitamin D,25 HydroxyOrdered By: Physician Office Clin Asst on 05-27-2018 Vitamin D,25 Hydroxy 14.2 ng/mL [...] RDER HAVING RESULTS SENT TO DR BURROWSmichelemariposa [facility] Tsfvhjnoqm2409[place] [place], [address] CREATININE FINGERSTICKOrdere d By: Physician Office Clin Asst on 05-18-2018 Creatinine [Mass/Vol] 1.2 mg/dL Abnormal 0.55-1.02 [facility] Work Phone: Comment on above: [facility] LaboratoryPoint of [address] [place] [address] GFR/1.73 sq M predicted among non-blacks MDRD (S/P/Bld) [Vol rate/Area] 49.0000 mL/min/{1.73_m2} Abnormal Compreh ensive Internal Medicine Work Phone: Comment on above: [facility] LaboratoryPoint of [address] [place] [address] Blood Glucose , Office ([phone])Ordered By: Mackenzie Bernard on 04-12-2018 Glucose Glucometer molar conc (BldC) 87 1 Normal [facility] Work Phone: HgA1C , Office ([phone])Ordere d By: Mackenzie Bernard on 04-12-2018 Hemoglobin A1c/Hemoglobin.total mass fraction (Bld) 5.8 % Normal 4.6 - 7.1 Comprehensiv e Internal Medicine Work Phone: Blood Glucose , Office ([phone])Ordered By: Lila Muniz on 12-27-2015 Glucose Glucometer molar conc (BldC) 104 1 Normal [facility] Work Phone: CALCIFEDIOL ([phone])Ordered B y: Physician Office Clin Asst on 12-27-2015 25-Hydroxyvitamin D2+25-Hydroxyvitamin D3 mass conc 27.1 ng/mL Abnormal 30.0-100.0 [facility] Work Phone: Comment on above: Vitamin D deficiency has been defined by the [place] of[place] and an Endocrine Society practice guideline as alevel of serum 25-OH vitamin D less than 20 ng/mL (1,2).The Endocrine Society went on to further define vitamin Dinsufficiency as a level between 21 and 29 ng/mL (2).1. IOM ([place] [employer]). 2010. Dietary reference intakes for calcium and D. Teixeira [place]: The National Academies Press.2. Luly MF, Michelle GALICIA, Jefry DAVILA, et al. Evaluation, treatment, and prevention of vitamin D deficiency: an Endocrine Society clinical practice guideline. JCEM. 2010; 96(7):1911-30. PATIENT WAS FASTINGP ERFORMED BY: CB [facility] Ecqqta7139 Brown RoadDublin [place] [id number] CBC with auto diff ([id number])Or dered By: Physician Office Clin Asst on 12-27-2015 Basophils #/vol (Bld) 0.0 {x10E3/uL} Normal 0.0-0.2 [facility] Work Phone: Comment on above: PATIENT WAS FASTINGP ERFORMED BY: [facility] Ekqzfc9188 Brown RoadDublin [place] [id number] Basophils/100 WBC (Bld) 1 % Normal [facility] Work Phone: Comment on above: PATIENT WAS FASTINGP ERFORMED BY: [facility] Zvefeg9535 Brown RoadDublin [place] [id number] Eosinophils #/vol (Bld) 0.1 {x10E3/uL} Normal 0.0-0.4 [facility] Work Phone: Comment on above: PATIENT WAS FASTINGP ERFORMED BY: [facility] Cndsbw7561 [address] RoadDublin [place] [id number] Eosinophils/100 WBC (Bld) 2 % Normal [facility] Work Phone: Comment on above: PATIENT WAS FASTINGP ERFORMED BY: [facility] Dfdeda1136 Brown RoadDublin [place] [id number] Erythrocyte distribution width Ratio (RBC) 13.8 % Normal 12.3-15.4 [facility] Work Phone: Comment on above: PATIENT WAS FASTINGP ERFORMED BY: CB [facility] Fgpphu2477 Brown RoadDublin [place] [id number] Hematocrit Volume Fraction (Bld) 34.0 % Normal 34.0-46.6 [facility] Work Phone: Comment on above: PATIENT WAS FASTINGP ERFORMED BY: CB [facility] Fqjcfv8714 [address] RoadDublin [place] [id number] Hemoglobin mass conc (Bld) 11.5 g/dL Normal 11.1-15.9 [facility] Work Phone: Comment on above: PATIENT WAS FASTINGP ERFORMED BY: [facility] Cjewkz7848 Brown Roadblin [place] [id number] Immature granulocytes #/vol (Bld) 0.0 {x10E3/uL} Normal 0.0-0.1 [facility] Work Phone: Comment on above: PATIENT WAS FASTINGP ERFORMED BY: [facility] Miimda[address] [facility]in [place] [id number] Immature granulocytes/100 WBC (Bld) 0 % Normal [facility] Work Phone: Comment on above: PATIENT WAS FASTINGP ERFORMED BY: LabCoUNM Cancer CenterLddtpe8488 [address] [facility] [id number] Lymphocytes #/vol (Bld) 1.7 {x10E3/uL} Normal 0.7-3.1 [facility] Work Phone: Comment on above: PATIENT WAS FASTINGP ERFORMED BY: LabCoVirtua MarltonFbsbnk7419 [address] [facility] [id number] Lymphocytes/100 WBC (Bld) 28 % Normal [facility] Work Phone: Comment on above: PATIENT WAS FASTINGP ERFORMED BY: LabCoUNM Cancer CenterVtqubl9666 [facility] [id number] MCH Entitic mass (RBC) 32.0 pg Normal 26.6-33.0 [facility] Work Phone: Comment on above: PATIENT WAS FASTINGP ERFORMED BY: [facility] Bhldvd2359 [address] [facility] [id number] MCHC mass conc (RBC) 33.8 g/dL Normal 31.5-35.7 [facility] Internal Medicine Work Phone: Comment on above: PATIENT WAS FASTINGP ERFORMED BY: [facility] Akizpj2994 [address] [facility] [id number] MCV Entitic volume (RBC) 95 fL Normal 79-97 [facility] Work Phone: Comment on above: PATIENT WAS FASTINGP ERFORMED BY: MERCED Llamas6370 [address] [facility] [id number] Monocytes #/vol (Bld) 0.3 {x10E3/uL} Normal 0.1-0.9 [facility] Work Phone: Comment on above: PATIENT WAS FASTINGP ERFORMED BY: MERCED Garza Emwysb6993 [facility] [id number] Monocytes/100 WBC (Bld) 5 % Normal [facility] Work Phone: Comment on above: PATIENT WAS FASTINGP ERFORMED BY: MERCED Llamas6370 [facility] [id number] Neutrophils #/vol (Bld) 4.0 {x10E3/uL} Normal 1.4-7.0 [facility] Work Phone: Comment on above: PATIENT WAS FASTINGP ERFORMED BY: MERCED Cmlin6370 [facility] [id number] Neutrophils/100 WBC (Bld) 64 % Normal [facility] Work Phone: Comment on above: PATIENT WAS FASTINGP ERFORMED BY: MERCED Cmlin6370 [facility] [id number] Platelets #/vol (Bld) 336 {x10E3/uL} Normal 150-379 [facility] Work Phone: Comment on above: PATIENT WAS FASTINGP ERFORMED BY: MERCED Cmlin6370 [facility] [id number] RBC #/vol (Bld) 3.59 {x10E6/uL} Abnormal 3.77-5.28 [facility] Internal Medicine Work Phone: Comment on above: PATIENT WAS FASTINGP ERFORMED BY: MERCED LabSaint [facility] Ysuokd8335 [facility] [id number] WBC #/vol (Bld) 6.1 {x10E3/uL} Normal 3.4-10.8 [facility] Internal Medicine Work Phone: Comment on above: PATIENT WAS FASTINGP ERFORMED BY: MERCED [facility] Uaoarw4699 [address] AuthorBeeCarolinas Continuecare Hospital At Kings Mountainin [place] [id number] HgA1C , Office ([id number])Ordere d By: Lila Muniz on 12-27-2015 Hemoglobin A1c/Hemoglobin.total mass fraction (Bld) 6.1 % Normal 4.6 - 7.1 Comprehensiv e [facility] Medicine Work Phone: LIPID PANEL ([id number])Ordered B y: Physician Office Clin Asst on 12-27-2015 Cholesterol in HDL mass conc 67 mg/dL Normal [facility] Work Phone: Comment on above: According to ATP-III Guidelines, HDL-C >59 mg/dL is considered anegative risk factor for CHD. PATIENT WAS FASTINGP ERFORMED BY: MERCED [employer] Tanhfq6413 Brown AuthorBeeAtrium Health [place] [id number] Cholesterol in LDL mass conc 182 mg/dL Abnormal 0-99 [facility] Work Phone: Comment on above: PATIENT WAS FASTINGP ERFORMED BY: MERCED LabInango Systems Ltdrp Wxwcdc6634 Brown AuthorBeeAtrium Health [place] [id number] Cholesterol in LDL/Cholesterol in HDL mass ratio 2.7 {ratio_units} Normal 0.0-3.2 [facility] Work Phone: Comment on above: LDL/HDL Ratio Men Wo men 1/2 Avg.Risk 1.0 1.5 Avg.Risk 3.6 3.2 2X Avg.Risk 6.2 5.0 3X Avg.Risk 8.0 6.1 PATIENT WAS FASTINGP ERFORMED BY: MERCED LabInango Systems Ltdrp Qgfthp4607 Brown AuthorBeeAtrium Health [place] [id number] Cholesterol in VLDL mass conc 25 mg/dL Normal 5-40 [facility] Work Phone: Comment on above: PATIENT WAS FASTINGP ERFORMED BY: MERCED LabInango Systems Ltdrp Ltxcmg5404 Brown AuthorBeeAtrium Health [place] [id number] Cholesterol mass conc 274 mg/dL Abnormal 100-199 [facility] Work Phone: Comment on above: PATIENT WAS FASTINGP ERFORMED BY: MERCED [facility] Vjyiut2010 [address] [facility] Hospitalbl[facility] [place] [id number] Triglyceride mass conc 125 mg/dL Normal 0-149 [facility] Work Phone: Comment on above: PATIENT WAS FASTINGP ERFORMED BY: MERCED Angelika Cmlin6370 [address] [facility] Hospitalbl[facility] [place] [id number] METABOLIC PANEL, COMPREHENSI VE (25013)Ordered By: Physician Office Clin Asst on 12-27-2015 Albumin mass conc 4.1 g/dL Normal 3.6-4.8 Compreh [facility] Internal Medicine Work Phone: Comment on above: PATIENT WAS FASTINGP ERFORMED BY: MERCED LabCo Doajbg[address] [facility]in [place] [id number] Albumin/Globulin mass ratio 1.5 {ratio} Normal 1.1-2.5 [facility] Work Phone: Comment on above: PATIENT WAS FASTINGP ERFORMED BY: MERCED LabCherie Vyxdpp7119 [address] [facility] [id number] ALP enzyme act/vol 113 [iU]/L Normal 39-117 [facility] Work Phone: Comment on above: PATIENT WAS FASTINGP ERFORMED BY: MERCED LabCheriejillian Tokpfh[address] [facility] Hospitalin [place] [id number] ALT enzyme act/vol 27 [iU]/L Normal 0-32 [facility] Work Phone: Comment on above: PATIENT WAS FASTINGP ERFORMED BY: MERCED LabCherie Wyycep[address] [facility]in [place] [id number] AST enzyme act/vol 21 [iU]/L Normal 0-40 [facility] Work Phone: Comment on above: PATIENT WAS FASTINGP ERFORMED BY: MERCED [facility] Zormtq7674 [address] [facility] [id number] Bilirubin mass conc mg/dL Normal 0.0-1.2 [facility] Internal Medicine Work Phone: Comment on above: PATIENT WAS FASTINGP ERFORMED BY: MERCED [facility] Idebsk6693 [address] [facility] [id number] Calcium mass conc 9.1 mg/dL Normal 8.7-10.3 Compreh ensive Internal Medicine Work Phone: Comment on above: PATIENT WAS FASTINGP ERFORMED BY: MERCED LabCojillian CmRnpsww4784 Brown RoadDublin [place] [id number] Chloride molar conc 101 mmol/L Normal 97-108 Compr ehensive Internal Medicine Work Phone: Comment on above: PATIENT WAS FASTINGP ERFORMED BY: MERCED LabCojillian CmFrhumh0698 [address] Roadblin [place] [id number] CO2 molar conc 23 mmol/L Normal 18-29 Comprehens naseem Internal Medicine Work Phone: Comment on above: PATIENT WAS FASTINGP ERFORMED BY: MERCED LabStephanie CmVsxnww2905 Brown RoadAtrium Health [facility] [id number] Creatinine mass conc 0.72 mg/dL Normal 0.57-1.00 Comp rehensive Internal Medicine Work Phone: Comment on above: PATIENT WAS FASTINGP ERFORMED BY: MERCED LabCojillian CmWcpmuo[address] [facility]in [place] [id number] GFR/1.73 sq M predicted among blacks CKD-EPI vol rate/area (S/P/Bld) 100 mL/min/1.73 Normal Comprehensiv e Internal Medicine Work Phone: Comment on above: PATIENT WAS FASTINGP ERFORMED BY: MERCED [facility] Vttafu4392 Brown RoadCarolinas Continuecare Hospital At [facility] Mountainin [place] [id number] GFR/1.73 sq M predicted among non-blacks CKD-EPI vol rate/area (S/P/Bld) 87 mL/min/1.73 Normal [facility] Work Phone: Comment on above: PATIENT WAS FASTINGP ERFORMED BY: MERCED [facility] Udlbnn5611 [address] Roadblin [place] [id number] Globulin mass conc (S) 2.8 g/dL Normal 1.5-4.5 [facility] Work Phone: Comment on above: PATIENT WAS FASTINGP ERFORMED BY: MERCED [facility] Tmoptt6923 Brown RoadAtrium Health [place] [id number] Glucose mass conc 110 mg/dL Abnormal 65-99 Compreh ensive Internal Medicine Work Phone: Comment on above: PATIENT WAS FASTINGP ERFORMED BY: MERCED Angelika Llamas6370 [address] [facility] [id number] Potassium molar conc 4.1 mmol/L Normal 3.5-5.2 Comp rehensive Internal Medicine Work Phone: Comment on above: PATIENT WAS FASTINGP ERFORMED BY: MERCED Angelika Llamas6370 [facility] [id number] Protein mass conc 6.9 g/dL Normal 6.0-8.5 Compreh ensive Internal Medicine Work Phone: Comment on above: PATIENT WAS FASTINGP ERFORMED BY: MERCED Angelika Cmlin6370 [facility] [id number] Sodium molar conc 141 mmol/L Normal 134-144 Compreh ensive Internal Medicine Work Phone: Comment on above: PATIENT WAS FASTINGP ERFORMED BY: MERCED Greg Mdjtik0540 [facility] [id number] Urea nitrogen mass conc 16 mg/dL Normal 8-27 [facility] Work Phone: Comment on above: PATIENT WAS FASTINGP ERFORMED BY: MERCED Angelika Cmlin6370 [facility] [id number] Urea nitrogen/Creatinine mass ratio 22 mg/mg Normal 11-26 [facility] Work Phone: Comment on above: PATIENT WAS FASTINGP ERFORMED BY: MERCED Jose LuisSaint Joseph Health Center Aqiuuc0485 [facility] [id number] MICROALBUMINOrdered By: Syst em Manager Combination on 12-27-2015 Albumin DL <= 20 mg/L mass conc (U) mg/dL Normal [facility] Work Phone: Comment on above: PATIENT WAS FASTINGP ERFORMED BY: MERCED LabSaint [facility] Center Gdfuuq3515 [facility] [id number] Albumin/Creatinine mass ratio (U) <5.3 Normal 0.0-30.0 [facility] Work Phone: Comment on above: PATIENT WAS FASTINGP ERFORMED BY: [facility] Wfzsel4145 [facility] [id number] Creatinine mass conc (U) 56.7 mg/dL Normal [facility] Work Phone: Comment on above: PATIENT WAS FASTINGP ERFORMED BY: [facility] Mkitxv0652 [facility] [id number] T3, FREE (TRIDOTHYRONINE) (4 1176)Ordered By: Physician Office Clin Asst on 12-27-2015 T3 free mass conc 3.3 pg/mL Normal 2.0-4.4 Compreh ensive Internal Medicine Work Phone: Comment on above: PATIENT WAS FASTINGP ERFORMED BY: [facility] Bfhldk2479 [facility] [id number] T4, FREE (THYROXINE) (66096) Ordered By: Physician Office Clin Asst on 12-27-2015 T4 free mass conc 1.05 ng/dL Normal 0.82-1.77 Compreh ensive Internal Medicine Work Phone: Comment on above: PATIENT WAS FASTINGP ERFORMED BY: [facility] Gkizez2012 [facility] [id number] TSH (THYROID STIMULATING HOR EMMIE) (16043)Ordered By: Physician Office Clin Asst on 12-27-2015 Thyrotropin Qn 0.917 {uIU/mL} Normal 0.450-4.50 0 [facility] Work Phone: Comment on above: PATIENT WAS FASTINGP ERFORMED BY: LabSaint [facility] Jfgvxw5954 [facility] [id number] Serum Creatinine AND GFROrde red By: Physician Office Clin Asst on 05-17-2015 Creatinine mass conc 0.74 mg/dL Normal 0.55-1.20 Comp rehensive Internal Medicine Work Phone: Comment on above: The validity of the calculated GFR AND GFRAA in patients over70 years has not been determined. Clinical correlation isessential. [facility] Iixcqhrovt[address] [place], [place], [id number] GFR/1.73 sq M predicted among non-blacks MDRD vol rate/area (S/P/Bld) 84 mL/min/{1.73_m2} Normal Comprehe nsive Internal Medicine Work Phone: Comment on above: Non- GFR [facility] Ofykvfdz[address] [place], [place], [phone] Serum Creatinine AND GFR 101 mL/min Normal [facility] Work Phone: Comment on above: GFR [facility] Qtbvebap[address] [place], [place], [phone] YURI (ANTINUCLEAR ANTIBODY) ( [id number])Ordered By: Physician Office Clin Asst on 01-23-2015 Nuclear Ab Ql (S) Negative Normal Compreh ensive Internal Medicine Work Phone: Comment on above: PATIENT WAS FASTINGP ERFORMED BY: Parakweet [facility] [id number] C-REACTIVE PROTEIN ([id number])Or dered By: Physician Office Clin Asst on 01-23-2015 CRP mass conc 2.3 mg/L Normal 0.0-4.9 Comprehensi ve Internal Medicine Work Phone: Comment on above: PATIENT WAS FASTINGP ERFORMED BY: [employer]6370 [facility] [id number] CBC W/AUTO DIFF WBC (68555)O rdered By: Physician Office Clin Asst on 01-23-2015 Basophils #/vol (Bld) 0.0 {x10E3/uL} Normal 0.0-0.2 [facility] Work Phone: Comment on above: PATIENT WAS FASTINGP ERFORMED BY: [employer]6370 [facility] [id number] Information: [id number] Basophils/100 WBC (Bld) 0 % Normal [facility] Work Phone: Comment on above: PATIENT WAS FASTINGP ERFORMED BY: [employer]6370 [facility] [id number] Information: [id number] Eosinophils #/vol (Bld) 0.1 {x10E3/uL} Normal 0.0-0.4 [facility] Work Phone: Comment on above: PATIENT WAS FASTINGP ERFORMED BY: [address] [id number] Information: [id number] Eosinophils/100 WBC (Bld) 1 % Normal [facility] Work Phone: Comment on above: PATIENT WAS FASTINGP ERFORMED BY: [address] [id number] Information: [id number] Erythrocyte distribution width Ratio (RBC) 14.1 % Normal 12.3-15.4 [facility] Work Phone: Comment on above: PATIENT WAS FASTINGP ERFORMED BY: [address] [id number] Information: [id number] Hematocrit Volume Fraction (Bld) 36.3 % Normal 34.0-46.6 [facility] Work Phone: Comment on above: PATIENT WAS FASTINGP ERFORMED BY: [address] [id number] Information: [id number] Hemoglobin mass conc (Bld) 12.1 g/dL Normal 11.1-15.9 [facility] Work Phone: Comment on above: PATIENT WAS FASTINGP ERFORMED BY: [address] [id number] Information: [id number] Immature granulocytes #/vol (Bld) 0.0 {x10E3/uL} Normal 0.0-0.1 [facility] Work Phone: Comment on above: PATIENT WAS FASTINGP ERFORMED BY: [address] [id number] Information: [id number] Immature granulocytes/100 WBC (Bld) 0 % Normal [facility] Work Phone: Comment on above: PATIENT WAS FASTINGP ERFORMED BY: [place] [id number] [facility] [id number] Information: [id number] Lymphocytes #/vol (Bld) 2.0 {x10E3/uL} Normal 0.7-3.1 [facility] Work Phone: Comment on above: PATIENT WAS FASTINGP ERFORMED BY: [address] [id number] Information: [id number] Lymphocytes/100 WBC (Bld) 33 % Normal [facility] Work Phone: Comment on above: PATIENT WAS FASTINGP ERFORMED BY: [address] [id number] Information: [id number],[id number] MCH Entitic mass (RBC) 31.3 pg Normal 26.6-33.0 [facility] Work Phone: Comment on above: PATIENT WAS FASTINGP ERFORMED BY: [address] [id number] Information: [id number] MCHC mass conc (RBC) 33.3 g/dL Normal 31.5-35.7 [facility] Internal Medicine Work Phone: Comment on above: PATIENT WAS FASTINGP ERFORMED BY: [address] [id number] Information: [id number],[id number] MCV Entitic volume (RBC) 94 fL Normal 79-97 [facility] Work Phone: Comment on above: PATIENT WAS FASTINGP ERFORMED BY: [address] [id number] Information: [id number] Monocytes #/vol (Bld) 0.3 {x10E3/uL} Normal 0.1-0.9 [facility] Work Phone: Comment on above: PATIENT WAS FASTINGP ERFORMED BY: MERCED Cmlin6370 [facility] [id number] Information: [id number],[id number] Monocytes/100 WBC (Bld) 5 % Normal [facility] Work Phone: Comment on above: PATIENT WAS FASTINGP ERFORMED BY: MERCED [address] [id number] Information: [id number] Neutrophils #/vol (Bld) 3.6 {x10E3/uL} Normal 1.4-7.0 [facility] Work Phone: Comment on above: PATIENT WAS FASTINGP ERFORMED BY: MERCED Cm[address] [id number] Information: [id number] Neutrophils/100 WBC (Bld) 61 % Normal [facility] Work Phone: Comment on above: PATIENT WAS FASTINGP ERFORMED BY: MERCED Garza Wmstvz33[address] [id number] Information: [id number] Platelets #/vol (Bld) 344 {x10E3/uL} Normal 150-379 [facility] Work Phone: Comment on above: PATIENT WAS FASTINGP ERFORMED BY: MERCED Cm[address] [id number] Information: [id number] RBC #/vol (Bld) 3.86 {x10E6/uL} Normal 3.77-5.28 [facility] Internal Medicine Work Phone: Comment on above: PATIENT WAS FASTINGP ERFORMED BY: MERCED GarzaJulie V[place] 0929770 [facility] [id number] Information: [id number] WBC #/vol (Bld) 6.0 {x10E3/uL} Normal 3.4-10.8 [facility] Internal Medicine Work Phone: Comment on above: PATIENT WAS FASTINGP ERFORMED BY: MERCED Carney Xvcrgy6793 [facility] [id number] Information: [id number] Creatine Kinase Total (32133 )Ordered By: Physician Office Clin Asst on 01-23-2015 CK enzyme act/vol 184 U/L Abnormal 24-173 Compreh ensive Internal Medicine Work Phone: Comment on above: ADDENDA: non-emergen t till apt PATIENT WAS FASTINGP ERFORMED BY: MERCED LabSaint [facility] Dippfx4425 [facility] [id number] LIPID PANEL (65491)Ordered B y: Physician Office Clin Asst on 01-23-2015 Cholesterol in HDL mass conc 72 mg/dL Normal [facility] Work Phone: Comment on above: According to ATP-III Guidelines, HDL-C >59 mg/dL is considered anegative risk factor for CHD. PATIENT WAS FASTINGP ERFORMED BY: MERCED WebLink InternationalSaint [facility] Center Jcdnpo2093 [facility] [id number] Cholesterol in LDL mass conc 157 mg/dL Abnormal 0-99 [facility] Work Phone: Comment on above: Please note refere nce interval change PATIENT WAS FASTINGP ERFORMED BY: MERCED Jose LuisStephanie Bbwdrs4152 [facility] [id number] Cholesterol in LDL/Cholesterol in HDL mass ratio 2.2 {ratio_units} Normal 0.0-3.2 [facility] Work Phone: Comment on above: LDL/HDL Ratio Men Wo men 1/2 Avg.Risk 1.0 1.5 Avg.Risk 3.6 3.2 2X Avg.Risk 6.2 5.0 3X Avg.Risk 8.0 6.1 PATIENT WAS FASTINGP ERFORMED BY: MERCED LabSaint [facility] Cbmpdp3540 [facility] [id number] Cholesterol in VLDL mass conc 25 mg/dL Normal 5-40 [facility] Work Phone: Comment on above: PATIENT WAS FASTINGP ERFORMED BY: MERCED LabSaint [facility] Mfahre5585 [facility] [id number] Cholesterol mass conc 254 mg/dL Abnormal 100-199 [facility] Work Phone: Comment on above: Please note refere nce interval change PATIENT WAS FASTINGP ERFORMED BY: MERCED [facility] Xesovk9382 [address] Roadblin [place] [id number] Triglyceride mass conc 126 mg/dL Normal 0-149 [facility] Work Phone: Comment on above: Please note refere nce interval change PATIENT WAS FASTINGP ERFORMED BY: CB [facility] Zebzli7740 [address] [facility] [id number] METABOLIC PANEL, COMPREHENSI VE (83176)Ordered By: Physician Office Clin Asst on 01-23-2015 Albumin mass conc 4.1 g/dL Normal 3.6-4.8 [facility] Internal Medicine Work Phone: Comment on above: PATIENT WAS FASTINGP ERFORMED BY: MERCED [facility] Zsmtjw8539 [facility] [id number] Albumin/Globulin mass ratio 1.6 {ratio} Normal 1.1-2.5 [facility] Work Phone: Comment on above: PATIENT WAS FASTINGP ERFORMED BY: MERCED [facility] Fgnwmc[address] [facility] [place] [id number] ALP enzyme act/vol 97 [iU]/L Normal 39-117 [facility] Internal Medicine Work Phone: Comment on above: PATIENT WAS FASTINGP ERFORMED BY: MERCED [facility] Pisaah6356 [facility] [id number] ALT enzyme act/vol 22 [iU]/L Normal 0-32 [facility] Internal Medicine Work Phone: Comment on above: PATIENT WAS FASTINGP ERFORMED BY: CB [facility] Zfypyn9684 [address] Roadbl[address] [place] [id number] AST enzyme act/vol 16 [iU]/L Normal 0-40 [facility] Internal Medicine Work Phone: Comment on above: PATIENT WAS FASTINGP ERFORMED BY: MERCED [facility] Kmdasd9460 [facility] [id number] Bilirubin mass conc 0.2 mg/dL Normal 0.0-1.2 Compr ehensive Internal Medicine Work Phone: Comment on above: PATIENT WAS FASTINGP ERFORMED BY: MERCED Llamas[address] [facility] [place] [id number] Calcium mass conc 9.1 mg/dL Normal 8.7-10.3 Compreh ensive Internal Medicine Work Phone: Comment on above: PATIENT WAS FASTINGP ERFORMED BY: MERCED LabCojillian CmZqfwks8369 [facility] [id number] Chloride molar conc 104 mmol/L Normal 97-108 Compr ehensive Internal Medicine Work Phone: Comment on above: PATIENT WAS FASTINGP ERFORMED BY: MERCED LabStephanie CmBguvpv4485 [facility] [id number] CO2 molar conc 22 mmol/L Normal 18-29 Comprehens naseem Internal Medicine Work Phone: Comment on above: PATIENT WAS FASTINGP ERFORMED BY: MERCED Cmlin6370 [facility] [id number] Creatinine mass conc 0.58 mg/dL Normal 0.57-1.00 Comp [facility] Work Phone: Comment on above: PATIENT WAS FASTINGP ERFORMED BY: MERCED Cmlin6370 [facility] [id number] GFR/1.73 sq M predicted among blacks CKD-EPI vol rate/area (S/P/Bld) 111 mL/min/1.73 Normal Comprehensiv e Internal Medicine Work Phone: Comment on above: PATIENT WAS FASTINGP ERFORMED BY: MERCED [facility] Zuoiig[address] [facility] [place] [id number] GFR/1.73 sq M predicted among non-blacks CKD-EPI vol rate/area (S/P/Bld) 96 mL/min/1.73 Normal [facility] Work Phone: Comment on above: PATIENT WAS FASTINGP ERFORMED BY: MERCED [facility] Spaxva1296 [facility] [id number] Globulin mass conc (S) 2.6 g/dL Normal 1.5-4.5 [facility] Work Phone: Comment on above: PATIENT WAS FASTINGP ERFORMED BY: MERCED Jose LuisStephanie CmGhrbfx2153 [facility] [id number] Glucose mass conc 106 mg/dL Abnormal 65-99 Compreh ensive Internal Medicine Work Phone: Comment on above: PATIENT WAS FASTINGP ERFORMED BY: MERCED Jose LuisStephanie CmAqzxew8466 [facility] [id number] Potassium molar conc 4.3 mmol/L Normal 3.5-5.2 Comp rehensive Internal Medicine Work Phone: Comment on above: PATIENT WAS FASTINGP ERFORMED BY: MERCED Jose LuisStephanie CmHfnzcm1638 [facility] [id number] Protein mass conc 6.7 g/dL Normal 6.0-8.5 Compreh ensive [facility] Medicine Work Phone: Comment on above: PATIENT WAS FASTINGP ERFORMED BY: MERCED Cmlin6370 [facility] [id number] Sodium molar conc 143 mmol/L Normal 134-144 Compreh ensive Internal Medicine Work Phone: Comment on above: PATIENT WAS FASTINGP ERFORMED BY: MERCED Jose LuisStephanie CmVqhkvx6251 [facility] [id number] Urea nitrogen mass conc 15 mg/dL Normal 8-27 [facility] Work Phone: Comment on above: PATIENT WAS FASTINGP ERFORMED BY: MERCED LabStephanie CmOnezuq2061 [facility] [id number] Urea nitrogen/Creatinine mass ratio 26 mg/mg Normal 11-26 [facility] Work Phone: Comment on above: PATIENT WAS FASTINGP ERFORMED BY: MERCED LabStephanie CmTivhga5675 [facility] [id number] MICROALBUMINOrdered By: Syst em Manager Combination on 01-23-2015 Albumin DL <= 20 mg/L mass conc (U) mg/dL Normal 0.0-17.0 [facility] Work Phone: Comment on above: PATIENT WAS FASTINGP ERFORMED BY: MERCED [facility] Vbxxnd0723 [address] RoadDublin [place] [id number] Albumin/Creatinine mass ratio (U) <4.7 Normal 0.0-30.0 [facility] Work Phone: Comment on above: PATIENT WAS FASTINGP ERFORMED BY: MERCED [facility] Dpzbsb7441 Brown RoadDublin [place] [id number] Creatinine mass conc (U) 63.5 mg/dL Normal 15.0-278.0 [facility] Work Phone: Comment on above: PATIENT WAS FASTINGP ERFORMED BY: MERCED [facility] Hwjysn2562 [address] RoadDublin [place] [id number] RHEUMATOID FACTOR-QUANT (930 58)Ordered By: Physician Office Clin Asst on 01-23-2015 Rheumatoid factor Qn 10.2 {IU/mL} Normal 0.0-13.9 [facility] Internal Medicine Work Phone: Comment on above: PATIENT WAS FASTINGP ERFORMED BY: MERCED [facility] Zxeyie8760 [address] RoadDublin [place] [id number] SED RATE ERYTHROCYTE ([id number]) Ordered By: Physician Office Clin Asst on 01-23-2015 ESR Velocity (Bld) 20 mm/h Normal 0-40 [facility] Internal Medicine Work Phone: Comment on above: PATIENT WAS FASTINGP ERFORMED BY: MERCED [facility] Qefmfj0851 [address] RoadDublin [place] [id number] TSH ([id number])Ordered By: Syste m Manager Combination on 01-23-2015 Thyrotropin Qn 1.000 {uIU/mL} Normal 0.450-4.50 0 [facility] Work Phone: Comment on above: PATIENT WAS FASTINGP ERFORMED BY: MERCED [facility] Fbsmfn7399 [address] RoadDublin [place] [id number] Vitamin D Hydroxy (60046)Ord ered By: Physician Office Clin Asst on 01-23-2015 25-Hydroxyvitamin D2+25-Hydroxyvitamin D3 mass conc 24.5 ng/mL Abnormal 30.0-100.0 [facility] Work Phone: Comment on above: Vitamin D deficiency has been defined by the [place] of[place] and an Endocrine Society practice guideline as alevel of serum 25-OH vitamin D less than 20 ng/mL (1,2).The Endocrine Society went on to further define vitamin Dinsufficiency as a level between 21 and 29 ng/mL (2).1. IOM ([place] of Medicine). 2010. Dietary reference intakes for calcium and D. [place]: The National Academies Press.2. Luly MF, Michelle GALICIA, Jefry DAVILA, et al. Evaluation, treatment, and prevention of vitamin D deficiency: an Endocrine Society clinical practice guideline. JCEM. 2010; 96(7):1911-30. PATIENT WAS FASTINGP ERFORMED BY: [facility] Kwlzjg8060 [facility] [id number] HgA1C , Office ([id number])Ordere d By: Tamy Walter on 12-01-2014 Hemoglobin A1c/Hemoglobin.total mass fraction (Bld) 6.1 % Normal 4.6 - 7.1 Comprehensiv e [facility] Medicine Work Phone: VEIN(S)Ordered By: Jai wooten on 03-29-2014 VEIN(S) See Note Normal [facility] Work Phone: Comment on above: Patient: REA CERON : 1950 (63/F) Acct Num: [id number] Phys: Serenity SHAH,Lisandro Unit Num: [id number] Loc: [facility] Specimen: [id number] Received: 03/31/14 - 0750 Spec Type: VEIN(S) TISSUES TISSUES: GROSS DESCRIPTION Received is one container labeled with the patient name and designated veins from right leg. The specimen consists of multiple irregular and elongated fragments of del cid vascular tissue ranging in diameter from 0.1 to 0.3 cm. Director Adult portions are submitted in one cassette. / AM:aldo 03/31/14 TC:5 CPT: 88309 HEADER OPERATION: Micro phlebectomy PRE-OPERATIVE DIAGNOSIS: Chronic venous insufficiency, varicose veins with inflammation, leg pain, leg swelling, right lower extremity TISSUE SUBMITTED: Right leg veins MICROSCOPIC DIAGNOSIS Right leg veins: Consistent with varicose veins. SJ:aldo 04/03/14 Signed Mina Griffin 04/03/14 Test performed at:[facility] [address] [place], [place] [address] Basic Metabolic Profile (BMP )Ordered By: Physician Office Clin Asst on 03-21-2014 Calcium mass conc 8.9 mg/dL Normal 8.5-10.1 Compreh ensive Internal Medicine Work Phone: Comment on above: Test performed at:[facility] [address]vevy[address] [place] [address] Chloride molar conc 104 mmol/L Normal 98-107 Compr ehensive Internal Medicine Work Phone: Comment on above: Test performed at:[facility] [address] [place] [address] CO2 molar conc 28.0 mmol/L Normal 21.0-32.0 Comprehen sive Internal Medicine Work Phone: Comment on above: Test performed at:[facility] [address]jozkh[address] [place] [address] Creatinine mass conc 0.7 mg/dL Normal 0.6-1.0 Comp rehensive Internal Medicine Work Phone: Comment on above: Test performed at:[facility] [address] [place] [address] GFR/1.73 sq M predicted among non-blacks MDRD vol rate/area (S/P/Bld) 89 mL/min/{1.73_m2} Normal Comprehe nsive Internal Medicine Work Phone: Comment on above: Test performed at:[facility] [address] [place] [address] Glucose mass conc 94 mg/dL Normal 70-110 Compreh ensive Internal Medicine Work Phone: Comment on above: Test performed at:[facility] [address] [place] [address] Potassium molar conc 3.7 mmol/L Normal 3.5-5.1 Comp rehensive Internal Medicine Work Phone: Comment on above: Test performed at:[facility] [address]rg[address] [place], [place] [id number] Sodium molar conc 136 mmol/L Normal 136-145 Compreh ensive Internal Medicine Work Phone: Comment on above: Test performed at:[facility] [address] [place] [address] Urea nitrogen mass conc 14 mg/dL Normal 7-18 [facility] Work Phone: Comment on above: Test performed at:[facility] [address] [place] [address] Basic Metabolic Profile (BMP) 4 1 Abnormal 5-15 [facility] Work Phone: Comment on above: Test performed at:[facility] [address] [place], [place] [id number] Basic Metabolic Profile (BMP) 108 mL/min Normal [facility] Work Phone: Comment on above: Test performed at:[facility] [address] [place] [address] Basic Metabolic Profile (BMP) 86.06 ml/min Normal [facility] Work Phone: Comment on above: Test performed at:[facility] [address] [place] [address] Basic Metabolic Profile (BMP) 20.0 {RATIO} Normal 10-20 [facility] Work Phone: Comment on above: Test performed at:[facility] [address] [place], [place] [id number] CBC W/Diff, AutomatedOrdered By: Physician Office Clin Asst on 03-21-2014 Absolute Neut 4.0 {X10_3/uL} Normal 2.0-7.7 Compreh ensive Internal Medicine Work Phone: Comment on above: Test performed at:[facility] [address]ty[address] [place] [address] Basophils/100 WBC (Bld) 0.3 % Normal 0-1 [facility] Work Phone: Comment on above: Test performed at:[facility] [address] [place] [address] Eosinophils/100 WBC (Bld) 1.1 % Normal 0-5 [facility] Work Phone: Comment on above: Test performed at:[facility] [address] [place] [address] Erythrocyte distribution width Ratio (RBC) 13.5 % Normal 11.6-14.6 [facility] Work Phone: Comment on above: Test performed at:[facility] [address] [place] [address] Hematocrit Volume Fraction (Bld) 38.0 % Normal 37-47 [facility] Work Phone: Comment on above: Test performed at:[facility] [address] [place] [address] Hemoglobin mass conc (Bld) 12.4 g/dL Normal 12.0-15.0 [facility] Work Phone: Comment on above: Test performed at:[facility] [address] [place] [address] IM GRAN % 0.200 % Normal 0.0-0.9 [facility] Work Phone: Comment on above: IG% - Immature Granu locytes (promyelocytes, myelocytes andmetamyelocytes) > 1% indicates that a LEFT SHIFT is Present. Test performed at:[facility] [address] [place] [address] Lymphocytes #/vol (Bld) 2.04 {X10_3/ul} Normal 0.83-4.51 [facility] Work Phone: Comment on above: Test performed at:[facility] [address] [place] [address] Lymphocytes/100 WBC (Bld) 31.5 % Normal 19-41 [facility] Work Phone: Comment on above: Test performed at:[facility] [address] [place] [address] MCH Entitic mass (RBC) 31.7 pg Normal 27.0-32.0 [facility] Work Phone: Comment on above: Test performed at:[facility] [address] [place] [address] MCHC mass conc (RBC) 32.6 {g/gl} Normal 32-36 [facility] prehensive Internal Medicine Work Phone: Comment on above: Test performed at:[facility] [address] [place] [address] MCV Entitic volume (RBC) 97.2 fL Normal 81-99 [facility] Work Phone: Comment on above: Test performed at:[facility] [address] [place] [address] Monocytes/100 WBC (Bld) 5.3 % Normal 0-10 [facility] Work Phone: Comment on above: Test performed at:[facility] [address] [place] [address] Neutrophils/100 WBC (Bld) 61.6 % Normal 47-70 [facility] Work Phone: Comment on above: Test performed at:[facility] [address] [place] [address] Platelet mean volume Entitic volume (Bld) 9.5 fL Normal 6.2-12.0 Comprehensi ve Internal Medicine Work Phone: Comment on above: Test performed at:[facility] [address] [place] [address] Platelets #/vol (Bld) 354 10*3/uL Normal 150-450 [facility] Work Phone: Comment on above: Test performed at:[facility] [address] [place] [address] RBC #/vol (Bld) 3.91 {M/mm3} Abnormal 4.2-5.4 Compreh ensive Internal Medicine Work Phone: Comment on above: Test performed at:[facility] [address] [place] [address] RDW SD 48.1 fL Abnormal 35.1-43.9 [facility] Work Phone: Comment on above: Test performed at:[facility] [address] [place] [address] WBC #/vol (Bld) 6.5 10*3/uL Normal 4.4-11.0 Comprehe nsive Internal Medicine Work Phone: Comment on above: Test performed at:[facility] [address] [place] [address] CBC WITH MANUAL DIFF (33192) Ordered By: Physician Office Clin Asst on 06-07-2013 Basophils #/vol (Bld) 0.0 {x10E3/uL} Normal 0.0-0.2 [facility] Work Phone: Comment on above: PATIENT WAS FASTINGP ERFORMED BY: [facility] Puvmvj1948 [facility] [id number] Information: [id number] Basophils/100 WBC (Bld) 1 % Normal 0-3 [facility] Work Phone: Comment on above: PATIENT WAS FASTINGP ERFORMED BY: [facility] Tygbab2785 [facility] [id number] Information: [id number] Eosinophils #/vol (Bld) 0.1 {x10E3/uL} Normal 0.0-0.4 [facility] Work Phone: Comment on above: PATIENT WAS FASTINGP ERFORMED BY: [address] [id number] Information: [id number] Eosinophils/100 WBC (Bld) 1 % Normal 0-5 [facility] Work Phone: Comment on above: PATIENT WAS FASTINGP ERFORMED BY: [address] [id number] Information: [id number] Erythrocyte distribution width Ratio (RBC) 13.6 % Normal 12.3-15.4 [facility] Work Phone: Comment on above: PATIENT WAS FASTINGP ERFORMED BY: [address] [id number] Information: [id number] Hematocrit Volume Fraction (Bld) 38.8 % Normal 34.0-46.6 [facility] Work Phone: Comment on above: PATIENT WAS FASTINGP ERFORMED BY: [address] [id number] Information: [id number] Hemoglobin mass conc (Bld) 12.9 g/dL Normal 11.1-15.9 [facility] Work Phone: Comment on above: PATIENT WAS FASTINGP ERFORMED BY: [address] [id number] Information: [id number] Immature granulocytes #/vol (Bld) 0.0 {x10E3/uL} Normal 0.0-0.1 [facility] Work Phone: Comment on above: PATIENT WAS FASTINGP ERFORMED BY: [address] [id number] Information: [id number] Immature granulocytes/100 WBC (Bld) 0 % Normal 0-2 [facility] Work Phone: Comment on above: PATIENT WAS FASTINGP ERFORMED BY: [place] 0943670 [facility] [id number] Information: [id number] Lymphocytes #/vol (Bld) 1.9 {x10E3/uL} Normal 0.7-3.1 [facility] Work Phone: Comment on above: PATIENT WAS FASTINGP ERFORMED BY: [address] [id number] Information: [id number] Lymphocytes/100 WBC (Bld) 31 % Normal 14-46 [facility] Work Phone: Comment on above: PATIENT WAS FASTINGP ERFORMED BY: [address] [id number] Information: [id number] MCH Entitic mass (RBC) 31.7 pg Normal 26.6-33.0 [facility] Work Phone: Comment on above: PATIENT WAS FASTINGP ERFORMED BY: [address] [id number] Information: [id number] MCHC mass conc (RBC) 33.2 g/dL Normal 31.5-35.[address] [facility] Internal Medicine Work Phone: Comment on above: PATIENT WAS FASTINGP ERFORMED BY: [address] [id number] Information: [id number] MCV Entitic volume (RBC) 95 fL Normal 79-97 [facility] Work Phone: Comment on above: PATIENT WAS FASTINGP ERFORMED BY: [address] [id number] Information: [id number] Monocytes #/vol (Bld) 0.2 {x10E3/uL} Normal 0.1-0.9 [facility] Work Phone: Comment on above: PATIENT WAS FASTINGP ERFORMED BY: MERCED Jose LuisFormerly [facility]6370 [facility] [id number] Information: [id number] Monocytes/100 WBC (Bld) 4 % Normal 4-12 [facility] Work Phone: Comment on above: PATIENT WAS FASTINGP ERFORMED BY: [address] [id number] Information: [id number] Neutrophils #/vol (Bld) 3.9 {x10E3/uL} Normal 1.4-7.0 [facility] Work Phone: Comment on above: PATIENT WAS FASTINGP ERFORMED BY: MERCED Jose LuisSaint [facility] Kogjoe0912 [facility] [id number] Information: [id number] Neutrophils/100 WBC (Bld) 63 % Normal 40-74 [facility] Work Phone: Comment on above: PATIENT WAS FASTINGP ERFORMED BY: [place] 0943670 [facility] [id number] Information: [id number] Platelets #/vol (Bld) 346 {x10E3/uL} Normal 155-379 [facility] Work Phone: Comment on above: PATIENT WAS FASTINGP ERFORMED BY: [address] [id number] Information: [id number] RBC #/vol (Bld) 4.07 {x10E6/uL} Normal 3.77-5.28 [facility] Internal Medicine Work Phone: Comment on above: PATIENT WAS FASTINGP ERFORMED BY: LabFormerly [facility]6370 [facility] [id number] Information: [id number] WBC #/vol (Bld) 6.1 {x10E3/uL} Normal 3.4-10.8 [facility] Internal Medicine Work Phone: Comment on above: PATIENT WAS FASTINGP ERFORMED BY: CB [facility] Jvrpjm3101 [address] RoadDublin [place] [id number] Information: [id number] HgA1C , Office (87329)Ordere d By: Tamy Walter on 06-07-2013 Hemoglobin A1c/Hemoglobin.total mass fraction (Bld) 6.3 % Normal 4.6 - 7.1 Comprehensiv e Internal Medicine Work Phone: LIPID PANEL ([id number])Ordered B y: Physician Office Clin Asst on 06-07-2013 Cholesterol in HDL mass conc 70 mg/dL Normal [facility] Work Phone: Comment on above: According to ATP-III Guidelines, HDL-C >59 mg/dL is considered anegative risk factor for CHD. PATIENT WAS FASTINGP ERFORMED BY: CB [facility] Qadagf8913 [address] RoadDublin [place] [id number] Cholesterol in LDL mass conc 173 mg/dL Abnormal 0-99 [facility] Work Phone: Comment on above: PATIENT WAS FASTINGP ERFORMED BY: CB [facility] Ldqybt2748 [address] RoadDublin [place] [id number] Cholesterol in LDL/Cholesterol in HDL mass ratio 2.5 {ratio_units} Normal 0.0-3.2 [facility] Work Phone: Comment on above: PATIENT WAS FASTINGP ERFORMED BY: CB [facility] Xjfvli7678 [address] RoadDublin [place] [id number] Cholesterol in VLDL mass conc 30 mg/dL Normal 5-40 [facility] Work Phone: Comment on above: PATIENT WAS FASTINGP ERFORMED BY: CB [facility] Uhdyxc7809 [address] RoadDublin [place] [id number] Cholesterol mass conc 273 mg/dL Abnormal 100-199 [facility] Work Phone: Comment on above: PATIENT WAS FASTINGP ERFORMED BY: CB [facility] Fsvleq9725 [address] RoadDublin [place] [id number] Triglyceride mass conc 148 mg/dL Normal 0-149 [facility] Work Phone: Comment on above: PATIENT WAS FASTINGP ERFORMED BY: MERCED LabCherie Zraira2905 [address] RoadDublin [place] [id number] METABOLIC PANEL, COMPREHENSI VE (86143)Ordered By: Physician Office Clin Asst on 06-07-2013 Albumin mass conc 4.4 g/dL Normal 3.6-4.8 Compreh ensive Internal Medicine Work Phone: Comment on above: PATIENT WAS FASTINGP ERFORMED BY: MERCED LabSaint [facility] Hgybjg1672 [address] RoadCarolinas Continuecare Hospital [facility] Mountainin [place] [id number] Albumin/Globulin mass ratio 1.6 {ratio} Normal 1.1-2.5 [facility] Work Phone: Comment on above: PATIENT WAS FASTINGP ERFORMED BY: MERCED LabSaint [facility] Rmlpkh0508 Brown RoadCarolinas Continuecare Hospital [facility] Mountainin [place] [id number] ALP enzyme act/vol 98 [iU]/L Normal 39-117 Compre [facility] Internal Medicine Work Phone: Comment on above: PATIENT WAS FASTINGP ERFORMED BY: MERCED AmayaSaint [facility] Center Wjvrnk[address] [facility] Hospitalin [place] [id number] ALT enzyme act/vol 18 [iU]/L Normal 0-32 Compre [facility] Internal Medicine Work Phone: Comment on above: PATIENT WAS FASTINGP ERFORMED BY: MERCED Cmlin6370 [address] [facility] Hospitalbl[facility] [place] [id number] AST enzyme act/vol 18 [iU]/L Normal 0-40 Compre [facility] Internal Medicine Work Phone: Comment on above: PATIENT WAS FASTINGP ERFORMED BY: MERCED LabSaint [facility] Hqadah[address] [facility] Hospitalin [place] [id number] Bilirubin mass conc 0.2 mg/dL Normal 0.0-1.2 Compr [facility] Internal Medicine Work Phone: Comment on above: PATIENT WAS FASTINGP ERFORMED BY: MERCED [facility] Xsqkbz[address] [facility] Hospitalin [place] [id number] Calcium mass conc 9.2 mg/dL Normal 8.6-10.2 Compreh ensive Internal Medicine Work Phone: Comment on above: PATIENT WAS FASTINGP ERFORMED BY: MERCED LabCojillian CmSdkiol4340 [address] Roadblin [place] [id number] Chloride molar conc 100 mmol/L Normal 97-108 Compr ehensive Internal Medicine Work Phone: Comment on above: PATIENT WAS FASTINGP ERFORMED BY: MERCED LabStephanie CmBjafdw1816 [address] Roadblin [place] [id number] CO2 molar conc 25 mmol/L Normal 19-28 Comprehens naseem Internal Medicine Work Phone: Comment on above: PATIENT WAS FASTINGP ERFORMED BY: MERCED LabStephanie CmHxoulo8368 [address] RoadCarolinas Continuecare [facility]in [place] [id number] Creatinine mass conc 0.70 mg/dL Normal 0.57-1.00 Comp [facility] Internal [facility] Work Phone: Comment on above: PATIENT WAS FASTINGP ERFORMED BY: MERCED Cmlin[address] [facility]in [place] [id number] GFR/1.73 sq M predicted among blacks CKD-EPI vol rate/area (S/P/Bld) 106 mL/min/1.73 Normal Comprehensiv e Internal Medicine Work Phone: Comment on above: PATIENT WAS FASTINGP ERFORMED BY: MERCED Cmlin6370 [address] RoadCarolinas Continuecare [facility]in [place] [id number] GFR/1.73 sq M predicted among non-blacks CKD-EPI vol rate/area (S/P/Bld) 92 mL/min/1.73 Normal [facility] Work Phone: Comment on above: PATIENT WAS FASTINGP ERFORMED BY: MERCED LabSaint [facility] Abloaa[address] [facility]in [place] [id number] Globulin mass conc (S) 2.8 g/dL Normal 1.5-4.5 [facility] Work Phone: Comment on above: PATIENT WAS FASTINGP ERFORMED BY: MERCED LabCojillian CmQfniex2786 [address] [facility] Hospitalbl[facility] [place] [id number] Glucose mass conc 105 mg/dL Abnormal 65-99 Compreh ensive Internal Medicine Work Phone: Comment on above: PATIENT WAS FASTINGP ERFORMED BY: MERCED LabCojillian CmBsluny[address] [facility]in [place] [id number] Potassium molar conc 4.1 mmol/L Normal 3.5-5.2 Comp rehensive Internal Medicine Work Phone: Comment on above: PATIENT WAS FASTINGP ERFORMED BY: MERCED LabStephanie CmYgsmdh5500 [address] Roadblin [place] [id number] Protein mass conc 7.2 g/dL Normal 6.0-8.5 Compreh ensive Internal Medicine Work Phone: Comment on above: PATIENT WAS FASTINGP ERFORMED BY: MERCED [facility] Ykhrci[address] [facility]in [place] [id number] Sodium molar conc 139 mmol/L Normal 134-144 Compreh ensive Internal Medicine Work Phone: Comment on above: PATIENT WAS FASTINGP ERFORMED BY: MERCED Cmlin6370 [address] [facility] [id number] Urea nitrogen mass conc 17 mg/dL Normal 8-27 [facility] Work Phone: Comment on above: PATIENT WAS FASTINGP ERFORMED BY: MERCED Cmlin6370 [address] [facility] [id number] Urea nitrogen/Creatinine mass ratio 24 mg/mg Normal 11- [facility] Work Phone: Comment on above: PATIENT WAS FASTINGP ERFORMED BY: MERCED Cmlin6370 [facility] [id number] MICROALBUMINOrdered By: Syst em Manager Combination on 06-07-2013 Albumin DL <= 20 mg/L mass conc (U) 9.7 ug/mL Normal 0.0-17.0 [facility] Work Phone: Comment on above: PATIENT WAS FASTINGP ERFORMED BY: MERCED [facility] Lguhnp[address] [facility]in [place] [id number] Albumin/Creatinine mass ratio (U) 10.3 {mg/g_creat} Normal 0.0-30.0 [facility] Work Phone: Comment on above: PATIENT WAS FASTINGP ERFORMED BY: MERCED LabSaint [facility] Hjpqtk7598 [address] [facility] [id number] Creatinine mass conc (U) 94.3 mg/dL Normal 15.0-278.0 [facility] Work Phone: Comment on above: PATIENT WAS FASTINGP ERFORMED BY: MERCED Carney Fnsyzr8111 Brown RoadDublin [place] [id number] TSH ([id number])Ordered By: Syste m Manager Combination on 06-07-2013 Thyrotropin Qn 1.360 {uIU/mL} Normal 0.450-4.50 0 [facility] Work Phone: Comment on above: PATIENT WAS FASTINGP ERFORMED BY: [employer] Euyhsj2172 Brown RoadSportmeetsblin [place] [id number] Vitamin D Hydroxy (73143)Ord ered By: Physician Office Clin Asst on 06-07-2013 25-Hydroxyvitamin D2+25-Hydroxyvitamin D3 mass conc 13.6 ng/mL Abnormal 30.0-100.0 [facility] Work Phone: Comment on above: Vitamin D deficiency has been defined by the [place] of[place]icine and an Endocrine Society practice guideline as alevel of serum 25-OH vitamin D less than 20 ng/mL (1,2).The Endocrine Society went on to further define vitamin Dinsufficiency as a level between 21 and 29 ng/mL (2).1. IOM ([place] of Medicine). 2010. Dietary reference intakes for calcium and D. [place]: The National Academies Press.2. Luly MF, Michelle NC, Jefry DAVILA, et al. Evaluation, treatment, and prevention of vitamin D deficiency: an Endocrine Society clinical practice guideline. JCEM. 2010; 96(7):1911-30. PATIENT WAS FASTINGP ERFORMED BY: [employer] [facility] Hftoxz9936 [address] RoadDublin [place] [id number] HEPATIC FUNCTION PANEL (8007 6)Ordered By: Physician Office Clin Asst on 10-08-2012 Albumin mass conc 4.4 g/dL Normal 3.6-4.8 Compreh ensive Internal Medicine Work Phone: Comment on above: PATIENT NOT FASTINGP ERFORMED BY: MERCED [employer] Yfjlka5770 [address] [facility] HospitalDublin [place] [id number] Information: [id number] ALP enzyme act/vol 104 [iU]/L Normal 25-165 [facility] Internal Medicine Work Phone: [...] PATIENT NOT FASTINGP ERFORMED BY: CB [facility] Mynhou1049 [address] AuthorBeeAtrium Health Cleveland [id number] Information: 480201,[id number] ALT enzyme act/vol 31 [iU]/L Normal 0-32 [facility] Internal Medicine Work Phone: Comment on above: PATIENT NOT FASTINGP ERFORMED BY: CB [facility] Qxljhy9739 Brown RoadDuCritical access hospital [id number] Information: [id number] AST enzyme act/vol 23 [iU]/L Normal 0-40 [facility] Internal Medicine Work Phone: Comment on above: PATIENT NOT FASTINGP ERFORMED BY: CB [facility] Oipgvl0218 Brown RoadDuin [place] [id number] Information: [id number],[id number] Bilirubin mass conc 0.3 mg/dL Normal 0.0-1.2 [facility] Internal Medicine Work Phone: Comment on above: PATIENT NOT FASTINGP ERFORMED BY: CB [facility] Ggmhnw7118 [address] [facility] [id number] Information: [id number] Bilirubin.direct mass conc 0.10 mg/dL Normal 0.00-0.40 [facility] Work Phone: Comment on above: PATIENT NOT FASTINGP ERFORMED BY: [facility] GeneralCoJulie [place]ille [id number] [facility] [id number] Information: 245494,Q11299 Protein mass conc 7.3 g/dL Normal 6.0-8.5 Compreh ensive Internal Medicine Work Phone: Comment on above: PATIENT NOT FASTINGP ERFORMED BY: [place] 0943670 [facility] [id number] Information: [id number] CBC WITH MANUAL DIFF (05650) Ordered By: Physician Office Clin Asst on 09-29-2012 Basophils #/vol (Bld) 0.0 {x10E3/uL} Normal 0.0-0.2 [facility] Work Phone: Comment on above: PATIENT NOT FASTINGP ERFORMED BY: [place] 0943670 [facility] [id number] Information: [id number],[id number] Basophils/100 WBC (Bld) 1 % Normal 0-3 [facility] Work Phone: Comment on above: PATIENT NOT FASTINGP ERFORMED BY: [place] 0943670 [facility] [id number] Information: [id number] Eosinophils #/vol (Bld) 0.1 {x10E3/uL} Normal 0.0-0.4 [facility] Work Phone: Comment on above: PATIENT NOT FASTINGP ERFORMED BY: LabCoJulie Ville [id number] [facility] [id number] Information: 447727,G31833 Eosinophils/100 WBC (Bld) 2 % Normal 0-7 [facility] Work Phone: Comment on above: PATIENT NOT FASTINGP ERFORMED BY: LabCoJulie Ville 0929770 [facility] [id number] Information: [id number] Erythrocyte distribution width Ratio (RBC) 13.8 % Normal 12.3-15.4 [facility] Work Phone: Comment on above: PATIENT NOT FASTINGP ERFORMED BY: MERCED [employer]aya[employer] Hunmfj1916 [facility] [id number] Information: 417184,[id number] Hematocrit Volume Fraction (Bld) 38.8 % Normal 34.0-46.6 [facility] Work Phone: Comment on above: PATIENT NOT FASTINGP ERFORMED BY: [place] 0943670 [facility] [id number] Information: [id number] Hemoglobin mass conc (Bld) 12.8 g/dL Normal 11.1-15.9 [facility] Work Phone: Comment on above: PATIENT NOT FASTINGP ERFORMED BY: [facility]6370 [facility] [id number] Information: 751181,[id number] Immature granulocytes #/vol (Bld) 0.0 {x10E3/uL} Normal 0.0-0.1 [facility] Work Phone: Comment on above: PATIENT NOT FASTINGP ERFORMED BY: LabCoVirtua MarltonIaxtpy0949 [facility] [id number] Information: [id number] Immature granulocytes/100 WBC (Bld) 0 % Normal 0-2 [facility] Work Phone: Comment on above: PATIENT NOT FASTINGP ERFORMED BY: LabCoVirtua MarltonSkkelv1726 [facility] [id number] Information: [id number],[id number] Lymphocytes #/vol (Bld) 1.9 {x10E3/uL} Normal 0.7-4.5 [facility] Work Phone: Comment on above: PATIENT NOT FASTINGP ERFORMED BY: LabRonald Ville [id number] [facility] [id number] Information: [id number],[id number] Lymphocytes/100 WBC (Bld) 35 % Normal 14-46 [facility] Work Phone: Comment on above: PATIENT NOT FASTINGP ERFORMED BY: MERCED Cmlin6370 [facility] [id number] Information: [id number],[id number] MCH Entitic mass (RBC) 31.5 pg Normal 26.6-33.0 [facility] Work Phone: Comment on above: PATIENT NOT FASTINGP ERFORMED BY: [address] [id number] Information: [id number],[id number] MCHC mass conc (RBC) 33.0 g/dL Normal 31.5-35.7 [facility] Internal Medicine Work Phone: Comment on above: PATIENT NOT FASTINGP ERFORMED BY: [address] [id number] Information: 323378,[id number] MCV Entitic volume (RBC) 96 fL Normal 79-97 [facility] Work Phone: Comment on above: PATIENT NOT FASTINGP ERFORMED BY: Jose Luis[address] [id number] Information: [id number] Monocytes #/vol (Bld) 0.2 {x10E3/uL} Normal 0.1-1.0 [facility] Work Phone: Comment on above: PATIENT NOT FASTINGP ERFORMED BY: [place] 0943670 [facility] [id number] Information: [id number],[id number] Monocytes/100 WBC (Bld) 4 % Normal 4-13 [facility] Work Phone: Comment on above: PATIENT NOT FASTINGP ERFORMED BY: [place] 0943670 [facility] [id number] Information: [id number] Neutrophils #/vol (Bld) 3.3 {x10E3/uL} Normal 1.8-7.8 [facility] Work Phone: Comment on above: PATIENT NOT FASTINGP ERFORMED BY: MERCED [facility] Ujfrya5056 [facility] [id number] Information: [id number],G81658 Neutrophils/100 WBC (Bld) 58 % Normal 40-74 [facility] Work Phone: Comment on above: PATIENT NOT FASTINGP ERFORMED BY: CB [facility] Jnqbzk2701 [facility] [id number] Information: 322862,[id number] Platelets #/vol (Bld) 330 {x10E3/uL} Normal 140-415 [facility] Work Phone: Comment on above: PATIENT NOT FASTINGP ERFORMED BY: LabCoVirtua MarltonLmjarg6682 [facility] [id number] Information: 994905,[id number] RBC #/vol (Bld) 4.06 {x10E6/uL} Normal 3.77-5.28 [facility] Internal Medicine Work Phone: Comment on above: PATIENT NOT FASTINGP ERFORMED BY: MERCED [facility] Fiycvu5826 [facility] [id number] Information: 583705,[id number] WBC #/vol (Bld) 5.6 {x10E3/uL} Normal 4.0-10.5 [facility] Internal Medicine Work Phone: Comment on above: PATIENT NOT FASTINGP ERFORMED BY: [facility] Vpwdxb9869 [facility] [id number] Information: [id number],[id number] HgA1C , Office (74420)Ordere d By: Cleo Arciniega on 09-29-2012 Hemoglobin A1c/Hemoglobin.total mass fraction (Bld) 6.3 % Normal 4.6 - 7.1 Comprehensiv e Internal Medicine Work Phone: METABOLIC PANEL, COMPREHENSI VE (99000)Ordered By: Physician Office Clin Asst on 09-29-2012 Albumin mass conc 4.5 g/dL Normal 3.6-4.8 Compreh ensive Internal Medicine Work Phone: Comment on above: PATIENT NOT FASTINGP ERFORMED BY: MERCED [facility] Xydwuf8703 Brown Roadblin [place] [id number] Albumin/Globulin mass ratio 1.7 {ratio} Normal 1.1-2.5 [facility] Work Phone: Comment on above: PATIENT NOT FASTINGP ERFORMED BY: CB [facility] Zjkddo[address] [facility] Hospitalin [place] [id number] ALP enzyme act/vol 111 [iU]/L Normal 25-165 Compre [facility] Internal Medicine Work Phone: Comment on above: PATIENT NOT FASTINGP ERFORMED BY: CB [facility] Gomplk5670 [address] RoadCarolinas Continuecare Hospital At Kings Mountainin [place] [id number] ALT enzyme act/vol 36 [iU]/L Abnormal 0-32 Compre [facility] Internal Medicine Work Phone: Comment on above: PATIENT NOT FASTINGP ERFORMED BY: CB [facility] Klccah[address] [facility] Hospitalin [place] [id number] AST enzyme act/vol 25 [iU]/L Normal 0-40 Compre [facility] Internal Medicine Work Phone: Comment on above: PATIENT NOT FASTINGP ERFORMED BY: CB [facility] Timkta9973 [address] [facility] [id number] Bilirubin mass conc 0.3 mg/dL Normal 0.0-1.2 Compr ensive Internal Medicine Work Phone: Comment on above: PATIENT NOT FASTINGP ERFORMED BY: CB [facility] Esigkx[address] [facility] Hospitalin [place] [id number] Calcium mass conc 9.5 mg/dL Normal 8.6-10.2 Compreh ensive Internal Medicine Work Phone: Comment on above: PATIENT NOT FASTINGP ERFORMED BY: CB [facility] Agihvi[address] [facility] Hospitalin [place] [id number] Chloride molar conc 100 mmol/L Normal 97-108 Compr ensive Internal Medicine Work Phone: Comment on above: PATIENT NOT FASTINGP ERFORMED BY: CB [facility] Cnqccc1129 Brown RoadDublin [place] [id number] CO2 molar conc 24 mmol/L Normal 19-28 Comprehens naseem Internal Medicine Work Phone: Comment on above: PATIENT NOT FASTINGP ERFORMED BY: CB [facility] Vzhecy4192 [address] RoadDublin [place] [id number] Creatinine mass conc 0.81 mg/dL Normal 0.57-1.00 Comp rehensive Internal Medicine Work Phone: Comment on above: PATIENT NOT FASTINGP ERFORMED BY: CB [facility] Cloezv8223 Brown RoadDublin [place] [id number] GFR/1.73 sq M predicted among blacks CKD-EPI vol rate/area (S/P/Bld) 89 mL/min/1.73 Normal Comprehensiv e Internal Medicine Work Phone: Comment on above: PATIENT NOT FASTINGP ERFORMED BY: CB [facility] Fenrcs4326 Brwon RoadDublin [place] [id number] GFR/1.73 sq M predicted among non-blacks CKD-EPI vol rate/area (S/P/Bld) 78 mL/min/1.73 Normal [facility] Work Phone: Comment on above: PATIENT NOT FASTINGP ERFORMED BY: CB [facility] Isolcz8789 [address] RoadDublin [place] [id number] Globulin mass conc (S) 2.7 g/dL Normal 1.5-4.5 [facility] Work Phone: Comment on above: PATIENT NOT FASTINGP ERFORMED BY: CB [facility] Qurzah7188 [address] RoadDublin [place] [id number] Glucose mass conc 99 mg/dL Normal 65-99 Compreh ensive Internal Medicine Work Phone: Comment on above: PATIENT NOT FASTINGP ERFORMED BY: CB [facility] Rxtnjm5036 Brown RoadDublin [place] [id number] Potassium molar conc 4.4 mmol/L Normal 3.5-5.2 Comp rehensive Internal Medicine Work Phone: Comment on above: PATIENT NOT FASTINGP ERFORMED BY: CB [facility] Yqydsx4887 Bronw RoadDublin [place] [id number] Protein mass conc 7.2 g/dL Normal 6.0-8.5 Compreh ensive Internal Medicine Work Phone: Comment on above: PATIENT NOT FASTINGP ERFORMED BY: CB [facility] Fqcwhk3476 Brown RoadDublin [place] [id number] Sodium molar conc 138 mmol/L Normal 134-144 Compreh ensive Internal Medicine Work Phone: Comment on above: PATIENT NOT FASTINGP ERFORMED BY: CB [facility] Hsauon0495 [address] RoadDublin [place] [id number] Urea nitrogen mass conc 17 mg/dL Normal 8-27 [facility] Work Phone: Comment on above: PATIENT NOT FASTINGP ERFORMED BY: CB [facility] Mkfwng2665 [address] RoadDublin [place] [id number] Urea nitrogen/Creatinine mass ratio 21 mg/mg Normal 11-26 [facility] Work Phone: Comment on above: PATIENT NOT FASTINGP ERFORMED BY: CB [facility] Gmzhjf0889 [address] RoadDublin [place] [id number] Vitamin D Hydroxy (78167)Ord ered By: Physician Office Clin Asst on 09-29-2012 25-Hydroxyvitamin D2+25-Hydroxyvitamin D3 mass conc 23.4 ng/mL Abnormal 30.0-100.0 [facility] Work Phone: Comment on above: Vitamin D deficiency has been defined by the [place] of[place]icine and an Endocrine Society practice guideline as alevel of serum 25-OH vitamin D less than 20 ng/mL (1,2).The Endocrine Society went on to further define vitamin Dinsufficiency as a level between 21 and 29 ng/mL (2).1. IOM ([place] of Medicine). 2010. Dietary reference intakes for calcium and D. [place]: The National Academies Press.2. Luly MF, Michelle NC, Jefry DAVILA, et al. Evaluation, treatment, and prevention of vitamin D deficiency: an Endocrine Society clinical practice guideline. JCEM. 2010; 96(7):1911-30. PATIENT NOT FASTINGP ERFORMED BY: MERCED Llamas6[address] Roadblin [place] [id number] HEPATIC FUNCTION PANEL (8007 6)Ordered By: Physician Office Clin Asst on 06-25-2012 Albumin mass conc 4.3 g/dL Normal 3.6-4.8 [facility] Internal Medicine Work Phone: Comment on above: PATIENT NOT FASTINGP ERFORMED BY: MERCED [employer] Jdybzz7861 [address] Roadblin [place] [id number] Information: [id number] ALP enzyme act/vol 102 [iU]/L Normal 25-165 [facility] Internal Medicine Work Phone: Comment on above: PATIENT NOT FASTINGP ERFORMED BY: MERCED Llamas6[address] RoadDublin [place] [id number] Information: 343325,F25025 ALT enzyme act/vol 28 [iU]/L Normal 0-32 [facility] Internal Medicine Work Phone: Comment on above: PATIENT NOT FASTINGP ERFORMED BY: MERCED [facility] Khsoar7660 [address] Roadblin [place] [id number] Information: 751921,[id number] AST enzyme act/vol 24 [iU]/L Normal 0-40 [facility] Internal Medicine Work Phone: Comment on above: PATIENT NOT FASTINGP ERFORMED BY: MERCED LabCherie Uaduib[address] [facility] Hospitalin [place] [id number] Information: [id number],[id number] Bilirubin mass conc 0.2 mg/dL Normal 0.0-1.2 Compr [facility] Internal Medicine Work Phone: Comment on above: PATIENT NOT FASTINGP ERFORMED BY: MERCED [facility] Xnmhjq9253 [address] [facility] Park Hospitalblin [place] [id number] Information: 870141,[id number] Bilirubin.direct mass conc 0.06 mg/dL Normal 0.00-0.40 [facility] Work Phone: Comment on above: PATIENT NOT FASTINGP ERFORMED BY: CB [facility] Hamsrs1361 [address] AuthorBeeblin [place] [id number] Information: 632770,R12298 Protein mass conc 7.1 g/dL Normal 6.0-8.5 Compreh ensive Internal Medicine Work Phone: Comment on above: PATIENT NOT FASTINGP ERFORMED BY: [facility] Oklvhr8571 Brown RoadDublin [place] [id number] Information: 037728,[id number] Hemoglobin Glyclated (HGB A1 C) (14666)Ordered By: Physician Office Clin Asst on 06-25-2012 Hemoglobin A1c/Hemoglobin.total mass fraction (Bld) 6.5 % Abnormal 4.8-5.6 Comprehensiv e Internal Medicine Work Phone: Comment on above: . Increased risk for diabetes: 5.7 - 6.4 Diabetes: >6.4 Glycemic control for adults with diabetes: <7.0 PATIENT NOT FASTINGP ERFORMED BY: [employer] Bmaepr0595 [address] [facility] [id number] Vitamin D Hydroxy (99399)Ord ered By: Physician Office Clin Asst on 06-25-2012 25-Hydroxyvitamin D2+25-Hydroxyvitamin D3 mass conc 16.4 ng/mL Abnormal 30.0-100.0 [facility] Work Phone: Comment on above: Vitamin D deficiency has been defined by the [place] of[place]icine and an Endocrine Society practice guideline as alevel of serum 25-OH vitamin D less than 20 ng/mL (1,2).The Endocrine Society went on to further define vitamin Dinsufficiency as a level between 21 and 29 ng/mL (2).1. IOM ([place] of Medicine). 2010. Dietary reference intakes for calcium and D. [place]: The National Academies Press.2. Luly MF, Michelle NC, Jefry DAVILA, et al. Evaluation, treatment, and prevention of vitamin D deficiency: an Endocrine Society clinical practice guideline. JCEM. 2010; 96(7):1911-30. PATIENT NOT FASTINGP ERFORMED BY: [facility] Atsnwm2584 [address] RoadDublin [place] [id number] CBC (AUTO) (10664)Ordered By : Physician Office Clin Asst on 05-31-2012 Erythrocyte distribution width Ratio (RBC) 13.8 % Normal 12.3-15.4 [facility] Work Phone: Comment on above: send to dr farnsworth; PATIENT WAS FASTINGPERFORMED BY: CB [facility] Pmpxtw6526 Brown RoadDublin [place] [id number] Hematocrit Volume Fraction (Bld) 37.5 % Normal 34.0-46.6 [facility] Work Phone: Comment on above: send to dr farnsworth; PATIENT WAS FASTINGPERFORMED BY: CB [facility] Mqfcfx8578 [address] RoadDublin [place] [id number] Hemoglobin mass conc (Bld) 12.2 g/dL Normal 11.1-15.9 [facility] Work Phone: Comment on above: send to dr farnsworth; PATIENT WAS FASTINGPERFORMED BY: CB [facility] Uziyhd1162 Brown RoadDuin [place] [id number] MCH Entitic mass (RBC) 31.2 pg Normal 26.6-33.0 [facility] Work Phone: Comment on above: send to dr farnsworth; PATIENT WAS FASTINGPERFORMED BY: CB [facility] Zraesd4245 [address] RoadDuin [place] [id number] MCHC mass conc (RBC) 32.5 g/dL Normal 31.5-35.[address] [facility] Internal Medicine Work Phone: Comment on above: send to dr farnsworth; PATIENT WAS FASTINGPERFORMED BY: CB [facility] Xyvwjo8076 [address] RoadDuin [place] [id number] MCV Entitic volume (RBC) 96 fL Normal 79-97 [facility] Work Phone: Comment on above: send to dr farnsworth; PATIENT WAS FASTINGPERFORMED BY: CB [facility] Gbnvvb3405 Brown RoadDuin [place] [id number] Platelets #/vol (Bld) 375 {x10E3/uL} Normal 140-415 [facility] Work Phone: Comment on above: send to dr farnsworth; PATIENT WAS FASTINGPERFORMED BY: CB [facility] Etrdyo[address] [facility] Hospitalin [place] [id number] RBC #/vol (Bld) 3.91 {x10E6/uL} Normal 3.77-5.28 Comp [facility] Work Phone: Comment on above: send to dr farnsworth; PATIENT WAS FASTINGPERFORMED BY: CB [facility] Yzesvi4021 [address] [facility] [id number] WBC #/vol (Bld) 7.2 {x10E3/uL} Normal 4.0-10.5 [facility] Internal Medicine Work Phone: Comment on above: send to dr farnsworth; PATIENT WAS FASTINGPERFORMED BY: CB [facility] Noedlc5364 [facility] [id number] METABOLIC PANEL, COMPREHENSI VE (48700)Ordered By: Physician Office Clin Asst on 05-31-2012 Albumin mass conc 4.2 g/dL Normal 3.6-4.8 Compreh [facility] Internal Medicine Work Phone: Comment on above: send to dr farnsworth; PATIENT WAS FASTINGPERFORMED BY: [facility] Fnpsmf6113 [facility] [id number] Information: [id number] Albumin/Globulin mass ratio 1.5 {ratio} Normal 1.1-2.5 [facility] Work Phone: Comment on above: send to dr farnsworth; PATIENT WAS FASTINGPERFORMED BY: CB [facility] Boupto0727 [facility] [id number] Information: 259700,[id number] ALP enzyme act/vol 107 [iU]/L Normal 25-165 [facility] Internal Medicine Work Phone: Comment on above: send to dr farnsworth; PATIENT WAS FASTINGPERFORMED BY: CB [facility] Dzphpw8059 Brown[facility] [id number] Information: 179294,[id number] ALT enzyme act/vol 41 [iU]/L Abnormal 0-32 [facility] Internal Medicine Work Phone: Comment on above: send to dr farnsworth; PATIENT WAS FASTINGPERFORMED BY: CB [facility] Ipumyl8656 [address] RoadDublin [place] [id number] Information: 296006,[id number] AST enzyme act/vol 23 [iU]/L Normal 0-40 Compre [facility] Internal Medicine Work Phone: Comment on above: send to dr farnsworth; PATIENT WAS FASTINGPERFORMED BY: CB [facility] Avcjwt4978 Brown RoadDuin [place] [id number] Information: 382621,M43802 Bilirubin mass conc 0.3 mg/dL Normal 0.0-1.2 Compr [facility] Internal Medicine Work Phone: Comment on above: send to dr farnsworth; PATIENT WAS FASTINGPERFORMED BY: CB [facility] Egjxas0926 Brown RoadAtrium Health [facility] [id number] Information: 271221,F34270 Calcium mass conc 8.8 mg/dL Normal 8.6-10.2 Compreh [facility] Internal Medicine Work Phone: Comment on above: send to dr farnsworth; PATIENT WAS FASTINGPERFORMED BY: CB [facility] Ixyyih5147 [address] [facility] [id number] Information: 640267,D42666 Chloride molar conc 102 mmol/L Normal 97-108 [facility] Internal Medicine Work Phone: Comment on above: send to dr farnsworth; PATIENT WAS FASTINGPERFORMED BY: CB [facility] Lgourx8283 Brown RoadCarolinas Continuecare Hospital At [facility] Mountainin [place] [id number] Information: 538724,S69487 CO2 molar conc 24 mmol/L Normal 20-32 Comprehens [facility] Internal Medicine Work Phone: Comment on above: send to dr farnsworth; PATIENT WAS FASTINGPERFORMED BY: CB [facility] Jllnkq6812 [address] RoadDublin [place] [id number] Information: 130203,X87120 Creatinine mass conc 0.62 mg/dL Normal 0.57-1.[address] [facility] Internal Medicine Work Phone: Comment on above: send to dr farnsworth; PATIENT WAS FASTINGPERFORMED BY: CB [facility] Ftmrak5556 [address] [facility] [id number] Information: 042795,P16350 GFR/1.73 sq M predicted among blacks CKD-EPI vol rate/area (S/P/Bld) 111 mL/min/1.73 Normal Comprehensiv e Internal Medicine Work Phone: Comment on above: send to dr farnsworth; PATIENT WAS FASTINGPERFORMED BY: CB [facility] Yfzsih6538 Brown RoadAtrium Health [facility] [id number] Information: 677662,I77197 GFR/1.73 sq M predicted among non-blacks CKD-EPI vol rate/area (S/P/Bld) 96 mL/min/1.73 Normal [facility] Work Phone: Comment on above: send to dr farnsworth; PATIENT WAS FASTINGPERFORMED BY: CB [facility] Mujjfg4685 [facility] [id number] Information: 386687,G80658 Globulin mass conc (S) 2.8 g/dL Normal 1.5-4.5 [facility] Work Phone: Comment on above: send to dr farnsworth; PATIENT WAS FASTINGPERFORMED BY: CB [facility] Pqsnzp2186 [facility] [id number] Information: 578971,M77166 Glucose mass conc 86 mg/dL Normal 65-99 Compreh ensive Internal Medicine Work Phone: Comment on above: send to dr farnsworth; PATIENT WAS FASTINGPERFORMED BY: CB [facility] Mhxzns5520 [address] [facility] [id number] Information: 231688,G69872 Potassium molar conc 3.9 mmol/L Normal 3.5-5.2 Comp rehensive Internal Medicine Work Phone: Comment on above: send to dr farnsworth; PATIENT WAS FASTINGPERFORMED BY: CB [facility] Jrpbjl7199 [facility] [id number] Information: 040636,N61671 Protein mass conc 7.0 g/dL Normal 6.0-8.5 Compreh ensive Internal Medicine Work Phone: Comment on above: send to dr farnsworth; PATIENT WAS FASTINGPERFORMED BY: [facility] Fsrlbf9920 [facility] [id number] Information: 552341,[id number] Sodium molar conc 139 mmol/L Normal 134-144 Compreh ensive Internal Medicine Work Phone: Comment on above: send to dr farnsworth; PATIENT WAS FASTINGPERFORMED BY: [facility] Lftpkt4524 [facility] [id number] Information: [id number] Urea nitrogen mass conc 13 mg/dL Normal 8-27 [facility] Work Phone: Comment on above: send to dr farnsworth; PATIENT WAS FASTINGPERFORMED BY: [facility] Beweuu0266 [facility] [id number] Information: [id number] Urea nitrogen/Creatinine mass ratio 21 mg/mg Normal 11-26 [facility] Work Phone: Comment on above: send to dr farnsworth; PATIENT WAS FASTINGPERFORMED BY: [facility] Jasmbd0631 [facility] [id number] Information: [id number] PELVIC (NON )Ordered By: Physician Office Clin Asst on 05-31-2012 PELVIC (NON ) See Note [...] Ma M.D.May 31, 2012 at 11:36:05 AM [id number] Signed GP/GP If you are the referring physician and would like to consult with theradiologist who provided this interpretation, please contact Yunier Rosa at [phone]. If this radiologist is unavailable, youwill be directed to another radiologist to assist. If you are a patient with a question regarding this report, pleasecontactyour referring physician directly. Professional Interpretation Provided By: Mobile Authentication, Phone , These documents contain legally protected [...] IMPORTSign by Kenan Ma MD on 06/03/12 1488 Sign by: Francesca SHAH,Kenan PROCEDURE: ULTRASOUN D [...] Ma M.D.May 31, 2012 at 11:36:05 AM [id number] Signed GP/GP If you are the referring physician and would like to consult with theradiologist who provided this interpretation, please contact Yunier Rosa at [phone]. If this radiologist is unavailable, youwill be directed to another radiologist to assist. If you are a patient with a question regarding this report, pleasecontactyour referring physician directly. Professional Interpretation Provided By: Mobile Authentication, Phone , These documents contain legally protected [...] 1145 Sign by: Kenan Ma MD PROLACTIN ([id number])Ordered By: Physician Office Clin Asst on 05-31-2012 Prolactin mass conc 8.6 ng/mL Normal 4.8-23.3 [facility] Internal Medicine Work Phone: Comment on above: send to dr farnsworth; PATIENT WAS FASTINGPERFORMED BY: [employer]6370 ShunWang TechnologyAtrium Health Cleveland [id number] PT (PROTHROMBIN TIME) ([id number] )Ordered By: Physician Office Clin Asst on 05-31-2012 INR Coag RelTime (PPP) 1.0 {INR} Normal 0.8-1.2 [facility] Work Phone: Comment on above: Reference interval i s for non-anticoagulated patients. . Suggested INR therapeutic range for Vitamin K antagonist therapy: Standard Dose (moderate intensity therapeutic range): 2.0 - 3.0 Higher intensity therapeutic range 2.5 - 3.[address] farnsworth; PATIENT WAS FASTINGPERFORMED BY: [employer] Kgqgyy1903 [facility] Instant InformationCritical access hospital [id number] Prothrombin time (PT) Coag time (PPP) 10.4 {sec} Normal 9.1-12.0 [facility] Internal Medicine Work Phone: Comment on above: send to dr farnsworth; PATIENT WAS FASTINGPERFORMED BY: [employer] LabCoNDI [facility] Atvqzy2828 Brown AuthorBeeAtrium Health Cleveland [id number] PTT (ACTIVATED PARTIAL THROM BOPLASTIN TIME) (09776)Ordered By: Physician Office Clin Asst on 05-31-2012 aPTT Coag time (PPP) 29 {sec} Normal 24-33 Comp rehensive Internal Medicine Work Phone: Comment on above: This test has not be en validated for monitoring unfractionated heparintherapy. aPTT-based therapeutic ranges for unfractionated heparintherapy have not been established. For general guidelines onHeparin monitoring, refer to the [employer] Directory of Services. send to dr farnsworth; PATIENT WAS FASTINGPERFORMED BY: Trigemina70 SokolinCritical access hospital [id number] TSH ([id number])Ordered By: 77 Piecese m Manager Combination on 05-31-2012 Thyrotropin Qn 1.240 {uIU/mL} Normal 0.450-4.50 0 [facility] Work Phone: Comment on above: send to dr farnsworth; PATIENT WAS FASTINGPERFORMED BY: Valen AnalyticsAdventHealth Manchester [id number] Hlbx-Dx-8Kgmqwmm By: Physician Office Clin Asst on 11-24-2011 Desire-1 extractable nuclear Ab Qn (S) <0.2 Normal 0.0-0.9 [facility] Work Phone: Comment on above: PATIENT NOT FASTINGP ERFORMED BY: GrubsterCritical access hospital [id number] Creatine Kinase Total ([id number] )Ordered By: Physician Office Clin Asst on 11-24-2011 CK enzyme act/vol 204 U/L Abnormal 24-173 Compreh ensive Internal Medicine Work Phone: Comment on above: PATIENT NOT FASTINGP ERFORMED BY: [employer]6370 SokolinCritical access hospital [id number] Hemoglobin Glyclated (HGB A1 C) (16185)Ordered By: Physician Office Clin Asst on 11-24-2011 Hemoglobin A1c/Hemoglobin.total mass fraction (Bld) 6.1 % Abnormal 4.8-5.6 Comprehensiv e Internal Medicine Work Phone: Comment on above: . Increased risk for diabetes: 5.7 - 6.4 Diabetes: >6.4 Glycemic control for adults with diabetes: <7.0 PATIENT NOT FASTINGP ERFORMED BY: CB [facility] Qnknvn2658 Brown RoadDublin [place] [id number] MICROALBUMINOrdered By: Syst em Manager Combination on 11-24-2011 Albumin DL <= 20 mg/L mass conc (U) 9.8 ug/mL Normal 0.0-17.0 [facility] Work Phone: Comment on above: PATIENT NOT FASTINGP ERFORMED BY: CB [facility] Myisyx3074 Brown RoadDublin [place] [id number] Albumin/Creatinine mass ratio (U) 11.0 {mg/g_creat} Normal 0.0-30.0 [facility] Work Phone: Comment on above: PATIENT NOT FASTINGP ERFORMED BY: CB [facility] Lrueox4415 [address] RoadDublin [place] [id number] Creatinine mass conc (U) 88.9 mg/dL Normal 15.0-278.0 [facility] Work Phone: Comment on above: PATIENT NOT FASTINGP ERFORMED BY: CB [facility] Mpnhzl6303 [address] RoadDublin [place] [id number] MYOGLOBIN ([id number])Ordered By: Physician Office Clin Asst on 11-24-2011 Myoglobin mass conc 32 ng/mL Normal 25-58 Compr [facility] Internal Medicine Work Phone: Comment on above: PATIENT NOT FASTINGP ERFORMED BY: CB [facility] Multyv2884 Brown RoadDublin [place] [id number] THYROIDOrdered By: System Jaime wooten on 11-14-2011 [...] Rivera M.D.November 14, 2011 at 10:33:08 AM [phone] Signed MV/MV If you are the referring physician and would like to consult with theradiologist who provided this interpretation, please contact Jade Sin M.D. at . If this radiologist is unavailable, youwillbe directed to another radiologist to assist. If you are a patient with a question regarding this report, pleasecontactyour referring physician directly. Professional Interpretation Provided By: Mobile Authentication, Phone , These documents contain legally protected [...] JADE SIN MD YURI (ANTINUCLEAR ANTIBODY) ( [id number])Ordered By: Physician Office Clin Asst on 11-12-2011 Nuclear Ab Ql (S) Negative Normal Compreh ensive Internal Medicine Work Phone: Comment on above: PATIENT WAS FASTINGP ERFORMED BY: [facility] [id number] C-REACTIVE PROTEIN ([id number])Or dered By: Physician Office Clin Asst on 11-12-2011 CRP mass conc 2.8 mg/L Normal 0.0-4.9 Comprehensi ve Internal Medicine Work Phone: Comment on above: PATIENT WAS FASTINGP ERFORMED BY: [facility] [id number] CBC WITH MANUAL DIFF ([id number]) Ordered By: Physician Office Clin Asst on 11-12-2011 Basophils #/vol (Bld) 0.0 {x10E3/uL} Normal 0.0-0.2 [facility] Work Phone: Comment on above: PATIENT WAS FASTINGP ERFORMED BY: [facility] [id number] Information: [id number] Basophils/100 WBC (Bld) 0 % Normal 0-3 [facility] Work Phone: Comment on above: PATIENT WAS FASTINGP ERFORMED BY: [facility] [id number] Information: [id number] Eosinophils #/vol (Bld) 0.1 {x10E3/uL} Normal 0.0-0.4 [facility] Work Phone: Comment on above: PATIENT WAS FASTINGP ERFORMED BY: [facility] [id number] Information: [id number] Eosinophils/100 WBC (Bld) 1 % Normal 0-7 [facility] Work Phone: Comment on above: PATIENT WAS FASTINGP ERFORMED BY: [facility] [id number] Information: [id number] Erythrocyte distribution width Ratio (RBC) 13.7 % Normal 12.3-15.4 [facility] Work Phone: Comment on above: PATIENT WAS FASTINGP ERFORMED BY: MERCED Garza Ywlnek[address] [id number] Information: [id number] Hematocrit Volume Fraction (Bld) 37.7 % Normal 34.0-46.6 [facility] Work Phone: Comment on above: PATIENT WAS FASTINGP ERFORMED BY: [address] [id number] Information: [id number] Hemoglobin mass conc (Bld) 12.6 g/dL Normal 11.1-15.9 [facility] Work Phone: Comment on above: PATIENT WAS FASTINGP ERFORMED BY: [address] [id number] Information: [id number] Immature granulocytes #/vol (Bld) 0.0 {x10E3/uL} Normal 0.0-0.1 [facility] Work Phone: Comment on above: PATIENT WAS FASTINGP ERFORMED BY: Jose Luis[address] [id number] Information: [id number] Immature granulocytes/100 WBC (Bld) 0 % Normal 0-2 [facility] Work Phone: Comment on above: PATIENT WAS FASTINGP ERFORMED BY: [address] [id number] Information: [id number] Lymphocytes #/vol (Bld) 1.8 {x10E3/uL} Normal 0.7-4.5 [facility] Work Phone: Comment on above: PATIENT WAS FASTINGP ERFORMED BY: [place] 0943670 [facility] [id number] Information: [id number] Lymphocytes/100 WBC (Bld) 25 % Normal 14-46 [facility] Work Phone: Comment on above: PATIENT WAS FASTINGP ERFORMED BY: [facility]6370 [facility] [id number] Information: [id number] MCH Entitic mass (RBC) 31.9 pg Normal 26.6-33.0 [facility] Work Phone: Comment on above: PATIENT WAS FASTINGP ERFORMED BY: [address] [id number] Information: [id number] MCHC mass conc (RBC) 33.4 g/dL Normal 31.5-35.7 [facility] Internal Medicine Work Phone: Comment on above: PATIENT WAS FASTINGP ERFORMED BY: [address] [id number] Information: [id number] MCV Entitic volume (RBC) 95 fL Normal 79-97 [facility] Work Phone: Comment on above: PATIENT WAS FASTINGP ERFORMED BY: [place] 0943670 [facility] [id number] Information: [id number] Monocytes #/vol (Bld) 0.3 {x10E3/uL} Normal 0.1-1.0 [facility] Work Phone: Comment on above: PATIENT WAS FASTINGP ERFORMED BY: [place] 0943670 [facility] [id number] Information: [id number] Monocytes/100 WBC (Bld) 5 % Normal 4-13 [facility] Work Phone: Comment on above: PATIENT WAS FASTINGP ERFORMED BY: [facility]6370 [facility] [id number] Information: [id number] Neutrophils #/vol (Bld) 4.9 {x10E3/uL} Normal 1.8-7.8 [facility] Work Phone: Comment on above: PATIENT WAS FASTINGP ERFORMED BY: MERCED LabCoVirtua MarltonLjqelt6492 [facility] [id number] Information: [id number] Neutrophils/100 WBC (Bld) 69 % Normal 40-74 [facility] Work Phone: Comment on above: PATIENT WAS FASTINGP ERFORMED BY: LabCoVirtua MarltonEzdbtp4221 [facility] [id number] Information: [id number] Platelets #/vol (Bld) 349 {x10E3/uL} Normal 140-415 [facility] Work Phone: Comment on above: PATIENT WAS FASTINGP ERFORMED BY: Jose LuisCo Rmspbt7478 [facility] [id number] Information: [id number] RBC #/vol (Bld) 3.95 {x10E6/uL} Normal 3.77-5.28 [facility] Internal Medicine Work Phone: Comment on above: PATIENT WAS FASTINGP ERFORMED BY: [facility] [id number] Information: [id number] WBC #/vol (Bld) 7.1 {x10E3/uL} Normal 4.0-10.5 [facility] Internal Medicine Work Phone: Comment on above: PATIENT WAS FASTINGP ERFORMED BY: LabCoVirtua MarltonKuvpuu7857 [facility] [id number] Information: [id number] CERV SPINE,MIN 4 VIEWSOrdere d By: Physician Office Clin Asst on 11-12-2011 CERV SPINE,MIN 4 VIEWS See [...] This is worse at the C5-C6 and C6-A5ldjvcj. Normal visualized intervertebral neuroforamina. Normal visualized soft tissue structures. IMPRESSION:Multilevel degenerative disc disease. Signed:Kenan Ma M.D.November 12, 2011 at 11:14:07 AM [id number] Signed GP/GP If you are the referring physician and would like to consult with theradiologist who provided this interpretation, please contact Yunier Rosa at [phone]. If this radiologist is unavailable, youwill be directed to another radiologist to assist. If you are a patient with a question regarding this report, pleasecontactyour referring physician directly. Professional Interpretation Provided By: Mobile Authentication, Phone , These documents contain legally protected [...] by: Kenan Ma MD Creatine Kinase Total ([id number] )Ordered By: Physician Office Clin Asst on 11-12-2011 CK enzyme act/vol 200 U/L Abnormal 24-173 Compreh ensive Internal Medicine Work Phone: Comment on above: PATIENT WAS FASTINGP ERFORMED BY: LabCoVirtua MarltonMuzyyo4839 [facility] [id number] LIPID PANEL ([id number])Ordered B y: Physician Office Clin Asst on 11-12-2011 Cholesterol in HDL mass conc 78 mg/dL Normal [facility] Work Phone: Comment on above: According to ATP-III Guidelines, HDL-C >59 mg/dL is considered anegative risk factor for CHD. PATIENT WAS FASTINGP ERFORMED BY: CB [facility] Vtnnok5793 [address] RoadDublin [place] [id number] Cholesterol in LDL mass conc 137 mg/dL Abnormal 0-99 [facility] Work Phone: Comment on above: PATIENT WAS FASTINGP ERFORMED BY: CB [facility] Ygmlad4528 [address] RoadDublin [place] [id number] Cholesterol in LDL/Cholesterol in HDL mass ratio 1.8 {ratio_units} Normal 0.0-3.2 [facility] Work Phone: Comment on above: PATIENT WAS FASTINGP ERFORMED BY: CB [facility] Kbvenn7298 [address] RoadDublin [place] [id number] Cholesterol in VLDL mass conc 26 mg/dL Normal 5-40 [facility] Work Phone: Comment on above: PATIENT WAS FASTINGP ERFORMED BY: CB [facility] Vmcuhh5846 [address] RoadDublin [place] [id number] Cholesterol mass conc 241 mg/dL Abnormal 100-199 [facility] Work Phone: Comment on above: PATIENT WAS FASTINGP ERFORMED BY: CB [facility] Ylcdug0475 [address] RoadDublin [place] [id number] Triglyceride mass conc 128 mg/dL Normal 0-149 [facility] Work Phone: Comment on above: PATIENT WAS FASTINGP ERFORMED BY: CB [facility] Dqavia3448 [address] RoadDublin [place] [id number] METABOLIC PANEL, COMPREHENSI VE (06158)Ordered By: Physician Office Clin Asst on 11-12-2011 Albumin mass conc 4.3 g/dL Normal 3.6-4.8 Compreh ensive Internal Medicine Work Phone: Comment on above: PATIENT WAS FASTINGP ERFORMED BY: CB [facility] Xmnhux1653 [address] RoadDublin [place] [id number] Albumin/Globulin mass ratio 1.4 {ratio} Normal 1.1-2.5 [facility] Work Phone: Comment on above: PATIENT WAS FASTINGP ERFORMED BY: CB [facility] Qbspew4447 [address] RoadDublin [place] [id number] ALP enzyme act/vol 106 [iU]/L Normal 25-165 [facility] Internal Medicine Work Phone: Comment on above: PATIENT WAS FASTINGP ERFORMED BY: CB [facility] Bqgldn1808 [address] Roadblin [place] [id number] ALT enzyme act/vol 27 [iU]/L Normal 0-40 [facility] Internal Medicine Work Phone: Comment on above: PATIENT WAS FASTINGP ERFORMED BY: [facility] Pukvob4336 [address] RoadDublin [place] [id number] AST enzyme act/vol 22 [iU]/L Normal 0-40 [facility] Internal Medicine Work Phone: Comment on above: PATIENT WAS FASTINGP ERFORMED BY: [facility] Ctnigg4207 [address] Roadblin [place] [id number] Bilirubin mass conc 0.2 mg/dL Normal 0.0-1.2 Compr [facility] Internal Medicine Work Phone: Comment on above: PATIENT WAS FASTINGP ERFORMED BY: [facility] Fhvvfu0376 [address] Roadblin [place] [id number] Calcium mass conc 9.6 mg/dL Normal 8.6-10.2 Compreh [facility] hospitalive [facility] Work Phone: Comment on above: PATIENT WAS FASTINGP ERFORMED BY: [facility] Fseetm6596 [address] RoadDublin [place] [id number] Chloride molar conc 104 mmol/L Normal 97-108 Compr ensive Internal Medicine Work Phone: Comment on above: PATIENT WAS FASTINGP ERFORMED BY: CB [facility] Kwvvvj2576 [address] RoadDublin [place] [id number] CO2 molar conc 21 mmol/L Normal 20-32 Comprehens naseem Internal Medicine Work Phone: Comment on above: PATIENT WAS FASTINGP ERFORMED BY: [facility] Lbrtwf8567 [address] RoadDublin [place] [id number] Creatinine mass conc 0.70 mg/dL Normal 0.57-1.00 Comp rehensive Internal Medicine Work Phone: Comment on above: PATIENT WAS FASTINGP ERFORMED BY: CB [facility] Hmmjtu2974 [address] RoadDublin [place] [id number] GFR/1.73 sq M predicted among blacks CKD-EPI vol rate/area (S/P/Bld) 107 mL/min/1.73 Normal Comprehensiv e Internal Medicine Work Phone: Comment on above: PATIENT WAS FASTINGP ERFORMED BY: [facility] Bvqlxb7811 [address] RoadDublin [place] [id number] GFR/1.73 sq M predicted among non-blacks CKD-EPI vol rate/area (S/P/Bld) 93 mL/min/1.73 Normal [facility] Work Phone: Comment on above: PATIENT WAS FASTINGP ERFORMED BY: [facility] Dcwpth6589 [address] RoadDublin [place] [id number] Globulin mass conc (S) 3.1 g/dL Normal 1.5-4.5 [facility] Work Phone: Comment on above: PATIENT WAS FASTINGP ERFORMED BY: [facility] Udaajb0100 [address] RoadDublin [place] [id number] Glucose mass conc 103 mg/dL Abnormal 65-99 Compreh ensive Internal Medicine Work Phone: Comment on above: PATIENT WAS FASTINGP ERFORMED BY: [facility] Pfordj2055 [address] RoadDublin [place] [id number] Potassium molar conc 4.6 mmol/L Normal 3.5-5.2 Comp rehensive Internal Medicine Work Phone: Comment on above: PATIENT WAS FASTINGP ERFORMED BY: CB [facility] Jkbypg0900 [address] RoadDublin [place] [id number] Protein mass conc 7.4 g/dL Normal 6.0-8.5 Compreh ensive Internal Medicine Work Phone: Comment on above: PATIENT WAS FASTINGP ERFORMED BY: MERCED [facility] Aomgsu5654 [address] RoadDublin [place] [id number] Sodium molar conc 141 mmol/L Normal 134-144 Compreh [facility] Internal [facility] Work Phone: Comment on above: PATIENT WAS FASTINGP ERFORMED BY: MERCED [facility] Jwtjxd5620 [address] RoadDublin [place] [id number] Urea nitrogen mass conc 13 mg/dL Normal 8-27 [facility] Work Phone: Comment on above: PATIENT WAS FASTINGP ERFORMED BY: MERCED [facility] Tpnzje9108 [address] RoadDublin [place] [id number] Urea nitrogen/Creatinine mass ratio 19 mg/mg Normal 11-26 [facility] Work Phone: Comment on above: PATIENT WAS FASTINGP ERFORMED BY: MERCED [facility] Mjywnh7609 [address] RoadDublin [place] [id number] RHEUMATOID FACTOR-QUANT ([id number] 31)Ordered By: Physician Office Clin Asst on 11-12-2011 Rheumatoid factor Qn 9.4 {IU/mL} Normal 0.0-13.9 [facility] prehensive Internal Medicine Work Phone: Comment on above: PATIENT WAS FASTINGP ERFORMED BY: MERCED [facility] Kyzjgv0533 [address] RoadDublin [place] [id number] SED RATE ERYTHROCYTE ([id number]) Ordered By: Physician Office Clin Asst on 11-12-2011 ESR Velocity (Bld) 18 mm/h Normal 0-40 [facility] Work Phone: Comment on above: PATIENT WAS FASTINGP ERFORMED BY: CB [facility] Zdmnuu1235 [address] RoadDublin [place] [id number] TSH ([id number])Ordered By: Syste m Manager Combination on 11-12-2011 Thyrotropin Qn 0.857 {uIU/mL} Normal 0.450-4.50 0 [facility] Work Phone: Comment on above: PATIENT WAS FASTINGP ERFORMED BY: MERCED [facility] Ewtkwh4269 [address] RoadDublin [place] [id number] Vitamin D Hydroxy (29823)Ord ered By: Physician Office Clin Asst on 11-12-2011 25-Hydroxyvitamin D2+25-Hydroxyvitamin D3 mass conc 28.6 ng/mL Abnormal 30.0-100.0 [facility] Work Phone: Comment on above: Vitamin D deficiency has been defined by the [place] of[place] and an Endocrine Society practice guideline as alevel of serum 25-OH vitamin D less than 20 ng/mL (1,2).The Endocrine Society went on to further define vitamin Dinsufficiency as a level between 21 and 29 ng/mL (2).1. IOM ([place] of [employer]). 2010. Dietary reference intakes for calcium and D. [place]: The National Academies Press.2. Luly MF, Michelle GALICIA, Jefry DAVILA, et al. Evaluation, treatment, and prevention of vitamin D deficiency: an Endocrine Society clinical practice guideline. JCEM. 2010; 96(7):1911-30. PATIENT WAS FASTINGP ERFORMED BY: [facility]6370 [facility] [id number] Vital Signs Date Time Vital Sign Value Performing Clinician Facility 05-18-2023 09:37-0500 Body height 147.[address] Shiv Gaviria Work Phone: [facility] 05-18-2023 09:37-0500 Body mass index (BMI) [Ratio] 32.1 kg/m2 Dr. Shiv Gaviria Work Phone: [facility] 05-18-2023 09:37-0500 Body temperature 99.1 [degF] Dr. Shiv Gaviria Work Phone: [facility] 05-18-2023 09:37-0500 Body weight 69.[address] Shiv Gaviria Work Phone: [facility] 05-18-2023 09:37-0500 Diastolic blood pressure 80 mm[Hg] Dr. Shiv Gaviria Work Phone: [facility] 05-18-2023 09:37-0500 Heart rate 69 /min Dr. Shiv Gaviria Work Phone: [facility] 05-18-2023 09:37-0500 Respiratory rate 14 /min Dr. Shiv Gaviria Work Phone: [facility] 05-18-2023 09:37-0500 SaO2% (BldA) [Mass fraction] 98 % Dr. Shiv Gaviria Work Phone: [facility] 05-18-2023 09:37-0500 Systolic blood pressure 130 mm[Hg] Dr. Shiv Gaviria Work Phone: [facility] 08-22-2021 10:01-0400 Body height 147.[address] Carlota Burrows Work Phone: [facility] Work Phone: 08-22-2021 10:01-0400 Body temperature 98.6 [degF] Dr. Carlota Burrows Work Phone: [facility] Work Phone: 08-22-2021 10:01-0400 Diastolic blood pressure 78 mm[Hg] Dr. Carlota Burrows Work Phone: [facility] Work Phone: 08-22-2021 10:01-0400 Heart rate 98 /min Dr. Carlota Burrows Work Phone: [facility] Work Phone: 08-22-2021 10:01-0400 SaO2% (BldA) [Mass fraction] 90 % Dr. Carlota Burrows Work Phone: [facility] Work Phone: 08-22-2021 10:01-0400 Systolic blood pressure 124 mm[Hg] Dr. Carlota Burrows Work Phone: [facility] Work Phone: 07-16-2021 08:39-0400 Body mass index (BMI) [Ratio] 32.1 kg/m2 Dr. Carlota Burrows Work Phone: [facility] Work Phone: 07-16-2021 08:39-0400 Body temperature 97.9 [degF] Dr. Carlota Burrows Work Phone: [facility] Work Phone: 07-16-2021 08:39-0400 Body weight 69.[address] Carlota Burrows Work Phone: [facility] Work Phone: 07-16-2021 08:39-0400 Diastolic blood pressure 60 mm[Hg] Dr. Carlota Burrows Work Phone: [facility] Work Phone: 07-16-2021 08:39-0400 Heart rate 104 /min Dr. Carlota Burrows Work Phone: [facility] Work Phone: 07-16-2021 08:39-0400 Respiratory rate 16 /min Dr. Carlota Burrows Work Phone: [facility] Work Phone: 07-16-2021 08:39-0400 SaO2% (BldA) [Mass fraction] 95 % Dr. Carlota Burrows Work Phone: [facility] Work Phone: 07-16-2021 08:39-0400 Systolic blood pressure 124 mm[Hg] Dr. Carlota Burrows Work Phone: [facility] Work Phone: 06-13-2020 14:04-0400 BMI (Body [...] 08:11-0400 Body Temperature 98.2 [degF] Carlota Burrows [facility] Work Phone: Comment on above: [...] 11-15-2018 08:11-0400 Height 145.54 cm [facility] Work Phone: 11-15-2018 08:11-0400 Pulse [...] 10:51-0500 Body Temperature 98.2 [degF] [facility] Work Phone: 04-04-2016 10:51-0500 Body weight 67.36 kg [facility]ota [facility]rows [facility] Work Phone: 04-04-2016 10:51-0500 BP Diastolic 82 mm[Hg] [facility]rows [facility] Work Phone: Comment on above: Patient Position: Sitting; Cuff Location : Left Arm; Cuff Size: Standard 04-04-2016 10:51-0500 BP Systolic 136 mm[Hg] [facility] Work Phone: Comment on above: Patient Position: Sitting; Cuff Location : Left Arm; Cuff Size: Standard 04-04-2016 10:51-0500 BSA (Body Surface Area) 1.59 m2 [facility]ota [facility] Work Phone: 04-04-2016 10:51-0500 Height 145.54 cm [facility] Work Phone: 04-04-2016 10:51-0500 Pulse (Heart Rate) 69 /min [facility] Work Phone: Comment on above: Pattern: Regular 04-04-2016 10:51-0500 Pulse Oximetry 96 % [facility]ota [facility] Work Phone: Comment on above: Room air 04-04-2016 10:51-0500 Respiratory Rate 17 /min [facility] Work Phone: Comment on above: Pattern: Unlabored 04-04-2016 10:51-0500 Weight 67.36 kg [facility]ota [facility] Work Phone: 04-01-2016 15:09-0500 BMI (Body Mass Index) 31.8 kg/m2 [facility] Work Phone: 04-01-2016 15:09-0500 Body Temperature 97.5 [degF] [facility] Work Phone: Comment on above: Method: Temporal 04-01-2016 15:09-0500 Body weight 67.36 kg Carlota [facility]rows [facility] Work Phone: 04-01-2016 15:09-0500 BP [...] (Body Surface Area) 1.59 m2 [facility] Work Phone: 04-01-2016 15:09-0500 Height 145.54 cm [facility]ota [facility] Work Phone: 04-01-2016 15:09-0500 Pulse (Heart Rate) 72 /min [facility] Work Phone: Comment on above: Pattern: Regular 04-01-2016 15:09-0500 Respiratory Rate 16 /min [facility] Work Phone: Comment on above: Pattern: Unlabored 04-01-2016 15:09-0500 Weight 67.36 kg [facility]ota [facility] Work Phone: 01-11-2016 14:37-0400 BMI (Body Mass Index) 32.01 kg/m2 [facility] Work Phone: 01-11-2016 14:37-0400 Body [...] 14:37-0400 Pulse Oximetry 96 % [facility] Work Phone: Comment on above: Room air 01-11-2016 14:37-0400 Respiratory Rate 18 /min [facility] Work Phone: Comment on above: Pattern: Unlabored 01-11-2016 14:37-0400 Weight 67.81 kg [facility] Work Phone: 12-27-2015 08:18-0400 BMI (Body Mass Index) 32.36 kg/m2 [facility] Work Phone: 12-27-2015 08:18-0400 Body weight 68.55 kg Carlota [facility]rows [facility] Work Phone: 12-27-2015 08:18-0400 BP Diastolic 80 mm[Hg] [facility]ota [facility] Work Phone: Comment on above: [...] Temporal 01-31-2015 09:18-0500 Body weight 68.49 kg [facility] Work [...] 09:18-0500 BSA (Body Surface Area) 1.6 m2 Carloat Burrows [facility] Work Phone: 01-31-2015 09:18-0500 Height 145.54 cm [facility] Work Phone: 01-31-2015 09:18-0500 Pulse (Heart Rate) 72 /min [facility] Work Phone: Comment on above: Pattern: Regular 01-31-2015 09:18-0500 Pulse Oximetry 97 % [facility] Work Phone: Comment on above: Room air 01-31-2015 09:18-0500 Respiratory Rate 16 /min [facility] Work Phone: Comment on above: Pattern: Unlabored 01-31-2015 09:18-0500 Weight 68.49 kg Carlota [facility] Work Phone: 12-01-2014 10:32-0400 BMI (Body Mass Index) 31.91 kg/m2 [facility] Work Phone: 12-01-2014 10:32-0400 Body Temperature 98.5 [degF] [facility] Work Phone: Comment on above: Method: Oral 12-01-2014 10:32-0400 Body weight 67.59 kg Carlota [facility]rows [facility] Work Phone: 12-01-2014 10:32-0400 BP Diastolic 76 mm[Hg] [facility] Work Phone: Comment on above: Patient Position: Sitting; Cuff Location : Left Arm; Cuff Size: Standard 12-01-2014 10:32-0400 BP Systolic 112 mm[Hg] [facility] Work Phone: Comment on above: Patient Position: Sitting; Cuff Location : Left Arm; Cuff Size: Standard 12-01-2014 10:32-0400 BSA (Body Surface Area) 1.59 m2 [facility] Work Phone: 12-01-2014 10:32-0400 Height 145.54 cm [facility]ota [facility] Work Phone: 12-01-2014 10:32-0400 Pulse (Heart Rate) 68 /min [facility] Work Phone: Comment on above: Pattern: Regular 12-01-2014 10:32-0400 Respiratory Rate 16 /min [facility] Work Phone: Comment on above: Pattern: Unlabored 12-01-2014 10:32-0400 Weight 67.59 kg Carlota [facility] Work Phone: 07-08-2013 11:48-0400 BMI (Body Mass Index) 32.98 kg/m2 [facility]ota [facility] Work Phone: 07-08-2013 11:48-0400 Body Temperature 97.7 [degF] [facility] Work Phone: 07-08-2013 11:48-0400 Body weight 69.85 kg Carlota [facility] Work Phone: 07-08-2013 11:48-0400 BP Diastolic 72 mm[Hg] [facility] Work Phone: Comment on above: Patient Position: Sitting; Cuff Location : Left Arm; Cuff Size: Standard 07-08-2013 11:48-0400 BP Systolic 116 mm[Hg] [facility] Work Phone: Comment on above: Patient Position: Sitting; Cuff Location : Left Arm; Cuff Size: Standard 07-08-2013 11:48-0400 BSA (Body Surface Area) 1.62 m2 [facility]ota [facility] Work Phone: 07-08-2013 11:48-0400 Height 145.54 cm [facility] Work Phone: 07-08-2013 11:48-0400 Pulse [...] (Body Mass Index) 32.68 kg/m2 [facility] Work Phone: 09-29-2012 10:20-0400 Body Temperature 97.8 [degF] [facility]ota [facility] Work Phone: Comment on above: Method: Temporal 09-29-2012 10:20-0400 Body weight 69.22 kg Carlota [facility] Work Phone: 09-29-2012 10:20-0400 BP Diastolic 76 mm[Hg] [facility] Work Phone: Comment on above: Patient Position: Sitting; Cuff Location : Left Arm; Cuff Size: Standard 09-29-2012 10:20-0400 BP Systolic 126 mm[Hg] [facility] Work Phone: Comment on above: Patient Position: Sitting; Cuff Location : Left Arm; Cuff Size: Standard 09-29-2012 10:20-0400 BSA (Body Surface Area) 1.61 m2 [facility]ota [facility] Work Phone: 09-29-2012 10:20-0400 Height 145.54 cm Carlota [facility] Work Phone: 09-29-2012 10:20-0400 Pulse (Heart Rate) 63 /min [facility] Work Phone: Comment on above: Pattern: Regular 09-29-2012 10:20-0400 Pulse Oximetry 97 % [facility] Work Phone: Comment on above: Room air 09-29-2012 10:20-0400 Respiratory Rate 16 /min Carlota [facility] Work Phone: Comment on above: Pattern: Unlabored 09-29-2012 10:20-0400 Weight 69.22 kg [facility] Work Phone: 06-25-2012 10:39-0400 Body weight 69.85 kg [facility] Work Phone: 06-25-2012 10:39-0400 BP Diastolic 74 mm[Hg] [facility] Work Phone: Comment on above: [...] 06-25-2012 10:39-0400 Pulse Oximetry 95 % Carlota Burorws [facility] Work Phone: Comment on above: Room air 06-25-2012 10:39-0400 Respiratory Rate 18 /min [facility] Work Phone: Comment on above: Pattern: Unlabored 06-25-2012 10:39-0400 Weight 69.85 kg [facility] Work Phone: 05-18-2012 16:10-0500 BMI (Body Mass Index) 32.93 kg/m2 Carlota [facility] Work Phone: 05-18-2012 16:10-0500 Body Temperature 97.4 [degF] [facility] Work Phone: Comment on above: Method: Oral 05-18-2012 16:10-0500 Body weight 69.85 kg [facility] Work Phone: 05-18-2012 16:10-0500 BP Diastolic 86 mm[Hg] [facility] Work Phone: Comment on above: Patient Position: Sitting; Cuff Location : Left Arm; Cuff Size: Large 05-18-2012 16:10-0500 BP Systolic 138 mm[Hg] [facility] Work Phone: Comment on above: Patient Position: Sitting; Cuff Location : Left Arm; Cuff Size: Large 05-18-2012 16:10-0500 BSA (Body Surface Area) 1.62 m2 Carlota [facility]rows [facility] Work Phone: 05-18-2012 16:10-0500 Height 145.64 cm Carlota Burrows [facility] Work Phone: 05-18-2012 16:10-0500 Pulse (Heart Rate) 60 /min [facility] Work Phone: Comment on above: Pattern: Regular 05-18-2012 16:10-0500 Respiratory Rate 20 /min Carlota [facility] Work Phone: Comment on above: Pattern: Unlabored 05-18-2012 16:10-0500 Weight 69.85 kg Carlota [facility]rows [facility] Work Phone: 11-24-2011 10:19-0400 BMI (Body Mass Index) 32.29 kg/m2 Carlota Burrows [facility] Work Phone: 11-24-2011 10:19-0400 Body Temperature 98.1 [degF] Carlota Burrows [facility] Work Phone: Comment on above: Method: Oral 11-24-2011 10:19-0400 Body weight 68.49 kg Carlota [facility]rows [facility] Work Phone: 11-24-2011 10:19-0400 BP Diastolic 76 mm[Hg] Carl[facility] Work Phone: Comment on above: Patient Position: Sitting; Cuff Location : Left Arm; Cuff Size: Standard 11-24-2011 10:19-0400 BP Systolic 120 mm[Hg] Carl[facility] Work Phone: Comment on above: Patient Position: Sitting; Cuff Location : Left Arm; Cuff Size: Standard 11-24-2011 10:19-0400 BSA (Body Surface Area) 1.6 m2 Carlota [facility] Work Phone: 11-24-2011 10:19-0400 Height 145.64 cm Carlota Burrows [facility] Work Phone: 11-24-2011 10:19-0400 Pulse (Heart Rate) 72 /min Carlota [facility] Work Phone: Comment on above: Pattern: Regular 11-24-2011 10:19-0400 Respiratory Rate 16 /min Carlota Bur[facility] Work Phone: Comment on above: Pattern: Unlabored 11-24-2011 10:19-0400 Weight 68.49 kg Carlota [facility]rows [facility] Work Phone: 10-27-2011 11:34-0400 BMI (Body Mass Index) 32.29 kg/m2 Carlota Burrows [facility] Work Phone: 10-27-2011 11:34-0400 Body Temperature 98.2 [degF] Carlota Burrows [facility] Work Phone: Comment on above: Method: Oral 10-27-2011 11:34-0400 Body weight 68.49 kg Carlota Burrows [facility] Work Phone: 10-27-2011 11:34-0400 BP Diastolic 76 mm[Hg] Carlota Burrows [facility] Work Phone: Comment on above: Patient Position: Sitting; Cuff Location : Left Arm; Cuff Size: Standard 10-27-2011 11:34-0400 BP Systolic 118 mm[Hg] Carlota Bur[facility] Work Phone: Comment on above: Patient Position: Sitting; Cuff Location : Left Arm; Cuff Size: Standard 10-27-2011 11:34-0400 BSA (Body Surface Area) 1.6 m2 Carlota Burrows [facility] Work Phone: 10-27-2011 11:34-0400 Height 145.64 cm Carlota Burrows [facility] Work Phone: 10-27-2011 11:34-0400 Pulse (Heart Rate) 64 /min Carlota Burrows [facility] Work Phone: Comment on above: Pattern: Regular 10-27-2011 11:34-0400 Respiratory Rate 16 /min Carlotakris Burrows [facility] Work Phone: Comment on above: Pattern: Unlabored 10-27-2011 11:34-0400 Weight 68.49 kg Carlota Burrows [facility] Work Phone: Encounters Encounter Date Encounter Type Care Provider Facility Start: 08-31-2024 ambulatory [facility] Start: 05-09-2024 End: 05-09-2024 ambulatory [facility] Start: 01-11-2024 End: 01-11-2024 [facility] Start: 09-11-2023 End: 09-11-2023 ambulatory [facility] Khad[facility] Facility:[facility] Start: 05-18-2023 End: 05-18-[address] Shiv Gaviria Work Phone: [facility] Work Phone: Start: 05-18-2023 End: 05-18-2023 Encounter for general adult medical examination without abnormal findings Dr. Shiv Gaviria Work Phone: [facility] Start: 05-18-2023 End: 05-18-[address] Shiv Gaviria Work Phone: [facility] Work Phone: Start: 07-21-2022 End: 07-21-2022 ambulatory [facility] Work Phone: Start: 07-21-2022 End: 07-21-2022 Patient encounter procedure [facility] [place] Start: 08-22-2021 End: 08-22-[address] Carlota Burrows Work Phone: [facility] Start: 07-16-2021 End: 07-16-[address] Carlota Burrows Work Phone: [facility] Start: 05-09-2021 End: 05-09-[address] Carlota Burrows Work Phone: [facility]-Outpatient Breast Imaging Start: 11-26-[address] Carlota Burrows Work Phone: [facility] Start: 06-13-2020 End: 06-13-2020 Office outpatient visit 10 minutes [facility] Start: 04-17-2020 End: 04-17-2020 Annotation/Addendum [facility]ota [facility] Start: 04-02-2020 End: 04-02-2020 Office outpatient visit 15 minutes [facility] Start: 11-15-2018 End: 11-15-2018 Office outpatient visit 15 minutes [facility] Start: 11-15-2018 Review [facility] Burrows [facility] Start: 11-01-2018 End: 11-01-2018 Office outpatient visit 15 minutes [facility] Start: 05-31-2018 End: 05-31-2018 Phone Encounter [facility] Start: 04-28-2018 End: 04-28-2018 Phone Encounter [facility] Start: 04-27-2018 Patient encounter procedure [facility] Start: 04-12-2018 End: 04-12-2018 Office outpatient visit 25 minutes [facility] Start: 04-04-2016 End: 04-04-2016 Office outpatient visit 15 minutes [facility] Start: 04-03-2016 End: 04-03-2016 Phone Encounter [facility] Start: 04-01-2016 End: 04-02-2016 Office outpatient visit 15 minutes [facility] Start: 01-11-2016 End: 01-11-2016 Office outpatient visit 25 minutes [facility] Start: 12-27-2015 End: 12-27-2015 Office outpatient visit 25 minutes Carlota [facility] Start: 01-31-2015 End: 01-31-2015 Office outpatient visit 15 minutes Carlota Rust[facility] Start: 12-01-2014 End: 12-04-2014 Office outpatient visit 25 minutes Carlota Rust[facility] Start: 07-08-2013 End: 07-11-2013 Patient encounter procedure Carlota Rust[facility] Start: 06-07-2013 End: 06-07-2013 Patient encounter procedure Carlotakris Davidsonon [facility] Start: 10-08-2012 End: 10-08-2012 Phone Encounter Carlota Burrows [facility] Medicine Start: 09-29-2012 End: 10-04-2012 Patient encounter procedure Carlota Rustam [facility] Start: 06-25-2012 End: 06-27-2012 Patient encounter procedure Carlota Rustam [facility] Start: 05-18-2012 End: 05-18-2012 Patient encounter procedure Carlota Rustam [facility] Start: 11-24-2011 End: 11-24-2011 Patient encounter procedure Carlotakris Davidsonon [facility] Start: 10-27-2011 End: 10-27-2011 Patient encounter procedure Carlota Burrows [facility] Pre-operative examination, unspecified Carlota Burrows [facility] Work Phone: Pre-operative examination, unspecified Carlota Burrows [facility] Work Phone: Procedures Date Procedure Procedure Detail Performing Clinician Start: 05-09-2021 Dual energy X-ray absorptiometry Dr. Carlota Burrows Work Phone: Start: 05-09-[address] Carlota dailey Work Phone: Start: 06-19-2020 End: 06-19-2020 Inital Evaluation (1) - PT Comments: See Note; NOTES: [facility] [place] [id number] [facility] [address] [place] [address] / REHABILITATION SERVICES INITIAL EVALUATION MR#: [id number] Acct: [id number] Name: GEMMA CERON Rep #: [id number] : 1950 69 From: Lila ECHOLS Referring Dr.: Dr. Carlota Burrows DO Status: REG [facility] Insurance: [facility] SELF PAY INSURANCE Patient's Visit Information GEMMA CERON is a 69 year old F referred to Physical Therapy by Dr. Carlota Burrows DO with a diagnosis of R Sciatica. Date of Evaluation: 06/19/20 Physical Therapist: KINZA Dixon - Visit Plan Frequency: 2x /Week Duration: [...] to be FAXED BACK to us at [phone] for Medicare purposes. For Medicare only, by signing this I certify the plan of care. Please let me know if there are questions or concerns regarding this plan of care. Physician Signature: Date: <Electronically signed by Lila Hough MPT> 06/19/20 0823 CC: Dr. Carlota Burrows, DO Signed Carlota Burrows Start: 04-27-2020 End: 04-27-2020 SCRN MAMM (CAD)W/MATTHEW HUY Comments: See Note; NOTES: [facility] Imaging Services [address] [place] [address] SCRN MAMM (CAD)W/MATTHEW BILAT MR#: [id number] Acct: [id number] Name: GEMMA CERON Rep #: [id number] : 1950 F 69 From: Kenan logan MD PCP: Dr. Carlota Burrows, DO Status: REG CLI Study: SCRN MAMM (CAD)W/MATTHEW BILAT Date of Exam: 03/31 12/18 Exam# [id number] Ordering Dr: Carlota Burrows DO MAMMOGRAPHY - [...] delay biopsy of a clinically suspicious abnormality. [id number] Electronically Signed: Kenan Ma MD at 13:28 EST , Service support , CC: Dr. Carlota Burrows DO Flat Surfacer Jewel: Signed Carlota Burrows Work Phone: Start: 11-03-2018 End: 11-03-2018 Venous Duplex Lower Extremity Comments: See Note; NOTES: [facility] Cardiovascular Services [address] [place] [address] Venous Duplex US, Unilateral 11/03/18 0811 MR#: [id number] Acct: [id number] Name: GEMMA CERON Rep #: [id number] : 1950 68 From: Lisandro Nj MD Attending Dr: TRISH Chilel Status: REG CLI Ordering Dr: Taylor Guaman JAIL MANAGER-C Date: 11/03/18 Location: [facility] Sex: F C [...] T 11/03/181836 Date Lisandro Nj MD CC: JAIL MANAGER-C Taylor Guaman; Carlota Burrows DO Date Dictated: 11/03/18810 Date Transcribed: 11/03/181836 Flat Surfacer Jewel: Signed Taylor Wallace Rowena Work Phone: Start: 11-01-2018 End: 11-02-2018 Knee 4 or More Views Comments: See Note; NOTES: [facility] Imaging Services [address] [place] [address] Knee 4 or More Views MR#: [id number] Acct: [id number] Name: OSMANYGEMMA Rep #: [id number] : 1950 F 68 From: Sandra Delacruz MD PCP: Carlota Burrows DO Status: REG CLI Study: Knee 4 or More Views Date of Exam: 11/01/18 Exam# [id number] Ordering Dr: Taylor Guaman JAIL MANAGER-C HISTORY: PAIN IN LEFT KNEE. NO KNOWN [...] , CC: TRISH Guaman; Carlota Burrows DO Flat Surfacer Jewel: Signed Mara Rowena Work Phone: Start: 06-03-2018 End: 06-03-2018 Surgery Visit Report Comments: See Note; NOTES: [facility] [address] [place] [address] OFFICE VISIT Date of Service: 06/03/18 MR#: [id number] Acct: [id number] Name: GEMMA CERON Rep #: [id number] : 1950 Provider: Janelle Chavez PA-C Age/Sex: 67/F Location: [facility] Status: Signed Intake Intake Visit Reasons: Hernia Surgery DP 05/28 Chief Complaint: CT results and check LUQ Stock Handler Floorperson Required: No Is patient in pain?: No [...] 12 lead ECG Comments: See Note; NOTES: [facility] Cardiovascular Services [address] [place] [address] 12 Lead EKG 05/27/18 1155 MR#: [id number] Acct: [id number] Name: GEMMA CERON Rep #: [id number] : 1950 67 From: Zhou Arce MD Attending Dr: Kevon Vincent MD Status: [facility] Ordering Dr: Kevon Vincent MD Date: 05/27/18 Location: [facility] Sex: F C Admitted: Test Reason : [...] block Confirmed by CAITIE SHAH, ZHOU ([id number]), editorial intern NARCISO OLGUIN ([id number]) on 05/31/2018 1:54:24 PM Referred By: Kevon Vincent Confirmed By:ZHOU ARCE MD 05/31/18 1354 Date Zhou Arce MD CC: Kevon Vincent MD; Carlota Rustam DO Signed Carlota Burrows Start: 05-28-2018 End: 05-28-2018 Operative Report Comments: See Note; NOTES: [facility] Medical Records Department [address] [place] [address] Operative Report 05/28/18 0831 MR#: [id number] Acct: [id number] Name: GEMMA CERON Rep #: [id number] : 1950 67 From: Kevon Vincent MD PCP: Carlota Burrows DO Status: REG SDC Y Location: [place] [address]- Problem List (1) Incarcerated incisional hernia Status: [...] Indicated 05/28/18 0835 <Electronically signed by Kevon Vinecnt MD> Date Kevon Vincent MD CC: Eladio Hudson MD; Kevon Vincent MD; Carlota Burrows DO Signed Carlota Burrows Start: 05-28-2018 End: 05-28-2018 Discharge Instruction Comments: See Note; NOTES: [facility] Medical Records Department [address] [place] [address] Instructions for Home/Discharge Instructions 05/28/18 0829 MR#: [id number] Acct: [id number] Name: GEMMA CERON Rep #: [id number] : 1950 67 From: Kevon Vincent MD [...] Lead EKG [[facility]] Time Frame: 05/26/18, Facility: [facility], Location: Cardiovascular Services Hemoglobin A1c Time Frame: 05/26/18, Location: Laboratory Basic Metabolic Profile (BMP) Time Frame: 05/26/18, Location: Laboratory Primary Care Physician: Carlota Burrows DO [Primary Care Provider] - Test Results: Test results from this visit will be discussed in further detail at your follow-up appointment, if applicable. Please Follow Up With: Kevon Vincent MD - [phone] When: Plan to have a follow up appointment in 7 days. Call to schedule. 05/28/18 0830 <Electronically signed by Kevon Vincent MD> Date Kevon Vincent MD CC: Eladio Hudson MD; Carlota Burrows DO Signed Carlota Burrows Start: 05-27-2018 End: 05-27-2018 Surgery Visit Report Comments: See Note; NOTES: [facility] [address] [place] [address] OFFICE VISIT Date of Service: 05/25/18 MR#: [id number] Acct: [id number] Name: GEMMA CERON Rep #: [id number] : 1950 Provider: Kevon Vincent MD Age/Sex: 67/F Location: [facility] Status: Signed Intake Vital Signs05/25/18 Body Mass Index (BMI) 31.3 Intake Visit Reasons: FU 05/10/18 INCISIONAL HERNIA Chief Complaint: CT results and check LUQ Stock Handler Floorperson Required: No Is patient in pain?: Yes [...] Breast Limited Unilateral Comments: See Note; NOTES: [facility] Imaging Services [address] [place] [address] Breast Limited Unilateral MR#: [id number] Acct: [id number] Name: GEMMA CERON Rep #: [id number] : 1950 F 67 From: Kenan Ma MD PCP: Carlota Burrows DO Status: REG CLI Study: Breast Limited Unilateral Date of Exam: 05/21/18 Exam# [id number] Ordering Dr: Carlota Burrows DO STUDY: ULTRASOUND [...] Service support , CC: Carlota Burrows DO Flat Surfacer Jewel: Signed Carlota Burrows Work Phone: Start: 05-20-2018 End: 05-20-2018 SCREENING MAMM (CAD), BILAT Comments: See Note; NOTES: [facility] Imaging Services [address] [place] [address] SCREENING MAMM (CAD), BILAT MR#: [id number] Acct: [id number] Name: GEMMA CERON Rep #: [id number] : 1950 F 67 From: Kenan Ma MD PCP: Carlota Burrows DO Status: REG CLI Study: SCREENING MAMM (CAD), BILAT Date of Exam: 05/20/18 Exam# [id number] Ordering Dr: Carlota Burrows DO MAMMOGRAPHY - [...] delay biopsy of a clinically suspicious abnormality. [id number] Electronically Signed: Kenan Ma MD at 9:07 EST , Service support , CC: Carlota Burrows DO Flat Surfacer Jewel: Signed Carlota Burrows Work Phone: Start: 05-18-2018 End: 05-18-2018 Abdomen/Pelvis WITH Contrast Comments: See Note; NOTES: [facility] Imaging Services [address] [place] [address] Abdomen/Pelvis WITH Contrast MR#: [id number] Acct: [id number] Name: GEMMA CERON Rep #: [id number] : 1950 F 67 From: Rashawn Manjarrez MD PCP: Carlota Burrows DO Status: REG CLI Study: Abdomen/Pelvis WITH Contrast Date of Exam: 05/18/18 Exam# [id number] Ordering Dr: Kevon Vincent MD STUDY: CT [...] CC: Kevon Vincent MD; Carlota Burrows DO Flat Surfacer Jewel: Signed Carlota Burrows Start: 05-07-2018 End: 05-07-2018 Surgery Visit Report Comments: See Note; NOTES: [facility] [address] [place] [address] OFFICE VISIT Date of Service: 05/07/18 MR#: [id number] Acct: [id number] Name: GEMMA CERON Rep #: [id number] : 1950 Provider: Kevon Vincent MD Age/Sex: 67/F Location: [facility] Status: Signed Intake Vital Signs05/07/18 Body Mass Index (BMI) 31.3 05/07/18 Height 4 ft 9.3 in 05/07/18 Weight: 154 lb 8 oz 05/07/18 Body Mass Index (BMI) 33.0 05/07/18 Blood Pressure 145/77 H Intake Visit Reasons: Incisional Hernia Chief Complaint: recurrent incisional hernia Stock Handler Floorperson Required: No Is patient in pain?: No [...] person, oriented to place, oriented to time [facility] Head: normocephalic, atraumatic Ears: external ears normal [...] End: 04-27-2018 Thyroid Comments: See Note; NOTES: [facility] Imaging Services [address] [place] [address] Thyroid MR#: [id number] Acct: [id number] Name: GEMMA CERON Rep #: [id number] : 1950 F 67 From: Germán Leavitt MD PCP: Carlota Burrows DO Status: REG CLI Study: Thyroid Date of Exam: 04/27/18 Exam# [id number] Ordering Dr: Carlota Burrows DO STUDY: THYROID [...] x 15 x 7 mm. Based on [place] Thyroid [employer] Guidelines for assessment of thyroid [...] mm, solid, predominantly isoechoic. Based on the [place] Thyroid [employer] Guidelines for assessment of thyroid [...] Service support , CC: Carlota Burrows DO Flat Surfacer Jewel: Signed Carlota Burrows Work Phone: Start: 04-10-2016 End: 04-10-2016 Inital Evaluation (1) - PT Comments: See Note; NOTES: [facility] [address] [place] [address] Fax REHABILITATION SERVICES INITIAL EVALUATION MR#: [id number] Acct: [id number] Name: DARREN CERON Rep #: [id number] : 1950 65 From: Satinder Kim PT, Cert. MDT, OCS Referring Dr.: Carlota Burrows DO Status: REG RCR Insurance: EverTrue Patient's Visit Information DARREN CERON is a 65 year old F referred to Physical Therapy by Carlota Burrows with a diagnosis of thoracic back pain. Date of Evaluation: 04/02/16 Physical Therapist: Satinder Kim, PT, - Visit Plan Frequency: 2x /Week Duration: 4 Weeks Plan: postural ex's ,strengthening,thoracic ,manual therapy,modalities - Subjective Subjective: This 65 y/o female presents to physical therapy [facility] thoracic back pain about 1 week. Patient [...] to be FAXED BACK to us at [phone] for Medicare purposes. Please let me know if there are questions or concerns regarding this plan of care. Physician Signature: Date: <Electronically signed by Satinder Kim PT, Cert. IAN, [facility]> 04/10/16 1728 CC: Carlota Burrosw DO MAGDALENE Signed For Medicare only, by signing this I certify the plan of care. __ Physicians Signature Date Carlota Burrows Start: 05-17-2015 End: 05-17-2015 Abdomen WITH IV Contrast Comments: See Note; NOTES: [facility] Imaging Services [address] [place] [address] Verdana 4d Abdomen WITH IV Contrast MR#: [id number] Acct: [id number] Name: DARREN CERON Rep #: [id number] : 1950 F 64 From: Kenan Ma MD PCP: Claudia Terrell DO Status: REG CLI Study: Abdomen WITH IV Contrast Date of Exam: 05/17/15 Exam# [id number] Ordering Dr: Claudia Terrell DO STUDY: CT [...] Kenan Ma MD at 16:08 EST Tel [phone], Service support [phone], CC: Claudia Terrell DO Flat Surfacer Jewel: Signed Claudia Espinosa Phone: Start: 12-22-2014 End: 12-23-2014 Abdomen Limited Comments: See Note; NOTES: [facility] Imaging Services [address] [place] [address] Ultrasound Report MR#: [id number] Acct: [id number] Name: DARREN CERON Tony Rep #: [id number] : 1950 F 64 From: Kenan Ma MD PCP: Claudia Terrell DO Status: REG CLI Study: Abdomen Limited Date of Exam: 12/22/14 Exam# [id number] Ordering Dr: Claudia Terrell DO STUDY: ABDOMINAL [...] Kenan Ma MD at 11:24 EDT Tel [phone], Service support [phone], CC: Claudia Terrell DO Flat Surfacer Jewel: Signed Clauida Terrell Work Phone: Start: 12-22-2014 End: 12-23-2014 Bilat Scrn Digital AND CAD Comments: See Note; NOTES: [facility] Imaging Services [address] [place] [address] Breast Imaging Report MR#: [id number] Acct: [id number] Name: DARREN CERON Rep #: [id number] : 1950 F 64 From: Kenan Ma MD PCP: Claudia Terrell DO Status: REG CLI Study: Bilat Scrn Digital AND CAD Date of Exam: 12/22/14 Exam# [id number] Ordering Dr: Claudia Terrell DO MAMMOGRAPHY - [...] Kenan Ma MD at 10:28 EDT Tel [phone], Service support [phone], CC: Claudia Terrell DO Flat Surfacer Jewel: Signed Claudia Terrell Work Phone: Start: 12-22-2014 End: 12-23-2014 Thyroid Comments: See Note; NOTES: [facility] Imaging Services [address] [place] [address] Ultrasound Report MR#: [id number] Acct: [id number] Name: DRAREN CERON Rep #: [id number] : 1950 F 64 From: Kenan Ma MD PCP: Claudia Terrell DO Status: REG CLI Study: Thyroid Date of Exam: 12/22/14 Exam# [id number] Ordering Dr: Claudia Terrell DO STUDY: THYROID [...] Kenan Ma MD at 14:16 EDT Tel [phone], Service support [phone], CC: Claudia Terrell DO Flat Surfacer Jewel: Signed Claudia Espinosa Phone: Start: 03-30-2014 End: 04-03-2014 Operative Report Comments: See Note; NOTES: [facility] Medical Records Department [address] [place] [address] Operative Report MR#: [id number] Acct: [id number] Name: DARREN CERON Rep #: [id number] : 1950 63 From: Lisandro Nj MD PCP: Claudia Terrell DO Status: DEP [facility] DATE OF SERVICE: 03/29/2014 DATE OF SERVICE: [...] compression stockings, weight control measures, active lifestyle, xzuf-vct-asiwwnh analgesics, etc. Despite these measures, the patient [...] condition. Lisandro Nj MD T: NTS JOB: [id number] 03/30/14 0946 <Electronically signed by Lisandro Nj MD> Date Lisandro Nj MD CC: Claudia Nj MD Date Dictated: 03/29/142212 Date Transcribed: 03/29/142212 Flat Surfacer Jewel: Signed Carlota Rustam Start: 03-29-2014 End: 04-03-2014 Discharge Instruction Comments: See Note; NOTES: [facility] Medical Records Department [address] [place] [address] Instructions for Home/Discharge Instructions 03/29/14 1645 MR#: [id number] Acct: [id number] Name: OSMANYDARREN Tony Rep #: [id number] : 1950 63 From: Lisandro Nj MD PCP: Claudia Terrell DO Status: REG [facility] Discharge Diet: No Restrictions Discharge Activity: May [...] Follow Up With: Lisandro Nj - Call [phone] to schedule a followup appointment. When: 10-14 days 03/29/14 1647 <Electronically signed by Lisandro Nj MD> Date Lisandro Nj MD CC: Claudia Terrell DO Carlota Burrows Start: 03-27-2014 End: 04-03-2014 History and Physical Exam Comments: See Note; NOTES: [facility] Medical Records Department [address] [place] [address] History and Physical 03/26/142038 MR#: [id number] Acct: [id number] Name: DARREN CERON Tony Rep #: [id number] : 1950 63 From: Lisandro Nj MD PCP: Claudia Terrell DO Status: PRE [facility] Location: [facility] DATE OF SERVICE: 03/29/2014 This is for [...] compression stockings, weight control measures, active lifestyle, hmvr-dax-uyjvyav analgesics, etc. Despite these measures, the patient [...] which was performed on October 27, 2013. 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 FAMILY HISTORY: The patient's father at the age of 82 with the history of alcoholism and diabetes mellitus. The patient's mother at the age of 53 with the history of alcoholism and pneumonia. SOCIAL HISTORY: The patient denies use of tobacco products. She consumes alcoholic beverages occasionally. She is . She is retired from [employer] in [place], [place]. REVIEW OF SYSTEMS: Noncontributory. PHYSICAL EXAMINATION: [...] undertaken. Lisandro Nj MD T: NTS JOB: [id number] 03/27/14 0844 <Electronically signed by Lisandro Nj MD> Date: Time: Lisandro Nj MD CC: Claudia Terrell DO; Lisandro Nj MD Date Dictated: 03/26/142038 Date Transcribed: 03/26/142038 Flat Surfacer Jewel: Signed ____ I have re-examined the patient. There are no clinical changes since date of exam. ____ See Progress Notes for Changes ____ Dictated on Admission Date: Time: Signature: Carlota Burrows Start: 03-22-2014 End: 04-03-2014 12 lead ECG Comments: See Note; NOTES: [facility] Cardiovascular Services [address] [place] [address] EKG - SDC 03/21/14 1319 MR#: [id number] Acct: [id number] Name: DARREN CERON Rep #: [id number] : 1950 63 From: Kevon Collier MD Attending Dr: Lisandro Nj MD Status: PRE [facility] Ordering Dr: Lisandro Nj MD Date: 03/21/14 Location: [facility] Sex: F C Admitted: Test Reason : [...] Abnormal ECG Confirmed by KEVON COLLIER ([id number]), editorial intern NARCISO OLGUIN ([id number]) on 03/22/2014 3 :35:50 PM Referred By: DIALLO [place] Confirmed By:KEVON COLLIER 03/22/14 1535 Date Kevon Collier MD CC: Kevon Collier MD; Claudia Terrell DO Date Dictated: 03/21/141318 Date Transcribed: 03/21/141318 Flat Surfacer Jewel: Signed Carlota Burrows Start: 06-13-2013 End: 06-15-2013 Thyroid Comments: See Note; NOTES: [facility] Imaging Services [address] [place] [address] Ultrasound Report MR#: [id number] Acct: [id number] Name: JEAN PAUL CERONPATRICK Jimenez Rep #: [id number] : 1950 F 62 From: Kenan Ma MD PCP: Claudia Terrell DO Status: REG CLI Study: Thyroid Date of Exam: 06/13/13 Exam# [id number] Ordering Dr: Claudia Terrell DO STUDY: THYROID [...] M.D. at 11:27 EDT , Service support [phone], CC: Claudia Terrell DO Flat Surfacer Jewel: Signed Claudia A Fast Work Phone: abd [...] above: 08/2009 [facility] [place] last complete physical Beryl avelino Ascencio Comment on above: 08/2009 by [facility] [place] last complete physical Adelia Mercer Comment on above: 08/2009 by [facility] [place] last complete physical Jasmi n Gravius Comment on above: 08/2009 by [facility] [place] last complete physical Lazaro Barr Comment on above: 08/2009 by [facility] [place] last mammogram 2010 Mackenzie G [...] Start: 04-02-2020 Patient Education EFUDEX INSTRUCTIONS [facility]; [facility] Work Phone: [...] 05-31-2018 Hepatic function panel HEPATIC FUNCTION PANEL (15015) [facility] Work Phone: Start: 05-31-2018 Lipoprotein blood mark numbers & subclasses NMR Profile (81182) [facility] Work Phone: Start: 05-31-2018 Protein mass conc NMR Profile (46860) [facility] Work Phone: Start: 04-12-2018 25 hydroxy includes fractions if performed CALCIFEDIOL (25250) [facility] Work Phone: Start: 04-12-2018 Thyrotropin Qn TSH (05444) [facility] Work Phone: Start: 04-12-2018 T4 free mass conc T4, FREE (THYROXINE) (89236) [facility] Work Phone: Start: 04-12-2018 T3 free mass conc T3, FREE (TRIDOTHYRONINE) (54887) [facility] Work Phone: Start: 04-12-2018 Urine albumin quantitative MICROALBUMIN: CREATININE RATIO (06812) AND (79187) [facility] Work Phone: Start: 04-12-2018 Comprehensive metabolic panel METABOLIC PANEL, COMPREHENSIVE (45891) [facility] Work Phone: Start: 04-12-2018 Protein mass conc LIPOPROTEIN, BLD, BY NMR (88101) [facility] Work Phone: Start: 04-12-2018 Blood count complete auto&auto difrntl wbc CBC with auto diff (33564) [facility] Work Phone: Start: 04-12-2018 [...] 12-27-2015 Urine albumin quantitative MICROALBUMIN: CREATININE RATIO (44680) AND (00229) [facility] Work Phone: Start: 01-31-2015 Procedure Education Eprescribed prescriptions (G8553) [facility] Work Phone: Start: 01-31-2015 Alpha-fetoprotein serum MOPUC-JXKOXVFMNAE-QAAFM (72945) [facility] Work Phone: Start: 01-31-2015 Comprehensive metabolic panel METABOLIC PANEL, COMPREHENSIVE (53869) [facility] Work Phone: Start: 01-31-2015 Lipid panel LIPID PANEL (01071) [facility] Work Phone: Start: 01-31-2015 25 hydroxy includes fractions if performed Vitamin D Hydroxy (91133) [facility] Work Phone: Start: 01-31-2015 Extractable nuclear antigen antibody any method Anti-Desire-1 (47083) [facility] Work Phone: Start: 01-31-2015 Creatine kinase isoenzymes CPK MM FRACTION (35312) [facility] Work Phone: Start: 12-01-2014 Procedure Education Eprescribed prescriptions (G8553) [facility] Work Phone: Start: 07-08-2013 Provider Instructions for Treatment [facility] Work Phone: Start: 07-08-2013 25 hydroxy includes fractions if performed Vitamin D Hydroxy (15251) [facility] Work Phone: Start: 07-08-2013 Comprehensive metabolic panel METABOLIC PANEL, COMPREHENSIVE (48585) [facility] Work Phone: Start: 07-08-2013 Lipid panel LIPID PANEL (26535) [facility] Work Phone: Start: 06-25-2012 Patient Education High Cholesterol (Hypercholesterolemia) *: blood [facility] Work Phone: Start: 02-24-2012 Comprehensive metabolic panel METABOLIC PANEL, COMPREHENSIVE (11774) [facility] Work Phone: Start: 02-24-2012 25 hydroxy includes fractions if performed Vitamin D Hydroxy (59894) [facility] Work Phone: Start: 02-24-2012 Lipid panel LIPID PANEL (64444) [facility] Work Phone: Start: 11-24-2011 Provider Instructions for Treatment Diet, Exercise, and Wt loss [facility] Work Phone: Start: 11-24-2011 Extractable nuclear antigen antibody any method ANTI-DESIRE-1 514553 (96904) [facility] Work Phone: Hemoglobin A1c/Hemoglobin.total in Blood [facility] MG Breast - bilatera l Screening [facility] Work Phone: [...] Immunization Date Immunization Notes Care Provider [facility] 01-15-2022 Covid Moderna Bivalent Booster; Translations: [Covid Moderna Bivalent Booster] [facility] 01-15-2022 influenza, injectable, quadrivalent, preservative free Dr. Shiv Gaviria Work Phone: [facility] 01-15-2022 influenza, seasonal, injectable [facility] 05-26-2020 COVID-19 (Moderna) Carlota Magdaleno [facility]; [facility] Work Phone: Payers Date Payer Category Payer Medicare [id number] 2024 Private Health Insurance [id number] 2023 Self-pay [id number] 2023 Unknown [id number] 2018 Unknown [id number] 2013 Unknown [id number] 1950 Unknown [id number] Unknown [place]/BS Unknown [id number] Unknown [id number] Unknown [id number] Unknown [id number] Unknown [id number] Social History Date Type Detail Facility Caffeine [...] Work Phone: Comment on above: Worked at [employer] in [facility]- Exercise History: Does not exercise. [facility] Work Phone: Living Situation: Lives with spouse. [facility] Work Phone: Start: 08-22-2021 End: 05-18-2023 Tobacco smoking status NEIS Unknown if ever smoked [facility] Start: 05-26-2018 Cigarettes [facility] Start: 1950 Sex Assigned At Female [place] Medical Equipment Procedure Code Equipment Code Equipment Origin al Text Equipment Identifier Dates MESH,VENTLEX ST ,LG 8CM FDA Start: 05-28-2018 MESH,VENTLEX ST ,LG 8CM FDA Start: 05-28-2018 MESH,VENTLEX ST ,LG 8CM FDA Start: 05-28-2018 Evaluation note Note Date & Type Note Facility Evaluation note Diagnosis Onset Date Vitamin D deficiency acute Borderline type 2 diabetes mellitus chronic Hypertension chronic Neck pain chronic [facility] Work Phone: Evaluation note Note Date & Type Note Facility Evaluation note No assessment information availa ble [facility] Work Phone: Evaluation note Note Date & Type Note Facility Evaluation note Diagnosis Onset Date Health care maintenance acut e Anxiety and depression chron ic Borderline type 2 diabetes mellitus chronic Hypertension chronic Vitamin D deficiency [facility] Work Phone: Family History No [...] alcoholic Status:Active Sister 1 Comments:htndied from pneumo ephriam Status:Active Unknown Family Member Name Dates Details [...] but was able to go back to [facility] [place] at age 80 of MIprostate canceralcoholic Status:Active [...] Details Current nonsmoker : How to a [employer] health information online - Detail Indication:Current nonsmoker [...] Informa tion Online using Patient Portal and [employer] Apps Indication:Current nonsmoker Start:02-Apr-2020 Instruction Type:Patient Education [...] Informa tion Online using Patient Portal and [employer] Indication:Current nonsmoker Start:02-Apr-2020 Instruction Type:Patient Education [...] Details Current nonsmoker : How to a [employer] information online - Detail Indication:Current nonsmoker Current nonsmoker : Patient Instructions Indication:Current nonsmoker Current nonsmoker : How to a [employer] information online Indication:Current nonsmoker Shingles : How to access hea ltisocket information online Indication:Shingles Shingles : How to [...] Informa tion Online using Patient Portal and [employer] Apps Indication:Current nonsmoker Start:13-Jun-2020 Instruction Type:Patient Education Patient Instructions Indication:Current nonsmoker Start:13-Jun-2020 Instruction Type:Provider Instructions for Treatment Patient Instructions Indication:Current nonsmoker Start:02-Apr-2020 Instruction Type:Provider Instructions for Treatment How to Access Health Informa tion Online using Patient Portal and 3rd [employer] Apps Indication:Current nonsmoker Start:02-Apr-2020 Instruction Type:Patient Education [...] Records Found Name Dates Details Immunization Registry [place] - Effective on 06/13/2020. Expiration date unspecified Effective:13-Jun-2020 Advance Directive Response Recorded Date/ Time Advance Directives No October 12 9:20am Living Will No October 12, 2020 9:20am Power of Social Group Worker No October 12 9:20am Advance Directive Response Recorded Date/ Time Advance Directives No October 12 8:20am Living Will No October 12, 2020 8:20am Power of Social Group Worker No October 12 8:20am Chief Complaint and Reason for Visit Chief Complaint SCREENING 3 M FU FEVER, RUNNY NOSE, BODY ACHES Reason for Visit Vitamin D deficiency Borderline type 2 diabetes mellitus Hypertension Neck pain Chief Complaint 4 M FU Reason for Visit Health care [facility] Anxiety and depression Borderline type 2 diabetes mellitus Hypertension Vitamin D deficiency Additional Source Comments INFORMATION SOURCE (unrecogn ized section and content) DATE CREATED AUTHOR 05/12/2018 [facility] DATE CREATED AUTHOR AUTHOR'S STACIE GRANT 09/01/2024 [facility] Goals (unrecognized section and content) Goals may [...] BE BASED ON THE PRIMARY CLINICAL RECORDS. [facility] [employer] provides no warranty or guarantee of the accuracy or completeness of information in this document.
--- NOTE | 2024-09-03 12:40 | CASEMGMT ---
Care Management Face to Face with patient for initial transition planning/care coordination assessment in the ED.? This production underwriter introduced self and role at [facility]. Patient alert and oriented. Patient willing to participate in assessment and is able to answer all questions appropriately.? Care providers, pharmacy, and demographics verified. Patient was feeling uncomfortable so had her do most of the talking. Admitting Diagnosis: Partial obstruction of small intestine, Hyperlipidemia, Borderline Type 2 Diabetes Mellitus, Hypertension, Nausea & Vomiting, Acute Upper Abdominal Pain. Other diagnosis history: Including but not limited to: Hiatal Hernia, Anemia, Arthritis, Osteopenia, Cholecystectomy and Vitamin D Deficiency. PCP: Dr. Gaviria Specialists: ?None Preferred Pharmacy: [facility] Insurance: [place]; Medicare, Part A and B. Prescription Benefit: ?Yes Living Will/HPOA: No, but interested in completing while here. LNOK: Patient?s , Satinder, their children, Stephon Nielsen and Basil as well as patient?s step-son Derrek, all of whom are said to live local. Living Arrangements: Patient lives with her in a one-story house. Patient denied any stairs leading in/out of the house however stated she does have about 12 steps leading to the basement where patient does laundry.? Patient stated she doesn?t have any difficulty going up and down the stairs and has a handrail to hold onto if needed. Transportation: Both patient and her drive. Transportation barriers were denied. DME: Denied any current DME and denied a need. HHC: Denied SNF/Rehab: Denied Community Resources: None and none needed. Behavioral Health History: Patient has a history of depression and anxiety. Patient goals: Patient wishes to discharge home, denies need for home health care at this time. Patient denies any further needs or concerns at this time. Disposition Plan: admission to acute; RN CM/SW to follow for discharge planning needs that may arise. Tamy Rodriguez, EFFICIENCY CLERK, ASSET MANAGEMENT ANALYST
--- NOTE | 2024-09-03 12:40 | RAD_ITS ---
PROCEDURE: ABDOMEN SINGLE VIEW (PORTABLE) 09/03/2024 REASON FOR EXAM: CONFIRM PROPER POSITION OF NG TECHNIQUE: Single view abdomen. FINDINGS: There is an NG tube inserted with the tip overlying the. Curvature of the stomach. The side port of the tube is in the body of the stomach in good position. EKG lead wires overlie the chest. Calcifications: No suspicious calcifications appreciated. Bones: Nothing remarkable in the osseous structures. Other: Cholecystectomy clips in the right upper quadrant. RAD/Abdomen Single View (Portable) IMPRESSION: NG tube tip in good position. Reading [facility]
[2024-09-03] MEDS: Lidocaine Jelly 2% 20 ML Syringe (URO-JET) 1 APPLIC TOPICAL (12:42)
[2024-09-03 13:10] LABS: Reflex Lactate? Y
--- NOTE | 2024-09-03 13:30 | NURSING ---
Aware that KUB has been done and NG tube in good position.
[2024-09-03] MEDS: 0.9% Normal Saline (1000mL) 1,000 ML 125 ML IV ×2 (13:55→20:00)
--- NOTE | 2024-09-03 14:14 | PCM.HP.STD ---
[facility] - General General Date of Admission: 09/03/24 Date of Service: 09/03/24 Chief Complaint: abdominal pain. HPI Narrative GEMMA CERON, is a 73 F who presents with abdominal pain is a 73-year-old white female is relatively healthy has had history of depression presents with abdominal pain that began this morning. Abdominal pain was associated with abdominal distention as well as nausea and vomiting. Very intense and presented to the emergency room. CAT scan shows multiple fluid-filled nondilated small bowel loops with abrupt caliber attenuation of the distal ileum, concerning for partial/developing small bowel obstruction. No pneumoperitoneum. Dr. Sullivan, general surgery, was contacted from the emergency room and recommended NG tube and for the hospital service to admit. NG tube was subsequently placed in the emergency room. Patient denies any history of small bowel obstruction 4. Patient has had a ventral hernia that quired mesh in the past. [facility] Medical History Anxiety and depression Vitamin D deficiency Neck pain Grief reaction Health care maintenance Post-menopausal Hypertension Borderline type 2 diabetes mellitus Osteopenia Arthritis Anemia Recurrent incisional hernia Hyperlipidemia Home Medications ?Medication ?Instructions ?Recorded ?Last Taken ?Type ascorbic acid (vitamin C) 250 mg 250 mg PO DAILY 05/18/23 Unknown History chewable tablet cholecalciferol (vitamin D3) 125 125 mcg PO DAILY #90 tabs 05/19/23 Unknown Rx mcg (5,000 unit) tablet atorvastatin 20 mg tablet (Lipitor) 20 mg PO DAILY #90 tabs 04/08/24 Unknown Rx amlodipine 5 mg tablet 5 mg PO DAILY #90 TABLETS 08/18/24 Unknown Rx multivitamin (Daily Multi-Vitamin 1 tab PO DAILY 09/03/24 Unknown History tablet) Allergy/AdvReac Type Severity Reaction Status Date / Time Environmental Allergies: Allergy Hives Verified 09/03/24 08:40 Uncoded hydrocodone AdvReac Nausea Verified 09/03/24 08:40 Family History Mother Alcohol abuse Father Alcohol abuse Cancer prostate Diabetes Myocardial infarction, Onset Age: 82 Parkinson disease Son Alcohol abuse Anxiety Myocardial infarction, Onset Age: 51 Hyperlipemia Brother Cancer Sister Hypertension Hyperlipemia Surgical History History of cholecystectomy History of hysterectomy S/P repair of recurrent ventral hernia Status post repair of recurrent ventral hernia History of hernia repair History of colonoscopy Social History Smoking Status: Former smoker alcohol intake: never substance use type: does not use what type of physical activity do you participate in: none ROS ROS Narrative All review of systems were negative except as mentioned above in the history of present illness and the other review of systems. Vital Signs Vital Signs Vital Signs: 09/03/24 08:34 09/03/24 09:24 09/03/24 09:26 Temperature 36.2 C L Temperature Source Oral Pulse Rate 83 Respiratory Rate 24 H Blood Pressure 153/65 H Blood Pressure Mean 94 Blood Pressure Source Blood Pressure Position Blood Pressure Location Pulse Ox 97 88 95 Oxygen Delivery Method Room Air Room Air Nasal Cannula Oxygen Flow Rate (L/min) 2 09/03/24 11:00 09/03/24 11:07 09/03/24 12:15 Temperature Temperature Source Pulse Rate 86 86 79 Respiratory Rate 18 18 20 H Blood Pressure 120/78 174/78 H 142/75 H Blood Pressure Mean 92 110 97 Blood Pressure Source Blood Pressure Position Blood Pressure Location Pulse Ox 95 98 97 Oxygen Delivery Method Nasal Cannula Nasal Cannula Room Air Oxygen Flow Rate (L/min) 2 2 09/03/24 13:57 Temperature 36.6 C Temperature Source Oral Pulse Rate 72 Respiratory Rate 16 Blood Pressure 138/62 H Blood Pressure Mean 87 Blood Pressure Source Monitor Blood Pressure Position Semi-Fowlers Blood Pressure Location Right Arm Pulse Ox 93 Oxygen Delivery Method Room Air Oxygen Flow Rate (L/min) Weight Weight: 68.492 kg Body Mass Index (BMI) 31.5 Physical Exam Narrative - Physical Exam General: Alert, Oriented x3, Cooperative. Uncomfortable. Afebrile. Nontoxic. HEENT: Atraumatic, PERRLA, EOMI, Normocephalic. NG tube in place. Oral: Moist Mucosa, No Gingival or Mucosal Lesions/ Ulcerations Neck: Supple, No JVD, Negative Carotid Bruits Lungs: Clear to auscultation, Normal air movement Cardiovascular: Regular rate, Normal S1, Normal S2, No murmurs Abdomen: Hypoactive bowel sounds. Distended. Diffusely tender. Extremities: No clubbing, No cyanosis, No edema, Capillary Refill Less than 3 Seconds Skin: No rashes, No breakdown Musculoskeletal: No Tenderness to Palpation of Joints or Extremities Neurological: Neuro grossly intact Psych/Mental Status: Normal Affect, Appropriate Results Lab / Micro Data Attestation: I reviewed the patient's lab results. 09/03/24 08:09 09/03/24 08:09 Labs: Laboratory Results - last 24 hr 09/03/24 08:09: WBC 12.3 H, RBC 4.17 L, Hgb 13.6, Hct 40.1, MCV 96.2, MCH 32.6 H, MCHC 33.9, RDW Std Deviation 50.2 H, RDW Coeff of Zhane 14.1, Plt Count 311, MPV 10.4, Immature Gran % (Auto) 0.400, Neut % (Auto) 90.8 H, Lymph % (Auto) 6.6 L, [place] % (Auto) 2.0, Eos % (Auto) 0.0, Baso % (Auto) 0.2, Absolute Neuts (auto) 11.2 H, Absolute Lymphs (auto) 0.81 L, Nucleated RBC % 0, Sodium 139, Potassium 3.8, Chloride 101, Carbon Dioxide 22.7, Anion Gap 15, BUN 19, Creatinine 0.63 L, Estim Creat Clear Calc 53.31, Est GFR (MDRD) Non-Af 92, BUN/Creatinine Ratio 30.3 H, Glucose 178 H, Calcium 10.0, Total Bilirubin 0.34, Direct Bilirubin 0.12, AST 22, ALT 21, Alkaline Phosphatase 114 H, Total Protein 8.4, Albumin 4.6, Globulin 3.8, Lipase 27 09/03/24 09:03: Lactic Acid 3.3 H* Imaging Radiology Impression Abdomen/Pelvis CT 09/03/24 09:58 IMPRESSION: Multiple fluid-filled but nondilated small bowel loops with abrupt caliber attenuation of the distal ileum, concerning for partial/developing small bowel obstruction. No pneumoperitoneum. Colonic diverticulosis without diverticulitis. Reading Location: [facility] X-Ray 09/03/24 12:40 IMPRESSION: NG tube tip in good position. Reading Location: [facility] Assessment & Plan Assessment/Plan (1) Small bowel obstruction: PLAN: Unclear if complete versus partial. NG tube has been placed. General surgery on consult. Patient is NPO. Continue IV fluids. Antiemetics. Pain medication. The medical service will defer diet advancement, additional bowel studies, to the general surgery service. The hospitalist service will be available to address any medical needs during this patient's hospitalization. PLAN: Plan Hypertension: Holding amlodipine as patient is currently NPO. DVT prophylaxis [facility] Charges/Coding Visit Charges Inpatient E&M: 66682 Init Hosp L2
[2024-09-03 14:21] LABS: Lactic Acid 1.8 mmol/L (0.0-2.0)
--- NOTE | 2024-09-03 17:30 | RAD_ITS ---
PROCEDURE: SMALL BOWEL SERIES ONLY 09/03/2024 REASON FOR EXAM: F/U SBO TECHNIQUE: 5 views of the abdomen were obtained immediately post contrast, 3 hours, 6 hours, 12 and 24 hours postcontrast. COMPARISON: Radiographs on 09/03/2024. FINDINGS: Enteric feeding tube is in good position with its tip at the level of the gastric body. Decreased dilatation of the proximal small bowels. Contrast reached the proximal colon on the 3 hour exam. Contrast reached the rectum on the 6 hour radiograph. Prior cholecystectomy. Moderate diffuse spondylosis. Bilateral basilar atelectatic pulmonary changes. There is no demonstrated free abdominal air. Normal visualized liver. Normal visualized spleen. Normal visualized kidneys. The soft tissue structures of the pelvis are unremarkable. RAD/Small Bowel Series Only IMPRESSION: Enteric feeding tube is in good position with its tip at the level of the gastr ic body. Decreased dilatation of the proximal small bowels. Contrast reached the proximal colon on 3 hour radiograph. Contrast reached the rectum on the 6 hour radiograph. Prior cholecystectomy. Reading Location: [facility]
[2024-09-03] MEDS: Ketorolac 15 MG/ML Vial IV (19:39)
[2024-09-04 03:23] VITALS: BP 140/69; PULSE 79; RESP 18; TEMP 36.7; O2SAT 93
[2024-09-04] MEDS: Phenol/Sodium Phenolate 180ML 5 SPRAY MUCOUS MEM (03:27)
[2024-09-04] MEDS: 0.9% Normal Saline (1000mL) 1,000 ML 125 ML IV ×2 (03:28→11:32)
[2024-09-04] MEDS: Ketorolac 15 MG/ML Vial IV (03:32)
[2024-09-04 05:44] LABS: Absolute Lymphocyte Count 1.46 X10^3/uL (0.83-4.51); Absolute Neutrophil Count 6.4 X10^3/uL (2.0-7.7); Basophil# 0.02 X10^3/uL; Basophil% 0.2 % (0-1); Eosinophil# 0.08 X10^3/uL; Eosinophils% 0.9 % (0-5); Hematocrit 34.4 % (37-47); Hemoglobin 11.3 g/dL (12.0-15.0); Lymphocyte # 1.46 X10^3/ul (0.83-4.51); Lymphocyte % 16.8 % (19-41); Mean Corp Hgb Conc 32.8 g/dL (32-36); Mean Corpuscular Hgb 32.5 pg (27.0-32.0); Mean Corpuscular Volume 98.9 fL (81-99); Mean Platelet Vol. 9.9 fl (6.2-12.0); Monocyte# 0.68 X10^3/uL; Monocyte% 7.8 % (0-10); NRBC Flagged by Analyzer 0 % (0-5); Neutrophil # 6.41 X10^3/uL (2.7-7.7); Platelet Count 295 K/mm3 (150-450); RBC Distribution Width CV 14.5 % (11.6-14.6); RBC Distribution Width SD 52.5 fl (35.1-43.9); Red Blood Count 3.48 M/mm3 (4.2-5.4); White Blood Count 8.7 K/mm3 (4.4-11.0)
[2024-09-04 06:07] LABS: ALB/GLOB Ratio 1.3 RATIO (0.9-2.4); AST(SGOT) 17 U/L (<=31); Alanine Aminotransfer ALT/SGPT 17 U/L (<=34); Albumin, Serum 3.5 g/dL (3.4-4.8); Alkaline Phosphatase 86 U/L (35-104); Anion Gap 9 (5-15); BUN 18 mg/dL (4-19); BUN/Creat Ratio 29.7 RATIO (10-20); Calcium,Total 8.5 mg/dL (7.6-11.0); Carbon Dioxide 22.7 mmol/L (21.0-32.0); Chloride 113 mmol/L (98-108); Creatinine, Serum 0.62 mg/dL (0.70-1.20); EST Glomerular Filtration Rate 93 (>60); Estimated Creatinine Clearance 52.47 ml/min (50-250); Globulin 2.6 g/dL (2.2-4.2); Glucose 123 mg/dL (70-99); Potassium 3.4 mmol/L (3.3-5.1); Protein, Total 6.1 g/dL (5.9-8.4); Sodium Level 145 mmol/L (133-145)
--- NOTE | 2024-09-04 08:20 | PN.HOSP_ITS ---
Reason for Visit Reason for Visit: Diagnoses Partial intestinal obstruction, unspecified as to cause (09/03/24) Unspecified intestinal obstruction, unspecified as to partial versus complete obstruction (09/03/24) Subjective Subjective Doing well. NGT removed. Objective Data Objective Data Vital Signs: Vital Signs Temp Pulse Resp BP Pulse Ox O2 Del Method O2 Flow Rate 36.7 C 79 18 140/69 H 93 Room Air 2 09/04/24 03:23 09/04/24 03:23 09/04/24 03:23 09/04/24 03:23 09/04/24 03:23 09/04/24 03:23 09/03/24 11:07 Oxygen Flow Rate (L/min) 2 Oxygen Delivery Method Room Air Weight: 68.492 kg Body Mass Index (BMI) 31.5 Intake & Output: Intake and Output for Last 24 Hours 09/02/24 09/03/24 09/04/24 23:59 23:59 23:59 Intake Total 2040.42 / 2040.42 933.33 / 933.33 Balance 2040.42 / 2040.42 933.33 / 933.33 Lab / Micro Data 09/04/24 05:21 09/04/24 05:21 Labs: Laboratory Results - last 24 hr 09/03/24 08:09: WBC 12.3 H, RBC 4.17 L, Hgb 13.6, Hct 40.1, MCV 96.2, MCH 32.6 H , MCHC 33.9, RDW Std Deviation 50.2 H, RDW Coeff of Zhane 14.1, Plt Count 311, MPV 10.4, Immature Gran % (Auto) 0.400, Neut % (Auto) 90.8 H, Lymph % (Auto) 6.6 L, [place] % (Auto) 2.0, Eos % (Auto) 0.0, Baso % (Auto) 0.2, Absolute Neuts (auto) 11.2 H, Absolute Lymphs (auto) 0.81 L, Nucleated RBC % 0, Sodium 139, Potassium 3.8, Chloride 101, Carbon Dioxide 22.7, Anion Gap 15, BUN 19, Creatinine 0.63 L, Estim Creat Clear Calc 53.31, Est GFR (MDRD) Non-Af 92, BUN/Creatinine Ratio 30.3 H, Glucose 178 H, Calcium 10.0, Total Bilirubin 0.34, Direct Bilirubin 0.12, AST 22, ALT 21, Alkaline Phosphatase 114 H, Total Protein 8.4, Albumin 4.6, Globulin 3.8, Lipase 27 09/03/24 09:03: Lactic Acid 3.3 H* 09/03/24 13:38: Lactic Acid 1.8 09/04/24 05:21: WBC 8.7, RBC 3.48 L, Hgb 11.3 L, Hct 34.4 L, MCV 98.9, MCH 32.5 H, MCHC 32.8, RDW Std Deviation 52.5 H, RDW Coeff of Zhane 14.5, Plt Count 295, MPV 9.9, Immature Gran % (Auto) 0.300, Neut % (Auto) 74.0 H, Lymph % (Auto) 16.8 L, [place] % (Auto) 7.8, Eos % (Auto) 0.9, Baso % (Auto) 0.2, Absolute Neuts (auto) 6.4, Absolute Lymphs (auto) 1.46, Nucleated RBC % 0, Sodium 145, Potassium 3.4, Chloride 113 H, Carbon Dioxide 22.7, Anion Gap 9, BUN 18, Creatinine 0.62 L, Estim Creat Clear Calc 52.47, Est GFR (MDRD) Non-Af 93, BUN/Creatinine Ratio 29.7 H, Glucose 123 H, Calcium 8.5, Total Bilirubin 0.40, AST 17, ALT 17, Alkaline Phosphatase 86, Total Protein 6.1, Albumin 3.5, Globulin 2.6, Albumin/Globulin Ratio 1.3 Radiography Diagnostic Testing: Radiology Impression Abdomen/Pelvis CT 09/03/24 09:58 IMPRESSION: Multiple fluid-filled but nondilated small bowel loops with abrupt caliber attenuation of the distal ileum, concerning for partial/developing small bowel obstruction. No pneumoperitoneum. Colonic diverticulosis without diverticulitis. Reading [facility] 09/03/24 12:40 IMPRESSION: NG tube tip in good position. Reading [facility] 09/03/24 17:30 IMPRESSION: Enteric feeding tube is in good position with its tip at the level of the gastric body. Decreased dilatation of the proximal small bowels. Contrast reached the proximal colon on 3 hour radiograph. Contrast reached the rectum on the 6 hour radiograph. Prior cholecystectomy. Reading Location: [place] [address] Physical Exam Const alert and no apparent distress HEENT head/scalp atraumatic and moist oral mucous membranes Neck no lymphadenopathy and supple Resp normal respiratory effort, no retractions, no use of accessory muscles and clear to auscultation bilaterally Cardio regular rate, regular rhythm, S1 normal heart sound and S2 normal heart sound GI normal to inspection, nondistended, normoactive bowel sounds, soft to palpation, non-tender and non-distended Assessment & Plan Assessment/Plan (1) Small bowel obstruction: PLAN: Likely partial, now resolved. NG tube removed. General surgery on consult. Patient is NPO. Continue IV fluids. Antiemetics. Pain medication. The medical service will defer diet advancement, additional bowel studies, to the general surgery service. The hospitalist service will be available to address any medical needs during this patient's hospitalization. PLAN: Plan Hypertension: Holding amlodipine as patient is currently NPO. DVT prophylaxis [facility] Charges/Coding Visit Charges Inpatient E&M: 85100 Subs Hosp L2
--- NOTE | 2024-09-04 08:58 | PN.SURG_ITS ---
Subjective Subjective Patient is seen and examined during AM rounds. She is found walking about her room. She states that she is doing very well this morning. By this she means that her abdominal pain is minimal and she has tolerated her liquid diet without difficulty. She confirms ongoing bowel activity. Objective Data Objective Data Vital Signs: Vital Signs Temp Pulse Resp BP Pulse Ox O2 Del Method O2 Flow Rate 98.1 F 79 18 140/69 H 93 Room Air 2 09/04/24 03:23 09/04/24 03:23 09/04/24 03:23 09/04/24 03:23 09/04/24 03:23 09/04/24 03:23 09/03/24 11:07 Oxygen Flow Rate (L/min) 2 Oxygen Delivery Method Room Air Weight: 151 lb Body Mass Index (BMI) 31.5 Intake & Output: Intake and Output for Last 24 Hours 09/02/24 09/03/24 09/04/24 23:59 23:59 23:59 Intake Total 2040.42 / 2040.42 933.33 / 933.33 Balance 2040.42 / 2040.42 933.33 / 933.33 Lab / Micro Data 09/04/24 05:21 09/04/24 05:21 Labs: Laboratory Results - last 24 hr 09/03/24 08:09: WBC 12.3 H, RBC 4.17 L, Hgb 13.6, Hct 40.1, MCV 96.2, MCH 32.6 H , MCHC 33.9, RDW Std Deviation 50.2 H, RDW Coeff of Zhane 14.1, Plt Count 311, MPV 10.4, Immature Gran % (Auto) 0.400, Neut % (Auto) 90.8 H, Lymph % (Auto) 6.6 L, [place] % (Auto) 2.0, Eos % (Auto) 0.0, Baso % (Auto) 0.2, Absolute Neuts (auto) 11.2 H, Absolute Lymphs (auto) 0.81 L, Nucleated RBC % 0, Sodium 139, Potassium 3.8, Chloride 101, Carbon Dioxide 22.7, Anion Gap 15, BUN 19, Creatinine 0.63 L, Estim Creat Clear Calc 53.31, Est GFR (MDRD) Non-Af 92, BUN/Creatinine Ratio 30.3 H, Glucose 178 H, Calcium 10.0, Total Bilirubin 0.34, Direct Bilirubin 0.12, AST 22, ALT 21, Alkaline Phosphatase 114 H, Total Protein 8.4, Albumin 4.6, Globulin 3.8, Lipase 27 09/03/24 09:03: Lactic Acid 3.3 H* 09/03/24 13:38: Lactic Acid 1.8 09/04/24 05:21: WBC 8.7, RBC 3.48 L, Hgb 11.3 L, Hct 34.4 L, MCV 98.9, MCH 32.5 H, MCHC 32.8, RDW Std Deviation 52.5 H, RDW Coeff of Zhane 14.5, Plt Count 295, MPV 9.9, Immature Gran % (Auto) 0.300, Neut % (Auto) 74.0 H, Lymph % (Auto) 16.8 L, [place] % (Auto) 7.8, Eos % (Auto) 0.9, Baso % (Auto) 0.2, Absolute Neuts (auto) 6.4, Absolute Lymphs (auto) 1.46, Nucleated RBC % 0, Sodium 145, Potassium 3.4, Chloride 113 H, Carbon Dioxide 22.7, Anion Gap 9, BUN 18, Creatinine 0.62 L, Estim Creat Clear Calc 52.47, Est GFR (MDRD) Non-Af 93, BUN/Creatinine Ratio 29.7 H, Glucose 123 H, Calcium 8.5, Total Bilirubin 0.40, AST 17, ALT 17, Alkaline Phosphatase 86, Total Protein 6.1, Albumin 3.5, Globulin 2.6, Albumin/Globulin Ratio 1.3 Radiography Diagnostic Testing: Radiology Impression Abdomen/Pelvis CT 09/03/24 09:58 IMPRESSION: Multiple fluid-filled but nondilated small bowel loops with abrupt caliber attenuation of the distal ileum, concerning for partial/developing small bowel obstruction. No pneumoperitoneum. Colonic diverticulosis without diverticulitis. [facility] 09/03/24 12:40 IMPRESSION: NG tube tip in good position. Reading Location[facility] Small Bowel X-Ray 06/07/25 17:30 IMPRESSION: Enteric feeding tube is in good position with its tip at the level of the gastric body. Decreased dilatation of the proximal small bowels. Contrast reached the proximal colon on 3 hour radiograph. Contrast reached the rectum on the 6 hour radiograph. Prior cholecystectomy. Reading Location: [place] [address] Physical Exam Const oriented x3 and no apparent distress Resp normal respiratory effort GI GI Narrative: Nondistended, soft, minimally tender (patient rates this a 2 out of 10 in intensity) to palpation Assessment & Plan Assessment/Plan (1) Partial obstruction of small intestine: PLAN: Patient is a 73-year-old female who presents shortly after developing symptoms of acute onset abdominal pain, nausea, and vomiting. She states that her presentation was unusual given that she has had similar symptoms but were always self-limited and resolved after vomiting. She denies any history of prior bowel obstructions but also denies any history of sick contacts or recent dietary changes. I agree with radiology and suspect that patient's clinical presentation is early and therefore we are not seeing marked dilation of the proximal small bowel but there is certainly a transition to decompressed distal small bowel. Moreover, patient's 5 prior abdominal surgical procedures puts her at risk for adhesive disease. Therefore, I recommended placement of nasogastric tube with decompression and plans for eventual small bowel follow-through. Unfortunately, emergency medicine nursing was unable to place the nasogastric tube at bedside so I was summoned to do this and did so via the right nare with minimal resistance. Post placement KUB confirms intragastric position. Tube should be placed to low intermittent wall suction. For the interim patient to be admitted to the hospitalist service. Please keep n.p.o. with IV fluid resuscitation following lactic acid. Will plan to perform serial abdominal exams and initiate small bowel follow-through later today Patient completed small bowel follow-through yesterday and experienced normal transit time with return of bowel function reported approximately midnight yesterday. Patient was subsequently advanced to a liquid diet which she appeared to do without difficulty, however, upon advancing to a full liquid diet she described more pain, distention, and absence of appetite. Therefore I recommended holding at present diet threshold and continued to monitor. As she is revisited this morning she reports significant interval improvements in her symptoms. Her abdominal exam is benign. With these positives recommend advancing to a transitional diet and patient would then be eligible for discharge to home with tolerance is proven. Discussed with hospitalist service. Peter Sullivan MD General Surgery Endocrine Surgery Pager: [facility] [address] [place] [address], [address] [place] [address] Office: [phone] Charges/Coding Visit Charges Inpatient E&M: 95244 Subs Hosp L2
[2024-09-04 09:53] VITALS: BP 161/89; PULSE 73; RESP 18; TEMP 37.1; O2SAT 97
[2024-09-04] MEDS: Enoxaparin 40 MG/0.4 ML Syringe SC (09:56)
[2024-09-04 17:15] VITALS: BP 149/75; PULSE 78; RESP 18; TEMP 36.7; O2SAT 96
[2024-09-04] MEDS: amLODIPine 5 MG Tablet PO (20:59)
[2024-09-04] MEDS: Atorvastatin Calcium 20 MG Tablet PO (20:59)
[2024-09-04 21:11] VITALS: BP 152/79; PULSE 66; RESP 18; TEMP 37.7; O2SAT 97
[2024-09-05 05:44] VITALS: BP 141/71; PULSE 65; RESP 18; TEMP 36.6; O2SAT 96
[2024-09-05 08:48] VITALS: BP 135/74; PULSE 64; RESP 18; TEMP 37.1; O2SAT 96
[2024-09-05] MEDS: amLODIPine 5 MG Tablet PO (10:02)
[2024-09-05] MEDS: Enoxaparin 40 MG/0.4 ML Syringe SC (10:02)
--- NOTE | 2024-09-05 10:19 | PCM.DC.SUM ---
Providers Date of Admission: 09/03/24 Primary Care Physician: Dr. Shiv Gaviria MD Consultations 09/03/24 13:21 Consult: General Surgery Routine Consulting Provider: Peter Sullivan Reason for Consult: SBO EMERGENT Consult: No MD Notified: Yes Date Notified: 09/03/24 Time Notified: 11:56 Method of Notification: ED Physician Initiated Reason For Visit: SBO Diagnosis Discharge Diagnosis (1) Small bowel obstruction: Status: Acute Code(s): K56.609 - Unspecified intestinal obstruction, unspecified as to partial versus complete obstruction Plan: Likely partial, now resolved. NG tube removed. Patient does slowly improved and has been tolerating diet. Patient be discharged home. Patient advised to take it easy and slow with her activity until she is feeling back to baseline. Medications at Discharge Home Medications ascorbic acid (vitamin C) 250 mg chewable tablet 250 mg PO DAILY 05/18/23 cholecalciferol (vitamin D3) 125 mcg (5,000 unit) tablet 125 mcg PO DAILY #90 tabs 05/19/23 atorvastatin 20 mg tablet (Lipitor) 20 mg PO DAILY #90 tabs 04/08/24 amlodipine 5 mg tablet 5 mg PO DAILY #90 TABLETS 08/18/24 multivitamin (Daily Multi-Vitamin tablet) 1 tab PO DAILY 09/03/24 Hospital Course Operations None Procedures None Summary of Care Provided Hospital Course: Patient had small bowel or partial bowel obstruction and did require an NG tube. Patient improved and the NG tube was removed the following day. Patient has slowly tolerated diet and is ready for discharge home today. General surgery was involved in her care but fortunately no surgical services was necessary. Physical Exam Const alert General Appearance: cooperative and comfortable GI soft to palpation, non-tender and non-distended Weight / BMI Weight Weight: 68.492 kg Body Mass Index (BMI) 31.5 ABG / Lab / Microbiology Data 09/04/24 05:21 09/04/24 05:21 D/C Instructions Discharge Diet: No restrictions DC O2, CPAP, BIPAP Needs Home O2 Discharge instructions: No Meaningful Use Info Meaningful Use Meaningful Use Diagnoses (Choose all that apply): None applicable Ischemic Stroke Statin Dosing Therapy Reference: STATIN DOSE THERAPY REFERENCE: * Patients > 75 years receive moderate or high dose statin therapy. * Patients 75 years or YOUNGER should receive HIGH intensity statin dose unless contraindicated. You will be required to document reason for non-treatment if statin daily dose does not meet guidelines. HIGH DOSE STATIN THERAPY DAILY Atorvastatin > than or = to 40 mg Rosuvastatin > than or = to 20 mg Amlodipine + Atorvastatin > than or = to 2.5/40 mg Ezetimibe + Simvastatin 10/80 mg Simvastatin 80mg Discharge Plan Admission Admit Date/Time: 09/03/24 11:53 Primary Reason for Your Visit: Small bowel obstruction Attending Provider: Omer Ortega Primary Care Provider: Shiv Gaviria Consulting Providers: Peter Sullivan Discharge Orders/Prescriptions Prescriptions: Continued ascorbic acid (vitamin C) 250 mg tablet,chewable 250 mg PO DAILY multivitamin [Daily Multi-Vitamin] Tablet 1 tab PO DAILY cholecalciferol (vitamin D3) 125 mcg (5,000 unit) tablet 125 mcg PO DAILY Qty: 90 1RF atorvastatin [Lipitor] 20 mg tablet 20 mg PO DAILY Qty: 90 1RF amlodipine 5 mg tablet 5 mg PO DAILY Qty: 90 1RF Referrals / Follow Up: Shiv Gaviria MD [Primary Care Provider] - Within 2 Weeks Disposition Disposition (needs filled in before D/C Order can be placed): Home, Self Care Charges/Coding Visit Charges Inpatient E&M: 02097 Disch Hosp
--- NOTE | 2024-09-05 12:05 | CASEMGMT ---
LALIT TYSON NOTE: Discharge order is in. LALIT TYSON to room. Pt sitting up in chair, getting ready to eat lunch. Introduced self and role. Pt states her will be taking her home. She denies having any discharge needs or concerns. Pascual BURDEN RN CM
[2024-09-05 13:12] VITALS: BP 123/55; PULSE 74; RESP 18; TEMP 36.8; O2SAT 98
--- NOTE | 2024-09-05 14:42 | CASEMGMT ---
Social Work- SW met with pt to provide education and information on advanced directives. SW went over documents with pt and pt spouse. SW provided rack card with contact for scheduling an appointment, as pt and spouse would like to take documents home for further review and will call to schedule an appointment for completion. TIERRA Hooks
== END 2024-09-05 15:29 | disposition home or self-care (01) | DRG 390 ==
LOC: ED 11:53 → MS3 12:18
PROVIDERS: Emergency Provider Emergency Medicine; PCP Internal Medicine
DX: K56.600 Partial intestinal obstruction, unspecified as to cause (principal); E11.9 Type 2 diabetes mellitus without complications; I10 Essential (primary) hypertension; E78.5 Hyperlipidemia, unspecified; Z83.3 Family history of diabetes mellitus; Z82.49 Family history of ischemic heart disease and other diseases of the circulatory system; Z87.891 Personal history of nicotine dependence; Z90.710 Acquired absence of both cervix and uterus; Z79.899 Other long term (current) drug therapy
CPT/HCPCS: 36415; 74018; 74177; 74250; 80048; 80053; 80061; 80076; 83036; 83605; 83690; 85025; 99285; Q9967; A4216

== ENCOUNTER → 2024-09-27 | Outpatient (CLI) | payer MEDICARE, OTHER, SELFPAY ==
--- NOTE | 2024-09-27 13:45 | BI_ITS ---
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 Bilateral Breast Mammographic Findings: No suspicious masses, calcifications or other abnormalities are identified. BI/SCRN MAMM (CAD)W/MATTHEW BILAT IMPRESSION: No mammographic evidence of malignancy in either breast. OVERALL FINAL ASSESSMENT BI-RADS 1: NEGATIVE. RECOMMEND ANNUAL MAMMOGRAPHIC SCREENING. RECOMMENDATION: Routine annual follow-up in 1 Year A letter with findings and recommendations will be mailed to the patient. Reading Location: [id number]
== END | disposition home or self-care (01) ==
LOC: OPBI 14:34
PROVIDERS: PCP Internal Medicine; Referring Provider Nurse Practitioner Family; Visit Provider Nurse Practitioner Family
DX: Z12.31 Encounter for screening mammogram for malignant neoplasm of breast (principal)
CPT/HCPCS: 77063; 77067

== ENCOUNTER → 2024-10-19 | Outpatient (CLI) | payer MEDICARE, OTHER, SELFPAY ==
[2024-10-19 12:19] LABS: Hematocrit 38.9 % (37-47); Hemoglobin 12.7 g/dL (12.0-15.0); Immature Granulocytes Count 0.030 X10^3/uL (0.0-0.0); Mean Corp Hgb Conc 32.6 g/dL (32-36); Mean Corpuscular Volume 100.8 fL (81-99); Mean Platelet Vol. 10.4 fl (6.2-12.0); NRBC Flagged by Analyzer 0 % (0-5); Platelet Count 383 K/mm3 (150-450); RBC Distribution Width CV 13.6 % (11.6-14.6); RBC Distribution Width SD 50.7 fl (35.1-43.9); Red Blood Count 3.86 M/mm3 (4.2-5.4); White Blood Count 7.0 K/mm3 (4.4-11.0)
== END | disposition home or self-care (01) ==
LOC: BIMLAB 08:25
PROVIDERS: PCP Internal Medicine; Referring Provider Internal Medicine; Visit Provider Internal Medicine
DX: D64.9 Anemia, unspecified (principal)
CPT/HCPCS: 36415; 85025

== ENCOUNTER 2025-01-19 07:49 | Day surgery (SDC) | payer MEDICARE, OTHER, SELFPAY ==
--- NOTE | 2025-01-17 14:32 | PAT.ANESEVAL ---
Pre-Assessment Diagnosis/Proposed Procedure Planned Operative Procedure(s): COLONOSCOPY Anesthesia History Anesthesia History - cuff setter: Anesthesia History - cuff setter Hx Hospitalization Yes: 08/2024 BOWEL 01/17/25 11:41 OBSTRUCTION Any Problems With Anesthesia Yes: SLOW TO AWAKEN 01/17/25 11:41 Cholinesterase deficiency No 01/17/25 11:41 You/Your Family Experience No 01/17/25 11:41 fever (hyperthermia) with Relationship Recent Exposure to Contagious No 10/12/20 09:20 Disease Does patient have nerve No 01/17/25 11:41 stimulator Patient instructed to have device shut off --Does patient have Pacemaker or ICD? When Was Last Pacemaker Check QUESTION #4 FULL TEXT: You/Your Family Experience fever (hyperthermia) with Anesthesia Last Oral Intake Last Oral intake: Last Oral Intake NPO since Meds taken in AM with sips of water? Meds patient instructed to take am of surgery PONV PONV - cuff setter: PONV - cuff setter Female Yes 01/17/25 11:41 HX of Motion Sickness Yes 01/17/25 11:41 HX of N/V After Surgery Yes 01/17/25 11:41 Non-Smoker No 01/17/25 11:41 Duration of Surgery greater No 01/17/25 11:41 than 60 minutes Number of Risk Factors 3 01/17/25 11:41 PONV Score Moderate Risk 01/17/25 11:41 Height & Weight Height & Weight: Anesthesia: Height & Weight Height 4 ft 10 in 11/08/24 13:30 Respiratory Assessment Respiratory Assessment - cuff setter: Respiratory Tract Infection Hx - cuff setter Hx Respiratory Tract Infection No 01/17/25 11:41 STOP Sleep Apnea STOP Sleep Apnea - cuff setter: STOP Sleep Apnea - cuff setter Hx Hypertension Yes: CONTROLLED ON MED 01/17/25 11:41 Hx Sleep Apnea No 01/17/25 11:41 CPAP No 01/17/25 11:41 BIPAP No 01/17/25 11:41 Do you snore loudly (louder No 01/17/25 11:41 than talking or can be heard Do you often feel tired/ No 01/17/25 11:41 fatigued/ sleepy during daytime? Has anyone observed you stop No 01/17/25 11:41 breathing during sleep? STOP Results Negative 01/17/25 11:41 QUESTION #5 FULL TEXT : Do you snore loudly (louder than talking or can be heard through closed doors)? 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 Specify any problems Hx of Preganancy in last 3 No 01/17/25 11:41 Months Nurse Filling Out Transfusion VCHRISTIN 01/17/25 11:41 & Questions: Date: 01/17/25 01/17/25 11:41 Time: 11:43 01/17/25 11:41 Patient unable to answer at this time (ie. confused, unrespo /Reproduction History /Reproductive History - cuff setter: /Reproductive Hx- cuff setter Hx Now No 01/17/25 11:41 Gestational Age (in weeks): EDC: Hx Hx Para Hx Section SAB No 01/17/25 11:41 PFS Medical History (Updated 01/17/25 @ 11:41 by Joelle Hubbard) Fatty liver High cholesterol Gastric reflux Non-smoker History of pain when walking History of edema GERD (gastroesophageal reflux disease) History of intestinal obstruction Bilateral lower extremity edema Anxiety and depression Vitamin D deficiency Neck pain Grief reaction Health care maintenance Post-menopausal Hypertension Borderline type 2 diabetes mellitus Osteopenia Arthritis Anemia Recurrent incisional hernia Hyperlipidemia Home Medications ?Medication ?Instructions ?Recorded ?Last Taken ?Type amlodipine 5 mg tablet 5 mg PO DAILY #90 TABLETS 08/18/24 Unknown Rx multivitamin (Daily Multi-Vitamin 1 tab PO DAILY 09/03/24 Unknown History tablet) omeprazole 40 mg capsule,delayed 40 mg PO QDAY #90 caps 10/19/24 Unknown Rx release atorvastatin 20 mg tablet (Lipitor) 20 mg PO DAILY #90 tabs 12/27/24 Unknown Rx calcium 600 mg (as 2 cap PO DAILY 01/17/25 Unknown History carbonate)-vitamin D3 5 mcg (200 unit) capsule (Calcium 600 + D(3)) Allergy/AdvReac Type Severity Reaction Status Date / Time Environmental Allergies: Allergy Hives Verified 01/17/25 11:30 Uncoded hydrocodone AdvReac Nausea Verified 01/17/25 11:30 Family History Mother Alcohol abuse Father Alcohol abuse Cancer prostate Diabetes Myocardial infarction, Onset Age: 82 Parkinson disease Son Alcohol abuse Anxiety Myocardial infarction, Onset Age: 51 Hyperlipemia Brother Cancer Sister Hypertension Hyperlipemia Surgical History History of cholecystectomy History of hysterectomy S/P repair of recurrent ventral hernia Status post repair of recurrent ventral hernia History of hernia repair History of colonoscopy Social History Smoking Status: Former smoker alcohol intake: never substance use type: does not use what type of physical activity do you participate in: none Audit: Pertinent Findings Pertinent Findings EKG Perinent findings: 12/04/2020. Normal sinus rhythm. LAD. Inferior infarct, age undetermined. Recommendation Anesthesia Recommendation Anesthesia recommendation: OPTIMIZED for anesthesia
[2025-01-19] VITALS (8 sets, daily range): BP systolic 105–126; BP diastolic 61–68; PULSE 55–75; RESP 16–18; TEMP 36.1–36.9; O2SAT 94–95; BMI 32.2
[2025-01-19] MEDS: Lactated Ringers 1,000 ML 15 ML IV (08:15)
--- NOTE | 2025-01-19 08:37 | PRE.ANES_ITS ---
ASA Classification* ASA Classification ASA Classification: 2 Assessment & Plan Anesthesia* Anesthesia Assessment Anesthesia Assessment: Discussed sedation and/or anesthesia options, risks, benefits, and alternatives with patient/parents/legal guardian/POA. Questions invited. The patient/parents/legal guardian/POA seems to understand and agrees to proceed with anesthesia plan. Reviewed the physical assessment, medical history, allergy history and patient home medications list prior to surgery/procedure/anesthetic and documented any changes. Performed airway and anesthesia risk assessments. Anesthesia Type Anesthesia Type: MAC History Source History Obtained from:: Patient, Chart and Significant Other (Spouse in the room) Anesthesia Focused Assessment* Temperature: 98.4 F Pulse Rate: 75 Blood Pressure: 126/68 Respiratory Rate: 16 Pulse Ox: 95 Oxygen Delivery Method: Room Air Airway Assessment Mouth opens: >3 cm Mallampati Score: II Teeth Condition: Caps/Crowns and Missing Neck Range of motion (ROM): Limited ROM Labs Anesthesia Preop lab: CBC WBC, (4.4-11.0) 7.0 K/mm3 10/19/24, 08:25 RBC, (4.2-5.4) 3.86 M/mm3 L 10/19/24, 08:25 Hgb, (12.0-15.0) 12.7 g/dL 10/19/24, 08:25 Hct, (37-47) 38.9 % 10/19/24, 08:25 Plt Count, (150-450) 383 K/mm3 10/19/24, 08:25 CHEMISTRY Potassium, (3.3-5.1) 3.4 mmol/L 09/04/24, 05:21 Sodium, (133-145) 145 mmol/L 09/04/24, 05:21 BUN, (4-19) 18 mg/dL 09/04/24, 05:21 Creatinine, (0.70-1.20) 0.62 mg/dL L 09/04/24, 05:21 Glucose, (70-99) 123 mg/dL H 09/04/24, 05:21 TSH, (0.358-3.74) 1.01 uIU/mL 05/27/18, 11:35 COAG PT, (11.9-14.4) 13.0 SECONDS 10/05/12, 11:37 Pre-Assessment Diagnosis/Proposed Procedure Planned Operative Procedure(s): COLONOSCOPY Anesthesia History 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 When Was Last Pacemaker Check QUESTION #4 FULL TEXT: You/Your Family Experience fever (hyperthermia) with Anesthesia Last Oral Intake Last Oral intake: Last Oral Intake NPO since 05:00 01/19/25 08:13 Meds taken in AM with sips of water? Meds patient instructed to take am of surgery PONV PONV - breaker operator: PONV - breaker operator Female Yes 01/17/25 11:41 HX of Motion Sickness Yes 01/17/25 11:41 HX of N/V After Surgery Yes 01/17/25 11:41 Non-Smoker No 01/17/25 11:41 Duration of Surgery greater No 01/17/25 11:41 than 60 minutes Number of Risk Factors 3 01/17/25 11:41 PONV Score Moderate Risk 01/17/25 11:41 Height & Weight Height & Weight: Anesthesia: Height & Weight Height 4 ft 10 in 01/19/25 08:13 Weight: 69.9 kg 01/19/25 08:13 Body Mass Index (BMI) 32.2 01/19/25 08:13 Respiratory Assessment Respiratory Assessment - breaker operator: Respiratory Tract Infection Hx - breaker operator Hx Respiratory Tract Infection No 01/17/25 11:41 STOP Sleep Apnea STOP Sleep Apnea - breaker operator: STOP Sleep Apnea - breaker operator Hx Hypertension Yes: CONTROLLED ON MED 01/17/25 11:41 Hx Sleep Apnea No 01/17/25 11:41 CPAP No 01/17/25 11:41 BIPAP No 01/17/25 11:41 Do you snore loudly (louder No 01/17/25 11:41 than talking or can be heard Do you often feel tired/ No 01/17/25 11:41 fatigued/ sleepy during daytime? Has anyone observed you stop No 01/17/25 11:41 breathing during sleep? STOP Results Negative 01/17/25 11:41 QUESTION #5 FULL TEXT : Do you snore loudly (louder than talking or can be heard through closed doors)? 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 Specify any problems Hx of Preganancy in last 3 No 01/17/25 11:41 Months Nurse Filling Out Transfusion VCHRISTIN 01/17/25 11:41 & Questions: Date: 01/17/25 01/17/25 11:41 Time: 11:43 01/17/25 11:41 Patient unable to answer at this time (ie. confused, unrespo /Reproduction History /Reproductive History - breaker operator: /Reproductive Hx- breaker operator Hx Now No 01/17/25 11:41 Gestational Age (in weeks): EDC: Hx Hx Para Hx Section SAB No 01/17/25 11:41 Active Medications Active Medications: Current Medications Generic Name Dose Route Start Last Admin Trade Name Freq PRN Reason Stop Dose Admin Lactated Ringer's 1,000 mls @ 15 mls/hr 01/19/25 08:15 01/19/25 08:15 IV 15 mls/hr .Q48H BIA Administration PFSH Medical History Fatty liver High cholesterol Gastric reflux Non-smoker History of pain when walking History of edema GERD (gastroesophageal reflux disease) History of intestinal obstruction Bilateral lower extremity edema Anxiety and depression Vitamin D deficiency Neck pain Grief reaction Health care maintenance Post-menopausal Hypertension Borderline type 2 diabetes mellitus Osteopenia Arthritis Anemia Recurrent incisional hernia Hyperlipidemia Home Medications ?Medication ?Instructions ?Recorded ?Last Taken ?Type amlodipine 5 mg tablet 5 mg PO DAILY #90 TABLETS 01/18/25 Rx multivitamin (Daily Multi-Vitamin 1 tab PO DAILY 09/03 Unknown History tablet) omeprazole 40 mg capsule,delayed 40 mg PO QDAY #90 cap s 10/19/24 Unknown Rx release atorvastatin 20 mg tablet (Lipitor) 20 mg PO DAILY #90 tabs 12/27/24 Unknown Rx calcium 600 mg (as 2 cap PO DAILY 01/17/25 Unkn own History carbonate)-vitamin D3 5 mcg (200 unit) capsule (Calcium 600 + D(3)) Allergy/AdvReac Type Severity Reaction Status Date / Time Environmental Allergies: Allergy Hives Verified 01/19/25 08:12 Uncoded hydrocodone AdvReac Nausea Verified 01/19/25 08:12 Family History Mother Alcohol abuse Father Alcohol abuse Cancer prostate Diabetes Myocardial infarction, Onset Age: 82 Parkinson disease Son Alcohol abuse Anxiety Myocardial infarction, Onset Age: 51 Hyperlipemia Brother Cancer Sister Hypertension Hyperlipemia Surgical History History of cholecystectomy History of hysterectomy S/P repair of recurrent ventral hernia Status post repair of recurrent ventral hernia History of hernia repair History of colonoscopy Social History Smoking Status: Former smoker alcohol intake: never substance use type: does not use what type of physical activity do you participate in: none Review of Systems (Anesthesia) ROS Narrative System reviewed and no additional complaints, except as documented.
--- NOTE | 2025-01-19 08:59 | HP.PCM_ITS ---
History and Physical Date of Service: 11/08/24 MR#: [id number] Acct: [id number] Name: GEMMA CERON Rep #: [id number] : 1950 Provider: Dr. Peter Sullivan MD Age/Sex: 74/F Location: [facility] Status: Signed Intake Vital Signs 09/19/2509:10 10/19/2506:53 11/08/2512:30 Height 4 ft 10 in 4 ft 10 in 4 ft 10 in Weight: 149 lb 152 lb 152 lb BMI 31.1 31.7 31.7 BP 138/74 H 122/68 H 108/61 Blood Pressure Location Lt brachial Lt brachial Rt brachial Position Sitting Sitting Sitting Respiration 16 16 18 Pulse 67 73 69 Pulse Source Monitor Monitor Monitor Temp 97.5 F L 96 F L 97.2 F L Temp Source Temporal Temporal Temporal Pulse Oximetry (%) 96 96 99 Oxygen Delivery Method room air room air room air Intake Visit Reasons: HOSPITAL F/U- COLONOSCOPY Chief Complaint: hospital f/u- colonoscopy Is patient in pain?: No Allergies Environmental Allergies: Uncoded Allergy (Verified 11/08/24 13:33) Hives hydrocodone Adverse Reaction (Verified 11/08/24 13:33) Nausea Medications ?Medication ?Instructions ?Recorded ?Confirmed ?Type ascorbic acid (vitamin C) 250 mg 250 mg PO DAILY 05/18/23 11/08/24 Histor y chewable tablet cholecalciferol (vitamin D3) 125 125 mcg PO DAILY #90 tabs 05/19/2311/08 Rx mcg (5,000 unit) tablet atorvastatin 20 mg tablet (Lipitor) 20 mg PO DAILY #90 tabs 04/08/24 5 Rx amlodipine 5 mg tablet 5 mg PO DAILY #90 TABLETS 08/18/2411/08 Rx multivitamin (Daily Multi-Vitamin 1 tab PO DAILY 09/03/24 11/08/24 History tablet) omeprazole 40 mg capsule,delayed 40 mg PO QDAY #90 caps 10/19/24 11/08/24 Rx release Have you fallen in the past year?: No PFSH Medical History (Updated 11/08/24 @ 16:[address] Peter Sullivan MD) Hypertension Borderline type 2 diabetes mellitus Anemia GERD (gastroesophageal reflux disease) History of intestinal obstruction Bilateral lower extremity edema Anxiety and depression Vitamin D deficiency Neck pain Grief reaction Health care maintenance Post-menopausal Osteopenia Arthritis Recurrent incisional hernia Hyperlipidemia Surgical History History of cholecystectomy History of hysterectomy S/P repair of recurrent ventral hernia Status post repair of recurrent ventral hernia History of hernia repair History of colonoscopy Family History Mother Alcohol abuse Father Alcohol abuse Cancer prostate Diabetes Myocardial infarction, Onset Age: 82 Parkinson disease Son Alcohol abuse Anxiety Myocardial infarction, Onset Age: 51 Hyperlipemia Brother Cancer Sister Hypertension Hyperlipemia Social History Smoking Status: Former smoker alcohol intake: never substance use type: does not use what type of physical activity do you participate in: none HPI HPI HPI: Patient is a 74-year-old female who is known to me for a recent small bowel obstruction spontaneously resolved in August of this year and now presents for need to schedule update screening colonoscopy . They are referred for surgical consultation from Dr. Gaviria. Patient has had prior colonoscopy, however, she admits this was probably [address] Vincent. She does not recall any polyps being found and shares that she was given a 10-year follow-up, however, that noticed for the follow-up occurred approximately 5 years ago. Mrs. Ceron describes her bowel habits as normal. They have approximately 3-4 bowel movements per day and spend roughly 10 minutes or less on the toilet without significant straining. They have not noticed recent bleeding or dark stools. Patient has a family history of diverticulitis in her father but no inflammatory bowel disease or colon cancer. The patient's weight is stable. The patient is not prescribed anticoagulants/blood thinners. Relevant prior abdominal surgical history includes: Cholecystectomy, hysterectomy, and ventral hernia repair Patient does have a significant history of GERD. Patient states that approximately 3 months ago she had a bad attack but over the course of her 15 years of this diagnosis is probably only had 15 episodes. She states that out of her last episode she was prescribed omeprazole and this has been very effective in managing her symptoms so much so that she is experience just 1 mild episode since beginning the medication. Outside of the above, later in the visit patient remarks that she had a self- limited experience with lower abdominal pain approximately 3 weeks ago that got spontaneously better. ROS General General: No weight change, appetite, fatigue, colon cancer, breast cancer or weakness HEENT HEENT: No difficulty swallowing, eye injury, eye surgery, swollen glands or hoarseness Endo Endocrine: No thyroid disease, diabetes mellitus, thyroid cancer, Hair loss, heat intolerance or cold intolerance Skin Skin: No rash or changing moles Musc Musculoskeletal: No back problems, arthritis, rheumatoid arthritis, gout or joint pain Cardio Cardiovascular: Yes high blood pressure; No murmur, pacemaker, heart disease, atrial fibrillation, heart attack, heart stent, palpitations, shortness of breath with exertion or chest pain Psych Psychiatric: No depression, anxiety or hearing voices Resp Respiratory: No shortness of breath, No sleep apnea, No cough, No COPD, No asthma, No emphysema and No wheezing Gastro Gastrointestinal: No abdominal pain, No nausea or vomiting, No diarrhea, No constipation, No blood in stool, Yes acid reflux, No hemorrhoids, No ulcers, No gallbladder problem and No black,tarry stools David Hematologic: No blood thinners, No blood disorders, No bleeding, No anemia and No blood clots Neuro Neurologic: No numbness and No weakness Exam Const General: cooperative, comfortable and no acute distress Nutritional Appearance: average body habitus Resp Effort & Inspection: normal respiratory effort GI Other: Nondistended, well-healed scars, no hernias, soft, nontender palpation x 4 quadrants Assessment and Plan Assessment and Plan (1) Screening for colon cancer: Status: Acute Comment: Patient is 74-year-old female who appears to be at average risk for colon cancer, but has exceeded her recommended interval for screening colonoscopy by approximately 5 years. Last colonoscopy reportedly normal but results are not immediately available. Patient denies any present issues after spontaneously resolving obstructive symptoms 2 months ago. She does, additionally, reports some lower quadrant discomfort which could be uncomplicated diverticulitis. I shared I would not recommend proceeding for endoscopy exam if she is experiencing the symptoms closer to the time of her colonoscopic evaluation. Patient confirms understanding. Otherwise, would plan for updated screening colonoscopy with 2-day bowel prep. Plan: Plan will be to complete colonoscopy on first mutually agreeable date under local MAC. Pre-procedure prep discussed and paper instructions provided. Patient is also made aware that she will need to have a recycling collections driver with [him/her] the day of the procedure. (2) GERD (gastroesophageal reflux disease): Status: Acute Comment: Patient with acute exacerbation of chronic problem. Appears effectively treated with omeprazole. Patient having next with no symptoms with regular use of omeprazole. Therefore, do not see cause to recommend EGD alongside a colonoscopy I have examined the patient and the H&P has been reviewed. There are no clinical changes since date of exam and she states she has been doing well. Patient confirms she completed prep for today's procedure. She confirms her output is now clear. Proceed to endoscopy suite for screening colonoscopy.
[2025-01-19] MEDS: Lactated Ringers 500 ML IV (09:00)
--- NOTE | 2025-01-19 09:00 | COLBX_PTH ---
PATIENT: GEMMA CERON LOC: EN U#:[id number] AGE/SX: 74/F ROOM: RE01/19/[address]: Dr. Peter Sullivan MD : 1950 BED: DIS: 01/19/2025 SPEC #: [id number] RECD: 01/19/25 09:58 STATUS: TARA REMike #: [id number] AMEE: 01/19/25 09:[address]: Peter Sullivan DEPT: SURGICAL PATHOLOGY RECD BY: Kunal Jack ENTERED: 01/19/25 11:03 SP TYPE: COLON BX OTHR DR: Dr. Shiv Gaviria MD Tissues: A - Rectum, NOS Procedures: Surgery Specimen Level IV HEADER OPERATION: Colonoscopy with polypectomy PRE-OP DIAGNOSIS: Screening for colon cancer TISSUE SUBMITTED: A- Rectal polyp MICROSCOPIC DIAGNOSIS A. Rectum, polyp, biopsy: - Hyperplastic polyp with prolapse features. MICROSCOPIC DESCRIPTION Slides are reviewed. GROSS DESCRIPTION A. Received in fixative is one container labeled with the patient's name and designated Rectal polyp. The specimen consists of one irregular fragment of del cid tissue that measures 0.7 cm. The specimen is totally submitted in one cassette. IA 01/19/2025 CPT:81368
--- NOTE | 2025-01-19 09:38 | PCM.POST.ANE ---
Anesthesia: Postop Eval I Current Vital Signs Temperature: 97.2 F Pulse Rate: 70 Blood Pressure: 112/61 Respiratory Rate: 17 Pulse Ox: 95 Oxygen Delivery Method: Room Air Assessment Airway patent: Yes Spontaneous unlabored respirations: Yes Mental status: Calm nausea: No Vomiting: No Anesthesia Complication: No Fluid Hydration Crystalloid volume administer (ml): 500 Total IV fluid infused: 500 Progress Note Anesthesia document: Postop Eval 1 completed: Yes
--- NOTE | 2025-01-19 09:39 | OP.COLON_ITS ---
Patient Name: Elayne Melendrez Procedure Date: 01/19/2025 8:44 AM Date of : 1950 Age: 74 Procedure: Colonoscopy Indications: Screening for colorectal malignant neoplasm Providers: Peter Sullivan MD Referring MD: Shiv Gaviria MD Medicines: See the Anesthesia note for documentation of the administered medications Patient Profile: Last Colonoscopy: more than 10 years ago. Complications: No immediate complications. Estimated blood loss: Minimal. Procedure: Pre-Anesthesia Assessment: - The heart rate, respiratory rate, oxygen saturations, blood pressure, adequacy of pulmonary ventilation, and response to care were monitored throughout the procedure. After I obtained informed consent, the scope was passed under direct vision. Throughout the procedure, the patient's blood pressure, pulse, and oxygen saturations were monitored continuously. The adult colonoscope was introduced through the anus and advanced to the cecum, identified by the appendiceal orifice, ileocecal valve and palpation. The colonoscopy was performed without difficulty. The patient tolerated the procedure fairly well. The quality of the bowel preparation was good. Scope In: 9:08:57 AM Scope Withdrawal Time 0 hours 15 minutes 6 seconds Scope Out: 9:31:08 AM Total Procedure Duration Time 0 hours 22 minutes 11 seconds Findings: The perianal and digital rectal examinations were normal. Many small and large-mouthed diverticula were found in the entire colon. No biopsies or other specimens were collected for this exam. Two sessile, non-bleeding polyps were found in the rectum. The polyps were 3 to 5 mm in size. Biopsies were taken with a cold forceps for histology. Estimated blood loss was minimal. Internal hemorrhoids were found during retroflexion. The hemorrhoids were Grade I (internal hemorrhoids that do not prolapse). No biopsies or other specimens were collected for this exam. Impression: - Diverticulosis in the entire examined colon. No specimens collected. - Two 3 to 5 mm, non-bleeding polyps in the rectum. Biopsied. - Internal hemorrhoids. No specimens collected. Recommendation: - Discharge patient to home (via wheelchair). - Resume previous diet today. - No aspirin, ibuprofen, naproxen, or other non-steroidal anti-inflammatory drugs for 2 days after biopsy. - Await pathology results. - Repeat colonoscopy date to be determined after pending pathology results are reviewed for surveillance based on pathology results. - Telephone my office for pathology results in 1 week. Procedure Code(s): --- Professional --- 58455, Colonoscopy, flexible; with biopsy, single or multiple Diagnosis Code(s): --- Professional --- Z12.11, Encounter for screening for malignant neoplasm of colon K64.0, First degree hemorrhoids D12.8, Benign neoplasm of rectum K57.30, Diverticulosis of large intestine without perforation or abscess without bleeding CPT copyright 2021 [employer]. All rights reserved. The codes documented in this report are preliminary and upon organic preparation technician review may be revised to meet current compliance requirements. Peter Sullivan MD 01/19/2025 9:39:08 AM This report has been signed electronically. Number of Addenda: 0 Note Initiated On: 01/19/2025 8:44 AM
--- NOTE | 2025-01-19 09:39 | OP.PROVAT_ITS ---
01/19/2025 Shiv Gaviria MD [address] [place] [address] [place] [address] Re : Colonoscopy procedure for Elayne Melendrez Dear Dr. Gaviria This procedure was performed on December. My impressions and recommendations are as follows: Impressions : - Diverticulosis in the entire examined colon. No specimens collected. - Two 3 to 5 mm, non-bleeding polyps in the rectum. Biopsied. - Internal hemorrhoids. No specimens collected. Recommendations : - Discharge patient to home (via wheelchair). - Resume previous diet today. - No aspirin, ibuprofen, naproxen, or other non-steroidal anti-inflammatory drugs for 2 days after biopsy. - Await pathology results. - Repeat colonoscopy date to be determined after pending pathology results are reviewed for surveillance based on pathology results. - Telephone my office for pathology results in 1 week. My findings are described in the full procedure note, which is enclosed. If I can be of further assistance, please feel free to contact me at Doctor phone number(s): , Work: . Sincerely, Peter Sullivan MD 01/19/2025 9:39:08 AM This report has been signed electronically.
--- NOTE | 2025-01-19 14:16 | POSTOPAN2_ITS ---
Anesthesia Postop Eval I Sum Postop Eval Completion status Anesthesia document: Postop Eval 1 completed: Yes Anesthesia Postop Eval I Summary Anesthesia Postop Eval I Summary: Anesthesia Postop Eval I: Assessment Summary Airway patent Yes 01/19/25 09:38 [email or web address] Spontaneous unlabored Yes 01/19/25 09:38 [email or web address] respirations Mental status Calm 01/19/25 09:38 [email or web address] nausea No 01/19/25 09:38 [email or web address] Vomiting No 01/19/25 09:38 [email or web address] Anesthesia Postop Eval I: Fluid Summary Crystalloid volume administer 500 01/19/25 09:38 [email or web address] (ml) Colloids volume administered ( ml) Blood Product volume administered (ml) Total IV fluid infused 500 01/19/25 09:39 [email or web address] Anesthesia Postop Eval I: Summary Notes Anesthesia Complication No 01/19/25 09:38 [email or web address] Anesthesia Complication Comment: Post-operative progress note Anesthesia: Postop Eval II Evaluation Mental status: Awake and Calm Pain Level: 1 nausea: No Vomiting: No Complications Anesthesia Complication: No
--- NOTE | 2025-01-19 14:16 | PCM.POSTANE2 ---
Anesthesia Postop Eval I Sum Postop Eval Completion status Anesthesia document: Postop Eval 1 completed: Yes Anesthesia Postop Eval I Summary Anesthesia Postop Eval I Summary: Anesthesia Postop Eval I: Assessment Summary Airway patent Yes 01/19/25 09:38 [email or web address] Spontaneous unlabored Yes 01/19/25 09:38 [email or web address] respirations Mental status Calm 01/19/25 09:38 [email or web address] nausea No 01/19/25 09:38 [email or web address] Vomiting No 01/19/25 09:38 [email or web address] Anesthesia Postop Eval I: Fluid Summary Crystalloid volume administer 500 01/19/25 09:38 [email or web address] (ml) Colloids volume administered ( ml) Blood Product volume administered (ml) Total IV fluid infused 500 01/19/25 09:39 [email or web address] Anesthesia Postop Eval I: Summary Notes Anesthesia Complication No 01/19/25 09:38 [email or web address] Anesthesia Complication Comment: Post-operative progress note Anesthesia: Postop Eval II Evaluation Mental status: Awake and Calm Pain Level: 1 nausea: No Vomiting: No Complications Anesthesia Complication: No
== END 2025-01-19 10:33 | disposition home or self-care (01) ==
LOC: EN 07:51 → AC 07:53
PROVIDERS: PCP Internal Medicine; Referring Provider Internal Medicine; Visit Provider Surgery
PROC: 0DJD8ZZ Inspection of Lower Intestinal Tract, Via Natural or Artificial Opening Endoscopic (ICD-10-PCS; CPT 45378; principal; 2025-01-19 08:55)
DX: Z12.11 Encounter for screening for malignant neoplasm of colon (principal); E11.9 Type 2 diabetes mellitus without complications; K57.30 Diverticulosis of large intestine without perforation or abscess without bleeding; Z87.891 Personal history of nicotine dependence; K64.0 First degree hemorrhoids; K21.9 Gastro-esophageal reflux disease without esophagitis; Z90.710 Acquired absence of both cervix and uterus; E78.5 Hyperlipidemia, unspecified; I10 Essential (primary) hypertension; Z79.899 Other long term (current) drug therapy; Z90.49 Acquired absence of other specified parts of digestive tract; K62.1 Rectal polyp
CPT/HCPCS: 45380; 88305